=== PATIENT | male | born 1945 | race Caucasian/White ===

== ENCOUNTER 2019-06-17 15:27 | Outpatient (CLI) | payer OTHER, SELFPAY ==
--- NOTE | 2019-06-17 15:34 | CT_ITS ---
WS: [id number] CT LUMBAR SPINE TECHNIQUE: Noncontrast CT of the lumbar spine with coronal and sagittal reformatted images. CLINICAL INFORMATION: LOW BACK PAIN COMPARISON: None. DLP: [address] scans at [facility] use at least one of these dose optimization techniques: automat ed exposure control; mA and/or kV adjustment per patient size (includes targeted exams where dose is matched to clinical indication); or iterative reconstruction. FINDINGS: Mild spondylitic changes. Hypertrophic changes thoracic spine. Mild lumbar curve. No acute compressio n. L1-L2: Normal. L2-L3: Mild annular bulging. Mild facet arthropathy with ligamentum flavum hypertrophy. Mild central canal stenosis. Foramen are patent. L3-L4: Mild annular bulging with slight effacement of ventral thecal sac. Mild central canal stenosis . Mild left foraminal narrowing. Narrowing of the left subarticular recess. Slight impingement fidelia sing left L4 nerve root. Mild facet arthropathy. L4-L5: Mild disc bulging with a central disc protrusion. This results in moderate to severe central c anal stenosis with impingement subarticular recess bilaterally. Moderate right and mild left foramina l narrowing. Moderate facet arthropathy. L5-S1: Mild annular bulging. Moderate facet arthropathy with ligament flavum hypertrophy. Mild left a nd no significant right foraminal narrowing. Left renal cyst measuring 4.7cm. Numerous partially visualized markedly enlarged periaortic and retr operitoneal lymph nodes with conglomerate masslike lymphadenopathy measuring up to 5 cm suspicious fo r active recurrent lymphoma. Recommend oncology evaluation and further evaluation with chest abdomen pelvis CT. Adenopathy appears progressed since 2007 CT/CT lumbar spine wo con* [id number] IMPRESSION: 1. Markedly enlarged partially visualized masslike periaortic and retroperiton eal lymphadenopathy suspicious for active recurrent lymphoma. Masslike lymphade nopathy measures up to 5 cm and appears progressed since 2007. Recommend oncolo gy evaluation and further evaluation with CT chest abdomen and pelvis. This is only partially visualized. 2. Central disc protrusion with moderate to severe central canal stenosis L4-5 . Impingement subarticular recess bilaterally. 3. Mild central canal stenosis L2-3 and L3-4 with impingement on the left L3-4 subarticular recess. 4. Mild to moderate bony foraminal narrowing more prominent at left L3-4, and right L4-5. 5. Moderate facet arthropathy L3-L5.
== END 2019-06-17 15:28 | disposition home or self-care (01) ==
LOC: RADWPI 15:30
PROVIDERS: Family Provider Family Medicine; PCP Family Medicine; Visit Provider Nurse Practitioner
DX: M51.26 Other intervertebral disc displacement, lumbar region (principal); M48.061 Spinal stenosis, lumbar region without neurogenic claudication; M54.5 Low back pain; R59.0 Localized enlarged lymph nodes
CPT/HCPCS: 72131

== ENCOUNTER 2019-09-14 13:40 | Outpatient (CLI) | payer OTHER, SELFPAY ==
--- NOTE | 2019-09-17 13:11 | ONC CON_ITS ---
Dr. Leonardo New Patient Note Patient: Johnathan Montes De Oca Unit #: [id number]: 1945 Dicatated By: Emily Leonardo M.D.Date of Visit: Sep 14, 2019 Onc MED New Patient/Consult Referring Physician: Mayra Garcia A.P.N. History of Present Illness: Mr. 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 At that lymphocytosis reached about 20,000 but subsequently decreased spontaneously. And CT scan of chest abdomen pelvis done at that time shows mild lymph nodes above and below diaphragm but they were too small to biopsy. As per patient he was followed by his PMD and oncologist and [facility], and on 11/07/2015 he underwent bone marrow biopsy which was nondiagnostic for B-cell lymphoma, flow cytometry done on 11/07/2015 showed no clonal process. And also diagnosed with hepatic cirrhosis and splenomegaly Patient said he didn't have any specific issues until recently started having back pain for which he was referred to Dr. Leyva, and pain clinic who ordered CT scan of chest abdomen pelvis on 08/09/2019 which was compared with CT scan from 11/06/2016, October 2015 and April 2015. And it showed stable appearance of mediastinal and hilar and axillary lymph nodes Mild emphysema. Interval development of bulky retroperitoneal and mesenteric lymphadenopathy, measuring about 4.3 cm, suspicious for primary cindy malignancy versus metastatic disease versus reactive. Extensive diverticulosis of descending and sigmoid colon. Cirrhosis, ascites, splenomegaly. Degenerative changes of spine, no fracture On 08/10/2019, Patient went to see [place] medical oncologist Dr. Chato Beasley in [place] and as per his recommendations, patient has history of low-grade lymphoma and it was not clear whether symptoms are attributed to adenopathy/low-grade lymphoma or other process, cirrhosis. He recommended CT PET scan and biopsy lymph node and also would consider bone marrow biopsy. As far as mild neutropenia was concerned it was probably due to cirrhosis/portal hypertension and recommended to continue with it communications specialist. Patient denies any night sweats, denies any fever or weight loss. Denies any lower extremity numbness or weakness denies any urine or stool incontinence.No melena hematochezia, no nosebleed, no jaundice. But abdominal fullness due to ascites Past Medical History: Mr. Carrillos medical history consists of bipolar disorder, bph, chronic obstructive pulmonary disease, depression, generalized anxiety disorder, gout, hyperlipidemia, hypertension, ptsd, and sleep apnea. Past Surgical History: Mr. Mak surgical/procedural history consists of cataract excision. Medications: Ativan 1 Tablet (of 2 mg) Oral b.i.d., Cetirizine HCl 1 Tablet (of 10 mg) Oral daily, Flonase 1 (50 mcg/act) Suspension Nasal PRN, Gabapentin 1 Capsule (of 100 mg) Oral t.i.d., hydroCHLOROthiazide 1 Tablet (of 25 mg) Oral daily, Ibuprofen 1 Tablet (of 800 mg) Oral t.i.d., Omeprazole 1 Capsule (of 20 mg) Capsule Delayed Release Oral daily, ProAir HFA 1 Inhalation (of 108 (90 base) mcg/act) Aerosol, solution Inhalation PRN, Tamsulosin HCl 1 Capsule (of 0.4 mg) Oral daily, Vitamin D3 1 Capsule (of 5000 Units) Oral daily PRN Allergies: Cortisone Acetate, darvon, and quiNINE Sulfate. Social History: Mr. Montes De Oca is and he is retired. Mr. Montes De Oca quit smoking 17 years ago but had smoked for 44 years. He drinks occasionally. Mr. Montes De Oca reports the following support systems: lives with spouse, significant other, family, or friends, supportive family/friends willing to assist with needs, and adequate transportation available for expected visits. His diet consists of regular meals. He indicates his activity level as: regular exercise. Family History: Mr. Montes De Oca's mother at age 78: type II diabetes. Mr. Montes De Oca's father at age 84: lung cancer. Mr. Montes De Oca has 1 sister who is : cancer of unknown primary. Review Of Symptoms: Constitutional - Appetite is poor and weight is stable. No fever, chills, hot flashes, or night sweats. Energy level is poor, ENMT - Positive for sinus congestion/drainage. No mouth sores. No sore throat or difficulty swallowing, Hematologic/Lymphatic - Positive for easy bruising or bleeding, Respiratory - Positive for shortness of breath and cough, Cardiovascular - No angina pain. No palpitations, Gastrointestinal - No nausea or vomiting. No heartburn or acid reflux. Flucuates between diarrhea and constipation. No blood in the stool or black stools, Genitourinary (M) - No dysuria or hematuria. Positive for urinary frequency. No urgency or incontinence, Musculoskeletal - Positive for joint pain, Neurologic - No headache or dizziness. No numbness/paresthesias or other focal neurologic symptoms, Psychiatric - Positive for anxiety. Vital Signs: Performed on Sep 14, 2019 13:47: 6, 32.09 (HIGH), 2.29 sq.m, 72.00 in, 98 %, 80 /min, 18 /min, 136/70 mm(hg), 99.1 F (HIGH), and 236.6 lbs (HIGH). Performance Status: 0 - Fully active, able to carry on all predisease activities without restrictions. (ECOG) Physical Examination: ENMT - . No oral exudates, ulcers, masses, thrush or mucositis. Oropharynx clear. Tongue normal, Respiratory - Lungs are clear to auscultation, Cardiovascular - Regular rate and rhythm of heart, Abdomen - Good bowel sounds. No guarding or rebound tenderness. distended with [id number] ascites, Extremities - 2+ edema bilaterally.no peripheral lymphadenopathy observed Lab/Imaging: Most recent lab results are not available for this patient. Impression: History of low-grade, follicular lymphoma, CD 10 and CD19 positive diagnosed in 2004, recently done CT scan of chest abdomen pelvis, when compared with CT scan from October 2016 showed stable, small mediastinal lymphadenopathy, hilar and axillary lymphadenopathy. But progressive/bulky retroperitoneal and mesenteric lymphadenopathy increased from 2017, one of the largest measuring 4.3 cm chain. Degenerative changes of spine no fracture seen. Hepatic cirrhosis/splenomegaly/ascites Mild thrombocytopenia CBC done on 08/09/2002 shows white blood count 6.1 hemoglobin 14.9 crit 44.3 platelets 90,000 lymphocytes 47.9% neutrophil 38.2%. Chronic back pain, etiology unclear degenerative joint disease versus pressure due to retroperitoneal lymphadenopathy. Plan: Discussed with patient regarding his disease status and question concern. Patient said due to inconvenience he decided to transfer his care to [place] and wants further workup to be done here. Patient has no B symptoms. Mild peripheral lymphadenopathy and CT scan of chest abdomen pelvis done in July 2019 showed mild mediastinal lymphadenopathy but progressive retroperitoneal lymphadenopathy and he has seen medical oncologist Dr. Chato Beasley in [place] who recommended CT PET scan and lymph node biopsy as well as bone marrow evaluation. Patient is reluctant as far as bone marrow biopsy is concern because of his past experience. But agreed for CT PET scan and if needed lymph node biopsy. As for his back pain is concern, patient said is a chronic problem and not bothering much at this moment, In that case we will consider CT PET scan before his return to clinic in 2 months with CBC CMP and LDH unless patient has progressive back pain in that case we might people CT PET scan to assess retroperitoneal lymph node status. He will return to clinic in 2 months with CBC CMP LDH and CT PET scan and for further discussion. Patient was advised in case he has new B symptoms or any weight loss or progressive back pain then he need to call us early otherwise return to clinic as scheduled. Signed By: Emily Leonardo M.D. <<Signature on File>>
== END 2019-09-14 13:41 | disposition home or self-care (01) ==
LOC: ONCMED 13:45
PROVIDERS: Family Provider Family Medicine; PCP Nurse Practitioner; Referring Provider Nurse Practitioner; Visit Provider Internal Medicine Hematology & Oncology
DX: Z85.72 Personal history of non-Hodgkin lymphomas (principal); M54.9 Dorsalgia, unspecified; R59.0 Localized enlarged lymph nodes; Z87.891 Personal history of nicotine dependence
CPT/HCPCS: 99203

== ENCOUNTER 2019-09-20 10:01 | Outpatient (CLI) | payer OTHER, SELFPAY ==
--- NOTE | 2019-09-20 10:11 | US_ITS ---
WS: [id number] ULTRASOUND ABDOMEN LIMITED CLINICAL INFORMATION: LYMPHOMA COMPARISON: None. FINDINGS: Ultrasound done for paracentesis planning. Only a small amount of fluid visualized in the 4 abdominal quadrants. Inadequate fluid for paracentesis at this time. US/US abdomen limited [id number] IMPRESSION: Small amount of ascites visualized in the 4 abdominal quadrants.
[2019-09-20 10:35] VITALS: BMI 33.3
[2019-09-20 10:36] VITALS: BP 136/73; PULSE 74; RESP 18; TEMP 37.7; O2SAT 97
[2019-09-20 10:42] LABS: INR 1.16 (0.8-1.2)
--- NOTE | 2019-09-20 11:34 | PC.NURSE ---
PARACENTESIS NOT DONE. NOT ENOUGH FLUID IN ABD. MIGNON, US TALKED TO DR TYLER AND SAID PT DID NOT NEED PARACENTESIS. I CALLED DR TSANG OFFICE AND SPOKE WITH BRIDGETTE. I TOLD HER ABOUT HIS COUGH THAT HE SAID WAS ALLERGIES, AND PT HAS A SLIGHT TEMP. THEY ADVISED HIM TO GET CHECKED IN ER, BUT PT SAID HE DIDN'T THINK THAT WAS NEEDED.
== END 2019-09-20 10:02 | disposition home or self-care (01) ==
PROVIDERS: Internal Medicine Hematology & Oncology; Family Provider Family Medicine; PCP Nurse Practitioner; Visit Provider Internal Medicine Medical Oncology
DX: C85.90 Non-Hodgkin lymphoma, unspecified, unspecified site (principal); R18.8 Other ascites
CPT/HCPCS: 36415; 49083; 76705; 85610

== ENCOUNTER 2019-11-12 07:15 | Outpatient (CLI) | payer OTHER, SELFPAY ==
[2019-11-12 12:27] LABS: Basophils # 0.1 10^3/uL (0.0-0.1); Basophils % 1.4 %; Eosinophils # 0.3 10^3/uL (0.0-0.8); Eosinophils % 5.8 %; Hemoglobin 15.3 g/dL (11.7-16.6); Lymphocytes % 57.4 %; Mean Corpuscular HGB Conc 33.3 g/dL (30.0-36.0); Mean Corpuscular Hemoglobin 31.2 pg (28.0-34.0); Mean Corpuscular Volume 93.7 fL (80-94); Mean Platelet Volume 12.7 fL (7.4-10.4); Monocytes # 0.4 10^3/uL (0.2-0.9); Monocytes % 7.2 %; Neutrophils # 1.5 10^3/uL (1.8-7.7); Nucleated Red Blood Cells % 0 %; Platelet Count 72 10^3/cmm (130-400); Red Blood Count 4.91 10^6/uL (4.1-5.3); Red Cell Distribution Width 15.1 % (12.1-15.1); White Blood Count 5.2 10^3/uL (4.0-10.0)
[2019-11-12 12:47] LABS: Alanine Aminotransferase 32 U/L (0-41); Albumin Level 4.1 g/dL (3.5-5.2); Alkaline Phosphatase 85 IU/L (40-130); Anion Gap 17.6 (5-19); Aspartate Amino Transferase 51 U/L (0-40); Blood Urea Nitrogen 19 mg/dL (8-23); Calcium 10.2 mg/dL (8.5-10.5); Carbon Dioxide 26 mmol/L (22-29); Chloride 104 mmol/L (98-107); Globulin 3.1 g/dL (1.3-4.6); Glucose 76 mg/dL (65-115); Osmolality Calculated 293 mOsm/kg (285-295); Potassium 3.6 mmol/L (3.5-5.1); Sodium 144 mmol/L (136-145); Total Bilirubin 1.2 mg/dL (0.15-1.2); Total Protein 7.2 g/dL (6.6-8.7)
[2019-11-12 13:13] LABS: Lactate Dehydrogenase 307 U/L (135-225)
== END 2019-11-12 07:16 | disposition home or self-care (01) ==
PROVIDERS: PCP Nurse Practitioner; Visit Provider Internal Medicine Hematology & Oncology
DX: Z85.72 Personal history of non-Hodgkin lymphomas (principal)
CPT/HCPCS: 80053; 83615; 85025

== ENCOUNTER 2019-11-16 14:24 | Outpatient (CLI) | payer OTHER, SELFPAY ==
--- NOTE | 2019-11-16 15:50 | ONC FU_ITS ---
Dr. Leonardo follow up note Patient: Johnathan Montes De Oca Unit #: [id number]: 1945 Dicatated By: Emily Leonardo M.D.Date of Visit:Nov 16, 2019 Onc Med Follow-up/Prog Note History of Present Illness: Mr. 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 At that lymphocytosis reached about 20,000 but subsequently decreased spontaneously. And CT scan of chest abdomen pelvis done at that time shows mild lymph nodes above and below diaphragm but they were too small to biopsy. As per patient he was followed by his PMD and oncologist and [facility], and on 11/07/2015 he underwent bone marrow biopsy which was nondiagnostic for B-cell lymphoma, flow cytometry done on 11/07/2015 showed no clonal process. And also diagnosed with hepatic cirrhosis and splenomegaly Patient said he didn't have any specific issues until recently started having back pain for which he was referred to Dr. Leyva, and pain clinic who ordered CT scan of chest abdomen pelvis on 08/09/2019 which was compared with CT scan from 11/06/2016, October 2015 and April 2015. And it showed stable appearance of mediastinal and hilar and axillary lymph nodes Mild emphysema. Interval development of bulky retroperitoneal and mesenteric lymphadenopathy, measuring about 4.3 cm, suspicious for primary cindy malignancy versus metastatic disease versus reactive. Extensive diverticulosis of descending and sigmoid colon. Cirrhosis, ascites, splenomegaly. Degenerative changes of spine, no fracture On 08/10/2019, Patient went to see [place] medical oncologist Dr. Chato Beasley in [place] and as per his recommendations, patient has history of low-grade lymphoma and it was not clear whether symptoms are attributed to adenopathy/low-grade lymphoma or other process, cirrhosis. He recommended CT PET scan and biopsy lymph node and also would consider bone marrow biopsy. 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 Patient denies any night sweats, denies any fever or weight loss. Denies any lower extremity numbness or weakness denies any urine or stool incontinence.No melena hematochezia, no nosebleed, no jaundice. But abdominal fullness due to ascites Patient was referred to interventional radiology for ultrasound-guided paracentesis patient underwent sonogram on 09/20/2019 which showed some mild amount of ascites visualized in 4 abdominal quadrant, inadequate fluid for paracentesis at that time Patient underwent follow-up CT PET scan on 11/06/2019 which showed FDG positive lymphadenopathy from the level of head and neck to the level of pelvis. No evidence of splenic or marrow or extranodal involvement Came for follow-up, denies any specific complaints, back pain is resolved. Patient said he went to see Dr. Leyva, and pain clinic and he was given injection to his back since then no more back pain. And patient denies any abdominal fullness denies any night sweats denies any recurrent fever denies any weight loss, in fact, now has gained weight. Medications: Ativan 1 Tablet (of 2 mg) Oral b.i.d., Cetirizine HCl 1 Tablet (of 10 mg) Oral daily, Flonase 1 (50 mcg/act) Suspension Nasal PRN, Gabapentin 1 Capsule (of 100 mg) Oral t.i.d., hydroCHLOROthiazide 1 Tablet (of 25 mg) Oral daily, Ibuprofen 1 Tablet (of 800 mg) Oral t.i.d., Omeprazole 1 Capsule (of 20 mg) Capsule Delayed Release Oral daily, ProAir HFA 1 Inhalation (of 108 (90 base) mcg/act) Aerosol, solution Inhalation PRN, Tamsulosin HCl 1 Capsule (of 0.4 mg) Oral daily, Vitamin D3 1 Capsule (of 5000 Units) Oral daily PRN Allergies: Cortisone Acetate, darvon, and quiNINE Sulfate. Review of Systems: Constitutional - Appetite is poor and weight is stable. No fever, chills, hot flashes, or night sweats. Energy level is poor, ENMT - Positive for sinus congestion/drainage. No mouth sores. No sore throat or difficulty swallowing, Hematologic/Lymphatic - Positive for easy bruising or bleeding, Respiratory - Positive for shortness of breath and cough, Cardiovascular - No angina pain. No palpitations, Gastrointestinal - No nausea or vomiting. No heartburn or acid reflux. Flucuates between diarrhea and constipation. No blood in the stool or black stools, Genitourinary (M) - No dysuria or hematuria. Positive for urinary frequency. No urgency or incontinence, Musculoskeletal - Positive for joint pain, Neurologic - No headache or dizziness. No numbness/paresthesias or other focal neurologic symptoms, Psychiatric - Positive for anxiety. Vital Signs: Performed on Nov 16, 2019 14:39 Height - 72.00 in Weight - 225.6 lbs (LOW) BSA - 2.24 sq.m BMI - 30.60 (HIGH) Temperature - 99.3 F (HIGH) Pulse - 82 /min Respiration - 26 /min BP - 130/65 mm(hg) O2 Sat - 96 % Pain - 0 Performance Status: 0 - Fully active, able to carry on all predisease activities without restrictions. (ECOG) Physical Examination: ENMT - no mouth sores, no thrush, no jaundice,no peripheral lymphadenopathy, Respiratory - Lungs are clear, Cardiovascular - Regular rate and rhythm of heart, Abdomen - soft, bowel sounds present,nontender, Extremities - trace edema bilaterally Lab/Imaging: Test performed on November 12, 2019 07:15 LDH (Total) 307 U/L Sodium 144 mmol/L Potassium 3.6 mmol/L Chloride 104 mmol/L CO2 26 mmol/L Anion Gap 17.6 BUN 19 mg/dL Creatinine 1.0 mg/dL Cr Clearance (Est) 98.3800 mL/min Glucose 76 mg/dL Calcium 10.2 mg/dL Protein, Total 7.2 g/dL Albumin 4.1 g/dL Globulin 3.1 g/dL Bilirubin, Total 1.2 mg/dL ALT (SGPT) 32 U/L AST (SGOT) 51 U/L Alkaline Phosphatase 85 IU/L WBC 5.2 10 3/uL RBC 4.91 10 6/uL HGB 15.3 g/dL HCT 46.0 % MCV 93.7 fL MCH 31.2 pg MCHC 33.3 g/dL RDW 15.1 % Platelet Count 72 10 3/cmm MPV 12.7 fL Neutrophils 1.5 10 3/uL Lymphocytes 3.0 10 3/uL Monocytes 0.4 10 3/uL Eosinophils 0.3 10 3/uL Basophils 0.1 10 3/uL Neutrophil % 28.0 % Lymphocyte % 57.4 % Monocyte % 7.2 % Eosinophil % 5.8 % Basophils % 1.4 % Test performed on Sep 20, 2019 10:25 PT 15.20 SECONDS INR 1.16 Impression: History of low-grade, follicular lymphoma, CD 10 and CD19 positive diagnosed in 2004, recently done CT scan of chest abdomen pelvis, when compared with CT scan from October 2016 showed stable, small mediastinal lymphadenopathy, hilar and axillary lymphadenopathy. But progressive/bulky retroperitoneal and mesenteric lymphadenopathy increased from 2017, one of the largest measuring 4.3 cm chain. Degenerative changes of spine no fracture seen. Hepatic cirrhosis/splenomegaly/ascites Mild thrombocytopenia CBC done on 08/09/2002 shows white blood count 6.1 hemoglobin 14.9 crit 44.3 platelets 90,000 lymphocytes 47.9% neutrophil 38.2%. Chronic back pain, etiology unclear degenerative joint disease versus pressure due to retroperitoneal lymphadenopathy. Plan: Discussed with patient regarding his labs white blood count 5.2 hemoglobin 15.3 crit 46 platelets 7 2000 CMP within normal limits except AST [address] PET scan shows central lymphadenopathy but no organomegaly or bone marrow involvement Clinically, patient is doing well, now back pain has resolved, being followed in pain clinic. No B symptoms. His follow-up CT PET scan shows persistent mild to moderate central lymphadenopathy with no organomegaly or bone marrow involvement. Plus lab shows normal CBC except thrombocytopenia and LDH is elevated, discussed with patient regarding bone marrow evaluation, patient declined at this point rather prefer observation, patient said, he was diagnosed with this condition 2004 since then he has been doing well, so per for observation at this point. He will return to clinic in 3 months with CBC CMP and LDH, if there is progressive thrombocytopenia or LDH continued to go up or stay up, will discuss about bone marrow evaluation again and on return to clinic we will schedule him for CT scan of chest abdomen pelvis for follow-up. Signed By: Emily Leonardo M.D. <<Signature on File>>
== END 2019-11-16 14:25 | disposition home or self-care (01) ==
LOC: ONCMED 14:27
PROVIDERS: PCP Nurse Practitioner; Visit Provider Internal Medicine Hematology & Oncology
DX: Z08 Encounter for follow-up examination after completed treatment for malignant neoplasm (principal); Z85.72 Personal history of non-Hodgkin lymphomas; N40.0 Benign prostatic hyperplasia without lower urinary tract symptoms; J44.9 Chronic obstructive pulmonary disease, unspecified; F32.9 Major depressive disorder, single episode, unspecified; F41.9 Anxiety disorder, unspecified; E78.5 Hyperlipidemia, unspecified; I10 Essential (primary) hypertension; G47.33 Obstructive sleep apnea (adult) (pediatric); F43.10 Post-traumatic stress disorder, unspecified; M10.9 Gout, unspecified; F31.9 Bipolar disorder, unspecified; Z79.899 Other long term (current) drug therapy
CPT/HCPCS: G0463

== ENCOUNTER → 2020-01-13 14:31 | Outpatient (BNVA) | payer OTHER, SELFPAY | PROVIDERS: PCP Nurse Practitioner; Referring Provider Nurse Practitioner; Visit Provider Dermatology | DX: D48.9 Neoplasm of uncertain behavior, unspecified (principal); L57.0 Actinic keratosis | CPT/HCPCS: 11102; 17004; 88304; 88305; 99203; 99204 ==

== ENCOUNTER 2020-02-05 18:30 | Emergency (ER) | payer OTHER, MEDICARE, SELFPAY ==
[2020-02-05 18:45] VITALS: BP 157/76; PULSE 89; RESP 22; TEMP 38; O2SAT 95; BMI 37.7
--- NOTE | 2020-02-05 18:50 | CTR_ITS ---
PROCEDURE INFORMATION: Exam: CT Neck With Contrast Exam date and time: 02/05/2020 8:34 PM Age: 74 years old Clinical indication: Dysphagia / difficulty swallowing; Patient HX: C/O sore throat and difficulty swallowing x 4 days; Additional info: Throat pain TECHNIQUE: Imaging protocol: Computed tomography images of the neck with intravenous contrast. Radiation optimization: All CT scans at this facility use at least one of these dose optimization techniques: automated exposure control; mA and/or kV adjustment per patient size (includes targeted exams where dose is matched to clinical indication); or iterative reconstruction. Contrast material: OMNI 300; Contrast volume: 95 ml; Contrast route: INTRAVENOUS (IV); COMPARISON: No relevant prior studies available. RADIATION DOSE METRICS: Total DLP (mGy-cm): 828.56 FINDINGS: Nasopharynx: Unremarkable. Oropharynx: There is a heterogeneous, heterogeneously enhancing mass lesion extending from the posterior left aspect of the tongue base to the adjacent oropharyngeal mucosa measuring 3.1 x 2.6 cm in AP/transverse dimensions. This mass effaces the oropharynx and obscures the left lingual tonsils. Hypopharynx: Unremarkable. Larynx: Unremarkable. Normal epiglottis. Retropharyngeal space: Unremarkable. Submandibular/Parotid glands: Normal. Glands are normal in size. Thyroid: Left thyroid lobe is partially obscured by artifact however is heterogeneous. Lymph nodes: There are enlarged and or rounded level 3 through level 7 lymph nodes on the left. There is a 3.3 x 2.0 cm in large lymph node lateral to the left thyroid lobe. Trachea: Visualized trachea is unremarkable. Lungs: There are centrilobular emphysematous changes in the bilateral lungs. Bones/joints: There degenerative changes in the visualized spine. Soft tissues: Unremarkable. No significant soft tissue swelling. CT/CT neck w con* [id number] IMPRESSION: There is a heterogeneous mass lesion along the left tongue base. This lesion is amenable to direct inspection. Radiation Dose CTDIVOL = (mGy): DLP = 828.56 (mGy-cm)
--- NOTE | 2020-02-05 18:56 | ED_ITS ---
HPI - General Adult General: Chief complaint: Upper Respiratory Infection Stated complaint: sore throat Time Seen by Provider: 02/05/20 18:46 Source: patient Mode of arrival: ambulatory Limitations: no limitations History of Present Illness: HPI narrative: Mr. Montes De Oca is a nice 74-year-old male comes in complaining of a sore throat. He states the symptoms been present for at least 4 days. He denies any fevers or chills. He states this started off as a sinus infection that moved down and postnasal drip and is now in the back of his throat. He says he can swallow but it hurts to do so. He has a feel as though he is had a difficult time talking. He can no longer keep his upper dentures and though secondary to the pain. He otherwise denies any complaints. Associated symptoms: Deny chest pain, dyspnea, headache(s), nausea, rash, palpitations, syncope or vomiting Review of Systems Const: Denies: fever(s) Eyes: Denies: change in vision or blurry vision ENMT: Reports: throat pain Card: Denies: chest pain, palpitations, syncope, pre-syncope or dyspnea on exertion Resp: Denies: dyspnea, productive cough or non-productive cough GI: Denies: abdominal pain, nausea, vomiting or diarrhea : Denies: flank pain, dysuria, urinary frequency or urinary urgency Musc: Denies: neck pain, back pain or extremity pain Skin/Breast: Denies: rash or pruritus Neuro: Denies: headache(s), numbness in extremities, weakness in extremities or dizziness [facility] ED PFSH: Medical History (Updated 02/05/20 @ 23:09 by Lubna Manning) Hypertension Lymphoma PTSD (post-traumatic stress disorder) Surgical History (Updated 02/05/20 @ 19:28 by Lubna Manning) History of vasectomy Family History Sister Diabetes Sister Diabetes Mother Diabetes Social History Smoking and tobacco status: never smoked Alcohol intake: never Physical Exam Const: COMMON NORMALS: no acute distress, patient oriented x3, no limitations, healthy appearing and well nourished GENERAL APPEARANCE: cooperative, well kempt and well developed HENMT: COMMON NORMALS: normocephalic, atraumatic, external ears normal, EAC's normal and Normal external nose present HEAD & SCALP: normal to inspection, normocephalic and atraumatic FACE & SINUS: normal facial exam and face symmetric NOSE: Normal external nose present and Normal nares present EXTERNAL EAR: Yes external ears normal EXTERNAL AUDITORY CANAL: EAC's normal MOUTH: lip normal and tongue normal Eye: COMMON NORMALS: Equal, round and reactive pupils present and conjunctivae normal GENERAL EYE: appearance normal, both eyes and all related structures ALIGNMENT: Yes alignment normal PERIORBITAL: periorbital findings normal EYELID: eyelids normal CONJUNCTIVA: Yes conjunctivae normal SCLERA: sclerae normal PUPIL: Yes Equal, round and reactive pupils present Neck/C-Spine: COMMON NORMALS: full ROM, no lymphadenopathy, supple, no meningeal signs and no JVD GENERAL: Yes normal visual inspection and Yes trachea midline Chest: COMMONS NORMALS: normal inspection of the chest and normal palpation of entire chest wall Resp: COMMON NORMALS: normal respiratory effort, No retractions, No use of accessory muscles and clear to auscultation bilaterally EFFORT & INSPECTION: Yes able to speak in complete sentences and Yes symmetric chest movement AUSCULTATION: clear to auscultation bilaterally, no crackles, no rales, no rhonchi and no wheezes Cardio: COMMON NORMALS: no JVD, regular rate, regular rhythm, S1 normal heart sound present and S2 normal heart sound present RATE: regular rate RHYTHM: regular rhythm HEART SOUNDS: S1 normal heart sound present, S2 normal heart sound present, no click, no gallops, no murmurs, no rubs and abnormal split S2 GI: COMMON NORMALS: Soft to palpation and No hepatosplenomegaly present PALPATION: Yes Soft to palpation, No Tenderness to palpation present (GI), No Guarding due to palpation present (GI), No Rigid due to palpation, Yes No hepatosplenomegaly present, No Hernia present, No Palpable mass present and No Pulsatile mass present : COMMON NORMALS: Yes no CVA tenderness BLADDER/KIDNEY EXAM: Yes no CVA tenderness Back/Pelvis: COMMON NORMALS: no CVA tenderness, thoracic and lumbar spine normal to inspection, no thoracic nor lumbar tenderness and thoraco-lumbar ROM normal Extremity: COMMON NORMALS: normal to inspection, full ROM, capillary refill normal, no joint enlargement, no clubbing, cyanosis or edema and no calf tende rness Neuro: COMMON NORMALS: patient oriented x3, CN's II-XII intact bilaterally, moves all extremities, no focal motor deficits and no sensory deficits noted MENINGEAL SIGNS: Yes no meningeal signs SPEECH: speech normal Psych: COMMON NORMALS: mental status grossly normal, Normal thought process present, cooperative, normal affect, speech normal and activity/motor behavior normal APPEARANCE: Yes well kempt SPEECH: Yes normal speech THOUGHT PROCESS: Normal thought process present Skin: COMMON NORMALS: no rashes or lesions noted, turgor normal, no jaundice, no petechiae and no mottling GENERAL SKIN EXAM: no rashes or lesions noted and turgor normal Course Vital Signs: Vital signs: Vital Signs Temperature 100.4 F H 02/05/20 18:45 Pulse Rate 66 02/05/20 22:23 Respiratory Rate 18 02/05/20 22:23 Blood Pressure 142/75 02/05/20 22:23 Pulse Oximetry 93 02/05/20 22:23 MDM - General Adult MDM Narrative: Medical decision making narrative: Johnathan is a nice 74-year-old male comes in with 4-day history of progressive throat pain. CT appears to show a mass. It does not look classically like a rim-enhancing lesion such as an abscess. The concerning thing is the rapid onset of this coming up in just 4 days. I reviewed the case with Dr. Sanchez at [facility] and he agrees this patient is going to need a CAR[employer] CUTTER HELPER drained or the lesion biopsied. He agrees to consult and the patient is accepted to [facility] by Dr. Lee. At this time the patient is clinically stable, he is protecting his airway and handling all his own secretions. Lab Data: Attestation: I reviewed the patient's lab results. Labs: Lab Results 02/05/20 02/05/20 02/05/20 Range/Units 19:40 19:40 19:46 WBC 7.2 (4.0-10.0) 10^3/ uL RBC 4.79 (4.1-5.3) 10^6/u L Hgb 14.7 (11.7-16.6) g/dL Hct 44.0 (42.0-52.0) % MCV 91.9 (80-94) fL MCH 30.7 (28.0-34.0) pg MCHC 33.4 (30.0-36.0) g/dL RDW 14.5 (12.1-15.1) % Plt Count 81 L (130-400) 10^3/c mm MPV 12.0 H (7.4-10.4) fL Neut % (Auto) 50.3 % Lymph % (Auto) 35.4 % [place] % (Auto) 9.2 % Eos % (Auto) 3.6 % Baso % (Auto) 1.4 % Neut # (Auto) 3.60 (1.8-7.7) 10^3/u L Lymph # (Auto) 2.5 (0.8-4.8) 10^3/u L [place] # (Auto) 0.7 (0.2-0.9) 10^3/u L Eos # (Auto) 0.3 (0.0-0.8) 10^3/u L Baso # (Auto) 0.1 (0.0-0.1) 10^3/u L Nucleated RBC % (a uto) 0 % Nucleated RBCs # 0.0 /100WBC Sodium (136-145) mmol/L Potassium (3.5-5.1) mmol/L Chloride (98-107) mmol/L Carbon Dioxide (22-29) mmol/L Anion Gap (5-19) BUN (8-23) mg/dL Creatinine (0.7-1.2) mg/dL GFR Calculation Glucose (65-115) mg/dL Calculated Osmolal ity (285-295) mOsm/k g Calcium (8.5-10.5) mg/dL Total Bilirubin (0.15-1.2) mg/dL AST (0-40) U/L ALT (0-41) U/L Alkaline Phosphata se (40-130) IU/L Total Protein (6.6-8.7) g/dL Albumin (3.5-5.2) g/dL Globulin (1.3-4.6) g/dL SARS-CoV-2 Ag (Rap id) Negative (Negative) Group A Strep Rapi d Negative (Negative) 02/05/20 Range/Units 19:46 WBC (4.0-10.0) 10^3/ uL RBC (4.1-5.3) 10^6/u L Hgb (11.7-16.6) g/dL Hct (42.0-52.0) % MCV (80-94) fL MCH (28.0-34.0) pg MCHC (30.0-36.0) g/dL RDW (12.1-15.1) % Plt Count (130-400) 10^3/c mm MPV (7.4-10.4) fL Neut % (Auto) % Lymph % (Auto) % [place] % (Auto) % Eos % (Auto) % Baso % (Auto) % Neut # (Auto) (1.8-7.7) 10^3/u L Lymph # (Auto) (0.8-4.8) 10^3/u L [place] # (Auto) (0.2-0.9) 10^3/u L Eos # (Auto) (0.0-0.8) 10^3/u L Baso # (Auto) (0.0-0.1) 10^3/u L Nucleated RBC % (a uto) % Nucleated RBCs # /100WBC Sodium 140 (136-145) mmol/L Potassium 4.0 (3.5-5.1) mmol/L Chloride 107 (98-107) mmol/L Carbon Dioxide 22 (22-29) mmol/L Anion Gap 15.0 (5-19) BUN 19 (8-23) mg/dL Creatinine 0.9 (0.7-1.2) mg/dL GFR Calculation Not Reportable Glucose 99 (65-115) mg/dL Calculated Osmolal ity 287 (285-295) mOsm/k g Calcium 9.0 (8.5-10.5) mg/dL Total Bilirubin 1.8 H (0.15-1.2) mg/dL AST 39 (0-40) U/L ALT 25 (0-41) U/L Alkaline Phosphata se 89 (40-130) IU/L Total Protein 7.1 (6.6-8.7) g/dL Albumin 4.1 (3.5-5.2) g/dL Globulin 3.0 (1.3-4.6) g/dL SARS-CoV-2 Ag (Rap id) (Negative) Group A Strep Rapi d (Negative) Imaging Data^: CTA Neck: Radiologist's impression: [facility] [address] [place] [address] CT Scan Report Signed Patient: Johnathan Montes De Oca Unit #: [id number] : 1945 Age/Sex: 74 / M ADM Date: 02/05/20 Loc: ER Room/Bed: Attending Dr: Ordering Provider/Ordering MD: Lubna Manning DO Date of Service: 02/05/20 Procedure(s): CT neck w con* [id number] Accession Number(s): [id number] Report Number: [id number] PROCEDURE INFORMATION: Exam: CT Neck With Contrast Exam date and time: 02/05/2020 8:34 PM Age: 74 years old Clinical indication: Dysphagia / difficulty swallowing; Patient HX: C/O sore throat and difficulty swallowing x 4 days; Additional info: Throat pain TECHNIQUE: Imaging protocol: Computed tomography images of the neck with intravenous contrast. Radiation optimization: All CT scans at this facility use at least one of these dose optimization techniques: automated exposure control; mA and/or kV adjustment per patient size (includes targeted exams where dose is matched to clinical indication); or iterative reconstruction. Contrast material: OMNI 300; Contrast volume: 95 ml; Contrast route: INTRAVENOUS (IV); COMPARISON: No relevant prior studies available. RADIATION DOSE METRICS: Total DLP (mGy-cm): 828.56 FINDINGS: Nasopharynx: Unremarkable. Oropharynx: There is a heterogeneous, heterogeneously enhancing mass lesion extending from the posterior left aspect of the tongue base to the adjacent oropharyngeal mucosa measuring 3.1 x 2.6 cm in AP/transverse dimensions. This mass effaces the oropharynx and obscures the left lingual tonsils. Hypopharynx: Unremarkable. Larynx: Unremarkable. Normal epiglottis. Retropharyngeal space: Unremarkable. Submandibular/Parotid glands: Normal. Glands are normal in size. Thyroid: Left thyroid lobe is partially obscured by artifact however is heterogeneous. Lymph nodes: There are enlarged and or rounded level 3 through level 7 lymph nodes on the left. There is a 3.3 x 2.0 cm in large lymph node lateral to the left thyroid lobe. Trachea: Visualized trachea is unremarkable. Lungs: There are centrilobular emphysematous changes in the bilateral lungs. Bones/joints: There degenerative changes in the visualized spine. Soft tissues: Unremarkable. No significant soft tissue swelling. CT/CT neck w con* [id number] IMPRESSION: There is a heterogeneous mass lesion along the left tongue base. This lesion is amenable to direct inspection. Radiation Dose CTDIVOL = (mGy): DLP = 828.56 (mGy-cm) Dictated By: Bia Sam MD Signed By: Bia Sam MD Signed Date/Time: 02/05/202101 DD/ 00 Discharge Plan Discharge Patient Disposition: Xfer Short-Term Hosp Clinical Impression: Mass of oropharynx Pharyngitis Qualifiers: Pharyngitis/tonsillitis etiology: other specified organisms Qualified Code(s): J02.8 - Acute pharyngitis due to other specified organisms Condition: Stable Referrals: Mayra Garcia FNP [Primary Care Provider] - Coding Level of Care Code ED Manager Chemical for Chg Fwd Exam Comprehensive
[2020-02-05] MEDS: piperacillin-tazobactam 3.375 GM in sodium chloride 0.9% (plus) 50 ML IV (19:56)
[2020-02-05] MEDS: sodium chloride 0.9% 1,000 ML 100 ML IV (19:56)
[2020-02-05] MEDS: sodium chloride 0.9% 1,000 ML 999 ML IV (19:56)
[2020-02-05 19:57] LABS: Basophils # 0.1 10^3/uL (0.0-0.1); Basophils % 1.4 %; Eosinophils # 0.3 10^3/uL (0.0-0.8); Eosinophils % 3.6 %; Hemoglobin 14.7 g/dL (11.7-16.6); Lymphocytes # 2.5 10^3/uL (0.8-4.8); Lymphocytes % 35.4 %; Mean Corpuscular HGB Conc 33.4 g/dL (30.0-36.0); Mean Corpuscular Hemoglobin 30.7 pg (28.0-34.0); Mean Corpuscular Volume 91.9 fL (80-94); Monocytes # 0.7 10^3/uL (0.2-0.9); Monocytes % 9.2 %; Neutrophils % 50.3 %; Nucleated Red Blood Cells % 0 %; Platelet Count 81 10^3/cmm (130-400); Red Blood Count 4.79 10^6/uL (4.1-5.3); Red Cell Distribution Width 14.5 % (12.1-15.1); White Blood Count 7.2 10^3/uL (4.0-10.0)
[2020-02-05 20:13] LABS: Rapid Strep A Test Negative (Negative)
[2020-02-05 20:18] LABS: SARS Covid-2 Antigen Negative (Negative)
[2020-02-05 20:21] LABS: Alanine Aminotransferase 25 U/L (0-41); Albumin Level 4.1 g/dL (3.5-5.2); Alkaline Phosphatase 89 IU/L (40-130); Aspartate Amino Transferase 39 U/L (0-40); Blood Urea Nitrogen 19 mg/dL (8-23); Carbon Dioxide 22 mmol/L (22-29); Chloride 107 mmol/L (98-107); Glucose 99 mg/dL (65-115); Osmolality Calculated 287 mOsm/kg (285-295); Sodium 140 mmol/L (136-145); Total Bilirubin 1.8 mg/dL (0.15-1.2); Total Protein 7.1 g/dL (6.6-8.7)
[2020-02-05] MEDS: iohexol 300 mg/mL 100 mL Btl IV (20:42)
[2020-02-05] MEDS: clindamycin 900 MG/50 ML PREMIX 100 MG IV (22:19)
[2020-02-05 22:23] VITALS: BP 142/75; PULSE 66; RESP 18; O2SAT 93
[2020-02-06 02:39] VITALS: BP 137/80; PULSE 87; RESP 16; O2SAT 98
== END 2020-02-06 02:35 | disposition short-term general hospital (02) ==
PROVIDERS: Emergency Provider Emergency Medicine; PCP Nurse Practitioner
DX: J02.8 Acute pharyngitis due to other specified organisms (principal); J39.2 Other diseases of pharynx; I10 Essential (primary) hypertension; Z85.72 Personal history of non-Hodgkin lymphomas
CPT/HCPCS: 12345; 70491; 80053; 85025; 87081; 87426; 87880; 96360; 96361; 96365; 96367; 96375; 99283; 99285; J0131; J2543; J3490; J7030; Q9967

== ENCOUNTER → 2020-02-09 08:19 | Outpatient (BNVA) | payer OTHER, SELFPAY | PROVIDERS: PCP Nurse Practitioner; Visit Provider Dermatology | DX: L57.0 Actinic keratosis (principal); C44.629 Squamous cell carcinoma of skin of left upper limb, including shoulder; D48.9 Neoplasm of uncertain behavior, unspecified | CPT/HCPCS: 11622; 12042; 17000; 17003; 88304; 88305; 99213 ==

== ENCOUNTER 2020-02-15 09:48 | Outpatient (CLI) | payer OTHER, SELFPAY ==
[2020-02-15 10:40] LABS: Basophils # 0.1 10^3/uL (0.0-0.1); Basophils % 1.3 %; Eosinophils # 0.2 10^3/uL (0.0-0.8); Eosinophils % 5.8 %; Hematocrit 43.6 % (42.0-52.0); Hemoglobin 14.3 g/dL (11.7-16.6); Lymphocytes # 1.8 10^3/uL (0.8-4.8); Lymphocytes % 46.6 %; Mean Corpuscular HGB Conc 32.8 g/dL (30.0-36.0); Mean Corpuscular Hemoglobin 30.7 pg (28.0-34.0); Mean Corpuscular Volume 93.6 fL (80-94); Mean Platelet Volume 11.8 fL (7.4-10.4); Monocytes # 0.3 10^3/uL (0.2-0.9); Monocytes % 8.4 %; Neutrophils # 1.43 10^3/uL (1.8-7.7); Neutrophils % 37.6 %; Nucleated Red Blood Cells % 0 %; Platelet Count 89 10^3/cmm (130-400); Red Blood Count 4.66 10^6/uL (4.1-5.3); Red Cell Distribution Width 14.7 % (12.1-15.1); White Blood Count 3.8 10^3/uL (4.0-10.0)
[2020-02-15 10:52] LABS: Alanine Aminotransferase 46 U/L (0-41); Albumin Level 3.9 g/dL (3.5-5.2); Alkaline Phosphatase 85 IU/L (40-130); Aspartate Amino Transferase 66 U/L (0-40); Blood Urea Nitrogen 17 mg/dL (8-23); Calcium 8.9 mg/dL (8.5-10.5); Carbon Dioxide 24 mmol/L (22-29); Chloride 105 mmol/L (98-107); Globulin 2.7 g/dL (1.3-4.6); Glucose 100 mg/dL (65-115); Lactate Dehydrogenase 250 U/L (135-225); Osmolality Calculated 290 mOsm/kg (285-295); Sodium 142 mmol/L (136-145); Total Bilirubin 0.8 mg/dL (0.15-1.2); Total Protein 6.6 g/dL (6.6-8.7)
== END 2020-02-15 09:49 | disposition home or self-care (01) ==
LOC: ONCMED 09:49
PROVIDERS: PCP Nurse Practitioner; Visit Provider Internal Medicine Hematology & Oncology
DX: Z85.72 Personal history of non-Hodgkin lymphomas (principal)
CPT/HCPCS: 80053; 83615; 85025

== ENCOUNTER 2020-02-18 06:14 | Outpatient (CLI) | payer OTHER, SELFPAY ==
--- NOTE | 2020-02-18 10:52 | ONC FU_ITS ---
Dr. Leonardo follow up note Patient: Johnathan Montes De Oca Unit #: [id number]: 1945 Dicatated By: Emily Leonardo M.D.Date of Visit:Feb 18, 2020 Onc Med Follow-up/Prog Note History of Present Illness: Mr. 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 At that lymphocytosis reached about 20,000 but subsequently decreased spontaneously. And CT scan of chest abdomen pelvis done at that time shows mild lymph nodes above and below diaphragm but they were too small to biopsy. As per patient he was followed by his PMD and oncologist and , and on 11/07/2015 he underwent bone marrow biopsy which was nondiagnostic for B-cell lymphoma, flow cytometry done on 11/07/2015 showed no clonal process. And also diagnosed with hepatic cirrhosis and splenomegaly Patient said he didn't have any specific issues until recently started having back pain for which he was referred to Dr. Leyva, and pain clinic who ordered CT scan of chest abdomen pelvis on 08/09/2019 which was compared with CT scan from 11/06/2016, October 2015 and April 2015. And it showed stable appearance of mediastinal and hilar and axillary lymph nodes Mild emphysema. Interval development of bulky retroperitoneal and mesenteric lymphadenopathy, measuring about 4.3 cm, suspicious for primary cindy malignancy versus metastatic disease versus reactive. Extensive diverticulosis of descending and sigmoid colon. Cirrhosis, ascites, splenomegaly. Degenerative changes of spine, no fracture On 08/10/2019, Patient went to see [place] medical oncologist Dr. Chato Beasley in [place] and as per his recommendations, patient has history of low-grade lymphoma and it was not clear whether symptoms are attributed to adenopathy/low-grade lymphoma or other process, cirrhosis. He recommended CT PET scan and biopsy lymph node and also would consider bone marrow biopsy. As far as mild neutropenia was concerned it was probably due to cirrhosis/portal hypertension and recommended to continue with senior corporate accountant. Patient denies any night sweats, denies any fever or weight loss. Denies any lower extremity numbness or weakness denies any urine or stool incontinence.No melena hematochezia, no nosebleed, no jaundice. But abdominal fullness due to ascites Patient was referred to interventional radiology for ultrasound-guided paracentesis patient underwent sonogram on 09/20/2019 which showed some mild amount of ascites visualized in 4 abdominal quadrant, inadequate fluid for paracentesis at that time Patient underwent follow-up CT PET scan on 11/06/2019 which showed FDG positive lymphadenopathy from the level of head and neck to the level of pelvis. No evidence of splenic or marrow or extranodal involvement Came for follow-up, denies any specific complaint except on February 05, 2020 patient developed difficulty in swallowing and dysphagia and went to emergency room where he underwent CT scan of the neck which showed heterogeneous enhancing mass extending from posterior left aspect of tongue base to the adjacent oropharyngeal mucosa measuring 3.1 x 2.6 cm and also there was a enlarged level 3 and level 7 lymph nodes on the left, 3.3 x 2.0 cm size., Patient was transferred to [place] where he was diagnosed with oropharyngeal abscess he was drained and treated with IV antibiotic subsequently discharged home on oral antibiotic which he is about to finish. No more dysphagia no more pain, no night sweats, no recurrent fever, with some weight reduction due to dysphagia due to oropharyngeal abscess. No melena or hematochezia, no hemoptysis or hematemesis no hematuria or petechia or ecchymosis Medications: Amoxicillin Capsule Oral, Ativan 1 Tablet (of 2 mg) Oral b.i.d., Cetirizine HCl 1 Tablet (of 10 mg) Oral daily, Flonase 1 (50 mcg/act) Suspension Nasal PRN, hydroCHLOROthiazide 1 Tablet (of 25 mg) Oral daily, Ibuprofen 1 Tablet (of 800 mg) Oral t.i.d., Omeprazole 1 Capsule (of 20 mg) Capsule Delayed Release Oral daily, ProAir HFA 1 Inhalation (of 108 (90 base) mcg/act) Aerosol, solution Inhalation PRN, Tamsulosin HCl 1 Capsule (of 0.4 mg) Oral daily Allergies: Cortisone Acetate, darvon, and quiNINE Sulfate. Review of Systems: Constitutional - Appetite is slightly improved and weight is stable. No fever, chills, hot flashes, or night sweats. Energy level is fair today, ENMT - Positive for sinus congestion/drainage. No mouth sores. No sore throat or difficulty swallowing, Hematologic/Lymphatic - Positive for easy bruising or bleeding, Respiratory - Negative for shortness of breath and cough, Cardiovascular - No angina pain. No palpitations, Gastrointestinal - No nausea or vomiting. No heartburn or acid reflux. Flucuates between diarrhea and constipation. No blood in the stool or black stools, Genitourinary (M) - No dysuria or hematuria. Positive for urinary frequency. No urgency or incontinence, Musculoskeletal - Positive for joint pain, Neurologic - No headache or dizziness. No numbness/paresthesias or other focal neurologic symptoms, Psychiatric - Positive for anxiety. Vital Signs: Performed on Feb 18, 2020 10:10 Height - 72.00 in Weight - 229.6 lbs (HIGH) BSA - 2.26 sq.m BMI - 31.14 (HIGH) Temperature - 98.6 F Pulse - 67 /min Respiration - 16 /min BP - 143/74 mm(hg) (HIGH) O2 Sat - 98 % Pain - 0 Performance Status: 0 - Fully active, able to carry on all predisease activities without restrictions. (ECOG) Physical Examination: ENMT - No mouth sores, no thrush, oropharyngeal clear, left neck lymphadenopathy nontender, Respiratory - Lungs are clear, Cardiovascular - Regular rate and rhythm of heart, Abdomen - Soft, bowel sounds present, No organomegaly, Extremities - No visible edema. Lab/Imaging: Test performed on November 12, 2019 07:15 LDH (Total) 307 U/L Sodium 144 mmol/L Potassium 3.6 mmol/L Chloride 104 mmol/L CO2 26 mmol/L Anion Gap 17.6 BUN 19 mg/dL Creatinine 1.0 mg/dL Cr Clearance (Est) 98.3800 mL/min Glucose 76 mg/dL Calcium 10.2 mg/dL Protein, Total 7.2 g/dL Albumin 4.1 g/dL Globulin 3.1 g/dL Bilirubin, Total 1.2 mg/dL ALT (SGPT) 32 U/L AST (SGOT) 51 U/L Alkaline Phosphatase 85 IU/L WBC 5.2 10 3/uL RBC 4.91 10 6/uL HGB 15.3 g/dL HCT 46.0 % MCV 93.7 fL MCH 31.2 pg MCHC 33.3 g/dL RDW 15.1 % Platelet Count 72 10 3/cmm MPV 12.7 fL Neutrophils 1.5 10 3/uL Lymphocytes 3.0 10 3/uL Monocytes 0.4 10 3/uL Eosinophils 0.3 10 3/uL Basophils 0.1 10 3/uL Neutrophil % 28.0 % Lymphocyte % 57.4 % Monocyte % 7.2 % Eosinophil % 5.8 % Basophils % 1.4 % Test performed on Sep 20, 2019 10:25 PT 15.20 SECONDS INR 1.16 Impression: History of low-grade, follicular lymphoma, CD 10 and CD19 positive diagnosed in 2004, recently done CT scan of chest abdomen pelvis, when compared with CT scan from October 2016 showed stable, small mediastinal lymphadenopathy, hilar and axillary lymphadenopathy. But progressive/bulky retroperitoneal and mesenteric lymphadenopathy increased from 2017, one of the largest measuring 4.3 cm chain. Degenerative changes of spine no fracture seen. Hepatic cirrhosis/splenomegaly/ascites Mild thrombocytopenia CBC done on 08/09/2002 shows white blood count 6.1 hemoglobin 14.9 crit 44.3 platelets 90,000 lymphocytes 47.9% neutrophil 38.2%. Chronic back pain, etiology unclear degenerative joint disease versus pressure due to retroperitoneal lymphadenopathy. Plan: Discussed with patient regarding his labs white blood count 3.8 hemoglobin 14.3 hematocrit 43.6 platelets 89,000 CMP within normal limits, LDH 250 compared to 307 Clinically, patient is doing well with no B signs symptom suggestive of disease progression but he has persistent left neck lymph node seen on recently done CT scan of neck for oropharyngeal abscess which was treated successfully with IV antibiotic followed by oral antibiotics. But concern is is progressive leukopenia and stable moderate thrombocytopenia,Which could be due to recent severe infection requiring inpatient care or sign of disease progression, we will repeat his CBC and if it shows further drop in blood counts then will repeat CT scan of chest abdomen pelvis if that shows evidence of disease progression, will consider bone marrow evaluation to confirm it and also may consider biopsy of more prominent lymph node to rule out transformation into aggressive disease. Return to clinic in 1 month with CBC and LDH Signed By: Emily Leonardo M.D. <<Signature on File>>
== END 2020-02-18 06:15 | disposition home or self-care (01) ==
LOC: ONCMED 06:15
PROVIDERS: PCP Nurse Practitioner; Visit Provider Internal Medicine Hematology & Oncology
DX: Z85.72 Personal history of non-Hodgkin lymphomas (principal); D72.819 Decreased white blood cell count, unspecified; D69.6 Thrombocytopenia, unspecified; M54.9 Dorsalgia, unspecified; G89.29 Other chronic pain; K74.60 Unspecified cirrhosis of liver; R16.1 Splenomegaly, not elsewhere classified; R18.8 Other ascites
CPT/HCPCS: 99214

== ENCOUNTER → 2020-02-23 08:13 | Outpatient (BNVA) | payer OTHER, SELFPAY | PROVIDERS: PCP Nurse Practitioner; Visit Provider Dermatology | DX: Z48.02 Encounter for removal of sutures (principal) | CPT/HCPCS: 99024 ==

== ENCOUNTER 2020-03-20 08:19 | Outpatient (CLI) | payer OTHER, SELFPAY ==
[2020-03-20 09:11] LABS: Basophils # 0.1 10^3/uL (0.0-0.1); Basophils % 1.6 %; Eosinophils # 0.3 10^3/uL (0.0-0.8); Hematocrit 46.5 % (42.0-52.0); Hemoglobin 15.8 g/dL (11.7-16.6); Lymphocytes # 1.7 10^3/uL (0.8-4.8); Lymphocytes % 43.9 %; Mean Corpuscular Volume 91.4 fL (80-94); Mean Platelet Volume 12.8 fL (7.4-10.4); Monocytes # 0.3 10^3/uL (0.2-0.9); Monocytes % 8.5 %; Neutrophils % 38.7 %; Nucleated Red Blood Cells % 0 %; Platelet Count 71 10^3/cmm (130-400); Red Blood Count 5.09 10^6/uL (4.1-5.3); Red Cell Distribution Width 14.4 % (12.1-15.1); White Blood Count 3.9 10^3/uL (4.0-10.0)
[2020-03-20 09:30] LABS: Lactate Dehydrogenase 259 U/L (135-225)
== END 2020-03-20 08:20 | disposition home or self-care (01) ==
LOC: ONCMED 08:21
PROVIDERS: PCP Nurse Practitioner; Visit Provider Internal Medicine Hematology & Oncology
DX: Z85.72 Personal history of non-Hodgkin lymphomas (principal)
CPT/HCPCS: 36415; 83615; 85025

== ENCOUNTER 2020-03-21 05:51 | Outpatient (CLI) | payer OTHER, SELFPAY ==
--- NOTE | 2020-03-21 14:05 | ONC FU_ITS ---
Dr. Leonardo follow up note Patient: Johnathan Montes De Oca Unit #: [id number]: 1945 Dicatated By: Emily Leonardo M.D.Date of Visit:Mar 21, 2020 Onc Med Follow-up/Prog Note History of Present Illness: Mr. 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 At that lymphocytosis reached about 20,000 but subsequently decreased spontaneously. And CT scan of chest abdomen pelvis done at that time shows mild lymph nodes above and below diaphragm but they were too small to biopsy. As per patient he was followed by his PMD and oncologist and [facility], and on 11/07/2015 he underwent bone marrow biopsy which was nondiagnostic for B-cell lymphoma, flow cytometry done on 11/07/2015 showed no clonal process. And also diagnosed with hepatic cirrhosis and splenomegaly Patient said he didn't have any specific issues until recently started having back pain for which he was referred to Dr. Leyva, and pain clinic who ordered CT scan of chest abdomen pelvis on 08/09/2019 which was compared with CT scan from 11/06/2016, October 2015 and April 2015. And it showed stable appearance of mediastinal and hilar and axillary lymph nodes Mild emphysema. Interval development of bulky retroperitoneal and mesenteric lymphadenopathy, measuring about 4.3 cm, suspicious for primary cindy malignancy versus metastatic disease versus reactive. Extensive diverticulosis of descending and sigmoid colon. Cirrhosis, ascites, splenomegaly. Degenerative changes of spine, no fracture On 08/10/2019, Patient went to see [place] medical oncologist Dr. Chato Beasley in [place] and as per his recommendations, patient has history of low-grade lymphoma and it was not clear whether symptoms are attributed to adenopathy/low-grade lymphoma or other process, cirrhosis. He recommended CT PET scan and biopsy lymph node and also would consider bone marrow biopsy. 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 Patient denies any night sweats, denies any fever or weight loss. Denies any lower extremity numbness or weakness denies any urine or stool incontinence.No melena hematochezia, no nosebleed, no jaundice. But abdominal fullness due to ascites Patient was referred to interventional radiology for ultrasound-guided paracentesis patient underwent sonogram on 09/20/2019 which showed some mild amount of ascites visualized in 4 abdominal quadrant, inadequate fluid for paracentesis at that time Patient underwent follow-up CT PET scan on 11/06/2019 which showed FDG positive lymphadenopathy from the level of head and neck to the level of pelvis. No evidence of splenic or marrow or extranodal involvement on February 05, 2020 patient developed difficulty in swallowing and dysphagia and went to emergency room where he underwent CT scan of the neck which showed heterogeneous enhancing mass extending from posterior left aspect of tongue base to the adjacent oropharyngeal mucosa measuring 3.1 x 2.6 cm and also there was a enlarged level 3 and level 7 lymph nodes on the left, 3.3 x 2.0 cm size., Patient was transferred to [place] where he was diagnosed with oropharyngeal abscess he was drained and treated with IV antibiotic subsequently discharged home on oral antibiotic Came for follow-up, denies any specific complaints, no fever chills, no diarrhea constipation, no night sweats, no peripheral lymphadenopathy, no melena hematochezia no hematuria no hemoptysis hematemesis no nosebleed. No jaundice. No dysphagia. Medications: Ativan 1 Tablet (of 2 mg) Oral b.i.d., Cetirizine HCl 1 Tablet (of 10 mg) Oral daily, Flonase 1 (50 mcg/act) Suspension Nasal PRN, hydroCHLOROthiazide 1 Tablet (of 25 mg) Oral daily, Ibuprofen 1 Tablet (of 800 mg) Oral t.i.d., Omeprazole 1 Capsule (of 20 mg) Capsule Delayed Release Oral daily, ProAir HFA 1 Inhalation (of 108 (90 base) mcg/act) Aerosol, solution Inhalation PRN, Tamsulosin HCl 1 Capsule (of 0.4 mg) Oral daily Allergies: Cortisone Acetate, darvon, and quiNINE Sulfate. Review of Systems: Review of Systems is not available for this patient. Vital Signs: Performed on Mar 21, 2020 13:37 Height - 72.00 in Weight - 219.2 lbs (LOW) BSA - 2.22 sq.m BMI - 29.73 Temperature - 99.0 F (HIGH) Pulse - 65 /min Respiration - 26 /min BP - 139/66 mm(hg) O2 Sat - 97 % Pain - 0 Performance Status: 0 - Fully active, able to carry on all predisease activities without restrictions. (ECOG) Physical Examination: ENMT - No mouth sores, no thrush, noJaundice, Respiratory - Lungs are clear to auscultation, Cardiovascular - Regular rate and rhythm of heart, Abdomen - Soft, bowel sounds present, Extremities - No visible edema. Lab/Imaging: Test performed on November 12, 2019 07:15 LDH (Total) 307 U/L Sodium 144 mmol/L Potassium 3.6 mmol/L Chloride 104 mmol/L CO2 26 mmol/L Anion Gap 17.6 BUN 19 mg/dL Creatinine 1.0 mg/dL Cr Clearance (Est) 98.3800 mL/min Glucose 76 mg/dL Calcium 10.2 mg/dL Protein, Total 7.2 g/dL Albumin 4.1 g/dL Globulin 3.1 g/dL Bilirubin, Total 1.2 mg/dL ALT (SGPT) 32 U/L AST (SGOT) 51 U/L Alkaline Phosphatase 85 IU/L WBC 5.2 10 3/uL RBC 4.91 10 6/uL HGB 15.3 g/dL HCT 46.0 % MCV 93.7 fL MCH 31.2 pg MCHC 33.3 g/dL RDW 15.1 % Platelet Count 72 10 3/cmm MPV 12.7 fL Neutrophils 1.5 10 3/uL Lymphocytes 3.0 10 3/uL Monocytes 0.4 10 3/uL Eosinophils 0.3 10 3/uL Basophils 0.1 10 3/uL Neutrophil % 28.0 % Lymphocyte % 57.4 % Monocyte % 7.2 % Eosinophil % 5.8 % Basophils % 1.4 % Impression: History of low-grade, follicular lymphoma, CD 10 and CD19 positive diagnosed in 2004, recently done CT scan of chest abdomen pelvis, when compared with CT scan from October 2016 showed stable, small mediastinal lymphadenopathy, hilar and axillary lymphadenopathy. But progressive/bulky retroperitoneal and mesenteric lymphadenopathy increased from 2017, one of the largest measuring 4.3 cm chain. Degenerative changes of spine no fracture seen. Hepatic cirrhosis/splenomegaly/ascites Mild thrombocytopenia CBC done on 08/09/2002 shows white blood count 6.1 hemoglobin 14.9 crit 44.3 platelets 90,000 lymphocytes 47.9% neutrophil 38.2%. Chronic back pain, etiology unclear degenerative joint disease versus pressure due to retroperitoneal lymphadenopathy. Plan: Discussed with patient regarding his labs white blood count 3.9 hemoglobin 15.8 hematocrit 46.5 platelets 71,000 ANC 1500 LDH 259 Clinically, patient doing well with no new signs symptom suggestive of disease progression, no B symptoms. His follow-up CBC shows persistent but stable bicytopenia with a normal hemoglobin. 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 We will continue to monitor if there is a progression in his cytopenias then will consider bone marrow evaluation or if patient develops any B symptoms will consider CT scan of chest abdomen pelvis. Return to clinic in 2 months with CBC CMP. Signed By: Emily Leonardo M.D. <<Signature on File>>
== END 2020-03-21 05:52 | disposition home or self-care (01) ==
LOC: ONCMED 05:51
PROVIDERS: PCP Nurse Practitioner; Visit Provider Internal Medicine Hematology & Oncology
DX: Z85.72 Personal history of non-Hodgkin lymphomas (principal); D75.9 Disease of blood and blood-forming organs, unspecified; G89.29 Other chronic pain; M54.9 Dorsalgia, unspecified; K74.60 Unspecified cirrhosis of liver; R16.1 Splenomegaly, not elsewhere classified; R18.8 Other ascites
CPT/HCPCS: G0463

== ENCOUNTER 2020-05-23 08:58 | Outpatient (CLI) | payer OTHER, SELFPAY ==
[2020-05-23 09:54] LABS: Alanine Aminotransferase 33 U/L (0-41); Albumin Level 3.6 g/dL (3.5-5.2); Alkaline Phosphatase 88 IU/L (40-130); Anion Gap 13.7 (5-19); Aspartate Amino Transferase 55 U/L (0-40); Blood Urea Nitrogen 18 mg/dL (8-23); Calcium 9.2 mg/dL (8.5-10.5); Carbon Dioxide 25 mmol/L (22-29); Chloride 106 mmol/L (98-107); Globulin 2.5 g/dL (1.3-4.6); Glucose 107 mg/dL (65-115); Lactate Dehydrogenase 282 U/L (135-225); Osmolality Calculated 294 mOsm/kg (285-295); Potassium 3.7 mmol/L (3.5-5.1); Sodium 141 mmol/L (136-145); Total Protein 6.1 g/dL (6.6-8.7)
[2020-05-23 10:41] LABS: Basophils # 0.1 10^3/uL (0.0-0.1); Basophils % 1.5 %; Eosinophils # 0.2 10^3/uL (0.0-0.8); Eosinophils % 6.4 %; Hematocrit 40.5 % (42.0-52.0); Hemoglobin 13.6 g/dL (11.7-16.6); Lymphocytes # 1.5 10^3/uL (0.8-4.8); Lymphocytes % 44.5 %; Mean Corpuscular HGB Conc 33.6 g/dL (30.0-36.0); Mean Corpuscular Hemoglobin 30.1 pg (28.0-34.0); Mean Corpuscular Volume 89.6 fL (80-94); Mean Platelet Volume 11.6 fL (7.4-10.4); Monocytes # 0.3 10^3/uL (0.2-0.9); Monocytes % 10.1 %; Neutrophils # 1.22 10^3/uL (1.8-7.7); Neutrophils % 37.2 %; Nucleated Red Blood Cells % 0 %; Platelet Count 68 10^3/cmm (130-400); Red Blood Count 4.52 10^6/uL (4.1-5.3); Red Cell Distribution Width 14.3 % (12.1-15.1); White Blood Count 3.3 10^3/uL (4.0-10.0)
== END 2020-05-23 08:59 | disposition home or self-care (01) ==
LOC: ONCMED 09:08
PROVIDERS: PCP Nurse Practitioner; Visit Provider Internal Medicine Hematology & Oncology
DX: Z85.72 Personal history of non-Hodgkin lymphomas (principal)
CPT/HCPCS: 36415; 80053; 83615; 85025

== ENCOUNTER 2020-05-24 05:37 | Outpatient (CLI) | payer OTHER, SELFPAY ==
--- NOTE | 2020-05-24 14:05 | ONC FU_ITS ---
Dr. Leonardo follow up note Patient: Johnathan Montes De Oca Unit #: [id number]: 1945 Dicatated By: Emily Leonardo M.D.Date of Visit:May 24, 2020 Onc Med Follow-up/Prog Note History of Present Illness: Mr. 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 At that lymphocytosis reached about 20,000 but subsequently decreased spontaneously. And CT scan of chest abdomen pelvis done at that time shows mild lymph nodes above and below diaphragm but they were too small to biopsy. As per patient he was followed by his PMD and oncologist and [facility], and on 11/07/2015 he underwent bone marrow biopsy which was nondiagnostic for B-cell lymphoma, flow cytometry done on 11/07/2015 showed no clonal process. And also diagnosed with hepatic cirrhosis and splenomegaly Patient said he didn't have any specific issues until recently started having back pain for which he was referred to Dr. Leyva, and pain clinic who ordered CT scan of chest abdomen pelvis on 08/09/2019 which was compared with CT scan from 11/06/2016, October 2015 and April 2015. And it showed stable appearance of mediastinal and hilar and axillary lymph nodes Mild emphysema. Interval development of bulky retroperitoneal and mesenteric lymphadenopathy, measuring about 4.3 cm, suspicious for primary cindy malignancy versus metastatic disease versus reactive. Extensive diverticulosis of descending and sigmoid colon. Cirrhosis, ascites, splenomegaly. Degenerative changes of spine, no fracture On 08/10/2019, Patient went to see [place] medical oncologist Dr. Chato Beasley in [place] and as per his recommendations, patient has history of low-grade lymphoma and it was not clear whether symptoms are attributed to adenopathy/low-grade lymphoma or other process, cirrhosis. He recommended CT PET scan and biopsy lymph node and also would consider bone marrow biopsy. 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 Patient denies any night sweats, denies any fever or weight loss. Denies any lower extremity numbness or weakness denies any urine or stool incontinence.No melena hematochezia, no nosebleed, no jaundice. But abdominal fullness due to ascites Patient was referred to interventional radiology for ultrasound-guided paracentesis patient underwent sonogram on 09/20/2019 which showed some mild amount of ascites visualized in 4 abdominal quadrant, inadequate fluid for paracentesis at that time Patient underwent follow-up CT PET scan on 11/06/2019 which showed FDG positive lymphadenopathy from the level of head and neck to the level of pelvis. No evidence of splenic or marrow or extranodal involvement on February 05, 2020 patient developed difficulty in swallowing and dysphagia and went to emergency room where he underwent CT scan of the neck which showed heterogeneous enhancing mass extending from posterior left aspect of tongue base to the adjacent oropharyngeal mucosa measuring 3.1 x 2.6 cm and also there was a enlarged level 3 and level 7 lymph nodes on the left, 3.3 x 2.0 cm size., Patient was transferred to [place] where he was diagnosed with oropharyngeal abscess he was drained and treated with IV antibiotic subsequently discharged home on oral antibiotic Came for follow-up, denies any specific complaint except chronic lower back pain for which he has been to pain clinic where as per patient, he was given 'injection' about 4 months ago with some help but still having mid to lower back pain and sometimes problem and walking but focal weakness, no urine or stool incontinence, no lower extremity numbness. Denies any trauma to his back. No night sweats, no recurrent fever but intentional weight loss. No peripheral lymphadenopathy. Mild abdominal fullness. Medications: Ativan 1 Tablet (of 2 mg) Oral b.i.d., Cetirizine HCl 1 Tablet (of 10 mg) Oral daily, Flonase 1 (50 mcg/act) Suspension Nasal PRN, hydroCHLOROthiazide 1 Tablet (of 25 mg) Oral daily, Ibuprofen 1 Tablet (of 800 mg) Oral t.i.d., Omeprazole 1 Capsule (of 20 mg) Capsule Delayed Release Oral daily, ProAir HFA 1 Inhalation (of 108 (90 base) mcg/act) Aerosol, solution Inhalation PRN, Tamsulosin HCl 1 Capsule (of 0.4 mg) Oral daily Allergies: Cortisone Acetate, darvon, and quiNINE Sulfate. Review of Systems: Constitutional - Appetite is slightly improved and weight is stable. No fever, chills, hot flashes, or night sweats. Energy level is fair today, ENMT - Positive for sinus congestion/drainage. No mouth sores. No sore throat or difficulty swallowing, Hematologic/Lymphatic - Positive for easy bruising or bleeding, Respiratory - Positive for for shortness of breath and cough, Cardiovascular - No angina pain. No palpitations, Gastrointestinal - No nausea or vomiting. No heartburn or acid reflux. Flucuates between diarrhea and constipation. No blood in the stool or black stools, Genitourinary (M) - No dysuria or hematuria. Positive for urinary frequency. Positive for urgency or incontinence, Musculoskeletal - Positive for joint pain, Neurologic - No headache or dizziness. Positive for numbness/paresthesias or other focal neurologic symptoms, Psychiatric - Positive for anxiety. Vital Signs: Performed on May 24, 2020 13:17 Height - 72.00 in Weight - 224.6 lbs (HIGH) BSA - 2.24 sq.m BMI - 30.46 (HIGH) Temperature - 98.6 F Pulse - 76 /min Respiration - 24 /min BP - 141/66 mm(hg) (HIGH) O2 Sat - 96 % Pain - 0 Performance Status: 1 - No physically strenuous activity, but ambulatory and able to carry out light or sedentary work (e.g. office work, light house work). (ECOG) Physical Examination: ENMT - No mouth sores, no thrush, no jaundice, Respiratory - Poor air entry otherwise clear, Cardiovascular - Regular rate and rhythm of heart, Abdomen - Soft, bowel sounds present, no focal pain, Extremities - Trace edema bilaterally. Lab/Imaging: Test performed on Mar 20, 2020 08:35 LDH (Total) 259 U/L WBC 3.9 10 3/uL RBC 5.09 10 6/uL HGB 15.8 g/dL HCT 46.5 % MCV 91.4 fL MCH 31.0 pg MCHC 34.0 g/dL RDW 14.4 % Platelet Count 71 10 3/cmm MPV 12.8 fL Neutrophils 1.50 10 3/uL Lymphocytes 1.7 10 3/uL Monocytes 0.3 10 3/uL Eosinophils 0.3 10 3/uL Basophils 0.1 10 3/uL Neutrophil % 38.7 % Lymphocyte % 43.9 % Monocyte % 8.5 % Eosinophil % 7.0 % Basophils % 1.6 % NRBC % 0 % Test performed on Feb 15, 2020 09:56 Sodium 142 mmol/L Potassium 4.0 mmol/L Chloride 105 mmol/L CO2 24 mmol/L Anion Gap 17.0 BUN 17 mg/dL Creatinine 0.9 mg/dL Cr Clearance (Est) 101.27 mL/min Glucose 100 mg/dL Calcium 8.9 mg/dL Osmolality - Calculated 290 mOsm/kg Protein, Total 6.6 g/dL Albumin 3.9 g/dL Globulin 2.7 g/dL Bilirubin, Total 0.8 mg/dL ALT (SGPT) 46 U/L AST (SGOT) 66 U/L Alkaline Phosphatase 85 IU/L Impression: History of low-grade, follicular lymphoma, CD 10 and CD19 positive diagnosed in 2004, recently done CT scan of chest abdomen pelvis, when compared with CT scan from October 2016 showed stable, small mediastinal lymphadenopathy, hilar and axillary lymphadenopathy. But progressive/bulky retroperitoneal and mesenteric lymphadenopathy increased from 2017, one of the largest measuring 4.3 cm chain. Degenerative changes of spine no fracture seen. Hepatic cirrhosis/splenomegaly/ascites Mild thrombocytopenia CBC done on 08/09/2002 shows white blood count 6.1 hemoglobin 14.9 crit 44.3 platelets 90,000 lymphocytes 47.9% neutrophil 38.2%. Chronic back pain, etiology unclear degenerative joint disease versus pressure due to retroperitoneal lymphadenopathy. Plan: Discussed with patient regarding his labs white blood count 3.3 hemoglobin 13.6 hematocrit 40.5 MCV 89.6 platelets 68,000 ANC 1220 compared to 1500 on March 20, 2020 and white blood count was 3.9 previously, platelet count was 71,000 earlier Clinically, patient is doing reasonably well with no new signs symptom except back pain for which he is being followed in pain clinic but concern was difficulty in walking but no lower extremity numbness or persistent back pain so we will consider MRI scan of thoracic lumbar sacral spine to rule out spinal cord compression oR nerve impingement. And as far as mild abdominal fullness is concerned, also get abdominal sonogram to assess ascites and spleen size CBC shows persistent bicytopenia now with worsening of leukopenia but stable moderate thrombocytopenia, which is most likely due to splenic sequestration but concurrent underlying MDS or lymphoma infiltration cannot be ruled out, he will return to clinic in 2 weeks with CBC and differential white blood count continue to go down, will consider bone marrow evaluation Return to clinic in 2 weeks with CBC, MRI scan of thoracic lumbosacral spine and abdominal sonogram. Patient was advised in case there is a worsening of back pain or urine or stool incontinence or lower extremity weakness he need to go to hospital immediately. Signed By: Emily Leonardo M.D. <<Signature on File>>
== END 2020-05-24 05:38 | disposition home or self-care (01) ==
LOC: ONCMED 05:38
PROVIDERS: PCP Nurse Practitioner; Visit Provider Internal Medicine Hematology & Oncology
DX: Z85.72 Personal history of non-Hodgkin lymphomas (principal); R20.0 Anesthesia of skin; R26.2 Difficulty in walking, not elsewhere classified; M54.5 Low back pain; D72.819 Decreased white blood cell count, unspecified; D69.6 Thrombocytopenia, unspecified; D75.9 Disease of blood and blood-forming organs, unspecified
CPT/HCPCS: 99214

== ENCOUNTER 2020-05-30 08:54 | Outpatient (CLI) | payer OTHER, SELFPAY ==
--- NOTE | 2020-05-30 09:24 | MR_ITS ---
WS: [id number] MRI LUMBAR SPINE NONCONTRAST TECHNIQUE: Sagittal T1, T2 and STIR imaging. Axial T1 and T2 imaging. CLINICAL INFORMATION: BACK PAIN, HISTORY OF CANCER, TINGLING NUMBNESS FINDINGS: Mild lumbar curve. Mild disc bulging L4-L5 and L5-S1. No evidence of bony metastatic disease. No high -grade central canal stenosis. L1-L2: Normal. L2-L3: Mild annular bulging. Mild facet arthropathy. Mild right foraminal narrowing. Spinal canal is patent. L3-L4: Mild annular bulging. Slight narrowing of the left subarticular recess. Mild left foraminal na rrowing. Moderate facet arthropathy. L4-L5: Shallow central disc protrusion with impingement subarticular recess bilaterally and traversin g L5 nerve roots. Moderate central canal stenosis. Moderate right and mild left foraminal narrowing. Moderate facet arthropathy. L5-S1: Shallow central disc protrusion with slight effacement of the ventral thecal sac. Slight conta ct of the traversing S1 nerve roots. Mild right greater than left foraminal narrowing. Moderate facet arthropathy. Partially visualized left renal cysts the largest measuring 4.5 cm. Bulky periaortic, retroperitoneal, and iliac chain lymphadenopathy consistent with history of lymphom a. MR/MR lumbar spine wo con* [id number] IMPRESSION: 1. No evidence of bony metastatic disease. 2. Bulky lymphadenopathy consistent with history of lymphoma. This can be furt her evaluated with CT chest abdomen and pelvis. 3. Moderate central canal stenosis L4-5 with a shallow central disc protrusion and impingement traversing L5 nerve roots bilaterally. 4. Moderate right L4-5 foraminal narrowing.
--- NOTE | 2020-05-30 09:24 | MR_ITS ---
WS: [id number] MRI THORACIC SPINE WITHOUT CONTRAST TECHNIQUE: Sagittal T1, T2 and STIR imaging. Axial T2 imaging. Noncontrast imaging obtained. CLINICAL INFORMATION: BACK PAIN, HISTORY OF CANCER, TINGLING NUMBNESS COMPARISON: None. FINDINGS: Mild thoracic kyphosis. No acute appearing compression fractures. No evidence of bony metastatic dise ase. Hypertrophic changes thoracic spine. Cord signal is normal. No high-grade central canal stenosis . Disc space heights and vertebral body heights well-preserved. Small central disc protrusion at T7-T 8 with slight effacement of ventral thecal sac. No significant central canal stenosis. Moderate facet arthropathy in the lower thoracic spine. Mild bony foraminal narrowing right T9-T10, left T10-T11, a nd right T12-L1. Normal caliber thoracic aorta. Partially visualized left renal cyst measuring 3.7 CM. MR/MR thoracic spin wo con* [id number] IMPRESSION: 1. Mild thoracic curve. Mild thoracic kyphosis. No acute appearing compression fractures. 2. No evidence of bony metastatic disease. 3. Shallow central protrusion T7-T8 with slight effacement of the ventral thec al sac and slight contact of the thoracic cord. No significant central canal st enosis. 4. Moderate facet arthropathy in the lower thoracic spine with mild bony albin inal narrowing described above. 5. Anterior hypertrophic changes mid thoracic spine.
== END 2020-05-30 08:55 | disposition home or self-care (01) ==
LOC: RADWPI 08:57
PROVIDERS: PCP Nurse Practitioner; Visit Provider Internal Medicine Hematology & Oncology
DX: Z85.72 Personal history of non-Hodgkin lymphomas (principal); R20.2 Paresthesia of skin; R20.0 Anesthesia of skin; M47.814 Spondylosis without myelopathy or radiculopathy, thoracic region; M51.24 Other intervertebral disc displacement, thoracic region
CPT/HCPCS: 72146; 72148

== ENCOUNTER 2020-06-02 07:10 | Outpatient (CLI) | payer OTHER, SELFPAY ==
--- NOTE | 2020-06-02 07:12 | US_ITS ---
WS: [id number] Complete ABDOMINAL ULTRASOUND HISTORY: LYMPHOMA SPECIAL ATTENTION TO SPLEEN COMPARISON: None available. Liver: 16.5 cm in length. Mildly enlarged liver. Mild coarsened echotexture throughout the liver with no mass. Gallbladder: Normally distended with no gallstones, wall thickening or pericholecystic fluid. Gallbladder wall thickness: 0.3 cm. Pancreas: Normal size pancreas. Abundant adjacent mesenteric fat. CBD: 0.4 cm. Right kidney: 10.9 cm x 5.2 cm x 5.8 cm. No mass, cortical thickening or hydronephrosis. Left kidney: 14.1 cm x 4.7 cm x 5.4 cm. Normal size kidney. There is a cyst from the upper pole annamarie uring 5.1 x 5.3 x 4.7 cm. There is several additional smaller cysts. No solid mass. Spleen: Spleen is moderately enlarged measuring 17 cm in length by 8 cm anterior posterior. No lesion s within the spleen. Abdominal aorta and IVC are within normal limits. There are hypoechoic mass is identified in the retroperitoneum consistent with enlarged lymph nodes. The most obvious lymph node measures 6 x 3 x 4 cm inferior medial to the RIGHT kidney. US/US abdomen complete* [id number] IMPRESSION: 1. Moderately enlarged spleen with a maximum length of 17 cm. 2. Retroperitoneal lymphadenopathy. 3. LEFT renal cysts.
== END 2020-06-02 07:11 | disposition home or self-care (01) ==
LOC: US 07:11
PROVIDERS: PCP Nurse Practitioner; Visit Provider Internal Medicine Hematology & Oncology
DX: C85.90 Non-Hodgkin lymphoma, unspecified, unspecified site (principal); R16.1 Splenomegaly, not elsewhere classified; R59.0 Localized enlarged lymph nodes; N28.1 Cyst of kidney, acquired
CPT/HCPCS: 76700

== ENCOUNTER 2020-06-05 05:48 | Outpatient (CLI) | payer OTHER, SELFPAY ==
[2020-06-05 10:20] LABS: Basophils # 0.1 10^3/uL (0.0-0.1); Basophils % 1.6 %; Eosinophils # 0.2 10^3/uL (0.0-0.8); Eosinophils % 6.6 %; Hematocrit 42.3 % (42.0-52.0); Hemoglobin 14.1 g/dL (11.7-16.6); Lymphocytes # 1.3 10^3/uL (0.8-4.8); Lymphocytes % 43.9 %; Mean Corpuscular HGB Conc 33.3 g/dL (30.0-36.0); Mean Corpuscular Hemoglobin 30.7 pg (28.0-34.0); Mean Platelet Volume 12.9 fL (7.4-10.4); Monocytes # 0.3 10^3/uL (0.2-0.9); Monocytes % 10.8 %; Neutrophils # 1.12 10^3/uL (1.8-7.7); Neutrophils % 36.8 %; Nucleated Red Blood Cells % 0 %; Platelet Count 58 10^3/cmm (130-400); Red Cell Distribution Width 14.6 % (12.1-15.1); White Blood Count 3.1 10^3/uL (4.0-10.0)
[2020-06-05 11:21] LABS: Slide Review Slide Review Perform
--- NOTE | 2020-06-05 14:47 | ONC FU_ITS ---
Dr. Leonardo follow up note Patient: Johnathan Montes De Oca Unit #: [id number]: 1945 Dicatated By: Emily Leonardo M.D.Date of Visit:Jun 05, 2020 Onc Med Follow-up/Prog Note History of Present Illness: Mr. 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 At that lymphocytosis reached about 20,000 but subsequently decreased spontaneously. And CT scan of chest abdomen pelvis done at that time shows mild lymph nodes above and below diaphragm but they were too small to biopsy. As per patient he was followed by his PMD and oncologist and [facility], and on 11/07/2015 he underwent bone marrow biopsy which was nondiagnostic for B-cell lymphoma, flow cytometry done on 11/07/2015 showed no clonal process. And also diagnosed with hepatic cirrhosis and splenomegaly Patient said he didn't have any specific issues until recently started having back pain for which he was referred to Dr. Leyva, and pain clinic who ordered CT scan of chest abdomen pelvis on 08/09/2019 which was compared with CT scan from 11/06/2016, October 2015 and April 2015. And it showed stable appearance of mediastinal and hilar and axillary lymph nodes Mild emphysema. Interval development of bulky retroperitoneal and mesenteric lymphadenopathy, measuring about 4.3 cm, suspicious for primary cindy malignancy versus metastatic disease versus reactive. Extensive diverticulosis of descending and sigmoid colon. Cirrhosis, ascites, splenomegaly. Degenerative changes of spine, no fracture On 08/10/2019, Patient went to see [place] medical oncologist Dr. Chato Beasley in [place] and as per his recommendations, patient has history of low-grade lymphoma and it was not clear whether symptoms are attributed to adenopathy/low-grade lymphoma or other process, cirrhosis. He recommended CT PET scan and biopsy lymph node and also would consider bone marrow biopsy. As far as mild neutropenia was concerned it was probably due to cirrhosis/portal hypertension and recommended to continue with enterostomal therapy nurse. Patient denies any night sweats, denies any fever or weight loss. Denies any lower extremity numbness or weakness denies any urine or stool incontinence.No melena hematochezia, no nosebleed, no jaundice. But abdominal fullness due to ascites Patient was referred to interventional radiology for ultrasound-guided paracentesis patient underwent sonogram on 09/20/2019 which showed some mild amount of ascites visualized in 4 abdominal quadrant, inadequate fluid for paracentesis at that time Patient underwent follow-up CT PET scan on 11/06/2019 which showed FDG positive lymphadenopathy from the level of head and neck to the level of pelvis. No evidence of splenic or marrow or extranodal involvement on February 05, 2020 patient developed difficulty in swallowing and dysphagia and went to emergency room where he underwent CT scan of the neck which showed heterogeneous enhancing mass extending from posterior left aspect of tongue base to the adjacent oropharyngeal mucosa measuring 3.1 x 2.6 cm and also there was a enlarged level 3 and level 7 lymph nodes on the left, 3.3 x 2.0 cm size., Patient was transferred to [place] where he was diagnosed with oropharyngeal abscess he was drained and treated with IV antibiotic subsequently discharged home on oral antibiotic h/o chronic lower back pain for which he has been to pain clinic where as per patient, he was given 'injection' about 4 months ago with some help but still having mid to lower back pain and sometimes problem and walking Came for follow-up, complaining of persistent chronic back pain but somewhat better, patient said last injection to his back was given in January 2020. Denies any night sweats, denies any recurrent fever denies any weight loss, denies any abdominal fullness, denies any peripheral lymphadenopathy. Recently underwent MRI scan of the spine, and is here to discuss results Medications: Ativan 1 Tablet (of 2 mg) Oral b.i.d., Cetirizine HCl 1 Tablet (of 10 mg) Oral daily, Flonase 1 (50 mcg/act) Suspension Nasal PRN, hydroCHLOROthiazide 1 Tablet (of 25 mg) Oral daily, Ibuprofen 1 Tablet (of 800 mg) Oral t.i.d., Omeprazole 1 Capsule (of 20 mg) Capsule Delayed Release Oral daily, ProAir HFA 1 Inhalation (of 108 (90 base) mcg/act) Aerosol, solution Inhalation PRN, Tamsulosin HCl 1 Capsule (of 0.4 mg) Oral daily Allergies: Cortisone Acetate, darvon, and quiNINE Sulfate. Review of Systems: Constitutional - Appetite is slightly improved and weight is stable. No fever, chills, hot flashes, or night sweats. Energy level is fair today, ENMT - Positive for sinus congestion/drainage. No mouth sores. No sore throat or difficulty swallowing, Hematologic/Lymphatic - Positive for easy bruising or bleeding, Respiratory - Positive for for shortness of breath and cough, Cardiovascular - No angina pain. No palpitations, Gastrointestinal - No nausea or vomiting. No heartburn or acid reflux. Flucuates between diarrhea and constipation. No blood in the stool or black stools, Genitourinary (M) - No dysuria or hematuria. Positive for urinary frequency. Positive for urgency or incontinence, Musculoskeletal - Positive for joint pain, Neurologic - No headache or dizziness. Positive for numbness/paresthesias or other focal neurologic symptoms, Psychiatric - Positive for anxiety. Vital Signs: Performed on Jun 05, 2020 09:29 Height - 72.00 in Weight - 229.8 lbs (HIGH) BSA - 2.26 sq.m BMI - 31.17 (HIGH) Temperature - 98.6 F Pulse - 74 /min Respiration - 16 /min BP - 143/69 mm(hg) (HIGH) O2 Sat - 97 % Pain - 4 Performance Status: 1 - No physically strenuous activity, but ambulatory and able to carry out light or sedentary work (e.g. office work, light house work). (ECOG) Physical Examination: ENMT - No mouth sores no thrush, no jaundice, Respiratory - Lungs are clear to auscultation, Cardiovascular - Regular rate and rhythm of heart, Abdomen - Soft, bowel sounds present, extremity no edema or rash. Lab/Imaging: Test performed on May 23, 2020 09:17 LDH (Total) 282 U/L Sodium 141 mmol/L Potassium 3.7 mmol/L Chloride 106 mmol/L CO2 25 mmol/L Anion Gap 13.7 BUN 18 mg/dL Creatinine 1.2 mg/dL Cr Clearance (Est) 77.82 mL/min Glucose 107 mg/dL Osmolality - Calculated 294 mOsm/kg Calcium 9.2 mg/dL Protein, Total 6.1 g/dL Albumin 3.6 g/dL Globulin 2.5 g/dL Bilirubin, Total 1.0 mg/dL ALT (SGPT) 33 U/L AST (SGOT) 55 U/L Alkaline Phosphatase 88 IU/L WBC 3.3 10 3/uL RBC 4.52 10 6/uL HGB 13.6 g/dL HCT 40.5 % MCV 89.6 fL MCH 30.1 pg MCHC 33.6 g/dL RDW 14.3 % Platelet Count 68 10 3/cmm MPV 11.6 fL Neutrophils 1.22 10 3/uL Lymphocytes 1.5 10 3/uL Monocytes 0.3 10 3/uL Eosinophils 0.2 10 3/uL Basophils 0.1 10 3/uL Neutrophil % 37.2 % Lymphocyte % 44.5 % Monocyte % 10.1 % Eosinophil % 6.4 % Basophils % 1.5 % NRBC % 0 % Impression: History of low-grade, follicular lymphoma, CD 10 and CD19 positive diagnosed in 2004, recently done CT scan of chest abdomen pelvis, when compared with CT scan from October 2016 showed stable, small mediastinal lymphadenopathy, hilar and axillary lymphadenopathy. But progressive/bulky retroperitoneal and mesenteric lymphadenopathy increased from 2017, one of the largest measuring 4.3 cm chain. Degenerative changes of spine no fracture seen. Hepatic cirrhosis/splenomegaly/ascites Mild thrombocytopenia CBC done on 08/09/2002 shows white blood count 6.1 hemoglobin 14.9 crit 44.3 platelets 90,000 lymphocytes 47.9% neutrophil 38.2%. Chronic back pain, etiology unclear degenerative joint disease versus pressure due to retroperitoneal lymphadenopathy. MRI scan spine findings which was done on May 30, 2020 and showed moderately enlarged spleen with a maximum length 17 cm, retroperitoneal lymphadenopathy index lymph node is 6 x 3 x 4 cm inferior medial to the right kidney bulky partially visualized left thoracic and left lymph nodes measuring 2.9 cm, no evidence of bone mets, moderate central canal stenosis L4-5 with shallow central disc protrusion and impingement traversing L5 nerve roots immediately. Moderate right L4-5 foraminal narrowing. Shallow central protrusion T7-8 with slight effacement of ventral thecal sac and slight contacting of the thoracic cord. No significant central canal stenosis. Plan: Discussed with patient regarding his MRI scan spine findings which was done on May 30, 2020 and showed moderately enlarged spleen with a maximum length 17 cm, retroperitoneal lymphadenopathy index lymph node is 6 x 3 x 4 cm inferior medial to the right kidney bulky partially visualized left thoracic and left lymph nodes measuring 2.9 cm, no evidence of bone mets, moderate central canal stenosis L4-5 with shallow central disc protrusion and impingement traversing L5 nerve roots immediately. Moderate right L4-5 foraminal narrowing. Shallow central protrusion T7-8 with slight effacement of ventral thecal sac and slight contacting of the thoracic cord. No significant central canal stenosis. His CBC is pending, discussed with patient regarding further treatment options at this point because of progressive back pain which could be due to bulky retroperitoneal lymphadenopathy and his splenomegaly could be due to portal hypertension due to cirrhosis of the liver or lymphomatous infiltration with low-grade lymphoma and now causing persistent progressive bicytopenia. At this point, will consider trial of Rituxan 375 mg/m??? weekly x4-6 and then monitor his blood counts as well as central lymphadenopathy, there is a possibility with improvement in central lymphadenopathy his back pain may improve if not then will consult orthopedic for spine evaluation and if bicytopenia persist then it could be due to splenic sequestration or considering his age underlying myelodysplasia, will consider bone marrow evaluation. All the side effects possible benefits associated with Rituxan including but not limited to allergic reaction, lymphopenia/immunosuppression, nausea, were mentioned further teaching will be done by chemotherapy nurse and will also consider hepatitis profile prior to the treatment. Patient to return to clinic 1 week after treatment with Rituxan is initiated Signed By: Emily Leonardo M.D. <<Signature on File>>
== END 2020-06-05 05:49 | disposition home or self-care (01) ==
LOC: ONCMED 05:48
PROVIDERS: PCP Nurse Practitioner; Visit Provider Internal Medicine Hematology & Oncology
DX: Z85.72 Personal history of non-Hodgkin lymphomas (principal); M47.9 Spondylosis, unspecified; K74.60 Unspecified cirrhosis of liver; R16.1 Splenomegaly, not elsewhere classified; R18.8 Other ascites; D69.6 Thrombocytopenia, unspecified; G89.29 Other chronic pain; M54.5 Low back pain; R59.0 Localized enlarged lymph nodes; Z79.899 Other long term (current) drug therapy
CPT/HCPCS: 36415; 85025; 99214

== ENCOUNTER 2020-06-19 09:48 | Outpatient (CLI) | payer OTHER, SELFPAY ==
[2020-06-19 10:56] LABS: Basophils % 1.2 %; Eosinophils # 0.3 10^3/uL (0.0-0.8); Eosinophils % 8.3 %; Hematocrit 43.3 % (42.0-52.0); Hemoglobin 14.7 g/dL (11.7-16.6); Lymphocytes # 1.3 10^3/uL (0.8-4.8); Lymphocytes % 37.5 %; Mean Corpuscular HGB Conc 33.9 g/dL (30.0-36.0); Mean Corpuscular Hemoglobin 30.8 pg (28.0-34.0); Mean Corpuscular Volume 90.6 fL (80-94); Mean Platelet Volume 11.5 fL (7.4-10.4); Monocytes # 0.4 10^3/uL (0.2-0.9); Monocytes % 10.4 %; Neutrophils # 1.42 10^3/uL (1.8-7.7); Neutrophils % 42.3 %; Nucleated Red Blood Cells % 0 %; Platelet Count 72 10^3/cmm (130-400); Red Blood Count 4.78 10^6/uL (4.1-5.3); Red Cell Distribution Width 14.5 % (12.1-15.1); White Blood Count 3.4 10^3/uL (4.0-10.0)
[2020-06-19 12:09] LABS: Alanine Aminotransferase 36 U/L (0-41); Albumin Level 3.9 g/dL (3.5-5.2); Alkaline Phosphatase 108 IU/L (40-130); Anion Gap 17.7 (5-19); Aspartate Amino Transferase 65 U/L (0-40); Blood Urea Nitrogen 14 mg/dL (8-23); Calcium 9.5 mg/dL (8.5-10.5); Carbon Dioxide 24 mmol/L (22-29); Chloride 106 mmol/L (98-107); Globulin 2.7 g/dL (1.3-4.6); Glucose 105 mg/dL (65-115); Osmolality Calculated 299 mOsm/kg (285-295); Potassium 3.7 mmol/L (3.5-5.1); Sodium 144 mmol/L (136-145); Total Bilirubin 1.5 mg/dL (0.15-1.2); Total Protein 6.6 g/dL (6.6-8.7)
[2020-06-19 14:05] LABS: Hepatitis A Antibody IgM Non-Reactive (Nonreactive); Hepatitis B Core AB, Total Non-Reactive (Nonreactive); Hepatitis B Surface AB 3.5 (0-8.5); Hepatitis B Surface Antigen Non-Reactive (Nonreactive); Hepatitis C Virus Antibody Non-Reactive (Nonreactive)
== END 2020-06-19 09:49 | disposition home or self-care (01) ==
LOC: ONCMED 09:50
PROVIDERS: PCP Nurse Practitioner; Visit Provider Internal Medicine Hematology & Oncology
DX: C82.90 Follicular lymphoma, unspecified, unspecified site (principal); Z11.59 Encounter for screening for other viral diseases
CPT/HCPCS: 36415; 80053; 85025; 86705; 86706; 86709; 86803; 87340

== ENCOUNTER 2020-06-21 08:29 | Outpatient (CLI) | payer OTHER, SELFPAY ==
[2020-06-21] MEDS: acetaminophen 325 mg Tablet 650 MG PO (10:29)
[2020-06-21] MEDS: sodium chloride 0.9% (100 ml) 100 ML 500 ML (11:05)
[2020-06-21] MEDS: diphenhydrAMINE 50 mg/mL SDV 1mL 25 MG IVP (11:05)
[2020-06-21] MEDS: sodium chloride 0.9% 500 ML 75 ML IV (11:05)
[2020-06-21 13:24] VITALS: RESP 16
[2020-06-21] MEDS: meperidine 50 mg/mL INJ 25 MG IV (13:24)
--- NOTE | 2020-06-25 22:17 | ONC FU_ITS ---
[facility] Patient Note Patient: Johnathan Montes De Oca Unit #: [id number]: 1945 Dictated By: Ryland BrownDate of Visit: Jun 21, 2020 Onc MED Follow-Up/Prog Note Chief Complaint: lymphoproliferative disorder History of Present Illness: Mr. Montes De Oca is a 74-year-old gentleman with history of lymphocytosis. 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 At that time the lymphocytosis reached about 20,000 but subsequently decreased spontaneously. CT scan of chest/abdomen/pelvis done at that time shows mild lymph nodes above and below diaphragm but they were too small to biopsy. As per patient he was followed by his PMD and oncologist at the [facility] and on 11/07/2015 he underwent bone marrow biopsy which was nondiagnostic for B-cell lymphoma, flow cytometry done on 11/07/2015 showed no clonal process. He was also diagnosed with hepatic cirrhosis and splenomegaly. Mr Montes De Oca said he didn't have any specific issues until recently. He started having back pain for which he was referred to Dr. Leyva at a local pain clinic. A CT scan of chest abdomen pelvis was obtained on 08/09/2019 which was compared with CT scan from 11/06/2016, October 2015 and April 2015. And it showed stable appearance of mediastinal and hilar and axillary lymph nodes; Mild emphysema. The was interval development of bulky retroperitoneal and mesenteric lymphadenopathy, measuring about 4.3 cm, suspicious for primary cindy malignancy versus metastatic disease versus reactive; Extensive diverticulosis of descending and sigmoid colon; Cirrhosis, ascites, splenomegaly. Degenerative changes of spine, no fractures were reported. On 08/10/2019, Mr Montes De Oca went to see a [place] medical oncologist, Dr. Chato Beasley in [place] and as per his recommendations- due to thepatient's history of low-grade lymphoma and (it was not clear whether symptoms are attributed to adenopathy/low-grade lymphoma or other process, cirrhosis) a PET/CT scan and lymph node biopsy and consider bone marrow biopsy. As far as mild neutropenia was concerned it was probably due to cirrhosis/portal hypertension and recommended to continue with service center appraiser. Mr Montes De Oca denied any night sweats, denies any fever or weight loss. Denies any lower extremity numbness or weakness denies any urine or stool incontinence.No melena hematochezia, no nosebleed, no jaundice. But abdominal fullness due to ascites. He was referred to interventional radiology for ultrasound-guided paracentesis patient underwent sonogram on 09/20/2019 which showed some mild amount of ascites visualized in 4 abdominal quadrant, inadequate fluid for paracentesis at that time. He underwent follow-up CT PET scan on 11/06/2019 which showed FDG positive lymphadenopathy from the level of head and neck to the level of pelvis. No evidence of splenic or marrow or extranodal involvement on February 05, 2020 patient developed difficulty in swallowing and dysphagia and went to emergency room where he underwent CT scan of the neck which showed heterogeneous enhancing mass extending from posterior left aspect of tongue base to the adjacent oropharyngeal mucosa measuring 3.1 x 2.6 cm and also there was a enlarged level 3 and level 7 lymph nodes on the left, 3.3 x 2.0 cm size., Patient was transferred to [place] where he was diagnosed with oropharyngeal abscess he was drained and treated with IV antibiotic subsequently discharged home on oral antibiotic h/o chronic lower back pain for which he has been to pain clinic where as per patient, he was given 'injection' about 4 months ago with some help but still having mid to lower back pain and sometimes problem and walking Mr Montes De Oca has been following locally with Dr Leonardo and was last seen by him on 06/05/2020. Mr Montes De Oca underwent MRI of the spine on 05/30/[address] Leonardo discussed the findings which showed moderately enlarged spleen with a maximum length 17 cm, retroperitoneal lymphadenopathy index lymph node is 6 x 3 x 4 cm inferior medial to the right kidney bulky partially visualized left thoracic and left lymph nodes measuring 2.9 cm, no evidence of bone mets, moderate central canal stenosis L4-5 with shallow central disc protrusion and impingement traversing L5 nerve roots immediately. Moderate right L4-5 foraminal narrowing. Shallow central protrusion T7-8 with slight effacement of ventral thecal sac and slight contacting of the thoracic cord. No significant central canal stenosis. Dr Leonardo's notes report that he also discussed with Mr Montes De Oca further treatment options. Because of progressive back pain which could be due to bulky retroperitoneal lymphadenopathy and his splenomegaly could be due to portal hypertension due to cirrhosis of the liver or lymphomatous infiltration with low-grade lymphoma and now causing persistent progressive bicytopenia. Dr Leonardo recommended that Mr Montes De Oca consider trial of Rituxan 375 mg/m??? weekly x4-6 and then monitor his blood counts as well as central lymphadenopathy, there is a possibility with improvement in central lymphadenopathy his back pain may improve if not then will consult orthopedic for spine evaluation and if bicytopenia persist then it could be due to splenic sequestration or considering his age underlying myelodysplasia, will consider bone marrow evaluation. Mr Montes De Oca has elected to try the Ritxuan and is here today for his first week treatment. He has no new concerns. He states his COPD is stable. 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 He denies any fever or chills at this time. He states he has not had any nausea or vomiting. He denies any current night sweats. He denies diarrhea or constipation. His ECOG is currently at 0. He does tire easily but when his back pain is controlled he states he feels pretty good overall . Past Medical History: Bipolar disorder Bph Chronic obstructive pulmonary disease Depression Generalized anxiety disorder Gout Hyperlipidemia Hypertension Ptsd Sleep apnea Past Surgical History: Cataract excision Allergies: Cortisone Acetate, darvon, and quiNINE Sulfate. Medications: Ativan 1 Tablet (of 2 mg) Oral b.i.d. Cetirizine HCl 1 Tablet (of 10 mg) Oral daily Flonase 1 (50 mcg/act) Suspension Nasal PRN hydroCHLOROthiazide 1 Tablet (of 25 mg) Oral daily Ibuprofen 1 Tablet (of 800 mg) Oral t.i.d. Omeprazole 1 Capsule (of 20 mg) Capsule Delayed Release Oral daily ProAir HFA 1 Inhalation (of 108 (90 base) mcg/act) Aerosol, solution Inhalation PRN Tamsulosin HCl 1 Capsule (of 0.4 mg) Oral daily Family History: Mr. Montes De Oca's mother at age 78: type II diabetes. Mr. Montes De Oca's father at age 84: lung cancer. Mr. Montes De Oca has 1 sister who is : cancer of unknown primary. Social History: Mr. Montes De Oca is and he is retired. Mr. Montes De Oca quit smoking 18 years ago but had smoked for 44 years. He has no history of drinking. Mr. Montes De Oca reports the following support systems: lives with spouse, significant other, family, or friends, supportive family/friends willing to assist with needs, and adequate transportation available for expected visits. His diet consists of regular meals. He indicates his activity level as: regular exercise. Pt chews tobacco. Review Of Symptoms: Constitutional Denies fevers, chills, night sweats, excessive fatigue or weight loss. Eyes Denies significant visual changes. No diplopia. No amaurosis. ENMT Denies changes in hearing, sore throat, mouth sores, difficulty or changes in swallowing ability, and/or sinus drainage. Hematologic/Lymphatic Denies easy bruising or bleeding. The patient denies any tender or palpable lymph nodes. Respiratory Denies dyspnea on exertion, chest pain, cough or hemoptysis. Denies orthopnea. Cardiovascular Denies anginal chest pain, palpitations or orthopnea. Gastrointestinal Denies nausea, vomiting, diarrhea, GI bleeding, or constipation. Denies change in bowel habits and/or stool color, no heartburn or early satiety. Genitourinary (M) Denies hematuria, dysuria, increased frequency, urgency, hesitancy or incontinence. Musculoskeletal Denies joint pain, swelling or redness. No decreased range of motion. Integumentary Denies chronic rashes, inflammation, ulcerations or skin changes. Neurologic Denies headache, blurred vision, and no areas of focal weakness or numbness. Normal gait. No sensory problems. Psychiatric Denies insomnia, depression, simeon or mood swings. Vital Signs: Performed on Jun 21, 2020 09:15 Height - 72.00 in Weight - 228 lbs (LOW) BSA - 2.25 sq.m BMI - 30.92 (HIGH) Temperature - 99.1 F (HIGH) Pulse - 77 /min Respiration - 18 /min BP - 140/67 mm(hg) O2 Sat - 96 % Pain - 2,1 - No physically strenuous activity, but ambulatory and able to carry out light or sedentary work (e.g. office work, light house work). (ECOG) Physical Examination: Constitutional Alert, oriented, no acute distress. Skin pink, warm and dry. Head Normocephalic; atraumatic. Eyes Conjunctivae and sclerae are clear and without icterus. Pupils are reactive and equal. ENMT No oral exudates, ulcers, masses, thrush or mucositis. Oropharynx clear. Tongue normal. Neck Supple without masses or thyromegaly. No jugular venous distension. Hematologic/Lymphatic No petechiae or purpura. No tender or palpable lymph nodes in the cervical or supraclavicular areas. Respiratory Lungs are clear to auscultation without rhonchi or wheezing. Cardiovascular Regular rate and rhythm of heart without murmurs,clicks, gallops or rubs. Abdomen Non-tender, non-distended, no masses or ascites. Good bowel sounds noted in all quads. No guarding or rebound tenderness. No pulsatile masses. Back/Spine Non-tender to palpation. Extremities No visible deformities, no cyanosis, clubbing or edema. Musculoskeletal No tenderness or swelling, normal range of motion without obvious weakness. Integumentary No rashes or lesions. Neurologic No sensory or motor deficits, normal cerebellar function, normal gait. Psychiatric Alert and oriented times three. Coherent speech. Verbalizes understanding of our discussions today. Laboratory:Test performed on Jun 05, 2020 09:45 WBC 3.1 10 3/uL RBC 4.60 10 6/uL HGB 14.1 g/dL HCT 42.3 % MCV 92.0 fL MCH 30.7 pg MCHC 33.3 g/dL RDW 14.6 % Platelet Count 58 10 3/cmm MPV 12.9 fL Neutrophils 1.12 10 3/uL Lymphocytes 1.3 10 3/uL Monocytes 0.3 10 3/uL Eosinophils 0.2 10 3/uL Basophils 0.1 10 3/uL Neutrophil % 36.8 % Lymphocyte % 43.9 % Monocyte % 10.8 % Eosinophil % 6.6 % Basophils % 1.6 % NRBC % 0 % CBC Slide Review Slide Review Perform SLIDE REVIEW AGREES WITH AUTOMATED RESULTS Test performed on May 23, 2020 09:17 LDH (Total) 282 U/L Sodium 141 mmol/L Potassium 3.7 mmol/L Chloride 106 mmol/L CO2 25 mmol/L Anion Gap 13.7 BUN 18 mg/dL Creatinine 1.2 mg/dL Cr Clearance (Est) 77.82 mL/min Glucose 107 mg/dL Osmolality - Calculated 294 mOsm/kg Calcium 9.2 mg/dL Protein, Total 6.1 g/dL Albumin 3.6 g/dL Globulin 2.5 g/dL Bilirubin, Total 1.0 mg/dL ALT (SGPT) 33 U/L AST (SGOT) 55 U/L Alkaline Phosphatase 88 IU/L Impression: History of low-grade, follicular lymphoma, CD 10 and CD19 positive diagnosed in 2004, recently done CT scan of chest abdomen pelvis, when compared with CT scan from October 2016 showed stable, small mediastinal lymphadenopathy, hilar and axillary lymphadenopathy. But progressive/bulky retroperitoneal and mesenteric lymphadenopathy increased from 2017, one of the largest measuring 4.3 cm chain. Degenerative changes of spine no fracture seen. Hepatic cirrhosis/splenomegaly/ascites Mild thrombocytopenia CBC done on 08/09/2002 shows white blood count 6.1 hemoglobin 14.9 crit 44.3 platelets 90,000 lymphocytes 47.9% neutrophil 38.2%. Chronic back pain, etiology unclear degenerative joint disease versus pressure due to retroperitoneal lymphadenopathy. MRI scan spine findings which was done on May 30, 2020 and showed moderately enlarged spleen with a maximum length 17 cm, retroperitoneal lymphadenopathy index lymph node is 6 x 3 x 4 cm inferior medial to the right kidney bulky partially visualized left thoracic and left lymph nodes measuring 2.9 cm, no evidence of bone mets, moderate central canal stenosis L4-5 with shallow central disc protrusion and impingement traversing L5 nerve roots immediately. Moderate right L4-5 foraminal narrowing. Shallow central protrusion T7-8 with slight effacement of ventral thecal sac and slight contacting of the thoracic cord. No significant central canal stenosis. Dr Leonardo's 06/05/2020 notes report that he also discussed with Mr Montes De Oca further treatment options. Because of progressive back pain which could be due to bulky retroperitoneal lymphadenopathy and his splenomegaly could be due to portal hypertension due to cirrhosis of the liver or lymphomatous infiltration with low-grade lymphoma and now causing persistent progressive bicytopenia. Dr Leonardo recommended that Mr Montes De Oca consider trial of Rituxan 375 mg/m??? weekly x4-6 and then monitor his blood counts as well as central lymphadenopathy, there is a possibility with improvement in central lymphadenopathy his back pain may improve if not then will consult orthopedic for spine evaluation and if bicytopenia persist then it could be due to splenic sequestration or considering his age underlying myelodysplasia, will consider bone marrow evaluation. Mr Montes De Oca is here today to start his first of four weeks of Rituxan. Plan: Follicular lymphoma; 1. Proceed with Rituxan 375 mg/m??? weekly x 4-6 weeks. 2. Standard premeds. 3. Labs from June 19, 2020 were reviewed in detail discussed with Mr. Montes De Oca and a copy was given to him. WBC 3.4, hemoglobin 14.7, platelets 72,000 ANC is 1420. Potassium 3.7 random glucose 105 creatinine 1.1 today bilirubin 1.5 ALT is 36 AST is 65 alk phos is 108 LDH was pending. Hepatitis profile was nonreactive. He states he has had hepatitis B immunizations in the past. He reports no known hepatitis infections. 4. We will plan to see him back weekly with CBC CMP for weekly Rituxan. 5. Mr. Montes De Oca has been started to contact us in interim should questions or problems arise. 6. The patient was informed of treatment plan and specific drugs were discussed. We also discussed how Rituxan works and identified common side effects including infusion reactions (reported in 32-77% of first administration doses) such as drug hypersensitivity/allergic reactions or anaphylaxis, chills/rigors, bronchospasms, hives/rash, fever, hypo/hypertension, palpitations, tachycardia, nausea, anxiety. Diarrhea, abdominal pain, rash, itching, fatigue, elevated LFT's, night sweats, lymphocytopenia, cough, anemia, bone pain, angioedema amongst others have been reported post administration. The risk of infusion reaction with the first dose has been reported from 32-77% of patients. has occured within 24 hours of adminstration. They have also been informed how to contact the clinic with side effects or symptoms, including but not limited to shortness of breath, fever greater than 100.4???, chills, sore throat, bleeding or bruising that is not explained or mouth sores, cough, nasal discharge, diarrhea, constipation, nausea and/or vomiting not relieved with medications on hand at home, as well as any other concern or question they may have. Our hours are 8:00 a.m. to 4:30 p.m. on Friday through and 8-12:00 on Friday. However, someone is front office director 24 hours per day and they have been advised to contact the [facility] if it is after hours. We have also discussed potential long-term side effects of chemotherapy including secondary cancers, infertility, pulmonary complications, cardiac complications, and again peripheral neuropathy. We have discussed that they certainly need to let us know before taking any antioxidants or herbal or further dietary supplements, as we are unsure of how these agents react with chemotherapy and we request that they avoid these products for now. They were informed that it is okay to take multivitamins at normal doses. They verbally state that they understand to take all medications as directed by their healthcare provider unless otherwise indicated. They also verbalized understanding to leave the pressure dressing on the intravenous administration site for at least two hours after treatment. Instructions for oral care with baking soda and salt water rinses as well as a guide for use of [id number] medication were provided with the treatment plan. They have been given a written patient treatment plan, of which a copy is in the chart, as well as specific drug information. They have no questions and verbalized understanding and are willing to proceed with chemotherapy at this time. Greater than 60 minutes was spent in face to face communication with this patient in regards to plan of care, side effect identification and management as well as reviewing the patient's records, preparing teaching material and documentation regarding this visit. Signed By: Ryland Brown-, AOCNP Emily Leonardo MD <<Signature on File>>
== END 2020-06-21 08:30 | disposition home or self-care (01) ==
PROVIDERS: PCP Nurse Practitioner; Visit Provider Internal Medicine Hematology & Oncology
DX: Z51.12 Encounter for antineoplastic immunotherapy (principal); C82.90 Follicular lymphoma, unspecified, unspecified site; D75.9 Disease of blood and blood-forming organs, unspecified; Z87.891 Personal history of nicotine dependence; Z79.899 Other long term (current) drug therapy
CPT/HCPCS: 96367; 96375; 96413; 96415; 99215; J1200; J2175; J7040; J9312

== ENCOUNTER 2020-06-28 05:41 | Outpatient (CLI) | payer OTHER, SELFPAY ==
[2020-06-28 10:11] LABS: Basophils % 1.4 %; Eosinophils # 0.1 10^3/uL (0.0-0.8); Eosinophils % 5.3 %; Hematocrit 44.4 % (42.0-52.0); Hemoglobin 14.2 g/dL (11.7-16.6); Lymphocytes # 0.6 10^3/uL (0.8-4.8); Lymphocytes % 29.5 %; Mean Corpuscular Hemoglobin 30.7 pg (28.0-34.0); Mean Corpuscular Volume 96.1 fL (80-94); Mean Platelet Volume 11.8 fL (7.4-10.4); Monocytes # 0.2 10^3/uL (0.2-0.9); Monocytes % 11.6 %; Neutrophils # 1.08 10^3/uL (1.8-7.7); Neutrophils % 52.2 %; Nucleated Red Blood Cells % 0 %; Platelet Count 52 10^3/cmm (130-400); Red Blood Count 4.62 10^6/uL (4.1-5.3); Red Cell Distribution Width 14.6 % (12.1-15.1); White Blood Count 2.1 10^3/uL (4.0-10.0)
[2020-06-28 10:29] LABS: Alanine Aminotransferase 41 U/L (0-41); Albumin Level 3.6 g/dL (3.5-5.2); Alkaline Phosphatase 111 IU/L (40-130); Aspartate Amino Transferase 70 U/L (0-40); Blood Urea Nitrogen 20 mg/dL (8-23); Calcium 9.4 mg/dL (8.5-10.5); Carbon Dioxide 18 mmol/L (22-29); Chloride 107 mmol/L (98-107); Globulin 2.9 g/dL (1.3-4.6); Glucose 114 mg/dL (65-115); Osmolality Calculated 289 mOsm/kg (285-295); Sodium 138 mmol/L (136-145); Total Protein 6.5 g/dL (6.6-8.7)
[2020-06-28 10:42] LABS: Anion Gap 17.7 (5-19); Potassium 4.7 mmol/L (3.5-5.1)
[2020-06-28] MEDS: acetaminophen 325 mg Tablet 650 MG PO (11:50)
[2020-06-28] MEDS: diphenhydrAMINE 50 mg/mL SDV 1mL 25 MG IVP (11:52)
[2020-06-28] MEDS: sodium chloride 0.9% 500 ML 90 ML IV (12:10)
--- NOTE | 2020-06-30 16:44 | ONC FU_ITS ---
[facility] Patient Note Patient: Johnathan Montes De Oca Unit #: [id number]: 1945 Dictated By: Ryland BrownDate of Visit: Jun 28, 2020 Onc MED Follow-Up/Prog Note Chief Complaint: lymphoproliferative disorder History of Present Illness: Mr. Montes De Oca is a 74-year-old gentleman with history of lymphocytosis. 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 At that time the lymphocytosis reached about 20,000 but subsequently decreased spontaneously. CT scan of chest/abdomen/pelvis done at that time shows mild lymph nodes above and below diaphragm but they were too small to biopsy. As per patient he was followed by his PMD and oncologist at the [facility] and on 11/07/2015 he underwent bone marrow biopsy which was nondiagnostic for B-cell lymphoma, flow cytometry done on 11/07/2015 showed no clonal process. He was also diagnosed with hepatic cirrhosis and splenomegaly. Mr Montes De Oca said he didn't have any specific issues until recently. He started having back pain for which he was referred to Dr. Leyva at a local pain clinic. A CT scan of chest abdomen pelvis was obtained on 08/09/2019 which was compared with CT scan from 11/06/2016, October 2015 and April 2015. And it showed stable appearance of mediastinal and hilar and axillary lymph nodes; Mild emphysema. The was interval development of bulky retroperitoneal and mesenteric lymphadenopathy, measuring about 4.3 cm, suspicious for primary cindy malignancy versus metastatic disease versus reactive; Extensive diverticulosis of descending and sigmoid colon; Cirrhosis, ascites, splenomegaly. Degenerative changes of spine, no fractures were reported. On 08/10/2019, Mr Montes De Oca went to see a [place] medical oncologist, Dr. Chato Beasley in [place] and as per his recommendations- due to thepatient's history of low-grade lymphoma and (it was not clear whether symptoms are attributed to adenopathy/low-grade lymphoma or other process, cirrhosis) a PET/CT scan and lymph node biopsy and consider bone marrow biopsy. 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 Mr Montes De Oca denied any night sweats, denies any fever or weight loss. Denies any lower extremity numbness or weakness denies any urine or stool incontinence.No melena hematochezia, no nosebleed, no jaundice. But abdominal fullness due to ascites. He was referred to interventional radiology for ultrasound-guided paracentesis patient underwent sonogram on 09/20/2019 which showed some mild amount of ascites visualized in 4 abdominal quadrant, inadequate fluid for paracentesis at that time. He underwent follow-up CT PET scan on 11/06/2019 which showed FDG positive lymphadenopathy from the level of head and neck to the level of pelvis. No evidence of splenic or marrow or extranodal involvement on February 05, 2020 patient developed difficulty in swallowing and dysphagia and went to emergency room where he underwent CT scan of the neck which showed heterogeneous enhancing mass extending from posterior left aspect of tongue base to the adjacent oropharyngeal mucosa measuring 3.1 x 2.6 cm and also there was a enlarged level 3 and level 7 lymph nodes on the left, 3.3 x 2.0 cm size., Patient was transferred to [facility] where he was diagnosed with oropharyngeal abscess he was drained and treated with IV antibiotic subsequently discharged home on oral antibiotic h/o chronic lower back pain for which he has been to pain clinic where as per patient, he was given 'injection' about 4 months ago with some help but still having mid to lower back pain and sometimes problem and walking Mr Montes De Oca has been following locally with Dr Leonardo and was last seen by him on 06/05/2020. Mr Montes De Oca underwent MRI of the spine on 05/30/[address] Leonardo discussed the findings which showed moderately enlarged spleen with a maximum length 17 cm, retroperitoneal lymphadenopathy index lymph node is 6 x 3 x 4 cm inferior medial to the right kidney bulky partially visualized left thoracic and left lymph nodes measuring 2.9 cm, no evidence of bone mets, moderate central canal stenosis L4-5 with shallow central disc protrusion and impingement traversing L5 nerve roots immediately. Moderate right L4-5 foraminal narrowing. Shallow central protrusion T7-8 with slight effacement of ventral thecal sac and slight contacting of the thoracic cord. No significant central canal stenosis. Dr Leonardo's notes report that he also discussed with Mr Montes De Oca further treatment options. Because of progressive back pain which could be due to bulky retroperitoneal lymphadenopathy and his splenomegaly could be due to portal hypertension due to cirrhosis of the liver or lymphomatous infiltration with low-grade lymphoma and now causing persistent progressive bicytopenia. Dr Leonardo recommended that Mr Montes De Oca consider trial of Rituxan 375 mg/m??? weekly x4-6 and then monitor his blood counts as well as central lymphadenopathy, there is a possibility with improvement in central lymphadenopathy his back pain may improve if not then will consult orthopedic for spine evaluation and if bicytopenia persist then it could be due to splenic sequestration or considering his age underlying myelodysplasia, will consider bone marrow evaluation. Mr Montes De Oca has elected to try the Ritxuan and began his first week treatment on 06/21/2020. He is here today for followup and week 2 treatment. He has no new concerns. He states he had one episode of nausea right after treatment but resolved with only 1 nausea pill. He reports he did have the chills/shakes when he was ggetting his infusion. He states the nurse gave him a shot and it stopped (Demerol). He denies any diarrhea or urinary concerns. He has chronic bruising but states it is no worse than his normal. He denies any fever or chills. His appetite is good and after day 2 after treatment he was back to his normal activities. He does tire easily but when his back pain is controlled he states he feels pretty good overall . Past Medical History: Bipolar disorder Bph Chronic obstructive pulmonary disease Depression Generalized anxiety disorder Gout Hyperlipidemia Hypertension Ptsd Sleep apnea Past Surgical History: Cataract excision Allergies: Cortisone Acetate, darvon, and quiNINE Sulfate. Medications: Ativan 1 Tablet (of 2 mg) Oral b.i.d. Cetirizine HCl 1 Tablet (of 10 mg) Oral daily Flonase 1 (50 mcg/act) Suspension Nasal PRN hydroCHLOROthiazide 1 Tablet (of 25 mg) Oral daily Ibuprofen 1 Tablet (of 800 mg) Oral t.i.d. Omeprazole 1 Capsule (of 20 mg) Capsule Delayed Release Oral daily ProAir HFA 1 Inhalation (of 108 (90 base) mcg/act) Aerosol, solution Inhalation PRN Tamsulosin HCl 1 Capsule (of 0.4 mg) Oral daily Family History: Mr. Montes De Oca's mother at age 78: type II diabetes. Mr. Montes De Oca's father at age 84: lung cancer. Mr. Montes De Oca has 1 sister who is : cancer of unknown primary. Social History: Mr. Montes De Oca is and he is retired. Mr. Montes De Oca quit smoking 18 years ago but had smoked for 44 years. He has no history of drinking. Mr. Montes De Oca reports the following support systems: lives with spouse, significant other, family, or friends, supportive family/friends willing to assist with needs, and adequate transportation available for expected visits. His diet consists of regular meals. He indicates his activity level as: regular exercise. Pt chews tobacco. Review Of Symptoms: Constitutional Denies fevers, chills, night sweats, excessive fatigue or weight loss. Eyes Denies significant visual changes. No diplopia. No amaurosis. ENMT Denies changes in hearing, sore throat, mouth sores, difficulty or changes in swallowing ability, and/or sinus drainage. Hematologic/Lymphatic Denies easy bruising or bleeding. The patient denies any tender or palpable lymph nodes. Respiratory Denies dyspnea on exertion, chest pain, cough or hemoptysis. Denies orthopnea. Cardiovascular Denies anginal chest pain, palpitations or orthopnea. Gastrointestinal Denies persistent nausea, vomiting, diarrhea, GI bleeding, or constipation. Denies change in bowel habits and/or stool color, no heartburn or early satiety. Genitourinary (M) Denies hematuria, dysuria, increased frequency, urgency, hesitancy or incontinence. Musculoskeletal Denies joint pain, swelling or redness. No decreased range of motion. Integumentary Denies chronic rashes, inflammation, ulcerations or skin changes. Neurologic Denies headache, blurred vision, and no areas of focal weakness or numbness. Normal gait. No sensory problems. Psychiatric Denies insomnia, depression, simeon or mood swings. Vital Signs: Performed on Jun 28, 2020 11:08 Height - 72.00 in Weight - 225.4 lbs (LOW) BSA - 2.24 sq.m BMI - 30.57 (HIGH) Temperature - 98.0 F (LOW) Pulse - 75 /min Respiration - 18 /min BP - 147/71 mm(hg) (HIGH) O2 Sat - 97 % Pain - 0,1 - No physically strenuous activity, but ambulatory and able to carry out light or sedentary work (e.g. office work, light house work). (ECOG) Physical Examination: Constitutional Alert, oriented, no acute distress. Skin pink, warm and dry. Head Normocephalic; atraumatic. Eyes Conjunctivae and sclerae are clear and without icterus. Pupils are reactive and equal. Neck Supple without masses or thyromegaly. No jugular venous distension. Hematologic/Lymphatic No petechiae or purpura. No tender or palpable lymph nodes in the cervical or supraclavicular areas. Respiratory Lungs are clear to auscultation without rhonchi or wheezing. Cardiovascular Regular rate and rhythm of heart without murmurs,clicks, gallops or rubs. Abdomen Non-tender, non-distended, no masses or ascites. Good bowel sounds noted in all quads. No guarding or rebound tenderness. No pulsatile masses. Back/Spine Non-tender to palpation. Extremities No visible deformities, no cyanosis, clubbing or edema. Musculoskeletal No tenderness or swelling, normal range of motion without obvious weakness. Integumentary No rashes or lesions. Neurologic No sensory or motor deficits, normal cerebellar function, normal gait. Psychiatric Alert and oriented times three. Coherent speech. Verbalizes understanding of our discussions today. Laboratory:Test performed on Jun 28, 2020 09:45 Sodium 138 mmol/L Potassium 4.7 mmol/L Chloride 107 mmol/L CO2 18 mmol/L Anion Gap 17.7 BUN 20 mg/dL Creatinine 0.8 mg/dL Cr Clearance (Est) 119.4400 mL/min Glucose 114 mg/dL Osmolality - Calculated 289 mOsm/kg Calcium 9.4 mg/dL Protein, Total 6.5 g/dL Albumin 3.6 g/dL Globulin 2.9 g/dL Bilirubin, Total 1.0 mg/dL ALT (SGPT) 41 U/L AST (SGOT) 70 U/L Alkaline Phosphatase 111 IU/L WBC 2.1 10 3/uL RBC 4.62 10 6/uL HGB 14.2 g/dL HCT 44.4 % MCV 96.1 fL MCH 30.7 pg MCHC 32.0 g/dL RDW 14.6 % Platelet Count 52 10 3/cmm MPV 11.8 fL Neutrophils 1.08 10 3/uL Lymphocytes 0.6 10 3/uL Monocytes 0.2 10 3/uL Eosinophils 0.1 10 3/uL Basophils 0.0 10 3/uL Neutrophil % 52.2 % Lymphocyte % 29.5 % Monocyte % 11.6 % Eosinophil % 5.3 % Basophils % 1.4 % NRBC % 0 % Test performed on Jun 19, 2020 10:16 Hepatitis A Ab, IgM Non-Reactive Hepatitis B Core Ab, Total Non-Reactive Hepatitis B Surf Antigen Non-Reactive Hepatitis B Surface Ab 3.5 STATUS of IMMUINITY Inconsistent with Immunity 0.0 - 8.5 mIU/mL Consistent with Immunity >8.5 mIU/mL Hepatitis C Ab Non-Reactive Test performed on Jun 05, 2020 09:45 CBC Slide Review Slide Review Perform SLIDE REVIEW AGREES WITH AUTOMATED RESULTS Test performed on May 23, 2020 09:17 LDH (Total) 282 U/L Impression: History of low-grade, follicular lymphoma, CD 10 and CD19 positive diagnosed in 2004, recently done CT scan of chest abdomen pelvis, when compared with CT scan from October 2016 showed stable, small mediastinal lymphadenopathy, hilar and axillary lymphadenopathy. But progressive/bulky retroperitoneal and mesenteric lymphadenopathy increased from 2017, one of the largest measuring 4.3 cm chain. Degenerative changes of spine no fracture seen. Hepatic cirrhosis/splenomegaly/ascites Mild thrombocytopenia CBC done on 08/09/2002 shows white blood count 6.1 hemoglobin 14.9 crit 44.3 platelets 90,000 lymphocytes 47.9% neutrophil 38.2%. Chronic back pain, etiology unclear degenerative joint disease versus pressure due to retroperitoneal lymphadenopathy. MRI scan spine findings which was done on May 30, 2020 and showed moderately enlarged spleen with a maximum length 17 cm, retroperitoneal lymphadenopathy index lymph node is 6 x 3 x 4 cm inferior medial to the right kidney bulky partially visualized left thoracic and left lymph nodes measuring 2.9 cm, no evidence of bone mets, moderate central canal stenosis L4-5 with shallow central disc protrusion and impingement traversing L5 nerve roots immediately. Moderate right L4-5 foraminal narrowing. Shallow central protrusion T7-8 with slight effacement of ventral thecal sac and slight contacting of the thoracic cord. No significant central canal stenosis. Dr Leonardo's 06/05/2020 notes report that he also discussed with Mr Montes De Oca further treatment options. Because of progressive back pain which could be due to bulky retroperitoneal lymphadenopathy and his splenomegaly could be due to portal hypertension due to cirrhosis of the liver or lymphomatous infiltration with low-grade lymphoma and now causing persistent progressive bicytopenia. Dr Leonardo recommended that Mr Montes De Oca consider trial of Rituxan 375 mg/m??? weekly x4-6 and then monitor his blood counts as well as central lymphadenopathy, there is a possibility with improvement in central lymphadenopathy his back pain may improve if not then will consult orthopedic for spine evaluation and if bicytopenia persist then it could be due to splenic sequestration or considering his age underlying myelodysplasia, will consider bone marrow evaluation. Mr Montes De Oca started his first of four weeks of Rituxan on . Plan: Follicular lymphoma; thrombocytopenia, neutropenia 1. Proceed with week [address] Leonardo's instructions.. He has received 1 weekly dose on 06/21/2020. 2. Neutropenic precautions discussed as were thrombocytopenic precautions. 3. Labs from June 28 2020 were reviewed in detail discussed with Mr. Montes De Oca and a copy was given to him. WBC 2.1, hemoglobin 14.2, platelets 52,000, ANC is 1080 potassium 4.7 creatinine 0.8 random glucose 114 his a AST is slightly elevated at 70 it was 65 last week. His ALT is normal and his alk phos is normal. 4. We will plan to see him back next week as scheduled for his follow-up. He may or may not get treated at that time. 5. Mr. Montes De Oca has been instructed to contact us in interim should questions or problems arise. Signed By: Ryland Brown-BELLA, AOELVA Leonardo MD <<Signature on File>>
== END 2020-06-28 05:42 | disposition home or self-care (01) ==
LOC: ONCMED 05:43
PROVIDERS: PCP Nurse Practitioner; Visit Provider Nurse Practitioner
DX: Z51.12 Encounter for antineoplastic immunotherapy (principal); C82.90 Follicular lymphoma, unspecified, unspecified site; M47.9 Spondylosis, unspecified; K74.60 Unspecified cirrhosis of liver; R16.1 Splenomegaly, not elsewhere classified; R18.8 Other ascites; D69.6 Thrombocytopenia, unspecified; G89.29 Other chronic pain; M54.5 Low back pain
CPT/HCPCS: 80053; 85025; 96375; 96413; 96415; 99215; J1200; J7040; J9312

== ENCOUNTER 2020-07-05 05:58 | Outpatient (CLI) | payer OTHER, SELFPAY ==
[2020-07-05 08:52] LABS: Basophils % 1.9 %; Eosinophils # 0.2 10^3/uL (0.0-0.8); Eosinophils % 6.9 %; Hematocrit 41.5 % (42.0-52.0); Hemoglobin 14.1 g/dL (11.7-16.6); Lymphocytes # 0.6 10^3/uL (0.8-4.8); Lymphocytes % 25.9 %; Mean Corpuscular Hemoglobin 30.8 pg (28.0-34.0); Mean Corpuscular Volume 90.6 fL (80-94); Monocytes # 0.2 10^3/uL (0.2-0.9); Monocytes % 9.3 %; Neutrophils # 1.21 10^3/uL (1.8-7.7); Nucleated Red Blood Cells % 0 %; Platelet Count 76 10^3/cmm (130-400); Red Blood Count 4.58 10^6/uL (4.1-5.3); Red Cell Distribution Width 14.5 % (12.1-15.1); White Blood Count 2.2 10^3/uL (4.0-10.0)
[2020-07-05 09:41] LABS: Alanine Aminotransferase 38 U/L (0-41); Albumin Level 3.7 g/dL (3.5-5.2); Alkaline Phosphatase 105 IU/L (40-130); Anion Gap 12.8 (5-19); Aspartate Amino Transferase 67 U/L (0-40); Blood Urea Nitrogen 19 mg/dL (8-23); Calcium 9.3 mg/dL (8.5-10.5); Carbon Dioxide 26 mmol/L (22-29); Chloride 105 mmol/L (98-107); Globulin 2.7 g/dL (1.3-4.6); Glucose 110 mg/dL (65-115); Osmolality Calculated 293 mOsm/kg (285-295); Potassium 3.8 mmol/L (3.5-5.1); Sodium 140 mmol/L (136-145); Total Bilirubin 1.1 mg/dL (0.15-1.2); Total Protein 6.4 g/dL (6.6-8.7)
[2020-07-05] MEDS: diphenhydrAMINE 50 mg/mL SDV 1mL 25 MG IVP (11:00)
[2020-07-05] MEDS: sodium chloride 0.9% 500 ML 75 ML IV (11:00)
[2020-07-05] MEDS: acetaminophen 325 mg Tablet 650 MG PO (11:00)
--- NOTE | 2020-07-05 13:22 | ONC FU_ITS ---
[facility] Patient Note Patient: Johnathan Montes De Oca Unit #: [id number]: 1945 Dictated By: Ryland BrownDate of Visit: Jul 05, 2020 Onc MED Follow-Up/Prog Note Chief Complaint: lymphoproliferative disorder History of Present Illness: Mr. Montes De Oca is a 74-year-old gentleman with history of lymphocytosis. 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 At that time the lymphocytosis reached about 20,000 but subsequently decreased spontaneously. CT scan of chest/abdomen/pelvis done at that time shows mild lymph nodes above and below diaphragm but they were too small to biopsy. As per patient he was followed by his PMD and oncologist at the [facility] and on 11/07/2015 he underwent bone marrow biopsy which was nondiagnostic for B-cell lymphoma, flow cytometry done on 11/07/2015 showed no clonal process. He was also diagnosed with hepatic cirrhosis and splenomegaly. Mr Montes De Oca said he didn't have any specific issues until recently. He started having back pain for which he was referred to Dr. Leyva at a local pain clinic. A CT scan of chest abdomen pelvis was obtained on 08/09/2019 which was compared with CT scan from 11/06/2016, October 2015 and April 2015. And it showed stable appearance of mediastinal and hilar and axillary lymph nodes; Mild emphysema. The was interval development of bulky retroperitoneal and mesenteric lymphadenopathy, measuring about 4.3 cm, suspicious for primary cindy malignancy versus metastatic disease versus reactive; Extensive diverticulosis of descending and sigmoid colon; Cirrhosis, ascites, splenomegaly. Degenerative changes of spine, no fractures were reported. On 08/10/2019, Mr Montes De Oca went to see a [place] medical oncologist, Dr. Chato Beasley in [place] and as per his recommendations- due to thepatient's history of low-grade lymphoma and (it was not clear whether symptoms are attributed to adenopathy/low-grade lymphoma or other process, cirrhosis) a PET/CT scan and lymph node biopsy and consider bone marrow biopsy. As far as mild neutropenia was concerned it was probably due to cirrhosis/portal hypertension and recommended to continue with transit operator. Mr Montes De Oca denied any night sweats, denies any fever or weight loss. Denies any lower extremity numbness or weakness denies any urine or stool incontinence.No melena hematochezia, no nosebleed, no jaundice. But abdominal fullness due to ascites. He was referred to interventional radiology for ultrasound-guided paracentesis patient underwent sonogram on 09/20/2019 which showed some mild amount of ascites visualized in 4 abdominal quadrant, inadequate fluid for paracentesis at that time. He underwent follow-up CT PET scan on 11/06/2019 which showed FDG positive lymphadenopathy from the level of head and neck to the level of pelvis. No evidence of splenic or marrow or extranodal involvement on February 05, 2020 patient developed difficulty in swallowing and dysphagia and went to emergency room where he underwent CT scan of the neck which showed heterogeneous enhancing mass extending from posterior left aspect of tongue base to the adjacent oropharyngeal mucosa measuring 3.1 x 2.6 cm and also there was a enlarged level 3 and level 7 lymph nodes on the left, 3.3 x 2.0 cm size., Patient was transferred to [place] where he was diagnosed with oropharyngeal abscess he was drained and treated with IV antibiotic subsequently discharged home on oral antibiotic h/o chronic lower back pain for which he has been to pain clinic where as per patient, he was given 'injection' about 4 months ago with some help but still having mid to lower back pain and sometimes problem and walking Mr Montes De Oca has been following locally with Dr Leonardo and was last seen by him on 06/05/2020. Mr Montes De Oca underwent MRI of the spine on 05/30/[address] Leonardo discussed the findings which showed moderately enlarged spleen with a maximum length 17 cm, retroperitoneal lymphadenopathy index lymph node is 6 x 3 x 4 cm inferior medial to the right kidney bulky partially visualized left thoracic and left lymph nodes measuring 2.9 cm, no evidence of bone mets, moderate central canal stenosis L4-5 with shallow central disc protrusion and impingement traversing L5 nerve roots immediately. Moderate right L4-5 foraminal narrowing. Shallow central protrusion T7-8 with slight effacement of ventral thecal sac and slight contacting of the thoracic cord. No significant central canal stenosis. Dr Leonardo's notes report that he also discussed with Mr Montes De Oca further treatment options. Because of progressive back pain which could be due to bulky retroperitoneal lymphadenopathy and his splenomegaly could be due to portal hypertension due to cirrhosis of the liver or lymphomatous infiltration with low-grade lymphoma and now causing persistent progressive bicytopenia. Dr Leonardo recommended that Mr Montes De Oca consider trial of Rituxan 375 mg/m??? weekly x4-6 and then monitor his blood counts as well as central lymphadenopathy, there is a possibility with improvement in central lymphadenopathy his back pain may improve if not then will consult orthopedic for spine evaluation and if bicytopenia persist then it could be due to splenic sequestration or considering his age underlying myelodysplasia, will consider bone marrow evaluation. Mr Montes De Oca has elected to try the Ritxuan and began his first week treatment on 06/21/2020. He is here today for followup and week 3 treatment. He states he feels good overall. He has no new concerns today. He states he woke up with a clear/slightly blood tinged nasal drainage, but he used his spray and it has resolved completely. He denies any fever or chills or other signs of infection. He denies any chills or rigors with his Rituxan infusion last week. His appetite is good and his energy is normal for him. He denies any diarrhea or constipation. He denies any urinary symptoms. He denies any lower extremity edema. His breathing is normal and he denies orthopnea. He denies any chest pain or palpitations. His ECOG is 1. Past Medical History: Bipolar disorder Bph Chronic obstructive pulmonary disease Depression Generalized anxiety disorder Gout Hyperlipidemia Hypertension Ptsd Sleep apnea Past Surgical History: Cataract excision Allergies: Cortisone Acetate, darvon, and quiNINE Sulfate. Medications: Ativan 1 Tablet (of 2 mg) Oral b.i.d. Cetirizine HCl 1 Tablet (of 10 mg) Oral daily Flonase 1 (50 mcg/act) Suspension Nasal PRN hydroCHLOROthiazide 1 Tablet (of 25 mg) Oral daily Ibuprofen 1 Tablet (of 800 mg) Oral t.i.d. Omeprazole 1 Capsule (of 20 mg) Capsule Delayed Release Oral daily ProAir HFA 1 Inhalation (of 108 (90 base) mcg/act) Aerosol, solution Inhalation PRN Tamsulosin HCl 1 Capsule (of 0.4 mg) Oral daily Family History: Mr. Montes De Oca's mother at age 78: type II diabetes. Mr. Montes De Oca's father at age 84: lung cancer. Mr. Montes De Oca has 1 sister who is : cancer of unknown primary. Social History: Mr. Montes De Oca is and he is retired. Mr. Montes De Oca quit smoking 18 years ago but had smoked for 44 years. He has no history of drinking. Mr. Montes De Oca reports the following support systems: lives with spouse, significant other, family, or friends, supportive family/friends willing to assist with needs, and adequate transportation available for expected visits. His diet consists of regular meals. He indicates his activity level as: regular exercise. Pt chews tobacco. Review Of Symptoms: Constitutional Denies fevers, chills, night sweats, excessive fatigue or weight loss. Eyes Denies significant visual changes. No diplopia. No amaurosis. ENMT Denies changes in hearing, sore throat, mouth sores, difficulty or changes in swallowing ability, and/or sinus drainage. Slight runny nose this am when he got up but ok now. Hematologic/Lymphatic Denies easy bruising or bleeding. The patient denies any tender or palpable lymph nodes. Respiratory Denies dyspnea on exertion, chest pain, cough or hemoptysis. Denies orthopnea. Cardiovascular Denies anginal chest pain, palpitations or orthopnea. Gastrointestinal Denies persistent nausea, vomiting, diarrhea, GI bleeding, or constipation. Denies change in bowel habits and/or stool color, no heartburn or early satiety. Genitourinary (M) Denies hematuria, dysuria, increased frequency, urgency, hesitancy or incontinence. Musculoskeletal Denies joint pain, swelling or redness. No decreased range of motion. Integumentary Denies chronic rashes, inflammation, ulcerations or skin changes. Neurologic Denies headache, blurred vision, and no areas of focal weakness or numbness. Normal gait. No sensory problems. Psychiatric Denies insomnia, depression, simeon or mood swings. Vital Signs: Performed on Jul 05, 2020 10:15 Height - 72.00 in Weight - 223.4 lbs (LOW) BSA - 2.23 sq.m BMI - 30.30 (HIGH) Temperature - 99.4 F (HIGH) Pulse - 80 /min Respiration - 21 /min BP - 150/61 mm(hg) (HIGH) O2 Sat - 95 % (LOW) Pain - 0,1 - No physically strenuous activity, but ambulatory and able to carry out light or sedentary work (e.g. office work, light house work). (ECOG) Physical Examination: Constitutional Alert, oriented, no acute distress. Skin pink, warm and dry. Head Normocephalic; atraumatic. Eyes Conjunctivae and sclerae are clear and without icterus. Pupils are reactive and equal. Neck Supple without masses or thyromegaly. No jugular venous distension. Hematologic/Lymphatic No petechiae or purpura. No tender or palpable lymph nodes in the cervical or supraclavicular areas. Respiratory Lungs are clear to auscultation without rhonchi or wheezing. Cardiovascular Regular rate and rhythm of heart without murmurs,clicks, gallops or rubs. Abdomen Non-tender, non-distended, no masses or ascites. Good bowel sounds noted in all quads. No guarding or rebound tenderness. No pulsatile masses. Back/Spine Non-tender to palpation. Extremities No visible deformities, no cyanosis, clubbing or edema. Musculoskeletal No tenderness or swelling, normal range of motion without obvious weakness. Integumentary Treated skin on right cheek-pink and healthy in appearance. Using a cream the stock checkerer gave me for 1 more week then I stop it . Neurologic No sensory or motor deficits, normal cerebellar function, normal gait. Psychiatric Alert and oriented times three. Coherent speech. Verbalizes understanding of our discussions today. Laboratory:Test performed on Jul 05, 2020 08:35 Sodium 140 mmol/L Potassium 3.8 mmol/L Chloride 105 mmol/L CO2 26 mmol/L Anion Gap 12.8 BUN 19 mg/dL Creatinine 1.0 mg/dL Cr Clearance (Est) 95.5500 mL/min Glucose 110 mg/dL Osmolality - Calculated 293 mOsm/kg Calcium 9.3 mg/dL Protein, Total 6.4 g/dL Albumin 3.7 g/dL Globulin 2.7 g/dL Bilirubin, Total 1.1 mg/dL ALT (SGPT) 38 U/L AST (SGOT) 67 U/L Alkaline Phosphatase 105 IU/L WBC 2.2 10 3/uL RBC 4.58 10 6/uL HGB 14.1 g/dL HCT 41.5 % MCV 90.6 fL MCH 30.8 pg MCHC 34.0 g/dL RDW 14.5 % Platelet Count 76 10 3/cmm MPV 12.0 fL Neutrophils 1.21 10 3/uL Lymphocytes 0.6 10 3/uL Monocytes 0.2 10 3/uL Eosinophils 0.2 10 3/uL Basophils 0.0 10 3/uL Neutrophil % 56.0 % Lymphocyte % 25.9 % Monocyte % 9.3 % Eosinophil % 6.9 % Basophils % 1.9 % NRBC % 0 % Test performed on Jun 19, 2020 10:16 Hepatitis A Ab, IgM Non-Reactive Hepatitis B Core Ab, Total Non-Reactive Hepatitis B Surf Antigen Non-Reactive Hepatitis B Surface Ab 3.5 STATUS of IMMUINITY Inconsistent with Immunity 0.0 - 8.5 mIU/mL Consistent with Immunity >8.5 mIU/mL Hepatitis C Ab Non-Reactive Test performed on Jun 05, 2020 09:45 CBC Slide Review Slide Review Perform SLIDE REVIEW AGREES WITH AUTOMATED RESULTS Test performed on May 23, 2020 09:17 LDH (Total) 282 U/L Impression: History of low-grade, follicular lymphoma, CD 10 and CD19 positive diagnosed in 2004, recently done CT scan of chest abdomen pelvis, when compared with CT scan from October 2016 showed stable, small mediastinal lymphadenopathy, hilar and axillary lymphadenopathy. But progressive/bulky retroperitoneal and mesenteric lymphadenopathy increased from 2017, one of the largest measuring 4.3 cm chain. Degenerative changes of spine no fracture seen. Hepatic cirrhosis/splenomegaly/ascites Mild thrombocytopenia CBC done on 08/09/2002 shows white blood count 6.1 hemoglobin 14.9 crit 44.3 platelets 90,000 lymphocytes 47.9% neutrophil 38.2%. Chronic back pain, etiology unclear degenerative joint disease versus pressure due to retroperitoneal lymphadenopathy. MRI scan spine findings which was done on May 30, 2020 and showed moderately enlarged spleen with a maximum length 17 cm, retroperitoneal lymphadenopathy index lymph node is 6 x 3 x 4 cm inferior medial to the right kidney bulky partially visualized left thoracic and left lymph nodes measuring 2.9 cm, no evidence of bone mets, moderate central canal stenosis L4-5 with shallow central disc protrusion and impingement traversing L5 nerve roots immediately. Moderate right L4-5 foraminal narrowing. Shallow central protrusion T7-8 with slight effacement of ventral thecal sac and slight contacting of the thoracic cord. No significant central canal stenosis. Dr Leonardo's 06/05/2020 notes report that he also discussed with Mr Montes De Oca further treatment options. Because of progressive back pain which could be due to bulky retroperitoneal lymphadenopathy and his splenomegaly could be due to portal hypertension due to cirrhosis of the liver or lymphomatous infiltration with low-grade lymphoma and now causing persistent progressive bicytopenia. Dr Leonardo recommended that Mr Montes De Oca consider trial of Rituxan 375 mg/m??? weekly x4-6 and then monitor his blood counts as well as central lymphadenopathy, there is a possibility with improvement in central lymphadenopathy his back pain may improve if not then will consult orthopedic for spine evaluation and if bicytopenia persist then it could be due to splenic sequestration or considering his age underlying myelodysplasia, will consider bone marrow evaluation. Mr Montes De Oca started his first of four weeks of Rituxan on . He is tolerating it well thus far. Plan: PROBLEMS ADDRESSED TODAY A. Follicular lymphoma; thrombocytopenia, neutropenia 1. Proceed with week 3/4 Rituxan. 2. Neutropenic precautions discussed as were thrombocytopenic precautions. His neutrophils and platelets did improve this week. 3. Labs from July 05, 2020 were reviewed in detail discussed with Mr. Montes De Oca and a copy was given to him. WBC 2.2, HGB 14.1, platelets 76,000, ANC 1210. Creatinine 1.0, LFTs stable. 4. We will plan to see him back next week as scheduled for his follow-up, labs and week 4 Rituxan. 5. Mr. Montes De Oca has been instructed to contact us in interim should questions or problems arise. Signed By: Sharon Brown.P.-, AOCNP Emily Leonardo MD <<Signature on File>>
== END 2020-07-05 05:59 | disposition home or self-care (01) ==
LOC: ONCMED 05:59
PROVIDERS: PCP Nurse Practitioner; Visit Provider Nurse Practitioner
DX: Z51.12 Encounter for antineoplastic immunotherapy (principal); C82.90 Follicular lymphoma, unspecified, unspecified site; M54.9 Dorsalgia, unspecified; D75.9 Disease of blood and blood-forming organs, unspecified; R16.1 Splenomegaly, not elsewhere classified; Z79.899 Other long term (current) drug therapy
CPT/HCPCS: 36415; 80053; 85025; 96375; 96413; 96415; 99215; J1200; J7040; J9312

== ENCOUNTER 2020-07-12 05:54 | Outpatient (CLI) | payer OTHER, SELFPAY ==
[2020-07-12 09:30] LABS: Basophils % 1.4 %; Eosinophils # 0.1 10^3/uL (0.0-0.8); Eosinophils % 6.7 %; Hematocrit 44.9 % (42.0-52.0); Lymphocytes # 0.5 10^3/uL (0.8-4.8); Lymphocytes % 24.4 %; Mean Corpuscular HGB Conc 33.4 g/dL (30.0-36.0); Mean Corpuscular Hemoglobin 30.9 pg (28.0-34.0); Mean Corpuscular Volume 92.4 fL (80-94); Monocytes # 0.3 10^3/uL (0.2-0.9); Monocytes % 12.4 %; Neutrophils # 1.14 10^3/uL (1.8-7.7); Neutrophils % 54.6 %; Nucleated Red Blood Cells % 0 %; Platelet Count 66 10^3/cmm (130-400); Red Blood Count 4.86 10^6/uL (4.1-5.3); Red Cell Distribution Width 14.4 % (12.1-15.1); White Blood Count 2.1 10^3/uL (4.0-10.0)
[2020-07-12 09:57] LABS: Alanine Aminotransferase 41 U/L (0-41); Albumin Level 3.9 g/dL (3.5-5.2); Alkaline Phosphatase 109 IU/L (40-130); Anion Gap 12.8 (5-19); Aspartate Amino Transferase 69 U/L (0-40); Blood Urea Nitrogen 19 mg/dL (8-23); Calcium 9.6 mg/dL (8.5-10.5); Carbon Dioxide 25 mmol/L (22-29); Chloride 108 mmol/L (98-107); Globulin 2.9 g/dL (1.3-4.6); Glucose 112 mg/dL (65-115); Osmolality Calculated 297 mOsm/kg (285-295); Potassium 3.8 mmol/L (3.5-5.1); Sodium 142 mmol/L (136-145); Total Bilirubin 1.1 mg/dL (0.15-1.2); Total Protein 6.8 g/dL (6.6-8.7)
[2020-07-12] MEDS: acetaminophen 325 mg Tablet 650 MG PO (11:36)
[2020-07-12] MEDS: diphenhydrAMINE 50 mg/mL SDV 1mL 25 MG IVP (11:36)
[2020-07-12] MEDS: sodium chloride 0.9% 500 ML 75 ML IV (11:47)
--- NOTE | 2020-07-12 15:39 | ONC FU_ITS ---
Dr. Leonardo follow up note Patient: Johnathan Montes De Oca Unit #: [id number]: 1945 Dicatated By: Emily Leonardo M.D.Date of Visit:Jul 12, 2020 Onc Med Follow-up/Prog Note History of Present Illness: Mr. Montes De Oca is a 74-year-old gentleman with history of lymphocytosis. 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 At that time the lymphocytosis reached about 20,000 but subsequently decreased spontaneously. CT scan of chest/abdomen/pelvis done at that time shows mild lymph nodes above and below diaphragm but they were too small to biopsy. As per patient he was followed by his PMD and oncologist at the [facility] and on 11/07/2015 he underwent bone marrow biopsy which was nondiagnostic for B-cell lymphoma, flow cytometry done on 11/07/2015 showed no clonal process. He was also diagnosed with hepatic cirrhosis and splenomegaly. Mr Montes De Oca said he didn't have any specific issues until recently. He started having back pain for which he was referred to Dr. Leyva at a local pain clinic. A CT scan of chest abdomen pelvis was obtained on 08/09/2019 which was compared with CT scan from 11/06/2016, October 2015 and April 2015. And it showed stable appearance of mediastinal and hilar and axillary lymph nodes; Mild emphysema. The was interval development of bulky retroperitoneal and mesenteric lymphadenopathy, measuring about 4.3 cm, suspicious for primary cindy malignancy versus metastatic disease versus reactive; Extensive diverticulosis of descending and sigmoid colon; Cirrhosis, ascites, splenomegaly. Degenerative changes of spine, no fractures were reported. On 08/10/2019, Mr Montes De Oca went to see a [place] medical oncologist, Dr. Chato Beasley in [place] and as per his recommendations- due to thepatient's history of low-grade lymphoma and (it was not clear whether symptoms are attributed to adenopathy/low-grade lymphoma or other process, cirrhosis) a PET/CT scan and lymph node biopsy and consider bone marrow biopsy. As far as mild neutropenia was concerned it was probably due to cirrhosis/portal hypertension and recommended to continue with uat tester. Mr Montes De Oca denied any night sweats, denies any fever or weight loss. Denies any lower extremity numbness or weakness denies any urine or stool incontinence.No melena hematochezia, no nosebleed, no jaundice. But abdominal fullness due to ascites. He was referred to interventional radiology for ultrasound-guided paracentesis patient underwent sonogram on 09/20/2019 which showed some mild amount of ascites visualized in 4 abdominal quadrant, inadequate fluid for paracentesis at that time. He underwent follow-up CT PET scan on 11/06/2019 which showed FDG positive lymphadenopathy from the level of head and neck to the level of pelvis. No evidence of splenic or marrow or extranodal involvement on February 05, 2020 patient developed difficulty in swallowing and dysphagia and went to emergency room where he underwent CT scan of the neck which showed heterogeneous enhancing mass extending from posterior left aspect of tongue base to the adjacent oropharyngeal mucosa measuring 3.1 x 2.6 cm and also there was a enlarged level 3 and level 7 lymph nodes on the left, 3.3 x 2.0 cm size., Patient was transferred to [facility] where he was diagnosed with oropharyngeal abscess he was drained and treated with IV antibiotic subsequently discharged home on oral antibiotic h/o chronic lower back pain for which he has been to pain clinic where as per patient, he was given 'injection' about 4 months ago with some help but still having mid to lower back pain and sometimes problem and walking Mr Montes De Oca underwent MRI of the spine on 05/30/2020 and discussed the findings which showed moderately enlarged spleen with a maximum length 17 cm, retroperitoneal lymphadenopathy index lymph node is 6 x 3 x 4 cm inferior medial to the right kidney bulky partially visualized left thoracic and left lymph nodes measuring 2.9 cm, no evidence of bone mets, moderate central canal stenosis L4-5 with shallow central disc protrusion and impingement traversing L5 nerve roots immediately. Moderate right L4-5 foraminal narrowing. Shallow central protrusion T7-8 with slight effacement of ventral thecal sac and slight contacting of the thoracic cord. No significant central canal stenosis. discussed with Mr Montes De Oca further treatment options. Because of progressive back pain which could be due to bulky retroperitoneal lymphadenopathy and his splenomegaly could be due to portal hypertension due to cirrhosis of the liver or lymphomatous infiltration with low-grade lymphoma and now causing persistent progressive bicytopenia. was recommended that Mr Montes De Oca consider trial of Rituxan 375 mg/m??? weekly x4-6 and then monitor his blood counts as well as central lymphadenopathy, there is a possibility with improvement in central lymphadenopathy his back pain may improve if not then will consult orthopedic for spine evaluation and if bicytopenia persist then it could be due to splenic sequestration or considering his age underlying myelodysplasia, will consider bone marrow evaluation. Mr Montes De Oca has elected to try the Ritxuan and began his first week treatment on 06/21/2020. Came for follow-up, denies any specific complaint, back pain is better and improving otherwise no night sweats, no recurrent fever, no weight loss rather gain. No peripheral lymphadenopathy, no fever chills, no nausea or vomiting, no diarrhea constipation, no melena or hematochezia, no nosebleed or gum bleed, no petechia or ecchymosis.Tolerating Rituxan well Medications: Ativan 1 Tablet (of 2 mg) Oral b.i.d., Cetirizine HCl 1 Tablet (of 10 mg) Oral daily, Flonase 1 (50 mcg/act) Suspension Nasal PRN, hydroCHLOROthiazide 1 Tablet (of 25 mg) Oral daily, Ibuprofen 1 Tablet (of 800 mg) Oral t.i.d., Omeprazole 1 Capsule (of 20 mg) Capsule Delayed Release Oral daily, ProAir HFA 1 Inhalation (of 108 (90 base) mcg/act) Aerosol, solution Inhalation PRN, Tamsulosin HCl 1 Capsule (of 0.4 mg) Oral daily Allergies: Cortisone Acetate, darvon, and quiNINE Sulfate. Review of Systems: Review of Systems is not available for this patient. Vital Signs: Performed on Jul 12, 2020 10:55 Height - 72.00 in Weight - 221.4 lbs (LOW) BSA - 2.22 sq.m BMI - 30.03 (HIGH) Temperature - 99.0 F (HIGH) Pulse - 83 /min Respiration - 22 /min BP - 161/69 mm(hg) (HIGH) O2 Sat - 96 % Pain - 0 Performance Status: 0 - Fully active, able to carry on all predisease activities without restrictions. (ECOG) Physical Examination: ENMT - No mouth sores, no thrush, no jaundice, No cervical or axillary lymphadenopathy, Respiratory - Lungs are clear to auscultation, Cardiovascular - Regular rate and rhythm of heart, Abdomen - Soft, bowel sounds present, Extremities - No visible edema. Lab/Imaging: Test performed on Jul 05, 2020 08:35 Sodium 140 mmol/L Potassium 3.8 mmol/L Chloride 105 mmol/L CO2 26 mmol/L Anion Gap 12.8 BUN 19 mg/dL Creatinine 1.0 mg/dL Cr Clearance (Est) 95.5500 mL/min Glucose 110 mg/dL Osmolality - Calculated 293 mOsm/kg Calcium 9.3 mg/dL Protein, Total 6.4 g/dL Albumin 3.7 g/dL Globulin 2.7 g/dL Bilirubin, Total 1.1 mg/dL ALT (SGPT) 38 U/L AST (SGOT) 67 U/L Alkaline Phosphatase 105 IU/L WBC 2.2 10 3/uL RBC 4.58 10 6/uL HGB 14.1 g/dL HCT 41.5 % MCV 90.6 fL MCH 30.8 pg MCHC 34.0 g/dL RDW 14.5 % Platelet Count 76 10 3/cmm MPV 12.0 fL Neutrophils 1.21 10 3/uL Lymphocytes 0.6 10 3/uL Monocytes 0.2 10 3/uL Eosinophils 0.2 10 3/uL Basophils 0.0 10 3/uL Neutrophil % 56.0 % Lymphocyte % 25.9 % Monocyte % 9.3 % Eosinophil % 6.9 % Basophils % 1.9 % NRBC % 0 % Test performed on Jun 19, 2020 10:16 Hepatitis A Ab, IgM Non-Reactive Hepatitis B Core Ab, Total Non-Reactive Hepatitis B Surf Antigen Non-Reactive Hepatitis B Surface Ab 3.5 STATUS of IMMUINITY Inconsistent with Immunity 0.0 - 8.5 mIU/mL Consistent with Immunity >8.5 mIU/mL Hepatitis C Ab Non-Reactive Test performed on Jun 05, 2020 09:45 CBC Slide Review Slide Review Perform SLIDE REVIEW AGREES WITH AUTOMATED RESULTS Test performed on May 23, 2020 09:17 LDH (Total) 282 U/L Impression: History of low-grade, follicular lymphoma, CD 10 and CD19 positive diagnosed in 2004, recently done CT scan of chest abdomen pelvis, when compared with CT scan from October 2016 showed stable, small mediastinal lymphadenopathy, hilar and axillary lymphadenopathy. But progressive/bulky retroperitoneal and mesenteric lymphadenopathy increased from 2017, one of the largest measuring 4.3 cm chain. Degenerative changes of spine no fracture seen. Hepatic cirrhosis/splenomegaly/ascites Mild thrombocytopenia CBC done on 08/09/2002 shows white blood count 6.1 hemoglobin 14.9 crit 44.3 platelets 90,000 lymphocytes 47.9% neutrophil 38.2%. Chronic back pain, etiology unclear degenerative joint disease versus pressure due to retroperitoneal lymphadenopathy. MRI scan spine findings which was done on May 30, 2020 and showed moderately enlarged spleen with a maximum length 17 cm, retroperitoneal lymphadenopathy index lymph node is 6 x 3 x 4 cm inferior medial to the right kidney bulky partially visualized left thoracic and left lymph nodes measuring 2.9 cm, no evidence of bone mets, moderate central canal stenosis L4-5 with shallow central disc protrusion and impingement traversing L5 nerve roots immediately. Moderate right L4-5 foraminal narrowing. Shallow central protrusion T7-8 with slight effacement of ventral thecal sac and slight contacting of the thoracic cord. No significant central canal stenosis. discussed with Mr Montes De Oca further treatment options. Because of progressive back pain which could be due to bulky retroperitoneal lymphadenopathy and his splenomegaly could be due to portal hypertension due to cirrhosis of the liver or lymphomatous infiltration with low-grade lymphoma and now causing persistent progressive bicytopenia. recommended that Mr Montes De Oca consider trial of Rituxan 375 mg/m??? weekly x4-6 and then monitor his blood counts as well as central lymphadenopathy, there is a possibility with improvement in central lymphadenopathy his back pain may improve if not then will consult orthopedic for spine evaluation and if bicytopenia persist then it could be due to splenic sequestration or considering his age underlying myelodysplasia, will consider bone marrow evaluation. Mr Montes De Oca started his first of four weeks of Rituxan on . He is tolerating it well thus far. Plan: Discussed with patient regarding his labs white blood count 2.1 hemoglobin 15 hematocrit 44.9 platelets 66,000 ANC 1140 CMP within normal limits Clinically, patient is doing reasonably well, tolerating weekly Rituxan well but with expected side effects. We will proceed with #4 weekly dose of Rituxan today and then will consider CT scan of chest abdomen pelvis to assess the disease response and if there is improvement in central lymphadenopathy or splenomegaly, as patient still has persistent bicytopenia which could be due to splenic sequestration but considering his age underlying myelodysplasia cannot be ruled out, we will consider bone marrow evaluation. Patient will return to clinic in 1 week with CBC CMP and CT scan of chest abdomen pelvis to assess disease response to Rituxan. Signed By: Emily Leonardo M.D. <<Signature on File>>
== END 2020-07-12 05:55 | disposition home or self-care (01) ==
LOC: ONCMED 05:55
PROVIDERS: PCP Nurse Practitioner; Visit Provider Internal Medicine Hematology & Oncology
DX: Z51.12 Encounter for antineoplastic immunotherapy (principal); C82.90 Follicular lymphoma, unspecified, unspecified site; D75.9 Disease of blood and blood-forming organs, unspecified; Z79.899 Other long term (current) drug therapy
CPT/HCPCS: 80053; 85025; 96375; 96413; 96415; 99215; J1200; J7040; J9312

== ENCOUNTER 2020-07-19 06:08 | Outpatient (CLI) | payer OTHER, SELFPAY ==
[2020-07-19 08:41] LABS: Basophils % 1.3 %; Eosinophils # 0.2 10^3/uL (0.0-0.8); Eosinophils % 9.1 %; Hematocrit 44.2 % (42.0-52.0); Hemoglobin 14.7 g/dL (11.7-16.6); Lymphocytes # 0.5 10^3/uL (0.8-4.8); Lymphocytes % 22.1 %; Mean Corpuscular HGB Conc 33.3 g/dL (30.0-36.0); Mean Corpuscular Hemoglobin 30.1 pg (28.0-34.0); Mean Corpuscular Volume 90.6 fL (80-94); Mean Platelet Volume 12.2 fL (7.4-10.4); Monocytes # 0.3 10^3/uL (0.2-0.9); Monocytes % 11.3 %; Neutrophils % 56.2 %; Nucleated Red Blood Cells % 0 %; Platelet Count 72 10^3/cmm (130-400); Red Blood Count 4.88 10^6/uL (4.1-5.3); Red Cell Distribution Width 13.9 % (12.1-15.1); White Blood Count 2.3 10^3/uL (4.0-10.0)
--- NOTE | 2020-07-19 08:44 | CT_ITS ---
WS: [id number] CT CHEST, ABDOMEN AND PELVIS WITH CONTRAST. HISTORY: LYMPHOPROLIFERATIVE DISORDER TECHNIQUE: Contiguous 5 mm axial imaging performed through the chest, abdomen and pelvis with IV cont rast, oral contrast has been provided. Coronal and sagittal reformats chest. Coronal and sagittal ref ormats through the abdomen and pelvis. All CT scans at [facility] use at least one of the se dose optimization techniques: automated exposure control; mA and/or kV adjustment per patient size (includes targeted exams where dose is matched to clinical indication); or iterative reconstruction. CONTRAST: Omnipaque 300; 95 mL IV. DLP: 2170.31 mGy.cm COMPARISON: 07/17/2017, 09/09/[address] 11/06/2019. Chest CT: Moderate chronic emphysema. Stable ovoid 5 mm nodule in the RIGHT middle lobe. Linear atele ctasis at the lung bases. No pulmonary mass or nodule. There are a few scattered granulomata. LEFT cunningham praclavicular lymph nodes maximum diameter of 1.9 cm decreased in size since 11/06/2019. Small but num erous axillary lymph nodes are reidentified. Patient has numerous mediastinal and hilar lymph nodes. Largest lymph node along the aorta measures 11 mm in short axis diameter. Subcentimeter lymph nodes i n the hilar regions. Subcentimeter bilateral paratracheal lymph nodes. Very minimal decrease in size and number. Small persistent lymph nodes anterior to the RIGHT heart anterior to the liver. No increa se in size. Mild atherosclerosis aorta normal size heart. Small hiatal hernia. Abdomen CT: Surface of the liver is lobulated from cirrhosis. No masses within the liver. Negative ga llbladder. Spleen is enlarged measuring 17.0 cm in length which is not changed. No change in appearan ce of the pancreas or gallbladder. Normal enhancement of the kidneys. Lobulated cyst in the LEFT kidn ey is stable. No solid mass. No adrenal masses are identified. Mild atherosclerosis aorta. No ascites . There is extensive mesenteric and retroperitoneal lymphadenopathy. There is extensive adenopathy surr ounding the celiac axis, SMA and renal arteries. Large confluent groups of lymph nodes. The largest l ymph nodes with a maximum diameter 4.3 cm. There are additional scattered smaller mesenteric lymph no obed. As compared to the prior PET/CT of 11/06/2019 the lymph nodes have decreased slightly in size. La rgest lymph nodes have decreased by approximately 5 mm in short axis diameter. Lymph nodes continue a long the iliac chains. External iliac artery lymph nodes measure up to 1.9 cm in diameter. There is i nfiltration of soft tissue along the perirenal fascia greatest on the RIGHT extending into the pelvis . Pelvic CT: Extensive diverticular disease in the distal colon. No free fluid. Urinary bladder is well distended. Osteopenia. Mild anterior wedging of L5. Bones are osteopenic. There are scattered more lucent areas cannot confirm these are changes of neoplastic involvement. More likely aging and osteopenia. CT/CT chest abd pel w con* IMPRESSION: 1. Persistent significant adenopathy throughout the chest, abdomen and pelvis. As compared to the prior PET/CT of 11/06/2019 lymph nodes have minimally change d. In the retroperitoneum the lymph nodes have decreased by 5 mm in short axis diameter. Also slight improvement in the LEFT supraclavicular and cervical patience n lymph nodes. Lymph nodes in the mediastinum and hilum are stable. 2. Continued stable splenomegaly of 17 cm in length. 3. Cirrhotic liver.
[2020-07-19 09:00] LABS: Alanine Aminotransferase 38 U/L (0-41); Albumin Level 3.9 g/dL (3.5-5.2); Alkaline Phosphatase 105 IU/L (40-130); Anion Gap 12.9 (5-19); Aspartate Amino Transferase 59 U/L (0-40); Blood Urea Nitrogen 19 mg/dL (8-23); Calcium 9.6 mg/dL (8.5-10.5); Carbon Dioxide 27 mmol/L (22-29); Chloride 104 mmol/L (98-107); Globulin 2.7 g/dL (1.3-4.6); Glucose 99 mg/dL (65-115); Osmolality Calculated 292 mOsm/kg (285-295); Potassium 3.9 mmol/L (3.5-5.1); Sodium 140 mmol/L (136-145); Total Protein 6.6 g/dL (6.6-8.7)
[2020-07-19] MEDS: iohexol 300 mg/mL 100 mL Btl IV (10:35)
[2020-07-19] MEDS: iohexol 300 mg/mL 50 mL Btl PO (10:38)
== END 2020-07-19 06:09 | disposition home or self-care (01) ==
PROVIDERS: PCP Nurse Practitioner; Visit Provider Internal Medicine Hematology & Oncology
DX: D47.9 Neoplasm of uncertain behavior of lymphoid, hematopoietic and related tissue, unspecified (principal); R59.0 Localized enlarged lymph nodes; R16.1 Splenomegaly, not elsewhere classified; K74.60 Unspecified cirrhosis of liver
CPT/HCPCS: 36415; 71260; 74177; 80053; 85025; Q9967

== ENCOUNTER 2020-07-21 05:36 | Outpatient (CLI) | payer OTHER, SELFPAY ==
--- NOTE | 2020-07-21 09:07 | ONC FU_ITS ---
Dr. Leonardo follow up note Patient: Johnathan Montes De Oca Unit #: [id number]: 1945 Dicatated By: Emily Leonardo M.D.Date of Visit:Jul 21, 2020 Onc Med Follow-up/Prog Note History of Present Illness: Mr. Montes De Oca is a 75-year-old gentleman with history of lymphocytosis. 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 At that time the lymphocytosis reached about 20,000 but subsequently decreased spontaneously. CT scan of chest/abdomen/pelvis done at that time shows mild lymph nodes above and below diaphragm but they were too small to biopsy. As per patient he was followed by his PMD and oncologist at the [facility] and on 11/07/2015 he underwent bone marrow biopsy which was nondiagnostic for B-cell lymphoma, flow cytometry done on 11/07/2015 showed no clonal process. He was also diagnosed with hepatic cirrhosis and splenomegaly. Mr Montes De Oca said he didn't have any specific issues until recently. He started having back pain for which he was referred to Dr. Leyva at a local pain clinic. A CT scan of chest abdomen pelvis was obtained on 08/09/2019 which was compared with CT scan from 11/06/2016, October 2015 and April 2015. And it showed stable appearance of mediastinal and hilar and axillary lymph nodes; Mild emphysema. The was interval development of bulky retroperitoneal and mesenteric lymphadenopathy, measuring about 4.3 cm, suspicious for primary cindy malignancy versus metastatic disease versus reactive; Extensive diverticulosis of descending and sigmoid colon; Cirrhosis, ascites, splenomegaly. Degenerative changes of spine, no fractures were reported. On 08/10/2019, Mr Montes De Oca went to see a [place] medical oncologist, Dr. Chato Beasley in [place] and as per his recommendations- due to thepatient's history of low-grade lymphoma and (it was not clear whether symptoms are attributed to adenopathy/low-grade lymphoma or other process, cirrhosis) a PET/CT scan and lymph node biopsy and consider bone marrow biopsy. 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 Mr Montes De Oca denied any night sweats, denies any fever or weight loss. Denies any lower extremity numbness or weakness denies any urine or stool incontinence.No melena hematochezia, no nosebleed, no jaundice. But abdominal fullness due to ascites. He was referred to interventional radiology for ultrasound-guided paracentesis patient underwent sonogram on 09/20/2019 which showed some mild amount of ascites visualized in 4 abdominal quadrant, inadequate fluid for paracentesis at that time. He underwent follow-up CT PET scan on 11/06/2019 which showed FDG positive lymphadenopathy from the level of head and neck to the level of pelvis. No evidence of splenic or marrow or extranodal involvement on February 05, 2020 patient developed difficulty in swallowing and dysphagia and went to emergency room where he underwent CT scan of the neck which showed heterogeneous enhancing mass extending from posterior left aspect of tongue base to the adjacent oropharyngeal mucosa measuring 3.1 x 2.6 cm and also there was a enlarged level 3 and level 7 lymph nodes on the left, 3.3 x 2.0 cm size., Patient was transferred to [place] where he was diagnosed with oropharyngeal abscess he was drained and treated with IV antibiotic subsequently discharged home on oral antibiotic h/o chronic lower back pain for which he has been to pain clinic where as per patient, he was given 'injection' about 4 months ago with some help but still having mid to lower back pain and sometimes problem and walking Mr Montes De Oca underwent MRI of the spine on 05/30/2020 and discussed the findings which showed moderately enlarged spleen with a maximum length 17 cm, retroperitoneal lymphadenopathy index lymph node is 6 x 3 x 4 cm inferior medial to the right kidney bulky partially visualized left thoracic and left lymph nodes measuring 2.9 cm, no evidence of bone mets, moderate central canal stenosis L4-5 with shallow central disc protrusion and impingement traversing L5 nerve roots immediately. Moderate right L4-5 foraminal narrowing. Shallow central protrusion T7-8 with slight effacement of ventral thecal sac and slight contacting of the thoracic cord. No significant central canal stenosis. discussed with Mr Montes De Oca further treatment options. Because of progressive back pain which could be due to bulky retroperitoneal lymphadenopathy and his splenomegaly could be due to portal hypertension due to cirrhosis of the liver or lymphomatous infiltration with low-grade lymphoma and now causing persistent progressive bicytopenia. was recommended that Mr Montes De Oca consider trial of Rituxan 375 mg/m??? weekly x4-6 and then monitor his blood counts as well as central lymphadenopathy, there is a possibility with improvement in central lymphadenopathy his back pain may improve if not then will consult orthopedic for spine evaluation and if bicytopenia persist then it could be due to splenic sequestration or considering his age underlying myelodysplasia, will consider bone marrow evaluation. Mr Montes De Oca has elected to try the Ritxuan and began his first week treatment on 06/21/2020. Follow-up CT scan of chest abdomen pelvis after 4 doses of weekly Rituxan done on July 19, 2020 showed persistent significant adenopathy throughout the chest abdomen pelvis as compared to CT PET scan done on November 06, 2019 in the retroperitoneum the lymph node have decreased by 5 mm in short axis. Also slight improvement in the left supraclavicular and cervical chain lymph nodes lymph nodes in the mediastinum and hilum are stable. Continued stable splenomegaly of 17 cm and cirrhotic liver Came for follow-up, denies any specific complaints except generalized weakness and fatigue occasionally chills and intolerance to cold but no night sweats, no recurrent fever no weight loss. No jaundice, no abdominal pain, no dysphagia. Tolerating weekly Rituxan well Medications: Ativan 1 Tablet (of 2 mg) Oral b.i.d., Cetirizine HCl 1 Tablet (of 10 mg) Oral daily, Flonase 1 (50 mcg/act) Suspension Nasal PRN, hydroCHLOROthiazide 1 Tablet (of 25 mg) Oral daily, Ibuprofen 1 Tablet (of 800 mg) Oral t.i.d., Omeprazole 1 Capsule (of 20 mg) Capsule Delayed Release Oral daily, ProAir HFA 1 Inhalation (of 108 (90 base) mcg/act) Aerosol, solution Inhalation PRN, Tamsulosin HCl 1 Capsule (of 0.4 mg) Oral daily Allergies: Cortisone Acetate, darvon, and quiNINE Sulfate. Review of Systems: Constitutional - Appetite is slightly improved and weight is stable. No fever, chills, hot flashes, or night sweats. Energy level is fair today, ENMT - Positive for sinus congestion/drainage. No mouth sores. No sore throat or difficulty swallowing, Hematologic/Lymphatic - Positive for easy bruising or bleeding, Respiratory - Positive for for shortness of breath and cough, Cardiovascular - No angina pain. No palpitations, Gastrointestinal - No nausea or vomiting. No heartburn or acid reflux. Flucuates between diarrhea and constipation. No blood in the stool or black stools, Genitourinary (M) - No dysuria or hematuria. Positive for urinary frequency. Positive for urgency or incontinence, Musculoskeletal - Positive for joint pain, Neurologic - No headache or dizziness. Positive for numbness/paresthesias or other focal neurologic symptoms, Psychiatric - Positive for anxiety. Vital Signs: Performed on Jul 21, 2020 08:06 Height - 72.00 in Weight - 244.4 lbs (HIGH) BSA - 2.32 sq.m BMI - 33.15 (HIGH) Temperature - 99.7 F (HIGH) Pulse - 104 /min (HIGH) Respiration - 20 /min BP - 148/61 mm(hg) (HIGH) O2 Sat - 95 % (LOW) Pain - 0 Performance Status: 2 - Ambulatory/capable of all self-care, unable to perform any work activities. Up and about more than 50% of waking hours. (ECOG) Physical Examination: ENMT - No mouth sores, no thrush, no jaundice, Shotty cervical/supraclavicular lymphadenopathy/, Respiratory - Lungs are clear to auscultation, Cardiovascular - Regular rate and rhythm of heart, Abdomen - Soft, bowel sounds present, Extremities - No visible edema. Lab/Imaging: Test performed on Jul 05, 2020 08:35 Sodium 140 mmol/L Potassium 3.8 mmol/L Chloride 105 mmol/L CO2 26 mmol/L Anion Gap 12.8 BUN 19 mg/dL Creatinine 1.0 mg/dL Cr Clearance (Est) 95.5500 mL/min Glucose 110 mg/dL Osmolality - Calculated 293 mOsm/kg Calcium 9.3 mg/dL Protein, Total 6.4 g/dL Albumin 3.7 g/dL Globulin 2.7 g/dL Bilirubin, Total 1.1 mg/dL ALT (SGPT) 38 U/L AST (SGOT) 67 U/L Alkaline Phosphatase 105 IU/L WBC 2.2 10 3/uL RBC 4.58 10 6/uL HGB 14.1 g/dL HCT 41.5 % MCV 90.6 fL MCH 30.8 pg MCHC 34.0 g/dL RDW 14.5 % Platelet Count 76 10 3/cmm MPV 12.0 fL Neutrophils 1.21 10 3/uL Lymphocytes 0.6 10 3/uL Monocytes 0.2 10 3/uL Eosinophils 0.2 10 3/uL Basophils 0.0 10 3/uL Neutrophil % 56.0 % Lymphocyte % 25.9 % Monocyte % 9.3 % Eosinophil % 6.9 % Basophils % 1.9 % NRBC % 0 % Test performed on Jun 19, 2020 10:16 Hepatitis A Ab, IgM Non-Reactive Hepatitis B Core Ab, Total Non-Reactive Hepatitis B Surf Antigen Non-Reactive Hepatitis B Surface Ab 3.5 STATUS of IMMUINITY Inconsistent with Immunity 0.0 - 8.5 mIU/mL Consistent with Immunity >8.5 mIU/mL Hepatitis C Ab Non-Reactive Test performed on Jun 05, 2020 09:45 CBC Slide Review Slide Review Perform SLIDE REVIEW AGREES WITH AUTOMATED RESULTS Test performed on May 23, 2020 09:17 LDH (Total) 282 U/L Impression: History of low-grade, follicular lymphoma, CD 10 and CD19 positive diagnosed in 2004, recently done CT scan of chest abdomen pelvis, when compared with CT scan from October 2016 showed stable, small mediastinal lymphadenopathy, hilar and axillary lymphadenopathy. But progressive/bulky retroperitoneal and mesenteric lymphadenopathy increased from 2017, one of the largest measuring 4.3 cm chain. Degenerative changes of spine no fracture seen. Hepatic cirrhosis/splenomegaly/ascites Mild thrombocytopenia CBC done on 08/09/2002 shows white blood count 6.1 hemoglobin 14.9 crit 44.3 platelets 90,000 lymphocytes 47.9% neutrophil 38.2%. Chronic back pain, etiology unclear degenerative joint disease versus pressure due to retroperitoneal lymphadenopathy. MRI scan spine findings which was done on May 30, 2020 and showed moderately enlarged spleen with a maximum length 17 cm, retroperitoneal lymphadenopathy index lymph node is 6 x 3 x 4 cm inferior medial to the right kidney bulky partially visualized left thoracic and left lymph nodes measuring 2.9 cm, no evidence of bone mets, moderate central canal stenosis L4-5 with shallow central disc protrusion and impingement traversing L5 nerve roots immediately. Moderate right L4-5 foraminal narrowing. Shallow central protrusion T7-8 with slight effacement of ventral thecal sac and slight contacting of the thoracic cord. No significant central canal stenosis. discussed with Mr Montes De Oca further treatment options. Because of progressive back pain which could be due to bulky retroperitoneal lymphadenopathy and his splenomegaly could be due to portal hypertension due to cirrhosis of the liver or lymphomatous infiltration with low-grade lymphoma and now causing persistent progressive bicytopenia. recommended that Mr Montes De Oca consider trial of Rituxan 375 mg/m??? weekly x4-6 and then monitor his blood counts as well as central lymphadenopathy, there is a possibility with improvement in central lymphadenopathy his back pain may improve if not then will consult orthopedic for spine evaluation and if bicytopenia persist then it could be due to splenic sequestration or considering his age underlying myelodysplasia, will consider bone marrow evaluation. Mr Montes De Oca started his first of four weeks of Rituxan on . Follow-up CT scan of chest abdomen pelvis done after 4 doses of weekly Rituxan on July 19, 2020 showed persistent significant adenopathy throughout the chest abdomen pelvis compared to CT PET scan done on November 06, 2019 there is a minimal change. And retroperitoneal lymph node have decreased by 5 mm now measuring 4.3 cm also slight improvement in left supraclavicular and cervical chain lymph nodes and stable mediastinal and hilar lymph nodes. Continued stable splenomegaly of 17 cm length. Cirrhotic liver MRI scan of spine done on May 30, 2020 showed retroperitoneal lymph node was 6 x 3.4 cm and as mentioned above the largest lymph node is 4.3 cm which means there is a significant response ?As there was no improvement in bicytopenia, Rituxan was discontinued after 4 weekly doses, Last dose was given on July 12, 2020 Plan: Discussed with patient regarding his labs white blood count 2.3 hemoglobin 14.7 hematocrit 44.2 platelets 72,000 CMP within normal limits and CT scan of chest abdomen pelvis which shows persistent central lymphadenopathy and splenomegaly with hepatic cirrhosis Clinically, patient doing well with no new signs symptoms, tolerating weekly Rituxan well and follow-up CT scan of chest abdomen pelvis shows stable disease when compared CT PET scan done in October 2019 but when compared with MRI scan of spine done on May 30, 2020 there is improvement in retroperitoneal index lymph node which was measured 6 x 3 x 4 cm and now it is 4.3 cm but stable enlarged spleen which could be due to portal hypertension due to hepatic cirrhosis Discussed with patient and his , as patient follow-up CBC shows no improvement in his bicytopenia, etiology could be due to splenic sequestration or bone marrow involvement with lymphoma or considering his age underlying myelodysplasia cannot be ruled out. Patient has no B symptoms and no disease progression on follow-up CT scan of chest abdomen pelvis, so we will discontinue his Rituxan and repeat his CBC in 1 month and if there is no improvement in his blood counts, will consider bone marrow evaluation to rule out lymphomatous infiltration or underlying myelodysplasia causing bicytopenia if normal then it could be due to splenic sequestration due to splenomegaly As for generalized weakness and fatigue is concerned, could be multifactorial but will consider TSH to rule out underlying hypothyroidism Signed By: Emily Leonardo M.D. <<Signature on File>>
[2020-07-21 09:39] LABS: Thyroid Stimulating Hormone 2.01 uIU/mL (0.27-4.20)
== END 2020-07-21 05:37 | disposition home or self-care (01) ==
LOC: ONCMED 05:37
PROVIDERS: PCP Nurse Practitioner; Visit Provider Internal Medicine Hematology & Oncology
DX: C82.90 Follicular lymphoma, unspecified, unspecified site (principal); D69.6 Thrombocytopenia, unspecified; D75.89 Other specified diseases of blood and blood-forming organs; R53.1 Weakness; R53.83 Other fatigue; M48.9 Spondylopathy, unspecified; K74.60 Unspecified cirrhosis of liver; R16.1 Splenomegaly, not elsewhere classified; R18.8 Other ascites; Z79.899 Other long term (current) drug therapy
CPT/HCPCS: 84443; 99214

== ENCOUNTER 2020-08-21 11:39 | Outpatient (CLI) | payer OTHER, SELFPAY ==
[2020-08-21 12:32] LABS: Basophils # 0.1 10^3/uL (0.0-0.1); Basophils % 1.8 %; Eosinophils # 0.3 10^3/uL (0.0-0.8); Eosinophils % 7.4 %; Hematocrit 43.2 % (42.0-52.0); Hemoglobin 14.5 g/dL (11.7-16.6); Lymphocytes # 0.7 10^3/uL (0.8-4.8); Lymphocytes % 20.6 %; Mean Corpuscular HGB Conc 33.6 g/dL (30.0-36.0); Mean Corpuscular Volume 92.5 fL (80-94); Mean Platelet Volume 11.4 fL (7.4-10.4); Monocytes # 0.4 10^3/uL (0.2-0.9); Monocytes % 11.8 %; Neutrophils # 1.97 10^3/uL (1.8-7.7); Neutrophils % 58.1 %; Nucleated Red Blood Cells % 0 %; Platelet Count 83 10^3/cmm (130-400); Red Blood Count 4.67 10^6/uL (4.1-5.3); Red Cell Distribution Width 14.3 % (12.1-15.1); White Blood Count 3.4 10^3/uL (4.0-10.0)
--- NOTE | 2020-08-21 16:33 | ONC FU_ITS ---
Dr. Leonardo follow up note Patient: Johnathan Montes De Oca Unit #: [id number]: 1945 Dicatated By: Emily Leonardo M.D.Date of Visit:Aug 21, 2020 Onc Med Follow-up/Prog Note History of Present Illness: Mr. Montes De Oca is a 75-year-old gentleman with history of lymphocytosis. 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 At that time the lymphocytosis reached about 20,000 but subsequently decreased spontaneously. CT scan of chest/abdomen/pelvis done at that time shows mild lymph nodes above and below diaphragm but they were too small to biopsy. As per patient he was followed by his PMD and oncologist at the [facility] and on 11/07/2015 he underwent bone marrow biopsy which was nondiagnostic for B-cell lymphoma, flow cytometry done on 11/07/2015 showed no clonal process. He was also diagnosed with hepatic cirrhosis and splenomegaly. Mr Montes De Oca said he didn't have any specific issues until recently. He started having back pain for which he was referred to Dr. Leyva at a local pain clinic. A CT scan of chest abdomen pelvis was obtained on 08/09/2019 which was compared with CT scan from 11/06/2016, October 2015 and April 2015. And it showed stable appearance of mediastinal and hilar and axillary lymph nodes; Mild emphysema. The was interval development of bulky retroperitoneal and mesenteric lymphadenopathy, measuring about 4.3 cm, suspicious for primary cindy malignancy versus metastatic disease versus reactive; Extensive diverticulosis of descending and sigmoid colon; Cirrhosis, ascites, splenomegaly. Degenerative changes of spine, no fractures were reported. On 08/10/2019, Mr Montes De Oca went to see a [place] medical oncologist, Dr. Chato Beasley in [place] and as per his recommendations- due to thepatient's history of low-grade lymphoma and (it was not clear whether symptoms are attributed to adenopathy/low-grade lymphoma or other process, cirrhosis) a PET/CT scan and lymph node biopsy and consider bone marrow biopsy. As far as mild neutropenia was concerned it was probably due to cirrhosis/portal hypertension and recommended to continue with human resources coordinator. Mr Montes De Oca denied any night sweats, denies any fever or weight loss. Denies any lower extremity numbness or weakness denies any urine or stool incontinence.No melena hematochezia, no nosebleed, no jaundice. But abdominal fullness due to ascites. He was referred to interventional radiology for ultrasound-guided paracentesis patient underwent sonogram on 09/20/2019 which showed some mild amount of ascites visualized in 4 abdominal quadrant, inadequate fluid for paracentesis at that time. He underwent follow-up CT PET scan on 11/06/2019 which showed FDG positive lymphadenopathy from the level of head and neck to the level of pelvis. No evidence of splenic or marrow or extranodal involvement on February 05, 2020 patient developed difficulty in swallowing and dysphagia and went to emergency room where he underwent CT scan of the neck which showed heterogeneous enhancing mass extending from posterior left aspect of tongue base to the adjacent oropharyngeal mucosa measuring 3.1 x 2.6 cm and also there was a enlarged level 3 and level 7 lymph nodes on the left, 3.3 x 2.0 cm size., Patient was transferred to [place] where he was diagnosed with oropharyngeal abscess he was drained and treated with IV antibiotic subsequently discharged home on oral antibiotic h/o chronic lower back pain for which he has been to pain clinic where as per patient, he was given 'injection' about 4 months ago with some help but still having mid to lower back pain and sometimes problem and walking Mr Montes De Oca underwent MRI of the spine on 05/30/2020 and discussed the findings which showed moderately enlarged spleen with a maximum length 17 cm, retroperitoneal lymphadenopathy index lymph node is 6 x 3 x 4 cm inferior medial to the right kidney bulky partially visualized left thoracic and left lymph nodes measuring 2.9 cm, no evidence of bone mets, moderate central canal stenosis L4-5 with shallow central disc protrusion and impingement traversing L5 nerve roots immediately. Moderate right L4-5 foraminal narrowing. Shallow central protrusion T7-8 with slight effacement of ventral thecal sac and slight contacting of the thoracic cord. No significant central canal stenosis. discussed with Mr Montes De Oca further treatment options. Because of progressive back pain which could be due to bulky retroperitoneal lymphadenopathy and his splenomegaly could be due to portal hypertension due to cirrhosis of the liver or lymphomatous infiltration with low-grade lymphoma and now causing persistent progressive bicytopenia. was recommended that Mr Montes De Oca consider trial of Rituxan 375 mg/m??? weekly x4-6 and then monitor his blood counts as well as central lymphadenopathy, there is a possibility with improvement in central lymphadenopathy his back pain may improve if not then will consult orthopedic for spine evaluation and if bicytopenia persist then it could be due to splenic sequestration or considering his age underlying myelodysplasia, will consider bone marrow evaluation. Mr Montes De Oca has elected to try the Ritxuan and began his first week treatment on 06/21/2020, Till July 12, 2020. Follow-up CT scan of chest abdomen pelvis after 4 doses of weekly Rituxan done on July 19, 2020 showed persistent significant adenopathy throughout the chest abdomen pelvis as compared to CT PET scan done on November 06, 2019 in the retroperitoneum the lymph node have decreased by 5 mm in short axis. Also slight improvement in the left supraclavicular and cervical chain lymph nodes lymph nodes in the mediastinum and hilum are stable. Continued stable splenomegaly of 17 cm and cirrhotic liver Came for follow-up, denies any specific complaints, no fever chills, no nausea or vomiting no diarrhea or constipation, no nosebleed or gum bleed, no hematuria no melena or hematochezia, no petechia or ecchymosis, no night sweats, no weight loss, no recurrent fever, no peripheral lymphadenopathy, no abdominal fullness. Medications: Ativan 1 Tablet (of 2 mg) Oral b.i.d., Cetirizine HCl 1 Tablet (of 10 mg) Oral daily, Flonase 1 (50 mcg/act) Suspension Nasal PRN, hydroCHLOROthiazide 1 Tablet (of 25 mg) Oral daily, Ibuprofen 1 Tablet (of 800 mg) Oral t.i.d., Omeprazole 1 Capsule (of 20 mg) Capsule Delayed Release Oral daily, ProAir HFA 1 Inhalation (of 108 (90 base) mcg/act) Aerosol, solution Inhalation PRN, Tamsulosin HCl 1 Capsule (of 0.4 mg) Oral daily Allergies: Cortisone Acetate, darvon, and quiNINE Sulfate. Review of Systems: Review of Systems is not available for this patient. Vital Signs: Performed on Aug 21, 2020 13:36 Height - 72.00 in Weight - 222 lbs (LOW) BSA - 2.23 sq.m BMI - 30.11 (HIGH) Temperature - 99.2 F (HIGH) Pulse - 78 /min Respiration - 24 /min BP - 136/72 mm(hg) O2 Sat - 97 % Pain - 3 Fatigue - 6 Performance Status: 0 - Fully active, able to carry on all predisease activities without restrictions. (ECOG) Physical Examination: ENMT - No mouth sores, no thrush, no jaundice, Respiratory - Lungs are clear to auscultation, Cardiovascular - Regular rate and rhythm of heart, Abdomen - Soft, bowel sounds present, Extremities - No visible edema. Lab/Imaging: Test performed on Jul 19, 2020 08:20 Sodium 140 mmol/L TSH 2.01 uIU/mL Potassium 3.9 mmol/L Chloride 104 mmol/L CO2 27 mmol/L Anion Gap 12.9 BUN 19 mg/dL Creatinine 1.0 mg/dL Cr Clearance (Est) 94.1000 mL/min Glucose 99 mg/dL Osmolality - Calculated 292 mOsm/kg Calcium 9.6 mg/dL Protein, Total 6.6 g/dL Albumin 3.9 g/dL Globulin 2.7 g/dL Bilirubin, Total 1.0 mg/dL ALT (SGPT) 38 U/L AST (SGOT) 59 U/L Alkaline Phosphatase 105 IU/L WBC 2.3 10 3/uL RBC 4.88 10 6/uL HGB 14.7 g/dL HCT 44.2 % MCV 90.6 fL MCH 30.1 pg MCHC 33.3 g/dL RDW 13.9 % Platelet Count 72 10 3/cmm MPV 12.2 fL Neutrophils 1.30 10 3/uL Lymphocytes 0.5 10 3/uL Monocytes 0.3 10 3/uL Eosinophils 0.2 10 3/uL Basophils 0.0 10 3/uL Neutrophil % 56.2 % Lymphocyte % 22.1 % Monocyte % 11.3 % Eosinophil % 9.1 % Basophils % 1.3 % NRBC % 0 % Test performed on Jun 19, 2020 10:16 Hepatitis A Ab, IgM Non-Reactive Hepatitis B Core Ab, Total Non-Reactive Hepatitis B Surf Antigen Non-Reactive Hepatitis B Surface Ab 3.5 STATUS of IMMUINITY Inconsistent with Immunity 0.0 - 8.5 mIU/mL Consistent with Immunity >8.5 mIU/mL Hepatitis C Ab Non-Reactive Test performed on Jun 05, 2020 09:45 CBC Slide Review Slide Review Perform SLIDE REVIEW AGREES WITH AUTOMATED RESULTS Test performed on May 23, 2020 09:17 LDH (Total) 282 U/L Impression: History of low-grade, follicular lymphoma, CD 10 and CD19 positive diagnosed in 2004, recently done CT scan of chest abdomen pelvis, when compared with CT scan from October 2016 showed stable, small mediastinal lymphadenopathy, hilar and axillary lymphadenopathy. But progressive/bulky retroperitoneal and mesenteric lymphadenopathy increased from 2017, one of the largest measuring 4.3 cm chain. Degenerative changes of spine no fracture seen. Hepatic cirrhosis/splenomegaly/ascites Mild thrombocytopenia CBC done on 08/09/2002 shows white blood count 6.1 hemoglobin 14.9 crit 44.3 platelets 90,000 lymphocytes 47.9% neutrophil 38.2%. Chronic back pain, etiology unclear degenerative joint disease versus pressure due to retroperitoneal lymphadenopathy. MRI scan spine findings which was done on May 30, 2020 and showed moderately enlarged spleen with a maximum length 17 cm, retroperitoneal lymphadenopathy index lymph node is 6 x 3 x 4 cm inferior medial to the right kidney bulky partially visualized left thoracic and left lymph nodes measuring 2.9 cm, no evidence of bone mets, moderate central canal stenosis L4-5 with shallow central disc protrusion and impingement traversing L5 nerve roots immediately. Moderate right L4-5 foraminal narrowing. Shallow central protrusion T7-8 with slight effacement of ventral thecal sac and slight contacting of the thoracic cord. No significant central canal stenosis. discussed with Mr Montes De Oca further treatment options. Because of progressive back pain which could be due to bulky retroperitoneal lymphadenopathy and his splenomegaly could be due to portal hypertension due to cirrhosis of the liver or lymphomatous infiltration with low-grade lymphoma and now causing persistent progressive bicytopenia. recommended that Mr Montes De Oca consider trial of Rituxan 375 mg/m??? weekly x4-6 and then monitor his blood counts as well as central lymphadenopathy, there is a possibility with improvement in central lymphadenopathy his back pain may improve if not then will consult orthopedic for spine evaluation and if bicytopenia persist then it could be due to splenic sequestration or considering his age underlying myelodysplasia, will consider bone marrow evaluation. Mr Montes De Oca started his first of four weeks of Rituxan on . Follow-up CT scan of chest abdomen pelvis done after 4 doses of weekly Rituxan on July 19, 2020 showed persistent significant adenopathy throughout the chest abdomen pelvis compared to CT PET scan done on November 06, 2019 there is a minimal change. And retroperitoneal lymph node have decreased by 5 mm now measuring 4.3 cm also slight improvement in left supraclavicular and cervical chain lymph nodes and stable mediastinal and hilar lymph nodes. Continued stable splenomegaly of 17 cm length. Cirrhotic liver MRI scan of spine done on May 30, 2020 showed retroperitoneal lymph node was 6 x 3.4 cm and as mentioned above the largest lymph node is 4.3 cm which means there is a significant response ? Plan: Discussed with patient regarding his labs white blood count 3.4 compared to 2.3 on July 19, 2020, hemoglobin 14.5 hematocrit 43.2 platelets 33,000 compared to 72,000 on July 19, [address] scan of chest abdomen pelvis done on July 19, 2020 showed persistent significant adenopathy throughout the chest abdomen pelvis compared to prior CT PET scan of August 08, 2019 lymph nodes have minimally improved retroperitoneal lymph nodes have decreased by 5 mm and also slight improvement in the left supraclavicular and cervical chain lymph nodes. Continued stable splenomegaly at 17 cm and cirrhotic liver Clinically, patient doing well with no new signs symptom, his follow-up CBC shows improvement in his bicytopenia with normal hemoglobin, , Follow-up CT scan of chest abdomen pelvis shows persistent central lymphadenopathy stable or slight improvement when compared with CTs PET scan done October 2019 will continue to monitor as long as bicytopenia is improving he will return to clinic in 1 month with CBC and LDH Signed By: Emily Leonardo M.D. <<Signature on File>>
== END 2020-08-21 11:40 | disposition home or self-care (01) ==
LOC: ONCMED 11:41
PROVIDERS: PCP Nurse Practitioner; Visit Provider Internal Medicine Hematology & Oncology
DX: C82.98 Follicular lymphoma, unspecified, lymph nodes of multiple sites (principal); D75.89 Other specified diseases of blood and blood-forming organs; K74.60 Unspecified cirrhosis of liver; R16.1 Splenomegaly, not elsewhere classified; D69.6 Thrombocytopenia, unspecified; M48.9 Spondylopathy, unspecified; Z92.21 Personal history of antineoplastic chemotherapy
CPT/HCPCS: 36415; 85025; 99214

== ENCOUNTER 2020-09-18 07:20 | Outpatient (CLI) | payer OTHER, SELFPAY ==
[2020-09-18 07:59] LABS: Basophils % 0.7 %; Eosinophils # 0.2 10^3/uL (0.0-0.8); Eosinophils % 8.8 %; Hematocrit 42.2 % (42.0-52.0); Hemoglobin 14.4 g/dL (11.7-16.6); Lymphocytes # 0.7 10^3/uL (0.8-4.8); Lymphocytes % 25.9 %; Mean Corpuscular HGB Conc 34.1 g/dL (30.0-36.0); Mean Corpuscular Hemoglobin 30.9 pg (28.0-34.0); Mean Corpuscular Volume 90.6 fL (80-94); Mean Platelet Volume 12.2 fL (7.4-10.4); Monocytes # 0.3 10^3/uL (0.2-0.9); Monocytes % 11.7 %; Neutrophils # 1.44 10^3/uL (1.8-7.7); Neutrophils % 52.5 %; Nucleated Red Blood Cells % 0 %; Platelet Count 72 10^3/cmm (130-400); Red Blood Count 4.66 10^6/uL (4.1-5.3); Red Cell Distribution Width 14.5 % (12.1-15.1); White Blood Count 2.7 10^3/uL (4.0-10.0)
[2020-09-18 08:31] LABS: Lactate Dehydrogenase 192 U/L (135-225)
--- NOTE | 2020-09-18 15:56 | ONC FU_ITS ---
Dr. Leonardo follow up note Patient: Johnathan Montes De Oca Unit #: [id number]: 1945 Dicatated By: Emily Leonardo M.D.Date of Visit:Sep 18, 2020 Onc Med Follow-up/Prog Note History of Present Illness: Mr. Montes De Oca is a 75-year-old gentleman with history of lymphocytosis. 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 At that time the lymphocytosis reached about 20,000 but subsequently decreased spontaneously. CT scan of chest/abdomen/pelvis done at that time shows mild lymph nodes above and below diaphragm but they were too small to biopsy. As per patient he was followed by his PMD and oncologist at the [facility] and on 11/07/2015 he underwent bone marrow biopsy which was nondiagnostic for B-cell lymphoma, flow cytometry done on 11/07/2015 showed no clonal process. He was also diagnosed with hepatic cirrhosis and splenomegaly. Mr Montes De Oca said he didn't have any specific issues until recently. He started having back pain for which he was referred to Dr. Leyva at a local pain clinic. A CT scan of chest abdomen pelvis was obtained on 08/09/2019 which was compared with CT scan from 11/06/2016, October 2015 and April 2015. And it showed stable appearance of mediastinal and hilar and axillary lymph nodes; Mild emphysema. The was interval development of bulky retroperitoneal and mesenteric lymphadenopathy, measuring about 4.3 cm, suspicious for primary cindy malignancy versus metastatic disease versus reactive; Extensive diverticulosis of descending and sigmoid colon; Cirrhosis, ascites, splenomegaly. Degenerative changes of spine, no fractures were reported. On 08/10/2019, Mr Montes De Oca went to see a [place] medical oncologist, Dr. Chato Beasley in [place] and as per his recommendations- due to thepatient's history of low-grade lymphoma and (it was not clear whether symptoms are attributed to adenopathy/low-grade lymphoma or other process, cirrhosis) a PET/CT scan and lymph node biopsy and consider bone marrow biopsy. 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 Mr Montes De Oca denied any night sweats, denies any fever or weight loss. Denies any lower extremity numbness or weakness denies any urine or stool incontinence.No melena hematochezia, no nosebleed, no jaundice. But abdominal fullness due to ascites. He was referred to interventional radiology for ultrasound-guided paracentesis patient underwent sonogram on 09/20/2019 which showed some mild amount of ascites visualized in 4 abdominal quadrant, inadequate fluid for paracentesis at that time. He underwent follow-up CT PET scan on 11/06/2019 which showed FDG positive lymphadenopathy from the level of head and neck to the level of pelvis. No evidence of splenic or marrow or extranodal involvement on February 05, 2020 patient developed difficulty in swallowing and dysphagia and went to emergency room where he underwent CT scan of the neck which showed heterogeneous enhancing mass extending from posterior left aspect of tongue base to the adjacent oropharyngeal mucosa measuring 3.1 x 2.6 cm and also there was a enlarged level 3 and level 7 lymph nodes on the left, 3.3 x 2.0 cm size., Patient was transferred to [place] where he was diagnosed with oropharyngeal abscess he was drained and treated with IV antibiotic subsequently discharged home on oral antibiotic h/o chronic lower back pain for which he has been to pain clinic where as per patient, he was given 'injection' about 4 months ago with some help but still having mid to lower back pain and sometimes problem and walking Mr Montes De Oca underwent MRI of the spine on 05/30/2020 and discussed the findings which showed moderately enlarged spleen with a maximum length 17 cm, retroperitoneal lymphadenopathy index lymph node is 6 x 3 x 4 cm inferior medial to the right kidney bulky partially visualized left thoracic and left lymph nodes measuring 2.9 cm, no evidence of bone mets, moderate central canal stenosis L4-5 with shallow central disc protrusion and impingement traversing L5 nerve roots immediately. Moderate right L4-5 foraminal narrowing. Shallow central protrusion T7-8 with slight effacement of ventral thecal sac and slight contacting of the thoracic cord. No significant central canal stenosis. discussed with Mr Montes De Oca further treatment options. Because of progressive back pain which could be due to bulky retroperitoneal lymphadenopathy and his splenomegaly could be due to portal hypertension due to cirrhosis of the liver or lymphomatous infiltration with low-grade lymphoma and now causing persistent progressive bicytopenia. was recommended that Mr Montes De Oca consider trial of Rituxan 375 mg/m??? weekly x4-6 and then monitor his blood counts as well as central lymphadenopathy, there is a possibility with improvement in central lymphadenopathy his back pain may improve if not then will consult orthopedic for spine evaluation and if bicytopenia persist then it could be due to splenic sequestration or considering his age underlying myelodysplasia, will consider bone marrow evaluation. Mr Montes De Oca has elected to try the Ritxuan and began his first week treatment on 06/21/2020, Till July 12, 2020. Follow-up CT scan of chest abdomen pelvis after 4 doses of weekly Rituxan done on July 19, 2020 showed persistent significant adenopathy throughout the chest abdomen pelvis as compared to CT PET scan done on November 06, 2019 in the retroperitoneum the lymph node have decreased by 5 mm in short axis. Also slight improvement in the left supraclavicular and cervical chain lymph nodes lymph nodes in the mediastinum and hilum are stable. Continued stable splenomegaly of 17 cm and cirrhotic liver Came for follow-up, denies any specific complaints, no fever chills, no nausea or vomiting, no diarrhea or constipation, no fever or chills, no melena or hematochezia, no hemoptysis hematemesis, no jaundice, No nosebleed or gum bleed, no hematuria, no petechiae but old healing ecchymosis involving upper extremities no peripheral lymphadenopathy or abdominal fullness Medications: Ativan 1 Tablet (of 2 mg) Oral b.i.d., Cetirizine HCl 1 Tablet (of 10 mg) Oral daily, Flonase 1 (50 mcg/act) Suspension Nasal PRN, hydroCHLOROthiazide 1 Tablet (of 25 mg) Oral daily, Ibuprofen 1 Tablet (of 800 mg) Oral t.i.d., Omeprazole 1 Capsule (of 20 mg) Capsule Delayed Release Oral daily, ProAir HFA 1 Inhalation (of 108 (90 base) mcg/act) Aerosol, solution Inhalation PRN, Tamsulosin HCl 1 Capsule (of 0.4 mg) Oral daily Allergies: Cortisone Acetate, darvon, and quiNINE Sulfate. Review of Systems: Review of Systems is not available for this patient. Vital Signs: Performed on Sep 18, 2020 15:04 Height - 72.00 in Weight - 221.8 lbs (LOW) BSA - 2.23 sq.m BMI - 30.08 (HIGH) Temperature - 99 F (HIGH) Pulse - 74 /min Respiration - 18 /min BP - 149/66 mm(hg) (HIGH) O2 Sat - 97 % Pain - 0 Fatigue - 0 Performance Status: 1 - No physically strenuous activity, but ambulatory and able to carry out light or sedentary work (e.g. office work, light house work). (ECOG) Physical Examination: ENMT - No mouth sores, no thrush, no jaundice no cervical lymphadenopathy, Respiratory - Lungs are clear to auscultation, Cardiovascular - Regular rate and rhythm of heart, Abdomen - Soft, bowel sounds present, no ascites, Extremities - No visible edema. Lab/Imaging: Test performed on Jul 19, 2020 08:20 Sodium 140 mmol/L TSH 2.01 uIU/mL Potassium 3.9 mmol/L Chloride 104 mmol/L CO2 27 mmol/L Anion Gap 12.9 BUN 19 mg/dL Creatinine 1.0 mg/dL Cr Clearance (Est) 94.1000 mL/min Glucose 99 mg/dL Osmolality - Calculated 292 mOsm/kg Calcium 9.6 mg/dL Protein, Total 6.6 g/dL Albumin 3.9 g/dL Globulin 2.7 g/dL Bilirubin, Total 1.0 mg/dL ALT (SGPT) 38 U/L AST (SGOT) 59 U/L Alkaline Phosphatase 105 IU/L WBC 2.3 10 3/uL RBC 4.88 10 6/uL HGB 14.7 g/dL HCT 44.2 % MCV 90.6 fL MCH 30.1 pg MCHC 33.3 g/dL RDW 13.9 % Platelet Count 72 10 3/cmm MPV 12.2 fL Neutrophils 1.30 10 3/uL Lymphocytes 0.5 10 3/uL Monocytes 0.3 10 3/uL Eosinophils 0.2 10 3/uL Basophils 0.0 10 3/uL Neutrophil % 56.2 % Lymphocyte % 22.1 % Monocyte % 11.3 % Eosinophil % 9.1 % Basophils % 1.3 % NRBC % 0 % Test performed on Jun 19, 2020 10:16 Hepatitis A Ab, IgM Non-Reactive Hepatitis B Core Ab, Total Non-Reactive Hepatitis B Surf Antigen Non-Reactive Hepatitis B Surface Ab 3.5 STATUS of IMMUINITY Inconsistent with Immunity 0.0 - 8.5 mIU/mL Consistent with Immunity >8.5 mIU/mL Hepatitis C Ab Non-Reactive Test performed on Jun 05, 2020 09:45 CBC Slide Review Slide Review Perform SLIDE REVIEW AGREES WITH AUTOMATED RESULTS Test performed on May 23, 2020 09:17 LDH (Total) 282 U/L Impression: History of low-grade, follicular lymphoma, CD 10 and CD19 positive diagnosed in 2004, recently done CT scan of chest abdomen pelvis, when compared with CT scan from October 2016 showed stable, small mediastinal lymphadenopathy, hilar and axillary lymphadenopathy. But progressive/bulky retroperitoneal and mesenteric lymphadenopathy increased from 2017, one of the largest measuring 4.3 cm chain. Degenerative changes of spine no fracture seen. Hepatic cirrhosis/splenomegaly/ascites Mild thrombocytopenia CBC done on 08/09/2002 shows white blood count 6.1 hemoglobin 14.9 crit 44.3 platelets 90,000 lymphocytes 47.9% neutrophil 38.2%. Chronic back pain, etiology unclear degenerative joint disease versus pressure due to retroperitoneal lymphadenopathy. MRI scan spine findings which was done on May 30, 2020 and showed moderately enlarged spleen with a maximum length 17 cm, retroperitoneal lymphadenopathy index lymph node is 6 x 3 x 4 cm inferior medial to the right kidney bulky partially visualized left thoracic and left lymph nodes measuring 2.9 cm, no evidence of bone mets, moderate central canal stenosis L4-5 with shallow central disc protrusion and impingement traversing L5 nerve roots immediately. Moderate right L4-5 foraminal narrowing. Shallow central protrusion T7-8 with slight effacement of ventral thecal sac and slight contacting of the thoracic cord. No significant central canal stenosis. discussed with Mr Montes De Oca further treatment options. Because of progressive back pain which could be due to bulky retroperitoneal lymphadenopathy and his splenomegaly could be due to portal hypertension due to cirrhosis of the liver or lymphomatous infiltration with low-grade lymphoma and now causing persistent progressive bicytopenia. recommended that Mr Montes De Oca consider trial of Rituxan 375 mg/m??? weekly x4-6 and then monitor his blood counts as well as central lymphadenopathy, there is a possibility with improvement in central lymphadenopathy his back pain may improve if not then will consult orthopedic for spine evaluation and if bicytopenia persist then it could be due to splenic sequestration or considering his age underlying myelodysplasia, will consider bone marrow evaluation. Mr Montes De Oca started his first of four weeks of Rituxan on . Follow-up CT scan of chest abdomen pelvis done after 4 doses of weekly Rituxan on July 19, 2020 showed persistent significant adenopathy throughout the chest abdomen pelvis compared to CT PET scan done on November 06, 2019 there is a minimal change. And retroperitoneal lymph node have decreased by 5 mm now measuring 4.3 cm also slight improvement in left supraclavicular and cervical chain lymph nodes and stable mediastinal and hilar lymph nodes. Continued stable splenomegaly of 17 cm length. Cirrhotic liver MRI scan of spine done on May 30, 2020 showed retroperitoneal lymph node was 6 x 3.4 cm and as mentioned above the largest lymph node is 4.3 cm which means there is a significant response ? Plan: Discussed with patient regarding his labs white blood count 2.7 compared to 3.4 earlier hemoglobin 14.4 hematocrit 42.2 platelets 72,000 compared to 83,000 earlier neutrophil of 1.44, LDH 192 Clinically, patient doing reasonably well with no new signs symptoms, no B symptoms but his follow-up labs shows persistent bicytopenia now progressive, could be due to splenic sequestration but concern is whether it is due to lymphoma infiltration of the bone marrow,, or low-grade ITP, will consider bone marrow evaluation if it shows adequate megakaryocytes response, may consider trial of steroids, earlier patient was given Rituxan without much success on the other hand if it shows extensive lymphomatous involvement, may consider treating his lymphoma and with that his bicytopenia may improve We will schedule him for bone marrow evaluation in the return to clinic 1 week after bone marrow procedure done with CBC Signed By: Emily Leonardo M.D. <<Signature on File>>
== END 2020-09-18 07:21 | disposition home or self-care (01) ==
LOC: ONCMED 07:23
PROVIDERS: PCP Nurse Practitioner; Visit Provider Internal Medicine Hematology & Oncology
DX: C82.90 Follicular lymphoma, unspecified, unspecified site (principal); D75.9 Disease of blood and blood-forming organs, unspecified
CPT/HCPCS: 83615; 85025; 99214

== ENCOUNTER → 2020-10-16 08:14 | Outpatient (BNVA) | payer OTHER, SELFPAY | PROVIDERS: PCP Nurse Practitioner; Visit Provider Internal Medicine Hematology & Oncology | DX: Z01.812 Encounter for preprocedural laboratory examination (principal); Z20.822 Contact with and (suspected) exposure to COVID-19 | CPT/HCPCS: 87635 ==

== ENCOUNTER 2020-10-19 09:10 | Day surgery (SDC) | payer OTHER, SELFPAY ==
[2020-10-17 11:05] VITALS: BMI 30.9
--- NOTE | 2020-10-19 09:31 | ANES.PREANE2 ---
Pre-Anesthetic Assessment Pre-Anesthetic Assessment: Height/Weight: Height 1.83 m Weight 103.419 kg Proposed Procedure: Operation Date: 10/19/20 11:00 Proposed Procedures p Bone Marrow Biospy With Aspiration(Not Applicable) - Emily Leonardo MD Was Beta John taken within 24 hours: N/A Was Clonidine taken within 24 hours: N/A Social: Social History: No alcohol and No tobacco Exam: Pre-Anes Outpt Exam: alert, oriented x 3, clear to auscultation bilaterally and regular rate & rhythm Airway: Submandibular: WNL Cervical ROM: WNL MP: 2 Pulmonary: Pulmonary: Asthma CV/HEM: CV/HEM: HTN GI: GI: GERD Neuropsych: Neuropsych: Anxiety Anesthetic Plan: ASA status: 3 Anesthesia: MAC Risk of > 500 ml blood loss (7ml/kg in children): No PFSH Anesthesia PFSH: Medical History History of nonmelanoma skin cancer Hypertension Lymphoma PTSD (post-traumatic stress disorder) Surgical History History of vasectomy Family History Sister Diabetes Sister Diabetes Mother Diabetes Social History Smoking and tobacco status: never smoked Alcohol intake: never Data Anesthesia Cardiac Studies: No Data to Display
[2020-10-19 10:05] VITALS: BP 145/79; PULSE 63; RESP 18; TEMP 36.8; O2SAT 100
[2020-10-19] MEDS: sodium chloride 0.9% 1,000 ML 30 ML IV (10:19)
[2020-10-19 10:43] LABS: Eosinophils # 0.2 10^3/uL (0.0-0.8); Eosinophils % 8.5 %; Hematocrit 39.8 % (42.0-52.0); Hemoglobin 13.6 g/dL (11.7-16.6); Lymphocytes # 0.6 10^3/uL (0.8-4.8); Lymphocytes % 27.6 %; Mean Corpuscular HGB Conc 34.2 g/dL (30.0-36.0); Mean Corpuscular Volume 90.7 fL (80-94); Mean Platelet Volume 11.8 fL (7.4-10.4); Monocytes # 0.3 10^3/uL (0.2-0.9); Monocytes % 17.1 %; Neutrophils % 45.3 %; Nucleated Red Blood Cells % 0 %; Platelet Count 61 10^3/cmm (130-400); Red Blood Count 4.39 10^6/uL (4.1-5.3); Red Cell Distribution Width 14.3 % (12.1-15.1)
[2020-10-19 11:30] VITALS: BP 126/67; PULSE 82; RESP 20; TEMP 36.1; O2SAT 99
--- NOTE | 2020-10-19 11:37 | P.PCN_ITS ---
Bone Marrow Biopsy Bone Marrow Biopsy: I was consulted by [] office regarding bone marrow biopsy on Johnathan Montes De Oca []. Briefly, the patient is a [75] year old [male] with [bicytopenia/lymphoproliferative disorder]. In the Outpatient Services Department, with nursing staff and laboratory technologists in attendance, the procedure was discussed with the patient. Appropriate consent form had been signed. Appropriate alternatives, benefits and risks of procedure were discussed with the patient and he was pre-ope ratively assessed with a history and physical by myself and cleared for the biopsy procedure. The patient did request IV sedation and that was provided by the Anesthesia Department. Right posterior iliac area was cleaned and prepped, local anesthesia was given, about 15 cc of bone marrow aspirate and core biopsy was obtained, patient tolerated procedure well, specimen was sent for routine histo path, flow cytometry/cytogenetics, MDS panel and lymphoma/leukemia panel postprocedure nursing instructions were given. Thank you for allowing me to participate in this patient's care and diagnosis. Coding Level of Care Code Acute Ticket Dispenser Changer for Murphy Taylor
--- NOTE | 2020-10-19 11:40 | PM.HP ---
Providers/Chief Complaint Primary Care Provider: RENE Rojas Chief Complaint: Bicytopenia History of Present Illness Johnathan Montes De Oca is a 75 year old male with a history of lymphocytosis, in 2004 he was diagnosed with a leukemic phase of follicular lymphoma, at that time his white blood count was 20,000 but subsequently decreased spontaneously. CT scan of chest abdomen pelvis done at that time showed mild central lymphadenopathy, patient was followed by his PMD and oncologist at the [facility] in [place] and on November 07, 2015 he underwent bone marrow evaluation which was nondiagnostic for B-cell lymphoma, flow cytometry done on November 07, 2015 showed no clonal process. Patient has history of hepatic cirrhosis and splenomegaly and persistent bicytopenia Medications/Allergies Home Medications Medication Instructions Recorded Confirmed Last Taken Type cetirizine 10 mg capsule 10 mg PO DAILY 08/05/19 10/17/20 10/18/20 History hydrochlorothiazide 25 mg tablet 25 mg PO DAILY 08/05/19 10/19/20 10/19/20 History lorazepam 2 mg tablet 2 mg PO DAILY 08/05/19 10/17/20 10/18/20 History omeprazole 20 mg capsule,delayed 20 mg PO DAILY 08/05/19 10/17/20 10/18/20 History release tamsulosin 0.4 mg capsule 0.4 mg PO DAILY 08/05/19 10/17/20 10/18/20 History albuterol sulfate 2 inh INHALATION QID PRN 09/20/19 10/17/20 10/18/20 History fluticasone propionate [Flonase 2 spray INTRANASAL DAILY PRN 09/20/19 10/17/20 10/18/20 History Allergy Relief] ibuprofen 800 mg tablet 800 mg PO DAILY tab 01/13/20 10/17/20 10/18/20 History imiquimod 5 % topical cream packet 1 applic TOPICAL .M-F #24 each 04/13/20 10/17/20 10/18/20 Rx fluorouracil 5 % topical cream 1 applic TOPICAL BID 21 Days #40 g 06/19/20 10/17/20 10/18/20 Rx ketoconazole 2 % topical cream 1 applic TOPICAL BID #60 g 06/19/20 10/17/20 10/18/20 Rx Allergies Allergy/AdvReac Type Severity Reaction Status Date / Time cortisone Allergy ALGY-Rash Verified 09/12/20 13:10 PFSH Acute PFSH: Medical History History of nonmelanoma skin cancer Hypertension Lymphoma PTSD (post-traumatic stress disorder) Surgical History History of vasectomy Family History Sister Diabetes Sister Diabetes Mother Diabetes Social History Smoking and tobacco status: never smoked Alcohol intake: never Vitals/I&O/Wt Last Vital Signs Temp 97 F L 10/19/20 11:30 Pulse 82 10/19/20 11:30 Resp 20 H 10/19/20 11:30 BP 126/67 10/19/20 11:30 Pulse Ox 99 10/19/20 11:30 Physical Exam Resp: COMMON NORMALS: normal respiratory effort and clear to auscultation bilaterally Cardio: HEART SOUNDS: S1 normal heart sound present and S2 normal heart sound present Data : 10/19/20 10:29 A&P Additional A&P Information Bicytopenia, multifactorial including splenomegaly, or due to progressive lymphoproliferative disorder, or underlying myelodysplasia, will proceed with bone marrow evaluation Attestations Medical Necessity Statement*: Persistent/progressive bicytopenia, generalized weakness and fatigue Coding Level of Care Code Acute Knife Sharpener for [place] Fwd Exam Expanded Problem Focused
[2020-10-19 11:45] VITALS: BP 130/70; PULSE 89; RESP 18; O2SAT 95
--- NOTE | 2020-10-19 12:31 | ANE.PACU2 ---
Inpatient post-anesthesia follow up: Airway intact: Yes Vital signs: Temperature 97 F Pulse Rate 89 Respiratory Rate 18 Blood Pressure 130/70 Pulse Oximetry 95 Oxygen Delivery Me thod Room Air Oxygen Flow Rate 6 Fraction of Inspir ed Oxygen Hydration adequate: Yes Nausea and vomiting: No Pain level: 1 Mental status: Baseline
[2020-10-23 05:50] LABS: Miscellaneous Test See Scanned Lab Rpt
[2020-11-08 09:24] LABS: Miscellaneous Test See Scanned Lab Rpt
== END 2020-10-19 12:00 | disposition home or self-care (01) ==
PROVIDERS: PCP Nurse Practitioner; Visit Provider Internal Medicine Hematology & Oncology
PROC: 07DT3ZX Extraction of Bone Marrow, Percutaneous Approach, Diagnostic (ICD-10-PCS; CPT 38222; principal; 2020-10-19 11:00)
DX: D61.818 Other pancytopenia (principal); I10 Essential (primary) hypertension; Z83.3 Family history of diabetes mellitus; J45.909 Unspecified asthma, uncomplicated; K21.9 Gastro-esophageal reflux disease without esophagitis; F41.9 Anxiety disorder, unspecified
CPT/HCPCS: 36415; 38222; 85025; 88237; 88264; 88305; 88367; 88374; 96360; 96361; J2704; J7030

== ENCOUNTER 2020-10-30 08:21 | Outpatient (CLI) | payer OTHER, SELFPAY ==
[2020-10-30 09:24] LABS: Basophils % 1.5 %; Eosinophils # 0.2 10^3/uL (0.0-0.8); Eosinophils % 6.4 %; Hematocrit 42.7 % (42.0-52.0); Hemoglobin 14.6 g/dL (11.7-16.6); Lymphocytes # 0.7 10^3/uL (0.8-4.8); Lymphocytes % 24.8 %; Mean Corpuscular HGB Conc 34.2 g/dL (30.0-36.0); Mean Corpuscular Hemoglobin 31.3 pg (28.0-34.0); Mean Corpuscular Volume 91.6 fL (80-94); Mean Platelet Volume 11.7 fL (7.4-10.4); Monocytes # 0.4 10^3/uL (0.2-0.9); Monocytes % 14.3 %; Neutrophils % 52.6 %; Nucleated Red Blood Cells % 0 %; Platelet Count 73 10^3/cmm (130-400); Red Blood Count 4.66 10^6/uL (4.1-5.3); Red Cell Distribution Width 14.2 % (12.1-15.1); White Blood Count 2.7 10^3/uL (4.0-10.0)
--- NOTE | 2020-10-30 11:37 | ONC FU_ITS ---
Dr. Leonardo follow up note Patient: Johnathan Montes De Oca Unit #: [id number]: 1945 Dicatated By: Emily Leonardo M.D.Date of Visit:October 30, 2020 Onc Med Follow-up/Prog Note History of Present Illness: Mr. Montes De Oca is a 75-year-old gentleman with history of lymphocytosis. 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 At that time the lymphocytosis reached about 20,000 but subsequently decreased spontaneously. CT scan of chest/abdomen/pelvis done at that time shows mild lymph nodes above and below diaphragm but they were too small to biopsy. As per patient he was followed by his PMD and oncologist at the [facility] and on 11/07/2015 he underwent bone marrow biopsy which was nondiagnostic for B-cell lymphoma, flow cytometry done on 11/07/2015 showed no clonal process. He was also diagnosed with hepatic cirrhosis and splenomegaly. Mr Montes De Oca said he didn't have any specific issues until recently. He started having back pain for which he was referred to Dr. Leyva at a local pain clinic. A CT scan of chest abdomen pelvis was obtained on 08/09/2019 which was compared with CT scan from 11/06/2016, October 2015 and April 2015. And it showed stable appearance of mediastinal and hilar and axillary lymph nodes; Mild emphysema. The was interval development of bulky retroperitoneal and mesenteric lymphadenopathy, measuring about 4.3 cm, suspicious for primary cindy malignancy versus metastatic disease versus reactive; Extensive diverticulosis of descending and sigmoid colon; Cirrhosis, ascites, splenomegaly. Degenerative changes of spine, no fractures were reported. On 08/10/2019, Mr Montes De Oca went to see a [facility] medical oncologist, Dr. Chato Beasley in [place] and as per his recommendations- due to thepatient's history of low-grade lymphoma and (it was not clear whether symptoms are attributed to adenopathy/low-grade lymphoma or other process, cirrhosis) a PET/CT scan and lymph node biopsy and consider bone marrow biopsy. As far as mild neutropenia was concerned it was probably due to cirrhosis/portal hypertension and recommended to continue with cut off saw tender metal. Mr Montes De Oca denied any night sweats, denies any fever or weight loss. Denies any lower extremity numbness or weakness denies any urine or stool incontinence.No melena hematochezia, no nosebleed, no jaundice. But abdominal fullness due to ascites. He was referred to interventional radiology for ultrasound-guided paracentesis patient underwent sonogram on 09/20/2019 which showed some mild amount of ascites visualized in 4 abdominal quadrant, inadequate fluid for paracentesis at that time. He underwent follow-up CT PET scan on 11/06/2019 which showed FDG positive lymphadenopathy from the level of head and neck to the level of pelvis. No evidence of splenic or marrow or extranodal involvement on February 05, 2020 patient developed difficulty in swallowing and dysphagia and went to emergency room where he underwent CT scan of the neck which showed heterogeneous enhancing mass extending from posterior left aspect of tongue base to the adjacent oropharyngeal mucosa measuring 3.1 x 2.6 cm and also there was a enlarged level 3 and level 7 lymph nodes on the left, 3.3 x 2.0 cm size., Patient was transferred to [facility] where he was diagnosed with oropharyngeal abscess he was drained and treated with IV antibiotic subsequently discharged home on oral antibiotic h/o chronic lower back pain for which he has been to pain clinic where as per patient, he was given 'injection' about 4 months ago with some help but still having mid to lower back pain and sometimes problem and walking Mr Montes De Oca underwent MRI of the spine on 05/30/2020 and discussed the findings which showed moderately enlarged spleen with a maximum length 17 cm, retroperitoneal lymphadenopathy index lymph node is 6 x 3 x 4 cm inferior medial to the right kidney bulky partially visualized left thoracic and left lymph nodes measuring 2.9 cm, no evidence of bone mets, moderate central canal stenosis L4-5 with shallow central disc protrusion and impingement traversing L5 nerve roots immediately. Moderate right L4-5 foraminal narrowing. Shallow central protrusion T7-8 with slight effacement of ventral thecal sac and slight contacting of the thoracic cord. No significant central canal stenosis. discussed with Mr Montes De Oca further treatment options. Because of progressive back pain which could be due to bulky retroperitoneal lymphadenopathy and his splenomegaly could be due to portal hypertension due to cirrhosis of the liver or lymphomatous infiltration with low-grade lymphoma and now causing persistent progressive bicytopenia. was recommended that Mr Montes De Oca consider trial of Rituxan 375 mg/m??? weekly x4-6 and then monitor his blood counts as well as central lymphadenopathy, there is a possibility with improvement in central lymphadenopathy his back pain may improve if not then will consult orthopedic for spine evaluation and if bicytopenia persist then it could be due to splenic sequestration or considering his age underlying myelodysplasia, will consider bone marrow evaluation. Mr Montes De Oca has elected to try the Ritxuan and began his first week treatment on 06/21/2020, Till July 12, 2020. Follow-up CT scan of chest abdomen pelvis after 4 doses of weekly Rituxan done on July 19, 2020 showed persistent significant adenopathy throughout the chest abdomen pelvis as compared to CT PET scan done on November 06, 2019 in the retroperitoneum the lymph node have decreased by 5 mm in short axis. Also slight improvement in the left supraclavicular and cervical chain lymph nodes lymph nodes in the mediastinum and hilum are stable. Continued stable splenomegaly of 17 cm and cirrhotic liver Bone marrow evaluation done on October 19, 2020 showed mildly abnormal features including hypercellularity, erythroid predominance/hyperplasia, subtle dyspoietic features in the erythroid and megakaryocyte lineage, as well as increased storage iron, not entirely diagnostic, do raise the possibility of early/evolving MDS. FISH for MDS showed no abnormality, flow cytometry showed no overtly aberrant myeloid or lymphoid population. Came for follow-up, complaining of generalized weakness and fatigue, but no fever chills, no nausea or vomiting, no diarrhea constipation, no night sweats, no weight loss, no peripheral lymphadenopathy, no abdominal fullness, no nosebleed or gum bleed, no petechia or ecchymosis, no melena or hematochezia. No jaundice Medications: Ativan 1 Tablet (of 2 mg) Oral b.i.d., Cetirizine HCl 1 Tablet (of 10 mg) Oral daily, Flonase 1 (50 mcg/act) Suspension Nasal PRN, hydroCHLOROthiazide 1 Tablet (of 25 mg) Oral daily, Ibuprofen 1 Tablet (of 800 mg) Oral t.i.d., Omeprazole 1 Capsule (of 20 mg) Capsule Delayed Release Oral daily, ProAir HFA 1 Inhalation (of 108 (90 base) mcg/act) Aerosol, solution Inhalation PRN, Tamsulosin HCl 1 Capsule (of 0.4 mg) Oral daily Allergies: Cortisone Acetate, darvon, and quiNINE Sulfate. Review of Systems: Review of Systems is not available for this patient. Vital Signs: Performed on October 30, 2020 09:02 Height - 72.00 in Weight - 226.2 lbs (HIGH) BSA - 2.24 sq.m BMI - 30.68 (HIGH) Temperature - 98.1 F (LOW) Pulse - 72 /min Respiration - 18 /min BP - 157/73 mm(hg) (HIGH) O2 Sat - 98 % Pain - 0 Performance Status: 1 - No physically strenuous activity, but ambulatory and able to carry out light or sedentary work (e.g. office work, light house work). (ECOG) Physical Examination: ENMT - No mouth sores, no thrush, no jaundice no cervical lymphadenopathy, Respiratory - Lungs are clear to auscultation, Cardiovascular - Regular rate and rhythm of heart, Abdomen - Soft, bowel sounds present, Extremities - No visible edema. Lab/Imaging: Test performed on Jul 19, 2020 08:20 Sodium 140 mmol/L TSH 2.01 uIU/mL Potassium 3.9 mmol/L Chloride 104 mmol/L CO2 27 mmol/L Anion Gap 12.9 BUN 19 mg/dL Creatinine 1.0 mg/dL Cr Clearance (Est) 94.1000 mL/min Glucose 99 mg/dL Osmolality - Calculated 292 mOsm/kg Calcium 9.6 mg/dL Protein, Total 6.6 g/dL Albumin 3.9 g/dL Globulin 2.7 g/dL Bilirubin, Total 1.0 mg/dL ALT (SGPT) 38 U/L AST (SGOT) 59 U/L Alkaline Phosphatase 105 IU/L WBC 2.3 10 3/uL RBC 4.88 10 6/uL HGB 14.7 g/dL HCT 44.2 % MCV 90.6 fL MCH 30.1 pg MCHC 33.3 g/dL RDW 13.9 % Platelet Count 72 10 3/cmm MPV 12.2 fL Neutrophils 1.30 10 3/uL Lymphocytes 0.5 10 3/uL Monocytes 0.3 10 3/uL Eosinophils 0.2 10 3/uL Basophils 0.0 10 3/uL Neutrophil % 56.2 % Lymphocyte % 22.1 % Monocyte % 11.3 % Eosinophil % 9.1 % Basophils % 1.3 % NRBC % 0 % Test performed on Jun 19, 2020 10:16 Hepatitis A Ab, IgM Non-Reactive Hepatitis B Core Ab, Total Non-Reactive Hepatitis B Surf Antigen Non-Reactive Hepatitis B Surface Ab 3.5 STATUS of IMMUINITY Inconsistent with Immunity 0.0 - 8.5 mIU/mL Consistent with Immunity >8.5 mIU/mL Hepatitis C Ab Non-Reactive Test performed on Jun 05, 2020 09:45 CBC Slide Review Slide Review Perform SLIDE REVIEW AGREES WITH AUTOMATED RESULTS Test performed on May 23, 2020 09:17 LDH (Total) 282 U/L Impression: History of low-grade, follicular lymphoma, CD 10 and CD19 positive diagnosed in 2004, recently done CT scan of chest abdomen pelvis, when compared with CT scan from October 2016 showed stable, small mediastinal lymphadenopathy, hilar and axillary lymphadenopathy. But progressive/bulky retroperitoneal and mesenteric lymphadenopathy increased from 2017, one of the largest measuring 4.3 cm chain. Degenerative changes of spine no fracture seen. Hepatic cirrhosis/splenomegaly/ascites Mild thrombocytopenia CBC done on 08/09/2002 shows white blood count 6.1 hemoglobin 14.9 crit 44.3 platelets 90,000 lymphocytes 47.9% neutrophil 38.2%. Chronic back pain, etiology unclear degenerative joint disease versus pressure due to retroperitoneal lymphadenopathy. MRI scan spine findings which was done on May 30, 2020 and showed moderately enlarged spleen with a maximum length 17 cm, retroperitoneal lymphadenopathy index lymph node is 6 x 3 x 4 cm inferior medial to the right kidney bulky partially visualized left thoracic and left lymph nodes measuring 2.9 cm, no evidence of bone mets, moderate central canal stenosis L4-5 with shallow central disc protrusion and impingement traversing L5 nerve roots immediately. Moderate right L4-5 foraminal narrowing. Shallow central protrusion T7-8 with slight effacement of ventral thecal sac and slight contacting of the thoracic cord. No significant central canal stenosis. discussed with Mr Montes De Oca further treatment options. Because of progressive back pain which could be due to bulky retroperitoneal lymphadenopathy and his splenomegaly could be due to portal hypertension due to cirrhosis of the liver or lymphomatous infiltration with low-grade lymphoma and now causing persistent progressive bicytopenia. recommended that Mr Montes De Oca consider trial of Rituxan 375 mg/m??? weekly x4-6 and then monitor his blood counts as well as central lymphadenopathy, there is a possibility with improvement in central lymphadenopathy his back pain may improve if not then will consult orthopedic for spine evaluation and if bicytopenia persist then it could be due to splenic sequestration or considering his age underlying myelodysplasia, will consider bone marrow evaluation. Mr Montes De Oca started his first of four weeks of Rituxan on . Follow-up CT scan of chest abdomen pelvis done after 4 doses of weekly Rituxan on July 19, 2020 showed persistent significant adenopathy throughout the chest abdomen pelvis compared to CT PET scan done on November 06, 2019 there is a minimal change. And retroperitoneal lymph node have decreased by 5 mm now measuring 4.3 cm also slight improvement in left supraclavicular and cervical chain lymph nodes and stable mediastinal and hilar lymph nodes. Continued stable splenomegaly of 17 cm length. Cirrhotic liver MRI scan of spine done on May 30, 2020 showed retroperitoneal lymph node was 6 x 3.4 cm and as mentioned above the largest lymph node is 4.3 cm which means there is a significant response ? Bone marrow evaluation done on October 19, 2020 showed mildly abnormal features including hypercellularity, erythroid predominance/hyperplasia, subtle dyspoietic features in the erythroid and megakaryocyte lineage as well as increased storage iron, future not entirely diagnostic but do raise possibility of early/evolving MDS, FISH for MDS panel was unremarkable, flow cytometry showed no aberrant myeloid or lymphoid population. 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 Patient was advised in case, he experienced night sweats, weight loss or recurrent fever or abnormal bleeding, he need to call us otherwise return to clinic in 3 months. Signed By: Emily Leonardo M.D. <<Signature on File>>
== END 2020-10-30 08:22 | disposition home or self-care (01) ==
PROVIDERS: PCP Nurse Practitioner; Visit Provider Internal Medicine Hematology & Oncology
DX: Z08 Encounter for follow-up examination after completed treatment for malignant neoplasm (principal); Z85.72 Personal history of non-Hodgkin lymphomas; K76.0 Fatty (change of) liver, not elsewhere classified; R16.1 Splenomegaly, not elsewhere classified; R18.8 Other ascites; D69.6 Thrombocytopenia, unspecified; M51.36 Other intervertebral disc degeneration, lumbar region; M48.061 Spinal stenosis, lumbar region without neurogenic claudication; Z79.899 Other long term (current) drug therapy; Z92.21 Personal history of antineoplastic chemotherapy
CPT/HCPCS: 36415; 85025; 99214

== ENCOUNTER 2021-02-07 08:40 | Outpatient (CLI) | payer OTHER, SELFPAY ==
--- NOTE | 2021-02-07 09:18 | CTR_ITS ---
PROCEDURE INFORMATION: Exam: CT Chest Without and With Contrast; Diagnostic Exam date and time: 02/07/2021 9:18 AM Age: 75 years old Clinical indication: Condition or disease; Cancer; Other: Non hodgkin lymphomas; Follow-up oncological assessment TECHNIQUE: Imaging protocol: Diagnostic computed tomography of the chest without and with contrast. Radiation optimization: All CT scans at this facility use at least one of these dose optimization techniques: automated exposure control; mA and/or kV adjustment per patient size (includes targeted exams where dose is matched to clinical indication); or iterative reconstruction. Contrast material: OMNI 300; Contrast volume: 95 ml; Contrast route: INTRAVENOUS (IV); Other contrast: Oral, omni 300, 20; COMPARISON: CT chest abd pel w con* 07/19/2020 10:22 AM RADIATION DOSE METRICS: Total DLP (mGy-cm): 2884.04 FINDINGS: Thyroid: Heterogeneity of the left thyroid lobe is stable from comparison. Normal right thyroid lobe. Lungs: Mild interstitial fibrotic lung changes are present primarily in the right upper lobe. [id number] emphysema changes. No focal airspace consolidation. No suspicious pulmonary nodule. Negative for endobronchial lesion. Ovoid right middle lobe pulmonary nodule is stable in size measuring 5 mm length. Pleural spaces: Unremarkable. No pneumothorax. No pleural effusion. Heart: Unremarkable. No cardiomegaly. No pericardial effusion. Aorta: Unremarkable. No aortic aneurysm. Lymph nodes: Negative for supraclavicular lymphadenopathy. Lymph node of interest in the left supraclavicular area measures 1.6 cm x 1.0 cm; prior 2.2 cm x 2.2 cm. Negative for axillary lymphadenopathy. Negative for mediastinal lymphadenopathy. There is further regression of mediastinal lymph nodes compared with prior imaging. There is resolution of the mildly enlarged left supraclavicular lymph node. Bones/joints: Unremarkable. No acute fracture. Soft tissues: Unremarkable. IMPRESSION: 1. No acute pulmonary disease. 2. Further regression in size of the thoracic lymph nodes discussed previously. PROCEDURE INFORMATION: Exam: CT Abdomen And Pelvis Without And With Contrast Exam date and time: 02/07/2021 9:18 AM Age: 75 years old Clinical indication: Condition or disease; Cancer; Other: Non hodgkin lymphomas; Follow-up oncological assessment TECHNIQUE: Imaging protocol: Computed tomography of the abdomen and pelvis without and with contrast. Radiation optimization: All CT scans at this facility use at least one of these dose optimization techniques: automated exposure control; mA and/or kV adjustment per patient size (includes targeted exams where dose is matched to clinical indication); or iterative reconstruction. Contrast material: OMNI 300; Contrast volume: 95 ml; Contrast route: INTRAVENOUS (IV); Other contrast: Oral, omni 300, 20; COMPARISON: CT chest abd pel w con* 07/19/2020 10:22 AM RADIATION DOSE METRICS: Total DLP (mGy-cm): 2880.04 FINDINGS: Liver: Capsular surface of the liver is mildly nodular. No focal liver mass. Gallbladder and bile ducts: Normal. No calcified stones. No ductal dilation. Pancreas: Normal. No ductal dilation. Spleen: Moderate splenomegaly stable from prior. No focal splenic mass. Adrenal glands: Normal. No mass. Kidneys and ureters: Simple left renal upper pole cortical cyst stable from prior. No hydronephrosis. No renal stones. Stomach and bowel: Rather diffuse diverticulosis coli. Negative for bowel obstruction. Negative for bowel perforation. No focal bowel wall mass. Appendix: No evidence of appendicitis. Intraperitoneal space: Hazy fat stranding changes in the right lower quadrant the abdomen are stable from prior. No free air. No intraperitoneal fluid collection. Vasculature: Scattered atherosclerosis. No vascular occlusion. Lymph nodes: Retroperitoneal lymphadenopathy is present, although significantly decreased from comparison. For example, left para-aortic lymph node measures 2.9 cm x 2.1 cm on axial series 4, image 35; previously 4.5 cm x 4.1 cm. Urinary bladder: Unremarkable as visualized. Reproductive: Unremarkable as visualized. Bones/joints: Unremarkable. No acute fracture. Soft tissues: Unremarkable. CT/CT chest abd pel wo/w con IMPRESSION: Decreased volume of the diffuse retroperitoneal lymphadenopathy compared with prior imaging. Radiation Dose CTDIVOL = (mGy): DLP = 2884.04~2880.04 (mGy-cm)
[2021-02-07 09:42] LABS: Basophils % 1.3 %; Eosinophils # 0.2 10^3/uL (0.0-0.8); Eosinophils % 7.1 %; Hematocrit 42.8 % (42.0-52.0); Hemoglobin 14.7 g/dL (11.7-16.6); Lymphocytes # 0.6 10^3/uL (0.8-4.8); Lymphocytes % 20.3 %; Mean Corpuscular HGB Conc 34.3 g/dL (30.0-36.0); Mean Corpuscular Hemoglobin 32.1 pg (28.0-34.0); Mean Corpuscular Volume 93.4 fl (80-94); Monocytes # 0.3 10^3/uL (0.2-0.9); Monocytes % 10.3 %; Neutrophils # 1.88 10^3/uL (1.8-7.7); Neutrophils % 60.7 %; Nucleated Red Blood Cells % 0 %; Platelet Count 72 10^3/cmm (130-400); Red Blood Count 4.58 10^6/uL (4.1-5.3); Red Cell Distribution Width 14.7 % (12.1-15.1); White Blood Count 3.1 10^3/uL (4.0-10.0)
[2021-02-07] MEDS: iohexol 300 mg/mL 50 mL Btl PO (09:46)
[2021-02-07 09:59] LABS: Alanine Aminotransferase 26 U/L (0-41); Albumin Level 3.7 g/dL (3.5-5.2); Alkaline Phosphatase 85 IU/L (40-130); Anion Gap 13.7 (5-19); Aspartate Amino Transferase 37 U/L (0-40); Blood Urea Nitrogen 20 mg/dL (8-23); Calcium 9.3 mg/dL (8.5-10.5); Carbon Dioxide 25 mmol/L (22-29); Chloride 104 mmol/L (98-107); Globulin 3.1 g/dL (1.3-4.6); Glucose 102 mg/dL (65-115); Osmolality Calculated 291 mOsm/kg (285-295); Potassium 3.7 mmol/L (3.5-5.1); Sodium 139 mmol/L (136-145); Total Bilirubin 1.2 mg/dL (0.15-1.2); Total Protein 6.8 g/dL (6.6-8.7)
[2021-02-07] MEDS: iohexol 300 mg/mL 100 mL Btl IV (10:59)
== END 2021-02-07 08:41 | disposition home or self-care (01) ==
PROVIDERS: PCP Nurse Practitioner; Visit Provider Internal Medicine Hematology & Oncology
DX: C82.90 Follicular lymphoma, unspecified, unspecified site (principal)
CPT/HCPCS: 36415; 71260; 74178; 80053; 85025; Q9967

== ENCOUNTER 2021-02-12 15:53 | Outpatient (CLI) | payer OTHER, SELFPAY ==
--- NOTE | 2021-02-12 16:58 | ONC FU_ITS ---
Dr. Leonardo follow up note Patient: Johnathan Montes De Oca Unit #: [id number]: 1945 Dicatated By: Emily Leonardo M.D.Date of Visit:Feb 12, 2021 Onc Med Follow-up/Prog Note History of Present Illness: Mr. Montes De Oca is a 75-year-old gentleman with history of lymphocytosis. 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 At that time the lymphocytosis reached about 20,000 but subsequently decreased spontaneously. CT scan of chest/abdomen/pelvis done at that time shows mild lymph nodes above and below diaphragm but they were too small to biopsy. As per patient he was followed by his PMD and oncologist at the [facility] and on 11/07/2015 he underwent bone marrow biopsy which was nondiagnostic for B-cell lymphoma, flow cytometry done on 11/07/2015 showed no clonal process. He was also diagnosed with hepatic cirrhosis and splenomegaly. Mr Montes De Oca said he didn't have any specific issues until recently. He started having back pain for which he was referred to Dr. Leyva at a local pain clinic. A CT scan of chest abdomen pelvis was obtained on 08/09/2019 which was compared with CT scan from 11/06/2016, October 2015 and April 2015. And it showed stable appearance of mediastinal and hilar and axillary lymph nodes; Mild emphysema. The was interval development of bulky retroperitoneal and mesenteric lymphadenopathy, measuring about 4.3 cm, suspicious for primary cindy malignancy versus metastatic disease versus reactive; Extensive diverticulosis of descending and sigmoid colon; Cirrhosis, ascites, splenomegaly. Degenerative changes of spine, no fractures were reported. On 08/10/2019, Mr Montes De Oca went to see a [place] medical oncologist, Dr. Chato Beasley in [place] and as per his recommendations- due to thepatient's history of low-grade lymphoma and (it was not clear whether symptoms are attributed to adenopathy/low-grade lymphoma or other process, cirrhosis) a PET/CT scan and lymph node biopsy and consider bone marrow biopsy. 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 Mr Montes De Oca denied any night sweats, denies any fever or weight loss. Denies any lower extremity numbness or weakness denies any urine or stool incontinence.No melena hematochezia, no nosebleed, no jaundice. But abdominal fullness due to ascites. He was referred to interventional radiology for ultrasound-guided paracentesis patient underwent sonogram on 09/20/2019 which showed some mild amount of ascites visualized in 4 abdominal quadrant, inadequate fluid for paracentesis at that time. He underwent follow-up CT PET scan on 11/06/2019 which showed FDG positive lymphadenopathy from the level of head and neck to the level of pelvis. No evidence of splenic or marrow or extranodal involvement on February 05, 2020 patient developed difficulty in swallowing and dysphagia and went to emergency room where he underwent CT scan of the neck which showed heterogeneous enhancing mass extending from posterior left aspect of tongue base to the adjacent oropharyngeal mucosa measuring 3.1 x 2.6 cm and also there was a enlarged level 3 and level 7 lymph nodes on the left, 3.3 x 2.0 cm size., Patient was transferred to [place] where he was diagnosed with oropharyngeal abscess he was drained and treated with IV antibiotic subsequently discharged home on oral antibiotic h/o chronic lower back pain for which he has been to pain clinic where as per patient, he was given 'injection' about 4 months ago with some help but still having mid to lower back pain and sometimes problem and walking Mr Montes De Oca underwent MRI of the spine on 05/30/2020 and discussed the findings which showed moderately enlarged spleen with a maximum length 17 cm, retroperitoneal lymphadenopathy index lymph node is 6 x 3 x 4 cm inferior medial to the right kidney bulky partially visualized left thoracic and left lymph nodes measuring 2.9 cm, no evidence of bone mets, moderate central canal stenosis L4-5 with shallow central disc protrusion and impingement traversing L5 nerve roots immediately. Moderate right L4-5 foraminal narrowing. Shallow central protrusion T7-8 with slight effacement of ventral thecal sac and slight contacting of the thoracic cord. No significant central canal stenosis. discussed with Mr Montes De Oca further treatment options. Because of progressive back pain which could be due to bulky retroperitoneal lymphadenopathy and his splenomegaly could be due to portal hypertension due to cirrhosis of the liver or lymphomatous infiltration with low-grade lymphoma and now causing persistent progressive bicytopenia. was recommended that Mr Montes De Oca consider trial of Rituxan 375 mg/m??? weekly x4-6 and then monitor his blood counts as well as central lymphadenopathy, there is a possibility with improvement in central lymphadenopathy his back pain may improve if not then will consult orthopedic for spine evaluation and if bicytopenia persist then it could be due to splenic sequestration or considering his age underlying myelodysplasia, will consider bone marrow evaluation. Mr Montes De Oca has elected to try the Ritxuan and began his first week treatment on 06/21/2020, Till July 12, 2020. Follow-up CT scan of chest abdomen pelvis after 4 doses of weekly Rituxan done on July 19, 2020 showed persistent significant adenopathy throughout the chest abdomen pelvis as compared to CT PET scan done on November 06, 2019 in the retroperitoneum the lymph node have decreased by 5 mm in short axis. Also slight improvement in the left supraclavicular and cervical chain lymph nodes lymph nodes in the mediastinum and hilum are stable. Continued stable splenomegaly of 17 cm and cirrhotic liver Bone marrow evaluation done on October 19, 2020 showed mildly abnormal features including hypercellularity, erythroid predominance/hyperplasia, subtle dyspoietic features in the erythroid and megakaryocyte lineage, as well as increased storage iron, not entirely diagnostic, do raise the possibility of early/evolving MDS. FISH for MDS showed no abnormality, flow cytometry showed no overtly aberrant myeloid or lymphoid population. Follow-up CT scan of the chest abdomen pelvis done on February 07, 2021, showed no acute pulmonary disease, further regression in the size of thoracic lymph nodes, the left supraclavicular area lymph node measured 1.6 x 1 cm compared to 2.2 x 2.2 previously negative for axillary lymphadenopathy negative for mediastinal lymphadenopathy and there is a further regression of mediastinal lymph nodes compared to prior imaging, retroperitoneal lymphadenopathy is present although significantly decreased from seen on CT scan done in July 2020, normal to 2.9 x 2.1 compared to 4.5 x 4.1 cm previously. liver shows capsular surface of liver is mildly nodular and patient has moderate splenomegaly but stable no focal splenic mass seen Came for follow-up, denies any specific complaints, no fever chills, no nausea or vomiting, no diarrhea constipation, no night sweats, no recurrent fever, no weight loss, no peripheral lymphadenopathy, no abdominal fullness Medications: Ativan 1 Tablet (of 2 mg) Oral b.i.d., Cetirizine HCl 1 Tablet (of 10 mg) Oral daily, Flonase 1 (50 mcg/act) Suspension Nasal PRN, hydroCHLOROthiazide 1 Tablet (of 25 mg) Oral daily, Ibuprofen 1 Tablet (of 800 mg) Oral t.i.d., Omeprazole 1 Capsule (of 20 mg) Capsule Delayed Release Oral daily, ProAir HFA 1 Inhalation (of 108 (90 base) mcg/act) Aerosol, solution Inhalation PRN, Tamsulosin HCl 1 Capsule (of 0.4 mg) Oral daily Allergies: Cortisone Acetate, darvon, and quiNINE Sulfate. Review of Systems: Review of Systems is not available for this patient. Vital Signs: Performed on Feb 12, 2021 16:10 Height - 72.00 in Weight - 220.8 lbs (LOW) BSA - 2.22 sq.m BMI - 29.95 Temperature - 98.7 F Pulse - 81 /min Respiration - 18 /min BP - 153/70 mm(hg) (HIGH) O2 Sat - 97 % Pain - 0 Performance Status: 0 - Fully active, able to carry on all predisease activities without restrictions. (ECOG) Physical Examination: ENMT - No mouth sores, no thrush, no jaundice no cervical lymphadenopathy, Respiratory - Lungs are clear to auscultation, Cardiovascular - Regular rate and rhythm of heart, Abdomen - Soft, bowel sounds present, Extremities - No visible edema. Lab/Imaging: Most recent lab results are not available for this patient. Impression: History of low-grade, follicular lymphoma, CD 10 and CD19 positive diagnosed in 2004, recently done CT scan of chest abdomen pelvis, when compared with CT scan from October 2016 showed stable, small mediastinal lymphadenopathy, hilar and axillary lymphadenopathy. But progressive/bulky retroperitoneal and mesenteric lymphadenopathy increased from 2017, one of the largest measuring 4.3 cm chain. Degenerative changes of spine no fracture seen. Hepatic cirrhosis/splenomegaly/ascites Mild thrombocytopenia CBC done on 08/09/2002 shows white blood count 6.1 hemoglobin 14.9 crit 44.3 platelets 90,000 lymphocytes 47.9% neutrophil 38.2%. Chronic back pain, etiology unclear degenerative joint disease versus pressure due to retroperitoneal lymphadenopathy. MRI scan spine findings which was done on May 30, 2020 and showed moderately enlarged spleen with a maximum length 17 cm, retroperitoneal lymphadenopathy index lymph node is 6 x 3 x 4 cm inferior medial to the right kidney bulky partially visualized left thoracic and left lymph nodes measuring 2.9 cm, no evidence of bone mets, moderate central canal stenosis L4-5 with shallow central disc protrusion and impingement traversing L5 nerve roots immediately. Moderate right L4-5 foraminal narrowing. Shallow central protrusion T7-8 with slight effacement of ventral thecal sac and slight contacting of the thoracic cord. No significant central canal stenosis. discussed with Mr Montes De Oca further treatment options. Because of progressive back pain which could be due to bulky retroperitoneal lymphadenopathy and his splenomegaly could be due to portal hypertension due to cirrhosis of the liver or lymphomatous infiltration with low-grade lymphoma and now causing persistent progressive bicytopenia. recommended that Mr Montes De Oca consider trial of Rituxan 375 mg/m??? weekly x4-6 and then monitor his blood counts as well as central lymphadenopathy, there is a possibility with improvement in central lymphadenopathy his back pain may improve if not then will consult orthopedic for spine evaluation and if bicytopenia persist then it could be due to splenic sequestration or considering his age underlying myelodysplasia, will consider bone marrow evaluation. Mr Montes De Oca started his first of four weeks of Rituxan on . Follow-up CT scan of chest abdomen pelvis done after 4 doses of weekly Rituxan on July 19, 2020 showed persistent significant adenopathy throughout the chest abdomen pelvis compared to CT PET scan done on November 06, 2019 there is a minimal change. And retroperitoneal lymph node have decreased by 5 mm now measuring 4.3 cm also slight improvement in left supraclavicular and cervical chain lymph nodes and stable mediastinal and hilar lymph nodes. Continued stable splenomegaly of 17 cm length. Cirrhotic liver MRI scan of spine done on May 30, 2020 showed retroperitoneal lymph node was 6 x 3.4 cm and as mentioned above the largest lymph node is 4.3 cm which means there is a significant response ? Bone marrow evaluation done on October 19, 2020 showed mildly abnormal features including hypercellularity, erythroid predominance/hyperplasia, subtle dyspoietic features in the erythroid and megakaryocyte lineage as well as increased storage iron, future not entirely diagnostic but do raise possibility of early/evolving MDS, FISH for MDS panel was unremarkable, flow cytometry showed no aberrant myeloid or lymphoid population. Follow-up CT scan of the chest abdomen pelvis done on February 07, 2021, showed no acute pulmonary disease, further regression in the size of thoracic lymph nodes, the left supraclavicular area lymph node measured 1.6 x 1 cm compared to 2.2 x 2.2 previously negative for axillary lymphadenopathy negative for mediastinal lymphadenopathy and there is a further regression of mediastinal lymph nodes compared to prior imaging, retroperitoneal lymphadenopathy is present although significantly decreased from seen on CT scan done in July 2020, normal to 2.9 x 2.1 compared to 4.5 x 4.1 cm previously. liver shows capsular surface of liver is mildly nodular and patient has moderate splenomegaly but stable no focal splenic mass seen Plan: Discussed with patient regarding his labs white blood count 3.1 compared to 2.7 previously hemoglobin 14.7 hematocrit 42.8 platelets 72,000 ANC 1880 CMP within normal limits and follow-up CT scan of chest abdomen pelvis shows further progression of mediastinal/left supraclavicular/retroperitoneal lymphadenopathy and stable moderate splenomegaly and cirrhotic liver. No new lymphadenopathy Clinically, patient doing well with no new signs symptoms history of disease progression, no B symptoms, his follow-ups CT scan of chest abdomen pelvis shows further regression of central lymphadenopathy, moderately enlarged spleen but stable and no splenic lesion so splenomegaly could be due to portal hypertension due to hepatic cirrhosis rather due to lymphoproliferative disorder.. His follow-up CBC shows persistent bicytopenia but stable rather some improvement in his mild leukocytopenia. We will continue to monitor patient return to clinic in 6 months with CBC CMP and follow-up CT scan of chest abdomen pelvis. Signed By: Emily Leonardo M.D. <<Signature on File>>
== END 2021-02-12 15:54 | disposition home or self-care (01) ==
PROVIDERS: PCP Nurse Practitioner; Visit Provider Internal Medicine Hematology & Oncology
DX: C82.98 Follicular lymphoma, unspecified, lymph nodes of multiple sites (principal); Z79.899 Other long term (current) drug therapy
CPT/HCPCS: 99214

== ENCOUNTER → 2021-05-17 14:08 | Outpatient (BNVA) | payer OTHER, SELFPAY | PROVIDERS: PCP Nurse Practitioner; Referring Provider Nurse Practitioner; Visit Provider Nurse Practitioner Family | DX: N40.1 Benign prostatic hyperplasia with lower urinary tract symptoms (principal); R32 Unspecified urinary incontinence | CPT/HCPCS: 81003 ==

== ENCOUNTER 2021-06-14 09:22 | Outpatient (CLI) | payer OTHER, SELFPAY ==
--- NOTE | 2021-06-14 09:29 | CT_ITS ---
WS: [id number] CT HEAD NONCONTRAST AND CONTRAST TECHNIQUE: Noncontrast and contrast-enhanced CT of the head. CLINICAL INFORMATION: CONFUSION COMPARISON: None. DLP: 1846.[address] scans at [facility] use at least one of these dose optimization techniques: automated e xposure control; mA and/or kV adjustment per patient size (includes targeted exams where dose is matc hed to clinical indication); or iterative reconstruction. FINDINGS: No evidence of intracranial hemorrhage or mass effect. Ventricular system and basal cisterns are vaughan nt. Mild small vessel changes. Moderate parenchymal volume loss. Intracranial vascular calcification. Paranasal sinuses and mastoid air cells well aerated. Calcified osteoma left frontal sinus. Chronic l acunar infarct right caudate. No abnormal intracranial enhancement. CT/CT head w con [id number] IMPRESSION: 1. No evidence of intracranial hemorrhage or mass effect. 2. Mild small vessel changes with moderate parenchymal volume loss. 3. Chronic lacunar infarct right basal ganglia. 4. No abnormal intracranial enhancement. 5. No other significant findings.
[2021-06-14 10:20] LABS: Blood Urea Nitrogen 19 mg/dL (8-23)
[2021-06-14] MEDS: iohexol 300 mg/mL 100 mL Btl IV (10:39)
== END 2021-06-14 09:23 | disposition home or self-care (01) ==
LOC: RAD 09:24
PROVIDERS: PCP Nurse Practitioner; Visit Provider Nurse Practitioner
DX: R41.0 Disorientation, unspecified (principal); I63.81 Other cerebral infarction due to occlusion or stenosis of small artery
CPT/HCPCS: 36415; 70460; 82565; 84520

== ENCOUNTER → 2021-07-03 13:49 | Outpatient (BNVA) | payer OTHER, SELFPAY | PROVIDERS: PCP Nurse Practitioner; Visit Provider Urology | DX: Z12.5 Encounter for screening for malignant neoplasm of prostate (principal); R31.29 Other microscopic hematuria | CPT/HCPCS: 81003; G0103 ==

== ENCOUNTER 2021-08-06 09:24 | Emergency (ER) | payer OTHER, MEDICARE, SELFPAY ==
[2021-08-06 09:37] VITALS: BP 135/63; PULSE 88; RESP 18; TEMP 37; O2SAT 95; BMI 31.1
--- NOTE | 2021-08-06 09:44 | ED_ITS ---
HPI - Abdominal Pain General: Chief Complaint: Abdominal Pain Stated Complaint: back pain,abdomen distention Time Seen by Provider: 08/06/21 09:32 Source: patient Mode of arrival: ambulatory History of Present Illness: 76-year-old male with a history of lymphoma. He also has some cirrhosis and splenomegaly presents today complaining of abdominal fullness and bloating some building last couple of weeks. Denies any chest pain he has a lot of abdominal generalized discomfort and bloating but no sharp pain. Denies dysuria urgency or frequency he is due in the next 2 weeks to see his oncologist for follow-up. Denies any fever sweats chills dysuria urgency or frequency. MD elicited complaint: abdominal pain Pertinent past history: none Onset (ago): week(s) Pain Consistency: intermittent Location: Diffuse Severity: mild Quality: aching Radiation: none Migration to: no migration Exacerbating factors: nothing Relieving factors: nothing Associated Symptoms: Reports bloating, GI cramping, nausea and poor appetite; Denies anorexia, belching, change in bowel habits, change in stool character, chills, coffee ground emesis, constipation, diarrhea, dyspepsia, dysuria, excessive flatus, fever(s), heartburn, hematochezia, hematuria, hematemesis, fecal incontinence, loose stools, melena, syncope and vomiting Review of Systems Const: Denies: fever(s) or chills ENMT: Denies: throat pain, ear or mastoid pain, nasal discharge or nasal congestion Card: Denies: syncope Resp: Denies: dyspnea, productive cough or non-productive cough GI: Reports: nausea, bloating and GI cramping; Denies: vomiting, hematemesis, coffee ground emesis, heartburn, diarrhea, constipation, belching, excessive flatus, fecal incontinence, change in bowel habits, change in stool character, hematochezia or melena : Denies: dysuria or hematuria Skin/Breast: Denies: rash or pruritus PFSH ED PFSH: Medical History BPH loc w urin obs/LUTS History of melanoma History of nonmelanoma skin cancer Hypertension Lymphoma Microscopic hematuria PTSD (post-traumatic stress disorder) Surgical History History of vasectomy Family History Sister Diabetes Sister Diabetes Mother , IN HER 80'S Diabetes Natural Father , AT 86 Cancer Social History Alcohol intake: never Marital status: Current occupational status: employed, retired and disabled 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 History of recent travel: No Physical Exam Const: COMMON NORMALS: no acute distress GENERAL APPEARANCE: cooperative and comfortable ORIENTATION/CONSCIOUSNESS: Yes awake, Yes oriented to person, Yes oriented to place and Yes oriented to time HENMT: COMMON NORMALS: normocephalic, atraumatic and hearing grossly normal bilaterally HEAD & SCALP: normocephalic and atraumatic Neck/C-Spine: COMMON NORMALS: no JVD Resp: COMMON NORMALS: normal respiratory effort, No retractions, No use of accessory muscles and clear to auscultation bilaterally AUSCULTATION: clear to auscultation bilaterally Cardio: COMMON NORMALS: no JVD, regular rate, regular rhythm and No murmurs present (Cardio) RATE: regular rate RHYTHM: regular rhythm GI: COMMON NORMALS: Soft to palpation INSPECTION: Yes abdominal distension and Yes Fluid wave present AUSCULTATION: Yes normoactive bowel sounds PALPATION: Yes Soft to palpation, No Tenderness to palpation present (GI), No Guarding due to palpation present (GI) and Yes Hepatomegaly present PERCUSSION: dullness to percussion and Fluid wave present Extremity: COMMON NORMALS: normal to inspection, capillary refill normal, no clubbing, cyanosis or edema, no calf tenderness and no pedal edema Neuro: SENSORIUM/ORIENTATION: Yes oriented to person, Yes oriented to place and Yes oriented to time Skin: COMMON NORMALS: no rashes or lesions noted GENERAL SKIN EXAM: no rashes or lesions noted Course Vital Signs: Vital signs: Vital Signs Temperature 98.6 F 08/06/21 09:37 Pulse Rate 80 08/06/21 13:04 Respiratory Rate 14 08/06/21 13:04 Blood Pressure 135/63 08/06/21 13:04 Pulse Oximetry 96 08/06/21 13:04 MDM - Abdominal Pain Medical Decision Making Ammonia level and T bili are slightly elevated. Patient is not encephalopathic at this time. We will start lactulose have him follow-up with his primary care doctor needs reevaluation of his lymphoma and his cirrhosis. At this point there is not enough ascites to consider paracentesis. He is otherwise not ill. Think the symptoms he does have at this point are largely due to advancing his cirrhosis and may have worsening of his lymphoma. Follow-up with PCP and with oncology. Medical Records I reviewed the patient's medical records. Lab Data I reviewed the patient's lab results. : 08/06/21 09:55 08/06/21 09:55 Labs/Radiology: Radiology Impressions Abdomen Ultrasound 08/06/21 10:00 IMPRESSION: 1. Splenomegaly, spleen measures 19.2 cm in length. Similar to prior examination from 06/02/2020. 2. Small amount of ascites. 3. Cirrhotic appearance of the liver. 4. Mild diffuse gallbladder wall thickening is probably on the basis of hepat ocellular disease and/or ascites. No cholelithiasis. 5. LEFT renal cysts. Laboratory Results WBC 5.6 10^3/uL (4.0-10.0) 08/06/21 09:55 RBC 3.26 10^6/uL (4.1-5.3) L 08/06/21 09:55 Hgb 10.6 g/dL (11.7-16.6) L 08/06/21 09:55 Hct 31.0 % (42.0-52.0) L 08/06/21 09:55 MCV 95.1 fl (80-94) H 08/06/21 09:55 MCH 32.5 pg (28.0-34.0) 08/06/21 09:55 MCHC 34.2 g/dL (30.0-36.0) 08/06/21 09:55 RDW 18.8 % (12.1-15.1) H 08/06/21 09:55 Plt Count 65 10^3/cmm (130-400) L 08/06/21 09:55 MPV 12.1 fL (7.4-10.4) H 08/06/21 09:55 Neut % (Auto) 59.9 % 08/06/21 09:55 Lymph % (Auto) 21.1 % 08/06/21 09:55 Mason % (Auto) 15.3 % 08/06/21 09:55 Eos % (Auto) 2.5 % 08/06/21 09:55 Baso % (Auto) 0.7 % 08/06/21 09:55 Neut # (Auto) 3.32 10^3/uL (1.8-7.7) 08/06/21 09:55 Lymph # (Auto) 1.2 10^3/uL (0.8-4.8) 08/06/21 09:55 Mason # (Auto) 0.9 10^3/uL (0.2-0.9) 08/06/21 09:55 Eos # (Auto) 0.1 10^3/uL (0.0-0.8) 08/06/21 09:55 Baso # (Auto) 0.0 10^3/uL (0.0-0.1) 08/06/21 09:55 Nucleated RBC % (auto) 0 % 08/06/21 09:55 Nucleated RBCs # 0.0 /100WBC 08/06/21 09:55 PT 15.50 SECONDS (12.1-14.9) H 08/06/21 09:55 INR 1.19 (0.8-1.2) 08/06/21 09:55 APTT 22.9 SECONDS (23.9-36.7) L 08/06/21 09:55 Sodium 138 mmol/L (136-145) 08/06/21 09:55 Potassium 3.4 mmol/L (3.5-5.1) L 08/06/21 09:55 Chloride 103 mmol/L (98-107) 08/06/21 09:55 Carbon Dioxide 23 mmol/L (22-29) 08/06/21 09:55 Anion Gap 15.4 (5-19) 08/06/21 09:55 BUN 18 mg/dL (8-23) 08/06/21 09:55 Creatinine 0.8 mg/dL (0.7-1.2) 08/06/21 09:55 GFR Calculation Not Reportable 08/06/21 09:55 Glucose 110 mg/dL (65-115) 08/06/21 09:55 Calculated Osmolality 289 mOsm/kg (285-295) 08/06/21 09:55 Calcium 9.3 mg/dL (8.5-10.5) 08/06/21 09:55 Total Bilirubin 2.9 mg/dL (0.15-1.2) H 08/06/21 09:55 AST 51 U/L (0-40) H 08/06/21 09:55 ALT 25 U/L (0-41) 08/06/21 09:55 Alkaline Phosphatase 136 IU/L (40-130) H 08/06/21 09:55 Ammonia 74 umol/L (16-60) H 08/06/21 09:55 Total Protein 6.0 g/dL (6.6-8.7) L 08/06/21 09:55 Albumin 3.4 g/dL (3.5-5.2) L 08/06/21 09:55 Globulin 2.6 g/dL (1.3-4.6) 08/06/21 09:55 Lipase 27 U/L (13-60) 08/06/21 09:55 Urine Color Person (Yellow) 08/06/21 10:23 Urine Appearance Clear (CLEAR) 08/06/21 10:23 Urine pH 5 (5-7) 08/06/21 10:23 Ur Specific [place] 1.020 (1.005-1.030) 08/06/21 10:23 Urine Protein Neg (Negative) 08/06/21 10:23 Urine Glucose (UA) Norm (Normal) 08/06/21 10:23 Urine Ketones Negative (Negative) 08/06/21 10:23 Urine Blood Neg (Negative) 08/06/21 10:23 Urine Nitrate Negative (Negative) 08/06/21 10:23 Urine Bilirubin 1+ (Negative) H 08/06/21 10:23 Urine Urobilinogen 4 mg/dL (Negative) H 08/06/21 10:23 Ur Leukocyte Esterase Negative (Negative) 08/06/21 10:23 Discharge Plan Discharge Patient Disposition: Home Clinical Impression: Lymphoma, Cirrhosis Condition: Stable Prescriptions: New lactulose 10 gram/15 mL (15 mL) solution 10 g PO BID Qty: 750 0RF No Action tamsulosin 0.4 mg capsule 0.4 mg PO BID Qty: 270 3RF lorazepam 2 mg tablet 2 mg PO BEDTIME 0RF cetirizine 10 mg capsule 10 mg PO DAILY 0RF hydrochlorothiazide 25 mg tablet 25 mg PO DAILY 0RF omeprazole 20 mg capsule,delayed release(DR/EC) 20 mg PO DAILY 0RF ibuprofen 800 mg tablet 800 mg PO PRN PRN (Reason: Pain) 0RF ketoconazole 2 % cream 1 applic topical BID Qty: 60 2RF Rx Instructions: Apply twice daily to area in groin x 4 weeks then as needed for flares fluorouracil [Efudex] 5 % cream 1 applic topical BID 21 Days Qty: 40 1RF Rx Instructions: Apply to nose BID x 3 weeks then move to dorsal hands then right arm then left arm albuterol sulfate 90 mcg/actuation Hfa Aerosol Inhaler 2 inh INHALATION QID PRN (Reason: Shortness Of Breath Or Wheezing) 0RF fluticasone propionate [Flonase Allergy Relief] 50 mcg/actuation [place],Suspension 2 spray INTRANASAL DAILY PRN (Reason: Allergy Symptoms) 0RF Vit B Comp W/C Capsule 1 cap PO DAILY 0RF 28 mg iron- 800 mcg Tablet 1 tab PO DAILY 0RF iodine 150 mcg Tablet 150 mcg PO DAILY 0RF Discharge Orders: Discharge ED (Routine); Ordered 08/06/21 Ordered By: Rob Camara Referrals: Mayra Garcia FNP [Primary Care Provider] - Discharge Diet: Usual diet Discharge Activity: Increase activity as tolerated Patient Instructions: Opioid Safety Activity Restrictions/Additional Instructions: Follow-up with Dr. Leonardo within the next week. Coding Level of Care Code ED [employer] Supervisor for Murphy Taylor
[2021-08-06 09:52] VITALS: BP 135/63; PULSE 81; RESP 16; O2SAT 94
--- NOTE | 2021-08-06 10:00 | US_ITS ---
WS: [id number] Complete ABDOMINAL ULTRASOUND HISTORY: Abdominal pain. History of lymphoma. COMPARISON: 06/02/2020 Liver: 16.3 cm in length. Liver is normal size. Surface of the liver is irregular. Coarse echotexture throughout the liver. No mass or bile duct dilatation. Portal Vein: Normal hepatopetal flow with monophasic waveform. Gallbladder: Normally distended with diffuse wall thickening which is probably related to hepatocellu lar disease in the ascites. Gallbladder wall measures up to 4 mm. Gallbladder wall thickness: 0.4 cm. Pancreas: Not well visualized. CBD: 0.5 cm. Right kidney: 11.1 cm x 3.9 cm x 4.9 cm. No mass, cortical thickening or hydronephrosis. Left kidney: 14.1 cm x 5.7 cm x 5.3 cm. Normal size kidney. Small cortical cysts. Largest cyst from the upper pole measures 4.0 x 4.8 x 5.1 cm. Spleen: Spleen is enlarged extending over length of 19.2 cm x 7.9 cm transversely. No mass within the spleen. Aorta and IVC are not visualized well. There is a small amount of ascites throughout the abdomen. US/US abdomen complete* [id number] IMPRESSION: 1. Splenomegaly, spleen measures 19.2 cm in length. Similar to prior examinati on from 06/02/2020. 2. Small amount of ascites. 3. Cirrhotic appearance of the liver. 4. Mild diffuse gallbladder wall thickening is probably on the basis of hepato cellular disease and/or ascites. No cholelithiasis. 5. LEFT renal cysts.
[2021-08-06 10:08] LABS: Basophils % 0.7 %; Eosinophils # 0.1 10^3/uL (0.0-0.8); Eosinophils % 2.5 %; Hemoglobin 10.6 g/dL (11.7-16.6); Lymphocytes # 1.2 10^3/uL (0.8-4.8); Lymphocytes % 21.1 %; Mean Corpuscular HGB Conc 34.2 g/dL (30.0-36.0); Mean Corpuscular Hemoglobin 32.5 pg (28.0-34.0); Mean Corpuscular Volume 95.1 fl (80-94); Mean Platelet Volume 12.1 fL (7.4-10.4); Monocytes # 0.9 10^3/uL (0.2-0.9); Monocytes % 15.3 %; Neutrophils # 3.32 10^3/uL (1.8-7.7); Neutrophils % 59.9 %; Nucleated Red Blood Cells % 0 %; Red Blood Count 3.26 10^6/uL (4.1-5.3); Red Cell Distribution Width 18.8 % (12.1-15.1); White Blood Count 5.6 10^3/uL (4.0-10.0)
[2021-08-06 10:23] LABS: INR 1.19 (0.8-1.2)
[2021-08-06 10:24] LABS: Partial Thromboplastin Time 22.9 SECONDS (23.9-36.7)
[2021-08-06 10:27] LABS: Alanine Aminotransferase 25 U/L (0-41); Albumin Level 3.4 g/dL (3.5-5.2); Alkaline Phosphatase 136 IU/L (40-130); Anion Gap 15.4 (5-19); Aspartate Amino Transferase 51 U/L (0-40); Blood Urea Nitrogen 18 mg/dL (8-23); Calcium 9.3 mg/dL (8.5-10.5); Carbon Dioxide 23 mmol/L (22-29); Chloride 103 mmol/L (98-107); Creatinine Clr Calc Pharmacy 98.1004; Globulin 2.6 g/dL (1.3-4.6); Glucose 110 mg/dL (65-115); Lipase 27 U/L (13-60); Osmolality Calculated 289 mOsm/kg (285-295); Potassium 3.4 mmol/L (3.5-5.1); Sodium 138 mmol/L (136-145); Total Bilirubin 2.9 mg/dL (0.15-1.2)
[2021-08-06 10:30] LABS: Add Urine Microscopic? NO; Charge for UA Resulting for Rev
[2021-08-06 10:31] LABS: Ammonia 74 umol/L (16-60)
[2021-08-06 10:45] LABS: Platelet Count 65 10^3/cmm (130-400); Slide Review Slide Review Perform
[2021-08-06 10:49] LABS: Bilirubin Urine 1+ (Negative); Blood Urine Neg (Negative); Glucose Urine UA Norm (Normal); Ketones Urine Negative (Negative); Leukocyte Esterase Urine Negative (Negative); Nitrate Urine Negative (Negative); Protein Urine Neg (Negative); Urine Appearance Clear (CLEAR); Urine Color Orange (Yellow); Urobilinogen Urine 4 mg/dL (Negative); pH Urine 5 (5-7)
[2021-08-06 11:05] VITALS: BP 135/63; PULSE 76; RESP 16; O2SAT 98
--- NOTE | 2021-08-06 12:16 | PC.PHAR ---
FAXED [facility] UNABLE TO OBTAIN MEDICATION LIST. SCRIPTS VERIFIED USING PATIENTS BOTTLES AND IN ROOM.
[2021-08-06 13:04] VITALS: BP 135/63; PULSE 80; RESP 14; O2SAT 96
== END 2021-08-06 13:08 | disposition home or self-care (01) ==
PROVIDERS: Emergency Provider Family Medicine; PCP Nurse Practitioner
DX: K74.60 Unspecified cirrhosis of liver (principal); C85.90 Non-Hodgkin lymphoma, unspecified, unspecified site; I10 Essential (primary) hypertension
CPT/HCPCS: 76700; 80053; 81003; 82140; 83690; 85025; 85610; 85730; 99283

== ENCOUNTER 2021-08-14 08:47 | Outpatient (CLI) | payer OTHER, SELFPAY ==
--- NOTE | 2021-08-14 10:18 | CT_ITS ---
WS: [id number] CT CHEST, ABDOMEN AND PELVIS WITH CONTRAST. HISTORY: LYMPHOMA TECHNIQUE: Contiguous 5 mm axial imaging performed through the chest, abdomen and pelvis with IV cont rast, oral contrast has been provided. Coronal and sagittal reformats chest. Coronal and sagittal ref ormats through the abdomen and pelvis. All CT scans at [facility] use at least one of these d ose optimization techniques: automated exposure control; mA and/or kV adjustment per patient size (in cludes targeted exams where dose is matched to clinical indication); or iterative reconstruction. CONTRAST: Omnipaque 300; 95 mL IV. DLP: 1865.12 mGy.cm COMPARISON: 02/07/2021, 07/19/[address]: Overall improved aeration throughout both lungs as compared to the most recent examination. Again noted is the 5 mm perifissural nodule social with the minor fissure. Ovoid 4 mm nodule in the RIGHT middle lobe is stable. Mild atelectasis at the lung bases. Very small layering bilateral pleura l effusions, RIGHT greater than LEFT. The effusions are new since the prior study. Numerous mediastin al and hilar lymph nodes. Although the lymph nodes are not significantly enlarged. There is been an i ncrease overall in the size of the lymph nodes. Lymph nodes have mildly increased in size throughout the anterior mediastinum,. Para-aortic, paratracheal and carinal. The largest lymph node at the RIGHT hilum now measures 10 mm as compared to 5 mm. The number of lymph nodes in the axillary regions are also more prominent and there is interstitial stranding in the fat. Mildly enlarged nodularity in the LEFT thyroid is unchanged. Atherosclerosis aorta. Normal size pulmonary artery. Small amount of pericardial thickening. Abdomen CT: Moderate amount of ascites throughout the abdomen and pelvis. Cirrhotic appearance of the liver. Port al vein is widely patent. Spleen is enlarged measuring 19.3 cm in length which has increased in lengt h by several centimeters. Gallbladder is surrounded by ascites. Mild atrophy of the pancreas. Mild at herosclerotic changes within the aorta. No aneurysm. No renal obstruction. LEFT renal cyst are stable . Stomach is nondistended. No small bowel obstruction. No colon obstruction. There has been a significant increase in size of the retroperitoneal adenopathy. There are numerous p didier-aortic, precaval and preaortic lymph nodes which have all increased in size. The largest cluster of lymph nodes just to the RIGHT of the distal aorta measures 6.2 x 3.7 cm. Additional enlarging lymp h nodes along the proximal iliac arteries. There are a few scattered small celiac axis lymph nodes. Pelvic CT: Ascites continues into the pelvis. Urinary bladder is well distended. No enlarged inguinal lymph nodes. No obturator lymph nodes. There is mild diffuse soft tissue anasarca. No osteoblastic or osteolytic bone disease. Partial fusion of the SI joints. CT/CT chest abd pel w con* IMPRESSION: 1. Interval significant progression of the retroperitoneal lymphadenopathy sin ce 02/07/2021. The largest cluster of lymph nodes in the RIGHT distal periaortic location measures 6.2 x 3.7 has significantly increased in size since the prio r study. There are numerous retroperitoneal lymph nodes which have increased in size. 2. Lymph nodes within the chest including the axilla, mediastinum and leticia hav e also increased in size although the largest at the RIGHT hilum still only 10 mm. 3. Moderate diffuse ascites is new. 4. New small bilateral pleural effusions. 5. Cirrhosis. 6. Mild progressive enlargement of the spleen.
[2021-08-14 10:35] LABS: Basophils % 0.9 %; Eosinophils # 0.1 10^3/uL (0.0-0.8); Eosinophils % 2.5 %; Hematocrit 31.7 % (42.0-52.0); Hemoglobin 10.9 g/dL (11.7-16.6); Lymphocytes # 0.8 10^3/uL (0.8-4.8); Lymphocytes % 17.8 %; Mean Corpuscular HGB Conc 34.4 g/dL (30.0-36.0); Mean Corpuscular Hemoglobin 32.8 pg (28.0-34.0); Mean Corpuscular Volume 95.5 fl (80-94); Mean Platelet Volume 11.9 fL (7.4-10.4); Monocytes # 0.8 10^3/uL (0.2-0.9); Monocytes % 18.5 %; Neutrophils # 2.64 10^3/uL (1.8-7.7); Neutrophils % 60.1 %; Nucleated Red Blood Cells % 0 %; Platelet Count 88 10^3/cmm (130-400); Red Blood Count 3.32 10^6/uL (4.1-5.3); Red Cell Distribution Width 19.9 % (12.1-15.1); White Blood Count 4.4 10^3/uL (4.0-10.0)
[2021-08-14 10:46] LABS: Alanine Aminotransferase 25 U/L (0-41); Albumin Level 3.4 g/dL (3.5-5.2); Alkaline Phosphatase 138 IU/L (40-130); Anion Gap 15.2 (5-19); Aspartate Amino Transferase 55 U/L (0-40); Blood Urea Nitrogen 16 mg/dL (8-23); Carbon Dioxide 24 mmol/L (22-29); Chloride 102 mmol/L (98-107); Globulin 2.8 g/dL (1.3-4.6); Glucose 101 mg/dL (65-115); Lactate Dehydrogenase 918 U/L (135-225); Osmolality Calculated 287 mOsm/kg (285-295); Potassium 3.2 mmol/L (3.5-5.1); Sodium 138 mmol/L (136-145); Total Protein 6.2 g/dL (6.6-8.7)
[2021-08-14] MEDS: iohexol 300 mg/mL 50 mL Btl PO (10:51)
[2021-08-14] MEDS: iohexol 300 mg/mL 100 mL Btl IV (11:21)
== END 2021-08-14 08:48 | disposition home or self-care (01) ==
PROVIDERS: PCP Nurse Practitioner; Visit Provider Internal Medicine Hematology & Oncology
DX: C82.90 Follicular lymphoma, unspecified, unspecified site (principal); R18.8 Other ascites; J90 Pleural effusion, not elsewhere classified; K74.60 Unspecified cirrhosis of liver; R16.1 Splenomegaly, not elsewhere classified; Z85.72 Personal history of non-Hodgkin lymphomas
CPT/HCPCS: 36415; 71260; 74177; 80053; 83615; 85025; Q9967

== ENCOUNTER 2021-08-16 12:10 | Outpatient (CLI) | payer OTHER, SELFPAY ==
--- NOTE | 2021-08-17 10:10 | ONC FU_ITS ---
Dr. Leonardo follow up note Patient: Johnathan Montes De Oca Unit #: [id number]: 1945 Dicatated By: Emily Leonardo M.D.Date of Visit:Aug 16, 2021 Onc Med Follow-up/Prog Note History of Present Illness: Mr. Montes De Oca is a 76-year-old gentleman with history of lymphocytosis. 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 At that time the lymphocytosis reached about 20,000 but subsequently decreased spontaneously. CT scan of chest/abdomen/pelvis done at that time shows mild lymph nodes above and below diaphragm but they were too small to biopsy. As per patient he was followed by his PMD and oncologist at the [facility] and on 11/07/2015 he underwent bone marrow biopsy which was nondiagnostic for B-cell lymphoma, flow cytometry done on 11/07/2015 showed no clonal process. He was also diagnosed with hepatic cirrhosis and splenomegaly. Mr Montes De Oca said he didn't have any specific issues until recently. He started having back pain for which he was referred to Dr. Leyva at a local pain clinic. A CT scan of chest abdomen pelvis was obtained on 08/09/2019 which was compared with CT scan from 11/06/2016, October 2015 and April 2015. And it showed stable appearance of mediastinal and hilar and axillary lymph nodes; Mild emphysema. The was interval development of bulky retroperitoneal and mesenteric lymphadenopathy, measuring about 4.3 cm, suspicious for primary cindy malignancy versus metastatic disease versus reactive; Extensive diverticulosis of descending and sigmoid colon; Cirrhosis, ascites, splenomegaly. Degenerative changes of spine, no fractures were reported. On 08/10/2019, Mr Montes De Oca went to see a [place] medical oncologist, Dr. Chato Beasley in [place] and as per his recommendations- due to thepatient's history of low-grade lymphoma and (it was not clear whether symptoms are attributed to adenopathy/low-grade lymphoma or other process, cirrhosis) a PET/CT scan and lymph node biopsy and consider bone marrow biopsy. As far as mild neutropenia was concerned it was probably due to cirrhosis/portal hypertension and recommended to continue with organic extractions technician. Mr Montes De Oca denied any night sweats, denies any fever or weight loss. Denies any lower extremity numbness or weakness denies any urine or stool incontinence.No melena hematochezia, no nosebleed, no jaundice. But abdominal fullness due to ascites. He was referred to interventional radiology for ultrasound-guided paracentesis patient underwent sonogram on 09/20/2019 which showed some mild amount of ascites visualized in 4 abdominal quadrant, inadequate fluid for paracentesis at that time. He underwent follow-up CT PET scan on 11/06/2019 which showed FDG positive lymphadenopathy from the level of head and neck to the level of pelvis. No evidence of splenic or marrow or extranodal involvement on February 05, 2020 patient developed difficulty in swallowing and dysphagia and went to emergency room where he underwent CT scan of the neck which showed heterogeneous enhancing mass extending from posterior left aspect of tongue base to the adjacent oropharyngeal mucosa measuring 3.1 x 2.6 cm and also there was a enlarged level 3 and level 7 lymph nodes on the left, 3.3 x 2.0 cm size., Patient was transferred to [facility] where he was diagnosed with oropharyngeal abscess he was drained and treated with IV antibiotic subsequently discharged home on oral antibiotic h/o chronic lower back pain for which he has been to pain clinic where as per patient, he was given 'injection' about 4 months ago with some help but still having mid to lower back pain and sometimes problem and walking Mr Montes De Oca underwent MRI of the spine on 05/30/2020 and discussed the findings which showed moderately enlarged spleen with a maximum length 17 cm, retroperitoneal lymphadenopathy index lymph node is 6 x 3 x 4 cm inferior medial to the right kidney bulky partially visualized left thoracic and left lymph nodes measuring 2.9 cm, no evidence of bone mets, moderate central canal stenosis L4-5 with shallow central disc protrusion and impingement traversing L5 nerve roots immediately. Moderate right L4-5 foraminal narrowing. Shallow central protrusion T7-8 with slight effacement of ventral thecal sac and slight contacting of the thoracic cord. No significant central canal stenosis. discussed with Mr Montes De Oca further treatment options. Because of progressive back pain which could be due to bulky retroperitoneal lymphadenopathy and his splenomegaly could be due to portal hypertension due to cirrhosis of the liver or lymphomatous infiltration with low-grade lymphoma and now causing persistent progressive bicytopenia. was recommended that Mr Montes De Oca consider trial of Rituxan 375 mg/m??? weekly x4-6 and then monitor his blood counts as well as central lymphadenopathy, there is a possibility with improvement in central lymphadenopathy his back pain may improve if not then will consult orthopedic for spine evaluation and if bicytopenia persist then it could be due to splenic sequestration or considering his age underlying myelodysplasia, will consider bone marrow evaluation. Mr Montes De Oca has elected to try the Ritxuan and began his first week treatment on 06/21/2020, Till July 12, 2020. Follow-up CT scan of chest abdomen pelvis after 4 doses of weekly Rituxan done on July 19, 2020 showed persistent significant adenopathy throughout the chest abdomen pelvis as compared to CT PET scan done on November 06, 2019 in the retroperitoneum the lymph node have decreased by 5 mm in short axis. Also slight improvement in the left supraclavicular and cervical chain lymph nodes lymph nodes in the mediastinum and hilum are stable. Continued stable splenomegaly of 17 cm and cirrhotic liver Bone marrow evaluation done on October 19, 2020 showed mildly abnormal features including hypercellularity, erythroid predominance/hyperplasia, subtle dyspoietic features in the erythroid and megakaryocyte lineage, as well as increased storage iron, not entirely diagnostic, do raise the possibility of early/evolving MDS. FISH for MDS showed no abnormality, flow cytometry showed no overtly aberrant myeloid or lymphoid population. Follow-up CT scan of the chest abdomen pelvis done on February 07, 2021, showed no acute pulmonary disease, further regression in the size of thoracic lymph nodes, the left supraclavicular area lymph node measured 1.6 x 1 cm compared to 2.2 x 2.2 previously negative for axillary lymphadenopathy negative for mediastinal lymphadenopathy and there is a further regression of mediastinal lymph nodes compared to prior imaging, retroperitoneal lymphadenopathy is present although significantly decreased from seen on CT scan done in July 2020, normal to 2.9 x 2.1 compared to 4.5 x 4.1 cm previously. liver shows capsular surface of liver is mildly nodular and patient has moderate splenomegaly but stable no focal splenic mass seen Follow-up CT scan of chest abdomen pelvis done on August 14, 2021 showed interval significant progression of retroperitoneal lymphadenopathy since February 07, 2021, the largest cluster of lymph nodes in the right distal para-aortic location measuring 6.2 x 3.7 cm has significantly increased in size since prior study and there are numerous retroperitoneal lymph nodes which have increased in size. Lymph nodes within the chest including axilla mediastinum and hilum also increase in size of the largest at the right hilum still only 10 mm. Moderate diffuse ascites is new. New small bilateral pleural effusion. Cirrhosis. Mild progressive enlargement of spleen. Came for follow-up, complaining of generalized weakness and fatigue, progressive lower back pain/abdominal pain, also complaining of progressive lower extremity edema for the last to 3 weeks, denies any trauma to lower extremities. Denies any night sweats, denies any recurrent fever, denies any weight loss. Denies any fever or chills, complaining of mild yellowness in the eyes and urine color changes. Denies any chest pain or palpitation but dyspnea on exertion. Medications: Ativan 1 Tablet (of 2 mg) Oral b.i.d., Cetirizine HCl 1 Tablet (of 10 mg) Oral daily, Flonase 1 (50 mcg/act) Suspension Nasal PRN, hydroCHLOROthiazide 1 Tablet (of 25 mg) Oral daily, Ibuprofen 1 Tablet (of 800 mg) Oral t.i.d., Omeprazole 1 Capsule (of 20 mg) Capsule Delayed Release Oral daily, ProAir HFA 1 Inhalation (of 108 (90 base) mcg/act) Aerosol, solution Inhalation PRN, Tamsulosin HCl 1 Capsule (of 0.4 mg) Oral daily Allergies: Cortisone Acetate, darvon, and quiNINE Sulfate. Review of Systems: Review of Systems is not available for this patient. Vital Signs: Performed on Aug 16, 2021 16:19 Height - 72.00 in Weight - 243.6 lbs (HIGH) BSA - 2.32 sq.m BMI - 33.04 (HIGH) Temperature - 98.6 F Pulse - 83 /min Respiration - 20 /min BP - 126/54 mm(hg) O2 Sat - 97 % Pain - 7 Fatigue - 8 Performance Status: 2 - Ambulatory/capable of all self-care, unable to perform any work activities. Up and about more than 50% of waking hours. (ECOG) Physical Examination: ENMT - No mouth sores, no thrush, no cervical lymphadenopathy, jaundice present, Respiratory - Poor air entry, bibasilar rales, Cardiovascular - Regular rate and rhythm of heart, Abdomen - Soft, distended bowel sounds present, Extremities - 2+ edema bilaterally. Lab/Imaging: Most recent lab results are not available for this patient. Impression: History of low-grade, follicular lymphoma, CD 10 and CD19 positive diagnosed in 2004, recently done CT scan of chest abdomen pelvis, when compared with CT scan from October 2016 showed stable, small mediastinal lymphadenopathy, hilar and axillary lymphadenopathy. But progressive/bulky retroperitoneal and mesenteric lymphadenopathy increased from 2017, one of the largest measuring 4.3 cm chain. Degenerative changes of spine no fracture seen. Hepatic cirrhosis/splenomegaly/ascites Mild thrombocytopenia CBC done on 08/09/2002 shows white blood count 6.1 hemoglobin 14.9 crit 44.3 platelets 90,000 lymphocytes 47.9% neutrophil 38.2%. Chronic back pain, etiology unclear degenerative joint disease versus pressure due to retroperitoneal lymphadenopathy. MRI scan spine findings which was done on May 30, 2020 and showed moderately enlarged spleen with a maximum length 17 cm, retroperitoneal lymphadenopathy index lymph node is 6 x 3 x 4 cm inferior medial to the right kidney bulky partially visualized left thoracic and left lymph nodes measuring 2.9 cm, no evidence of bone mets, moderate central canal stenosis L4-5 with shallow central disc protrusion and impingement traversing L5 nerve roots immediately. Moderate right L4-5 foraminal narrowing. Shallow central protrusion T7-8 with slight effacement of ventral thecal sac and slight contacting of the thoracic cord. No significant central canal stenosis. discussed with Mr Montes De Oca further treatment options. Because of progressive back pain which could be due to bulky retroperitoneal lymphadenopathy and his splenomegaly could be due to portal hypertension due to cirrhosis of the liver or lymphomatous infiltration with low-grade lymphoma and now causing persistent progressive bicytopenia. recommended that Mr Montes De Oca consider trial of Rituxan 375 mg/m??? weekly x4-6 and then monitor his blood counts as well as central lymphadenopathy, there is a possibility with improvement in central lymphadenopathy his back pain may improve if not then will consult orthopedic for spine evaluation and if bicytopenia persist then it could be due to splenic sequestration or considering his age underlying myelodysplasia, will consider bone marrow evaluation. Mr Tavon started his first of four weeks of Rituxan on . Follow-up CT scan of chest abdomen pelvis done after 4 doses of weekly Rituxan on July 19, 2020 showed persistent significant adenopathy throughout the chest abdomen pelvis compared to CT PET scan done on November 06, 2019 there is a minimal change. And retroperitoneal lymph node have decreased by 5 mm now measuring 4.3 cm also slight improvement in left supraclavicular and cervical chain lymph nodes and stable mediastinal and hilar lymph nodes. Continued stable splenomegaly of 17 cm length. Cirrhotic liver MRI scan of spine done on May 30, 2020 showed retroperitoneal lymph node was 6 x 3.4 cm and as mentioned above the largest lymph node is 4.3 cm which means there is a significant response ? Bone marrow evaluation done on October 19, 2020 showed mildly abnormal features including hypercellularity, erythroid predominance/hyperplasia, subtle dyspoietic features in the erythroid and megakaryocyte lineage as well as increased storage iron, future not entirely diagnostic but do raise possibility of early/evolving MDS, FISH for MDS panel was unremarkable, flow cytometry showed no aberrant myeloid or lymphoid population. Plan: Discussed with patient regarding his labs white blood count 4.4 hemoglobin 10.9 g compared to 14.7 g previously hematocrit 31.7 platelets 88,000 compared to 72,000 previously ANC 2640 CMP within normal limits except potassium 3.2 and bilirubin 3, AST 55, alk phos 138 LDH 918 compared to 192 in September 2020 Clinically, patient is in mild to moderate distress due to progressive anemia, mild jaundice, abdominal distention, bilateral lower extremity edema, generalized weakness and fatigue, etiology most likely due to lymphoma progression as his LDH has gone up to 918 compared to 192 in September 2020 and follow-up CT scan of chest abdomen pelvis shows progressive intra-abdominal lymphadenopathy and mildly progressive splenomegaly. 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 elevated alk phos, bilirubin. At this point, we will start him on prednisone 1 mg/kg p.o. daily for 5 days as a part of treatment for lymphoma and autoimmune hemolytic anemia, also start him on allopurinol 100 mg p.o. twice a day to prevent tumor lysis, patient was advised to maintain hydration and will monitor his electrolytes. We will obtain approval from insurance regarding treatment for progressive low-grade, follicular lymphoma with R-CVP, as patient is already being started on high-dose prednisone, once we have approval we will give him first course of treatment with Rituxan/Cytoxan/vincristine. As far as ascites/lower extremity edema is concerned, could be due to heart failure, will check echocardiogram. And also consider bilateral venous Doppler study to rule out DVT due to decreasing venous return due to compression. All the side effect possible benefits associated with chemotherapy including but not limited to bone marrow suppression, allergic reaction specially with Rituxan, nausea vomiting, constipation especially with vincristine, peripheral neuropathy, were mentioned, further teaching will be done by chemotherapy nurse. We will also consider Port-A-Cath placement and also start him on Bactrim DS 2 tablets [place] Friday per week as a prophylactic and also consider acyclovir and check hepatitis profile. Prior to Rituxan therapy. Signed By: Emily Leonardo M.D. <<Signature on File>>
== END 2021-08-16 12:11 | disposition home or self-care (01) ==
PROVIDERS: PCP Nurse Practitioner; Visit Provider Internal Medicine Hematology & Oncology
DX: C82.90 Follicular lymphoma, unspecified, unspecified site (principal); R16.1 Splenomegaly, not elsewhere classified; K74.60 Unspecified cirrhosis of liver; D58.9 Hereditary hemolytic anemia, unspecified; I10 Essential (primary) hypertension; Z79.899 Other long term (current) drug therapy
CPT/HCPCS: 99214

== ENCOUNTER 2021-08-17 13:39 | Outpatient (CLI) | payer OTHER, SELFPAY ==
--- NOTE | 2021-08-17 13:48 | USCV_ITS ---
Johnathan Montes De Oca Age: 76 Gender: M : 1945 Exam Date: 08/17/2021 14:05 Ordering Phys: Emily Leonardo MD Technologist: Antonio Berg Exam Location: [facility] [place] Indication: BILAT EDEMA LYMPHOMA PROCEDURES: Venous duplex imaging was performed in bilateral lower extremities. The venous duplex Doppler examination of both lower extremities was performed in the standard fashion. The following venous structures were evaluated: common femoral vein, profunda vein, proximal portion of the greater saphenous vein, superficial femoral vein, and the popliteal vein. FINDINGS: Normal 2-D Doppler and augmentation and compressibility throughout the lower extremity venous structures. Additional imaging through the proximal calf veins also reveals no thrombus. Limited evaluation of the greater saphenous vein is patent with no thrombus.. CONCLUSIONS No evidence of right lower extremity DVT. No evidence of left lower extremity DVT. Terrell Valdovinos MD (Electronically Signed) Final Date: 17 August 2021 17:19 S
--- NOTE | 2021-08-17 13:48 | USCV_ITS ---
Johnathan Montes De Oca Age: 76 Gender: M : 1945 Exam Date: 08/17/2021 14:16 Ordering Phys: Emily Leonardo MD Technologist: Antonio Berg Exam Location: [facility] [place] Indication: HX OF LYMPHOMA BP: / HR: Rhythm: Sinus Technical Quality: Very technically difficult study MEASUREMENTS (Male / Female) Normal Values FINDINGS Left Ventricle Right Ventricle Right Atrium Left Atrium Mitral Valve Aortic Valve Tricuspid Valve Pulmonic Valve Pericardium Aorta CONCLUSIONS 1. There are no windows for assessment of cardiac structure and function. Leah Stack MD (Electronically Signed) Final Date: 17 August 2021 17:53 S
== END 2021-08-17 13:40 | disposition home or self-care (01) ==
LOC: RAD 13:41
PROVIDERS: PCP Nurse Practitioner; Visit Provider Internal Medicine Hematology & Oncology
DX: R60.0 Localized edema (principal); C82.98 Follicular lymphoma, unspecified, lymph nodes of multiple sites
CPT/HCPCS: 93306; 93970

== ENCOUNTER → 2021-08-22 11:23 | Outpatient (BNVA) | payer OTHER, SELFPAY | PROVIDERS: PCP Nurse Practitioner; Referring Provider Internal Medicine Hematology & Oncology; Visit Provider Surgery | DX: Z11.52 Encounter for screening for COVID-19 (principal); C80.1 Malignant (primary) neoplasm, unspecified | CPT/HCPCS: 87635 ==

== ENCOUNTER 2021-08-23 09:35 | Outpatient (CLI) | payer OTHER, SELFPAY ==
[2021-08-23 11:10] LABS: Basophils % 0.2 %; Eosinophils # 0.1 10^3/uL (0.0-0.8); Eosinophils % 1.7 %; Hematocrit 34.3 % (42.0-52.0); Hemoglobin 11.7 g/dL (11.7-16.6); Lymphocytes # 0.7 10^3/uL (0.8-4.8); Lymphocytes % 13.3 %; Mean Corpuscular HGB Conc 34.1 g/dL (30.0-36.0); Mean Corpuscular Volume 96.6 fl (80-94); Mean Platelet Volume 11.6 fL (7.4-10.4); Monocytes # 0.9 10^3/uL (0.2-0.9); Neutrophils # 3.51 10^3/uL (1.8-7.7); Neutrophils % 66.8 %; Nucleated Red Blood Cells % 0 %; Platelet Count 88 10^3/cmm (130-400); Red Blood Count 3.55 10^6/uL (4.1-5.3); Red Cell Distribution Width 19.9 % (12.1-15.1); White Blood Count 5.3 10^3/uL (4.0-10.0)
[2021-08-23 11:24] LABS: Alanine Aminotransferase 46 U/L (0-41); Albumin Level 3.4 g/dL (3.5-5.2); Alkaline Phosphatase 124 IU/L (40-130); Blood Urea Nitrogen 37 mg/dL (8-23); Calcium 9.3 mg/dL (8.5-10.5); Carbon Dioxide 24 mmol/L (22-29); Chloride 103 mmol/L (98-107); Globulin 2.2 g/dL (1.3-4.6); Glucose 89 mg/dL (65-115); Osmolality Calculated 296 mOsm/kg (285-295); Sodium 139 mmol/L (136-145); Total Bilirubin 1.7 mg/dL (0.15-1.2); Total Protein 5.6 g/dL (6.6-8.7)
[2021-08-23 11:26] LABS: Anion Gap 15.4 (5-19); Potassium 3.4 mmol/L (3.5-5.1)
[2021-08-23 11:27] LABS: Aspartate Amino Transferase 64 U/L (0-40)
--- NOTE | 2021-08-24 12:47 | ONC FU_ITS ---
Dr. Leonardo follow up note Patient: Johnathan Montes De Oca Unit #: [id number]: 1945 Dicatated By: Emily Leonardo M.D.Date of Visit:Aug 23, 2021 Onc Med Follow-up/Prog Note History of Present Illness: Mr. Montes De Oca is a 76-year-old gentleman with history of lymphocytosis. 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 At that time the lymphocytosis reached about 20,000 but subsequently decreased spontaneously. CT scan of chest/abdomen/pelvis done at that time shows mild lymph nodes above and below diaphragm but they were too small to biopsy. As per patient he was followed by his PMD and oncologist at the [facility] and on 11/07/2015 he underwent bone marrow biopsy which was nondiagnostic for B-cell lymphoma, flow cytometry done on 11/07/2015 showed no clonal process. He was also diagnosed with hepatic cirrhosis and splenomegaly. Mr Montes De Oca said he didn't have any specific issues until recently. He started having back pain for which he was referred to Dr. Leyva at a local pain clinic. A CT scan of chest abdomen pelvis was obtained on 08/09/2019 which was compared with CT scan from 11/06/2016, October 2015 and April 2015. And it showed stable appearance of mediastinal and hilar and axillary lymph nodes; Mild emphysema. The was interval development of bulky retroperitoneal and mesenteric lymphadenopathy, measuring about 4.3 cm, suspicious for primary cindy malignancy versus metastatic disease versus reactive; Extensive diverticulosis of descending and sigmoid colon; Cirrhosis, ascites, splenomegaly. Degenerative changes of spine, no fractures were reported. On 08/10/2019, Mr Montes De Oca went to see a [place] medical oncologist, Dr. Chato Beasley in [place] and as per his recommendations- due to thepatient's history of low-grade lymphoma and (it was not clear whether symptoms are attributed to adenopathy/low-grade lymphoma or other process, cirrhosis) a PET/CT scan and lymph node biopsy and consider bone marrow biopsy. 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 Mr Montes De Oca denied any night sweats, denies any fever or weight loss. Denies any lower extremity numbness or weakness denies any urine or stool incontinence.No melena hematochezia, no nosebleed, no jaundice. But abdominal fullness due to ascites. He was referred to interventional radiology for ultrasound-guided paracentesis patient underwent sonogram on 09/20/2019 which showed some mild amount of ascites visualized in 4 abdominal quadrant, inadequate fluid for paracentesis at that time. He underwent follow-up CT PET scan on 11/06/2019 which showed FDG positive lymphadenopathy from the level of head and neck to the level of pelvis. No evidence of splenic or marrow or extranodal involvement on February 05, 2020 patient developed difficulty in swallowing and dysphagia and went to emergency room where he underwent CT scan of the neck which showed heterogeneous enhancing mass extending from posterior left aspect of tongue base to the adjacent oropharyngeal mucosa measuring 3.1 x 2.6 cm and also there was a enlarged level 3 and level 7 lymph nodes on the left, 3.3 x 2.0 cm size., Patient was transferred to [place] where he was diagnosed with oropharyngeal abscess he was drained and treated with IV antibiotic subsequently discharged home on oral antibiotic h/o chronic lower back pain for which he has been to pain clinic where as per patient, he was given 'injection' about 4 months ago with some help but still having mid to lower back pain and sometimes problem and walking Mr Montes De Oca underwent MRI of the spine on 05/30/2020 and discussed the findings which showed moderately enlarged spleen with a maximum length 17 cm, retroperitoneal lymphadenopathy index lymph node is 6 x 3 x 4 cm inferior medial to the right kidney bulky partially visualized left thoracic and left lymph nodes measuring 2.9 cm, no evidence of bone mets, moderate central canal stenosis L4-5 with shallow central disc protrusion and impingement traversing L5 nerve roots immediately. Moderate right L4-5 foraminal narrowing. Shallow central protrusion T7-8 with slight effacement of ventral thecal sac and slight contacting of the thoracic cord. No significant central canal stenosis. discussed with Mr Montes De Oca further treatment options. Because of progressive back pain which could be due to bulky retroperitoneal lymphadenopathy and his splenomegaly could be due to portal hypertension due to cirrhosis of the liver or lymphomatous infiltration with low-grade lymphoma and now causing persistent progressive bicytopenia. was recommended that Mr Montes De Oca consider trial of Rituxan 375 mg/m??? weekly x4-6 and then monitor his blood counts as well as central lymphadenopathy, there is a possibility with improvement in central lymphadenopathy his back pain may improve if not then will consult orthopedic for spine evaluation and if bicytopenia persist then it could be due to splenic sequestration or considering his age underlying myelodysplasia, will consider bone marrow evaluation. Mr Montes De Oca has elected to try the Ritxuan and began his first week treatment on 06/21/2020, Till July 12, 2020. Follow-up CT scan of chest abdomen pelvis after 4 doses of weekly Rituxan done on July 19, 2020 showed persistent significant adenopathy throughout the chest abdomen pelvis as compared to CT PET scan done on November 06, 2019 in the retroperitoneum the lymph node have decreased by 5 mm in short axis. Also slight improvement in the left supraclavicular and cervical chain lymph nodes lymph nodes in the mediastinum and hilum are stable. Continued stable splenomegaly of 17 cm and cirrhotic liver Bone marrow evaluation done on October 19, 2020 showed mildly abnormal features including hypercellularity, erythroid predominance/hyperplasia, subtle dyspoietic features in the erythroid and megakaryocyte lineage, as well as increased storage iron, not entirely diagnostic, do raise the possibility of early/evolving MDS. FISH for MDS showed no abnormality, flow cytometry showed no overtly aberrant myeloid or lymphoid population. Follow-up CT scan of the chest abdomen pelvis done on February 07, 2021, showed no acute pulmonary disease, further regression in the size of thoracic lymph nodes, the left supraclavicular area lymph node measured 1.6 x 1 cm compared to 2.2 x 2.2 previously negative for axillary lymphadenopathy negative for mediastinal lymphadenopathy and there is a further regression of mediastinal lymph nodes compared to prior imaging, retroperitoneal lymphadenopathy is present although significantly decreased from seen on CT scan done in July 2020, normal to 2.9 x 2.1 compared to 4.5 x 4.1 cm previously. liver shows capsular surface of liver is mildly nodular and patient has moderate splenomegaly but stable no focal splenic mass seen Follow-up CT scan of chest abdomen pelvis done on August 14, 2021 showed interval significant progression of retroperitoneal lymphadenopathy since February 07, 2021, the largest cluster of lymph nodes in the right distal para-aortic location measuring 6.2 x 3.7 cm has significantly increased in size since prior study and there are numerous retroperitoneal lymph nodes which have increased in size. Lymph nodes within the chest including axilla mediastinum and hilum also increase in size of the largest at the right hilum still only 10 mm. Moderate diffuse ascites is new. New small bilateral pleural effusion. Cirrhosis. Mild progressive enlargement of spleen. 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, bilirubin gone up to 3 on August 14, 2021 and hemoglobin dropped to 10.9 g from 14.7 in January 2021, he was started on high-dose prednisone 1 mg/kg for 5 days, follow-up lab work-up showed bilirubin gone down to 1.7 and hemoglobin improved to 11.7 g on August 23, 2021. Echocardiogram was ordered to assess cardiac status as patient was having bilateral lower extremity edema and ascites there was a concern regarding congestive heart failure but it was a technically difficult study so it was not performed so MUGA scan was ordered. Venous Doppler study of lower extremities done on August 17, 2021 showed no evidence of DVT in the lower extremities. Came for follow-up, complaining of abdominal fullness and decreased appetite and lower extremity edema, no night sweats, no recurrent fever, felt better with steroids, yellowness in eyes resolved. Medications: Allopurinol 1 Tablet (of 100 mg) Oral b.i.d., Ativan 1 Tablet (of 2 mg) Oral b.i.d., Cetirizine HCl 1 Tablet (of 10 mg) Oral daily, Flonase 1 (50 mcg/act) Suspension Nasal PRN, hydroCHLOROthiazide 1 Tablet (of 25 mg) Oral daily, Ibuprofen 1 Tablet (of 800 mg) Oral t.i.d., Omeprazole 1 Capsule (of 20 mg) Capsule Delayed Release Oral daily, ProAir HFA 1 Inhalation (of 108 (90 base) mcg/act) Aerosol, solution Inhalation PRN, Tamsulosin HCl 1 Capsule (of 0.4 mg) Oral daily, Zofran (8 mg) Tablet Oral Take as Directed Allergies: Cortisone Acetate, darvon, and quiNINE Sulfate. Review of Systems: Review of Systems is not available for this patient. Vital Signs: Performed on Aug 23, 2021 11:52 Height - 72.00 in Weight - 249.6 lbs (HIGH) BSA - 2.34 sq.m BMI - 33.85 (HIGH) Temperature - 98.4 F Pulse - 80 /min Respiration - 20 /min BP - 164/74 mm(hg) (HIGH) O2 Sat - 97 % Pain - 7 Fatigue - 10 Performance Status: 2 - Ambulatory/capable of all self-care, unable to perform any work activities. Up and about more than 50% of waking hours. (ECOG) Physical Examination: ENMT - No mouth sores, no thrush, no jaundice, no cervical lymphadenopathy, Respiratory - Poor air entry, mild basilar rales bilaterally, Cardiovascular - Regular rate and rhythm of heart, Abdomen - Soft, bowel sounds present, distended with fluid shift, Extremities - 2+ edema bilaterally. Lab/Imaging: Most recent lab results are not available for this patient. Impression: History of low-grade, follicular lymphoma, CD 10 and CD19 positive diagnosed in 2004, recently done CT scan of chest abdomen pelvis, when compared with CT scan from October 2016 showed stable, small mediastinal lymphadenopathy, hilar and axillary lymphadenopathy. But progressive/bulky retroperitoneal and mesenteric lymphadenopathy increased from 2017, one of the largest measuring 4.3 cm chain. Degenerative changes of spine no fracture seen. Hepatic cirrhosis/splenomegaly/ascites Mild thrombocytopenia CBC done on 08/09/2002 shows white blood count 6.1 hemoglobin 14.9 crit 44.3 platelets 90,000 lymphocytes 47.9% neutrophil 38.2%. Chronic back pain, etiology unclear degenerative joint disease versus pressure due to retroperitoneal lymphadenopathy. MRI scan spine findings which was done on May 30, 2020 and showed moderately enlarged spleen with a maximum length 17 cm, retroperitoneal lymphadenopathy index lymph node is 6 x 3 x 4 cm inferior medial to the right kidney bulky partially visualized left thoracic and left lymph nodes measuring 2.9 cm, no evidence of bone mets, moderate central canal stenosis L4-5 with shallow central disc protrusion and impingement traversing L5 nerve roots immediately. Moderate right L4-5 foraminal narrowing. Shallow central protrusion T7-8 with slight effacement of ventral thecal sac and slight contacting of the thoracic cord. No significant central canal stenosis. discussed with Mr Montes De Oca further treatment options. Because of progressive back pain which could be due to bulky retroperitoneal lymphadenopathy and his splenomegaly could be due to portal hypertension due to cirrhosis of the liver or lymphomatous infiltration with low-grade lymphoma and now causing persistent progressive bicytopenia. recommended that Mr Montes De Oca consider trial of Rituxan 375 mg/m??? weekly x4-6 and then monitor his blood counts as well as central lymphadenopathy, there is a possibility with improvement in central lymphadenopathy his back pain may improve if not then will consult orthopedic for spine evaluation and if bicytopenia persist then it could be due to splenic sequestration or considering his age underlying myelodysplasia, will consider bone marrow evaluation. Mr Montes De Oca started his first of four weeks of Rituxan on . Follow-up CT scan of chest abdomen pelvis done after 4 doses of weekly Rituxan on July 19, 2020 showed persistent significant adenopathy throughout the chest abdomen pelvis compared to CT PET scan done on November 06, 2019 there is a minimal change. And retroperitoneal lymph node have decreased by 5 mm now measuring 4.3 cm also slight improvement in left supraclavicular and cervical chain lymph nodes and stable mediastinal and hilar lymph nodes. Continued stable splenomegaly of 17 cm length. Cirrhotic liver MRI scan of spine done on May 30, 2020 showed retroperitoneal lymph node was 6 x 3.4 cm and as mentioned above the largest lymph node is 4.3 cm which means there is a significant response ? Bone marrow evaluation done on October 19, 2020 showed mildly abnormal features including hypercellularity, erythroid predominance/hyperplasia, subtle dyspoietic features in the erythroid and megakaryocyte lineage as well as increased storage iron, future not entirely diagnostic but do raise possibility of early/evolving MDS, FISH for MDS panel was unremarkable, flow cytometry showed no aberrant myeloid or lymphoid population. Plan: Discussed with patient regarding his labs white blood count 5.3 hemoglobin 11.4 g compared to 10.9 g previously hematocrit 34.3 platelets 88,000 CMP within normal limits except creatinine 1.2 potassium 3.4, bilirubin 1.7 compared to 3 on August 14, 2021 ALT 46 AST 64 Venous Doppler study of lower extremities done on August 2021, showed no evidence of DVT Echocardiogram was ordered for progressive lower extremity edema and ascites but was not done because of technical difficult study, now awaiting MUGA scan Clinically, patient is doing reasonably well but in mild to moderate distress due to progressive ascites etiology could be congestive heart failure or due to progressive lymphoma, clinically, he had evidence of hemolytic anemia as he presented with progressive anemia and elevated bilirubin, was prescribed prednisone 1 mg/kg p.o. for 5 days and his follow-up labs done today showed improvement in his bilirubin level as well as in his hemoglobin, overall patient is feeling much better and now planning to start him on Rituxan/vincristine/prednisone, he was scheduled to start his treatment today but patient wants to address progressive ascites first, we will schedule him for therapy to paracentesis and is already scheduled for Port-A-Cath placement on coming Friday and we will also get MUGA scan to assess cardiac status and he will return to clinic after Port-A-Cath placement to receive his first dose of chemotherapy with Rituxan/Cytoxan/vincristine/prednisone. Signed By: Emily Leonardo M.D. <<Signature on File>>
== END 2021-08-23 09:36 | disposition home or self-care (01) ==
LOC: ONCMED 09:36
PROVIDERS: PCP Nurse Practitioner; Visit Provider Internal Medicine Hematology & Oncology
DX: C82.90 Follicular lymphoma, unspecified, unspecified site (principal); R16.1 Splenomegaly, not elsewhere classified; K74.60 Unspecified cirrhosis of liver; D58.9 Hereditary hemolytic anemia, unspecified; I10 Essential (primary) hypertension; Z79.899 Other long term (current) drug therapy
CPT/HCPCS: 80053; 85025; 99214

== ENCOUNTER 2021-08-24 08:09 | Outpatient (CLI) | payer OTHER, SELFPAY ==
--- NOTE | 2021-08-24 08:30 | NMCV_ITS ---
NM card bld pool r or s*[id number] Montes De Oca Johnathan Age: 76 Gender: M : 1945 Exam Date: 08/24/2021 08:30 Ordering Phys: Emily Leonardo MD Technologist: NEFTALI Miramontes Exam Location: [facility] Indications: FOLLICULAR LYMPHOMA Camera Used: [employer] Imaging Protocol: three view gated blood pool study Technical Image Quality: Good Dose: Admin Site: Administered By: [id number] Tagged RBCs: 24.2 IV - Left NEFTALI Keenan Antecubital PYP: EJECTION FRACTION: Automatic LV EF: 74 Rest RV EF: Manual LV EF: FINDINGS CONCLUSIONS LV systolic function is normal with EF of 74% No comparison studies are available Kenrick Wilson MD (Electronically Signed) Final Date: 26 August 2021 10:34 S
== END 2021-08-24 08:10 | disposition home or self-care (01) ==
PROVIDERS: PCP Nurse Practitioner; Visit Provider Internal Medicine Hematology & Oncology
DX: C82.90 Follicular lymphoma, unspecified, unspecified site (principal)
CPT/HCPCS: 36415; 78472; A9560

== ENCOUNTER 2021-08-24 09:41 | Day surgery (SDC) | payer OTHER, SELFPAY ==
[2021-08-23 13:51] VITALS: BMI 33.7
[2021-08-24 09:55] VITALS: BP 155/76; PULSE 95; RESP 22; TEMP 36.6; O2SAT 96
--- NOTE | 2021-08-24 09:58 | US_ITS ---
WS: [id number] ULTRASOUND-GUIDED PARACENTESIS CLINICAL INFORMATION: Follicular lymphoma, personal history non-Hodgikin lymphoma COMPARISON: None. Procedure Informed consent: The risks, benefits, and alternatives of the procedure were discussed with the brissa ent. Verbal and written consent was obtained. Timeout: A timeout was performed to confirm the correct patient, procedure, and site. Preparation: A suitable skin site was identified. The patient was prepped and draped in usual sterile fashion. Lidocaine 1% was used for local anesthesia. Catheter: 4 [place] One-step Yueh catheter. Side: LEFT Lower quadrant. Fluid Volume: 6000 ml Color: Clear yellow DISPOSITION: Discarded safely. Complications: None. Patient disposition: Discharged from the department in stable condition. US/US paracentesis abd w [id number] IMPRESSION: Uncomplicated ultrasound-guided paracentesis. Removal of 6000 cc
[2021-08-24 11:20] LABS: INR 1.24 (0.8-1.2)
== END 2021-08-24 12:15 | disposition home or self-care (01) ==
PROVIDERS: Radiology Neuroradiology; PCP Nurse Practitioner; Visit Provider Internal Medicine Hematology & Oncology
PROC: (CPT 49082; principal; 2021-08-24 12:00)
DX: C80.1 Malignant (primary) neoplasm, unspecified (principal)
CPT/HCPCS: 36415; 49083; 85610

== ENCOUNTER 2021-08-28 09:59 | Day surgery (SDC) | payer OTHER, SELFPAY ==
[2021-08-27 12:25] VITALS: BMI 29.8
[2021-08-28] VITALS (8 sets, daily range): BP systolic 135–164; BP diastolic 49–77; PULSE 84–97; RESP 16–20; TEMP 36.5–36.9; O2SAT 95–98
--- NOTE | 2021-08-28 | SCC_ITS ---
Procedure done: 1. Placement of right subclavian vein PowerPort 2. Fluoroscopic guidance and interpretation for placement of catheter 24.7 seconds of fluoroscopic guidance, for a cumulative dose of 1.40 mGy, was provided to Dr. Mehta by the radiology department. C-arm images of the chest were saved for the patient's permanent record. [facility]
--- NOTE | 2021-08-28 10:05 | SC_ITS ---
WS: [id number] C-arm fluoroscopy for right subclavian catheter placement, 08/28/2021 Clinical Data: Power port Placement Comparison: None. Findings: Dr. Mehta inserted a right subclavian catheter. SC/C-arm FL for CVA 14521 Impression: Insertion of right subclavian catheter.
[2021-08-28] MEDS: sodium chloride 0.9% 1,000 ML 30 ML IV (10:39)
--- NOTE | 2021-08-28 11:18 | ANES.PREANE2 ---
Pre-Anesthetic Assessment Height/Weight: Height 1.83 m Weight 99.79 kg Temp Pulse Resp BP Pulse Ox 98.4 F 84 16 164/77 97 08/28/21 10:18 08/28/21 10:18 08/28/21 10:18 08/28/21 10:18 08/28/21 10:18 Preop Diagnosis: Lymphoma Operation Date: 08/28/21 11:50 Proposed Procedures p Portacath Placement 18574/c80.1(Not Applicable) - Marlon Mehta MD Familial anesthetic complications: None Was Beta John taken within 24 hours: N/A Was Clonidine taken within 24 hours: N/A Last intake: Intake Last Liquid Date 08/27/21 Last Liquid Time 22:00 Last Solid Date 08/27/21 Last Solid Time 18:30 Social No alcohol and No tobacco Exam alert, oriented x 3, clear to auscultation bilaterally and regular rate & rhythm Airway Submandibular: within normal limits Cervical ROM: within normal limits Mallampati: Class I Dentition: partials Comments: Comments: False upper teeth Partial lower Pulmonary Chronic Obstructive Pulmonary Disease (Ephysema ) and Exertional Dyspnea CV/HEM Hypertension METS < 4 Denies CAD, [place], arrhythmia TTE recently report read as no windows for read. BPH Hepatic None reported GI Gastroesophageal Reflux Disease (Occassionally symptomatic on empty ) Metabolic None reported Musc/skel None reported Neuropsych None reported Anesthetic Plan ASA status: 3 (76 year old male with lymphoma, emphysema from smoking , BPH, HTN, and reduced functional capacity ) Anesthesia: Anesthesia Evaluation, General and MAC Other: I discussed with the patient risks, goals, and benefits of MAC and general anesthesia. We discussed spectrum of MAC anesthesia including conversion to general as well as possibility of recall of intraoperative stimuli including discomfort/pain. Patient agrees to proceed with MAC vs. general pending conversation with surgeon regarding his preference. Risk of > 500 ml blood loss (7ml/kg in children): No Medications/Allergies Home Medications Medication Instructions Recorded Confirmed Last Taken Type cetirizine 10 mg capsule 10 mg PO DAILY 08/05/19 08/28/21 08/27/21 History hydrochlorothiazide 25 mg tablet 25 mg PO DAILY 08/05/19 08/28/21 08/27/21 History lorazepam 2 mg tablet 2 mg PO BEDTIME 08/05/19 08/28/21 08/27/21 History omeprazole 20 mg capsule,delayed 20 mg PO DAILY 08/05/19 08/28/21 08/27/21 History release albuterol sulfate 90 mcg/actuation 2 inh INHALATION QID PRN 09/20/19 08/28/21 08/27/21 History aerosol inhaler fluticasone propionate 50 2 spray INTRANASAL DAILY PRN 09/20/19 08/28/21 08/27/21 History mcg/actuation nasal spray,suspension (Flonase Allergy Relief) ibuprofen 800 mg tablet 800 mg PO PRN PRN tab 01/13/20 08/28/21 08/27/21 History fluorouracil 5 % topical cream 1 applic TOPICAL BID 21 Days #40 g 06/19/20 08/28/21 08/27/21 Rx (Efudex) ketoconazole 2 % topical cream 1 applic TOPICAL BID #60 g 06/19/20 08/28/21 08/27/21 Rx tamsulosin 0.4 mg capsule 0.4 mg PO BID #270 cap 05/17/21 08/28/21 08/27/21 Rx B-complex with vitamin C 1 cap PO DAILY 08/06/21 08/28/21 08/27/21 History iodine 150 mcg tablet 150 mcg PO DAILY 08/06/21 08/28/21 08/27/21 History vit no.95-ferrous 1 tab PO DAILY 08/06/21 08/28/21 08/27/21 History fumarate 28 mg-folic acid 800 mcg tablet () allopurinol 100 mg tablet 100 mg PO BID 08/23/21 08/28/21 08/27/21 History Allergies Allergy/AdvReac Type Severity Reaction Status Date / Time cortisone Allergy ALGY-Rash Verified 08/28/21 10:15 Current Medications Generic Name Dose Route Start Last Admin Trade Name Freq PRN Reason Stop Dose Admin Sodium Chloride 1,000 mls @ 30 mls/hr 08/28/21 10:15 08/28/21 10:39 Sodium Chloride 0.9% IV 08/29/21 10:14 30 mls/hr .Q24H JAMES Administration PFSH Anesthesia Medical History BPH loc w urin obs/LUTS History of melanoma History of nonmelanoma skin cancer Hypertension Lymphoma Microscopic hematuria PTSD (post-traumatic stress disorder) Surgical History History of vasectomy Family History Sister Diabetes Sister Diabetes Mother , IN HER 80'S Diabetes Natural Father , AT 86 Cancer Social History (Updated 08/28/21 @ 11:29 by Mark Berman DO) Smoking and tobacco status: former smoker Alcohol intake: never Marital status: Current occupational status: employed, retired and disabled Current occupation: [employer] History of recent travel: No Data Anesthesia Cardiac Studies: Echocardiogram 08/17/21
--- NOTE | 2021-08-28 11:52 | W.PM.OPSUD ---
Surgery/Procedure H&P Update DATE OF PROCEDURE: August 28, 2021 DATE H&P PERFORMED: 08/22/21 PREOP DIAGNOSIS: Lymphoma PRIMARY INDICATION FOR PROCEDURE: The same PLANNED PROCEDURE: Operation Date: 08/28/21 11:50 Proposed Procedures p Portacath Placement 73255/c80.1(Not Applicable) - Marlon Mehta MD
[2021-08-28] MEDS: lidocaine 2% INJ 20 mL INJECTION (13:00)
[2021-08-28] MEDS: heparin, porcine 1,000 unit/mL INJ 10 mL 10000 UNIT IRRIGATION (13:00)
--- NOTE | 2021-08-28 13:25 | XR_ITS ---
WS: [id number] XR chest 1V portable 50110 REASON FOR EXAM: s/p right subclavian vein power port placement FINDINGS: Chemotherapy infusion port over the right anterolateral chest with transvenous right subclavian diana ter with the tip in the superior vena cava. No right pneumothorax. Coarse reticular interstitial lung opacity with multiple areas of lucency compatible with central lob ar emphysema. No acute pulmonary parenchymal or pleural abnormality. XR/XR chest 1V portable [id number] IMPRESSION: Chemotherapy port placement as above without complication.
--- NOTE | 2021-08-28 13:27 | P.OP_ITS ---
Operative Report Date of procedure: August 28, 2021 Pre-op diagnosis: Preop Diagnosis Lymphoma Procedure done: 1. Placement of right subclavian vein PowerPort 2. Fluoroscopic guidance and interpretation for placement of catheter Surgeon: Marlon Mehta MD Access Database Developer: Surgical miguel a Adam Circulating nurse Aftab Jane Anesthesia: MAC (property site manager George) Estimated blood loss (mL): 5 Procedure: Patient was identified in the holding area and taken to the operative room and placed in supine position IV propofol was given by the anesthesia provider ,both arms were tucked,Time-out was done verifying the patient's name/date of /planned procedure and destination after the procedure, all were in agreeme nt. SCDs confirmed to be functioning, preoperative antibiotics administered per protocol, and beta kamila protocol was confirmed, appropriate positioning of the patient was done by me. Medications were reviewed to assess for anticoagulant usage. Risks and benefits and prevention of central line associated blood stream infection (CLABSI) were discussed with the patient/CPOA, and a consent was obtained. Monitors were in place and monitored throughout the procedure. All necessary supplies were available prior to start. Hand hygiene was completed prior to starting. Maximum barrier technique was utilized including a sterile gown, sterile gloves with a hat and mask. Site was was prepped with [chlorhexidine] and a full body drape was placed. 5 mL of 2% lidocaine was injected into the skin with a 25 gauge needle. Prep& drape was done under the usual sterile technique, lidocaine 2% was injected at the site of the stick, started by right sub-clavian vein stick that retrieved venous blood was obtained from the first stick, a guide wire was then threaded and under the guidance of fluoroscopy position was confirmed to be in the IVC and my interpretation, there were no PVC changes, at that point the guide wire was secured to the drapes with a hemostat and the needle was taken out, attention was then deviated towards creation of a pocket for the port were lidocaine 2% was injected using an 15 blade knife skin incision was created dissection using the Bovie to create a pocket for the Power Port to be accommodated. Hemostasis was secured, after the port being appropriately flushed it was inserted into the pocket and a tunneler was used to accommodate the catheter of the port catheter to be delivered through the incision first created at the site of the stick, at that point under fluoroscopy an estimated length was measured for the catheter and was cut at the designed level, followed by that a dilator with the sheath introduced onto the guide wire the dilator and the wire were retrieved and the catheter of the port was introduced via the sheath where it was peeled off and the catheter maintained to be in the SVC that was confirmed with fluoroscopy, and the fluoroscopy interpretation was done by me throughout the entire procedure. The port was kept in its pocket,3-0 Vicryl deep subdermal interrupted sutures, skin was then closed by 4-0 Monocryl as subcuticular closure.The port was appropriately flushed with heparin and venous blood was withdrawn without difficulty.The stick site was closed by 4-0 Monocryl and Dermabond was used followed by dressing.Count was correct at the end of the procedure.Patient tolerated the procedure well was taken to the recovery area. I was present for the whole entire procedure. Position of the catheter was checked with a postoperative chest x-ray and it was in good position without evidence of pneumothorax.
--- NOTE | 2021-08-28 14:18 | PC.NURSE ---
Oncology notified of port placement. Needle sent through tube system.
[2021-08-28 14:40] LABS: Hematocrit 33.6 % (42.0-52.0); Hemoglobin 11.4 g/dL (11.7-16.6); Mean Corpuscular HGB Conc 33.9 g/dL (30.0-36.0); Mean Corpuscular Hemoglobin 32.8 pg (28.0-34.0); Mean Corpuscular Volume 96.6 fl (80-94); Mean Platelet Volume 12.3 fL (7.4-10.4); Platelet Count 62 10^3/cmm (130-400); Red Blood Count 3.48 10^6/uL (4.1-5.3); Red Cell Distribution Width 19.4 % (12.1-15.1); White Blood Count 6.9 10^3/uL (4.0-10.0)
--- NOTE | 2021-08-28 14:55 | PM.OP ---
Operative Report Date of procedure: August 28, 2021 Pre-op diagnosis: Preop Diagnosis Lymphoma Preop Diagnosis Lymphoma Post-op findings: Pilonidal cyst of the lower back with multiple sinuses yet no evidence of pus Procedure done: Lower back pilonidal cystectomy Semiopen technique Implants: Surgicel and Xeroform Specimens removed/disposition: Lower back pilonidal mass sutures marked superior Surgeon: Marlon Mehta MD [employer] Superintendent: microbiological lab technician Diana Circulating nurse Yennifer Jane Anesthesia: General (ANATOLIY FINLEY MD and Selena) Estimated blood loss (mL): 5 Procedure: After identifying the patient holding area,, patient was then taken to the operative suite, was placed in first in supine position, and the trach was placed by the anesthesia provider and,Time-out was done verifying the patient's name/date of /planned procedure and destination after the procedure, all were in agreement. SCDs confirmed to be functioning, preoperative antibiotics administered per protocol, and beta kamila protocol was confirmed, appropriate positioning of the patient was done by me. patient was then placed in left lateral position,ax Roll was placed, right arm was placed in 90? to his body, all pressure points were padded and patient was appropriately secured to the bed. prep and drape of the lower back region was done under the usual sterile technique. After introduction of a lacrimal probe ,elliptical skin incision was done including multiple pits of the anal cleft as well as the previous wound(to the left of the midline) of the previous incision and drainage site,incision was done all the way down to the subcutaneous tissues and periosteal covering the coccyx, dissection was then carried on , pilonidal mass all excised en toto , the mass was oriented by 3-0 nylon sutures in the form of short superior, then passed to the circulating nurse for permanent pathology. Sharp debridement of the wound cavity to remove any residual of unhealthy granulation tissues .Hemostasis was then achieved using Bovie cautery, followed by irrigation with normal saline, 2-0 Vicryl were used as an interrupted sutures, bites were taken from the subdermal level to the periosteum and tied down to make the wound gap more shallow to help healing postoperatively and make the packing easier on the patient, suturing was done in an interrupted circumferential fashion . wound was then packed by Surgicel/Xeroform and dry 4 x 4 followed by ABDs and tape/surgical pants. Count was completed at the end of the procedure Patient was taken to the recovery room in stable condition after extubation I was present for the whole entire procedur
[2021-08-28 15:05] LABS: Alanine Aminotransferase 31 U/L (0-41); Albumin Level 3.4 g/dL (3.5-5.2); Alkaline Phosphatase 141 IU/L (40-130); Anion Gap 13.8 (5-19); Aspartate Amino Transferase 44 U/L (0-40); Blood Urea Nitrogen 22 mg/dL (8-23); Calcium 7.5 mg/dL (8.5-10.5); Carbon Dioxide 26 mmol/L (22-29); Chloride 103 mmol/L (98-107); Globulin 2.2 g/dL (1.3-4.6); Glucose 107 mg/dL (65-115); Osmolality Calculated 292 mOsm/kg (285-295); Potassium 3.8 mmol/L (3.5-5.1); Sodium 139 mmol/L (136-145); Total Bilirubin 2.4 mg/dL (0.15-1.2); Total Protein 5.6 g/dL (6.6-8.7)
[2021-08-28 15:09] LABS: Absolute Eosinophils 0.3 10^3/cmm (0.0-0.7); Absolute Neutrophil 5.2 10^3/cmm (1.4-6.5); Absolute Segmented Neutrophil 5.2 10/cmm (1.6-7.1); Eosinophils 5 %; Lymphocytes 4 %; Lymphocytes Absolute 0.4 10^3/cmm (1.2-3.4); Monocytes Absolute 0.8 10^3/cmm (0.1-0.6); Platelet Estimate Normal (Normal); Segmented Neutrophils 76 %; Total Cells Counted 100 (0-100)
--- NOTE | 2021-08-28 16:00 | ANE.PACU2 ---
Inpatient post-anesthesia follow up: Airway intact: Yes Vital signs: Temperature 98.2 F Pulse Rate 88 Respiratory Rate 18 Blood Pressure 138/71 Pulse Oximetry 95 Oxygen Delivery Me thod Room Air Oxygen Flow Rate Fraction of Inspir ed Oxygen Hydration adequate: Yes Nausea and vomiting: No Pain level: 1 Mental status: Baseline
== END 2021-08-28 14:45 | disposition home or self-care (01) ==
PROVIDERS: Internal Medicine Hematology & Oncology; PCP Nurse Practitioner; Visit Provider Surgery
PROC: (CPT 36561; principal; 2021-08-28 11:50)
DX: C85.90 Non-Hodgkin lymphoma, unspecified, unspecified site (principal); J43.9 Emphysema, unspecified; K21.9 Gastro-esophageal reflux disease without esophagitis; I10 Essential (primary) hypertension; N40.1 Benign prostatic hyperplasia with lower urinary tract symptoms; N13.8 Other obstructive and reflux uropathy; Z87.891 Personal history of nicotine dependence
CPT/HCPCS: 36561; 71045; 76000; 77001; 80053; 85007; 85027; C1788; J1644; J2704; J3010; J7030

== ENCOUNTER 2021-08-29 07:49 | Outpatient (CLI) | payer OTHER, SELFPAY ==
[2021-08-29] MEDS: acetaminophen 325 mg Tablet 650 MG PO (09:55)
[2021-08-29] MEDS: diphenhydrAMINE 50 mg/mL SDV 1mL 25 MG IVP (09:57)
[2021-08-29] MEDS: sodium chloride 0.9% 500 ML 999 ML IV (09:57)
[2021-08-29] MEDS: palonosetron 0.25 mg/5 mL SDV IV (10:00)
--- NOTE | 2021-09-05 16:11 | ONC FU_ITS ---
Ashlie Pedro Progress Note Patient: Johnathan Montes De Oca Unit #: [id number]: 1945 Dicatated By: Ashlie Pedro N.P.Date of Visit:Aug 29, 2021 Onc MED Follow-up/Prog Note Chief Complaint: lymphoproliferative disorder History of Present Illness: Mr. Montes De Oca is a 76-year-old gentleman with history of lymphocytosis. 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 At that time the lymphocytosis reached about 20,000 but subsequently decreased spontaneously. CT scan of chest/abdomen/pelvis done at that time shows mild lymph nodes above and below diaphragm but they were too small to biopsy. As per patient he was followed by his PMD and oncologist at the [facility] and on 11/07/2015 he underwent bone marrow biopsy which was nondiagnostic for B-cell lymphoma, flow cytometry done on 11/07/2015 showed no clonal process. He was also diagnosed with hepatic cirrhosis and splenomegaly. Mr Montes De Oca said he didn't have any specific issues until recently. He started having back pain for which he was referred to Dr. Leyav at a local pain clinic. A CT scan of chest abdomen pelvis was obtained on 08/09/2019 which was compared with CT scan from 11/06/2016, October 2015 and April 2015. And it showed stable appearance of mediastinal and hilar and axillary lymph nodes; Mild emphysema. The was interval development of bulky retroperitoneal and mesenteric lymphadenopathy, measuring about 4.3 cm, suspicious for primary cindy malignancy versus metastatic disease versus reactive; Extensive diverticulosis of descending and sigmoid colon; Cirrhosis, ascites, splenomegaly. Degenerative changes of spine, no fractures were reported. On 08/10/2019, Mr Montes De Oca went to see a [place] medical oncologist, Dr. Chato Beasley in [place] and as per his recommendations- due to thepatient's history of low-grade lymphoma and (it was not clear whether symptoms are attributed to adenopathy/low-grade lymphoma or other process, cirrhosis) a PET/CT scan and lymph node biopsy and consider bone marrow biopsy. As far as mild neutropenia was concerned it was probably due to cirrhosis/portal hypertension and recommended to continue with typing checker. Mr Montes De Oca denied any night sweats, denies any fever or weight loss. Denies any lower extremity numbness or weakness denies any urine or stool incontinence.No melena hematochezia, no nosebleed, no jaundice. But abdominal fullness due to ascites. He was referred to interventional radiology for ultrasound-guided paracentesis patient underwent sonogram on 09/20/2019 which showed some mild amount of ascites visualized in 4 abdominal quadrant, inadequate fluid for paracentesis at that time. He underwent follow-up CT PET scan on 11/06/2019 which showed FDG positive lymphadenopathy from the level of head and neck to the level of pelvis. No evidence of splenic or marrow or extranodal involvement on February 05, 2020 patient developed difficulty in swallowing and dysphagia and went to emergency room where he underwent CT scan of the neck which showed heterogeneous enhancing mass extending from posterior left aspect of tongue base to the adjacent oropharyngeal mucosa measuring 3.1 x 2.6 cm and also there was a enlarged level 3 and level 7 lymph nodes on the left, 3.3 x 2.0 cm size., Patient was transferred to [place] where he was diagnosed with oropharyngeal abscess he was drained and treated with IV antibiotic subsequently discharged home on oral antibiotic h/o chronic lower back pain for which he has been to pain clinic where as per patient, he was given 'injection' about 4 months ago with some help but still having mid to lower back pain and sometimes problem and walking Mr Montes De Oca underwent MRI of the spine on 05/30/2020 and discussed the findings which showed moderately enlarged spleen with a maximum length 17 cm, retroperitoneal lymphadenopathy index lymph node is 6 x 3 x 4 cm inferior medial to the right kidney bulky partially visualized left thoracic and left lymph nodes measuring 2.9 cm, no evidence of bone mets, moderate central canal stenosis L4-5 with shallow central disc protrusion and impingement traversing L5 nerve roots immediately. Moderate right L4-5 foraminal narrowing. Shallow central protrusion T7-8 with slight effacement of ventral thecal sac and slight contacting of the thoracic cord. No significant central canal stenosis. discussed with Mr Montes De Oca further treatment options. Because of progressive back pain which could be due to bulky retroperitoneal lymphadenopathy and his splenomegaly could be due to portal hypertension due to cirrhosis of the liver or lymphomatous infiltration with low-grade lymphoma and now causing persistent progressive bicytopenia. was recommended that Mr Montes De Oca consider trial of Rituxan 375 mg/m??? weekly x4-6 and then monitor his blood counts as well as central lymphadenopathy, there is a possibility with improvement in central lymphadenopathy his back pain may improve if not then will consult orthopedic for spine evaluation and if bicytopenia persist then it could be due to splenic sequestration or considering his age underlying myelodysplasia, will consider bone marrow evaluation. Mr Montes De Oca has elected to try the Ritxuan and began his first week treatment on 06/21/2020, Till July 12, 2020. Follow-up CT scan of chest abdomen pelvis after 4 doses of weekly Rituxan done on July 19, 2020 showed persistent significant adenopathy throughout the chest abdomen pelvis as compared to CT PET scan done on November 06, 2019 in the retroperitoneum the lymph node have decreased by 5 mm in short axis. Also slight improvement in the left supraclavicular and cervical chain lymph nodes lymph nodes in the mediastinum and hilum are stable. Continued stable splenomegaly of 17 cm and cirrhotic liver Bone marrow evaluation done on October 19, 2020 showed mildly abnormal features including hypercellularity, erythroid predominance/hyperplasia, subtle dyspoietic features in the erythroid and megakaryocyte lineage, as well as increased storage iron, not entirely diagnostic, do raise the possibility of early/evolving MDS. FISH for MDS showed no abnormality, flow cytometry showed no overtly aberrant myeloid or lymphoid population. Follow-up CT scan of the chest abdomen pelvis done on February 07, 2021, showed no acute pulmonary disease, further regression in the size of thoracic lymph nodes, the left supraclavicular area lymph node measured 1.6 x 1 cm compared to 2.2 x 2.2 previously negative for axillary lymphadenopathy negative for mediastinal lymphadenopathy and there is a further regression of mediastinal lymph nodes compared to prior imaging, retroperitoneal lymphadenopathy is present although significantly decreased from seen on CT scan done in July 2020, normal to 2.9 x 2.1 compared to 4.5 x 4.1 cm previously. liver shows capsular surface of liver is mildly nodular and patient has moderate splenomegaly but stable no focal splenic mass seen Follow-up CT scan of chest abdomen pelvis done on August 14, 2021 showed interval significant progression of retroperitoneal lymphadenopathy since February 07, 2021, the largest cluster of lymph nodes in the right distal para-aortic location measuring 6.2 x 3.7 cm has significantly increased in size since prior study and there are numerous retroperitoneal lymph nodes which have increased in size. Lymph nodes within the chest including axilla mediastinum and hilum also increase in size of the largest at the right hilum still only 10 mm. Moderate diffuse ascites is new. New small bilateral pleural effusion. Cirrhosis. Mild progressive enlargement of spleen. 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, bilirubin gone up to 3 on August 14, 2021 and hemoglobin dropped to 10.9 g from 14.7 in January 2021, he was started on high-dose prednisone 1 mg/kg for 5 days, follow-up lab work-up showed bilirubin gone down to 1.7 and hemoglobin improved to 11.7 g on August 23, 2021. Echocardiogram was ordered to assess cardiac status as patient was having bilateral lower extremity edema and ascites there was a concern regarding congestive heart failure but it was a technically difficult study so it was not performed so MUGA scan was ordered. Venous Doppler study of lower extremities done on August 17, 2021 showed no evidence of DVT in the lower extremities. Patient presents today for follow-up and for education for Rituxan, Cytoxan, vincristine, prednisone. Patient states he has a lot of fatigue. His appetite is fair. No fever, chills, night sweats. No sinus drainage or sore throat. He has mild shortness of breath with activity he denies a cough or chest pain. No nausea or vomiting. His abdomen is mildly distended but denies tenderness or pain. He complains of low back pain. He has generalized weakness. Review Of Symptoms: See above Past Medical History: Bipolar disorder Bph Chronic obstructive pulmonary disease Depression Generalized anxiety disorder Gout Hyperlipidemia Hypertension Ptsd Sleep apnea Past Surgical History: Cataract excision Allergies: Cortisone Acetate, darvon, and quiNINE Sulfate. Medications: Allopurinol 1 Tablet (of 100 mg) Oral b.i.d. Ativan 1 Tablet (of 2 mg) Oral b.i.d. Cetirizine HCl 1 Tablet (of 10 mg) Oral daily Flonase 1 (50 mcg/act) Suspension Nasal PRN hydroCHLOROthiazide 1 Tablet (of 25 mg) Oral daily HYDROcodone-Acetaminophen (5-325 mg) Tablet Oral Take as Directed Ibuprofen 1 Tablet (of 800 mg) Oral t.i.d. Omeprazole 1 Capsule (of 20 mg) Capsule Delayed Release Oral daily ProAir HFA 1 Inhalation (of 108 (90 base) mcg/act) Aerosol, solution Inhalation PRN Tamsulosin HCl 1 Capsule (of 0.4 mg) Oral daily Zofran (8 mg) Tablet Oral Take as Directed Family History: Mr. Montes De Oca's mother at age 78: type II diabetes. Mr. Montes De Oca's father at age 84: lung cancer. Mr. Montes De Oca has 1 sister who is : cancer of unknown primary. Social History: Mr. Montes De Oca is and he is retired. Mr. Montes De Oca quit smoking 19 years ago but had smoked for 44 years. He has no history of drinking. Mr. Montes De Oca reports the following support systems: lives with spouse, significant other, family, or friends, supportive family/friends willing to assist with needs, and adequate transportation available for expected visits. His diet consists of regular meals. He indicates his activity level as: regular exercise. Patient states stopped chewing tobacco. Physical Examination: Performed on Aug 29, 2021 08:12: Height - 72.00 in, Weight - 234.0 lbs (LOW), BSA - 2.28 sq.m, BMI - 31.74 (HIGH), Temperature - 97.3 F (LOW), Pulse - 88 /min, Respiration - 20 /min, BP - 150/70 mm(hg) (HIGH), O2 Sat - 97 %, Pain - 0, and Fatigue - 8. Performance Status: 2 - Ambulatory/capable of all self-care, unable to perform any work activities. Up and about more than 50% of waking hours. (ECOG) Constitutional Alert, cooperative, oriented. Mood and affect appropriate. Appears close to chronological age. Well nourished. Well developed. Head Normocephalic; no scars. Respiratory Lungs are clear to auscultation without rhonchi or wheezing. Cardiovascular Regular rate and rhythm of heart without murmurs, gallops or rubs. Abdomen Non-tender,mildly distended, no masses. Good bowel sounds. No guarding or rebound tenderness. Extremities mild edema bilateral lower extremities Psychiatric Alert and oriented times three. Coherent speech. Verbalizes understanding of our discussions today. Laboratory: Test performed on Aug 28, 2021 08:52 Glucose 107 mg/dL BUN 22 mg/dL Creatinine 1.4 mg/dL Cr Clearance (Est) 67.39 mL/min Sodium 139 mmol/L Potassium 3.8 mmol/L Chloride 103 mmol/L CO2 26 mmol/L Calcium 7.5 mg/dL Protein, Total 5.6 g/dL Albumin 3.4 g/dL Globulin 2.2 g/dL Bilirubin, Total 2.4 mg/dL Alkaline Phosphatase 141 International Units/L AST (SGOT) 44 International Units/L ALT (SGPT) 31 International Units/L WBC 6.9 10^9/L RBC 3.48 10^12/L HGB 11.4 g/dL HCT 33.6 % MCV 96.6 fl MCH 32.8 pg MCHC 33.9 g/dL RDW 19.4 % Platelet Count 62 10^9/L MPV 12.3 fL Neutrophils (Gran) 5.2 10^9/L Lymphocytes 0.276 10^9/L Monocytes 0.828 10^9/L Eosinophils 0.345 10^9/L Basophils 0 10^9/L Impression: History of low-grade, follicular lymphoma, CD 10 and CD19 positive diagnosed in 2004, recently done CT scan of chest abdomen pelvis, when compared with CT scan from October 2016 showed stable, small mediastinal lymphadenopathy, hilar and axillary lymphadenopathy. But progressive/bulky retroperitoneal and mesenteric lymphadenopathy increased from 2017, one of the largest measuring 4.3 cm chain. Degenerative changes of spine no fracture seen. Hepatic cirrhosis/splenomegaly/ascites Mild thrombocytopenia CBC done on 08/09/2002 shows white blood count 6.1 hemoglobin 14.9 crit 44.3 platelets 90,000 lymphocytes 47.9% neutrophil 38.2%. Chronic back pain, etiology unclear degenerative joint disease versus pressure due to retroperitoneal lymphadenopathy. MRI scan spine findings which was done on May 30, 2020 and showed moderately enlarged spleen with a maximum length 17 cm, retroperitoneal lymphadenopathy index lymph node is 6 x 3 x 4 cm inferior medial to the right kidney bulky partially visualized left thoracic and left lymph nodes measuring 2.9 cm, no evidence of bone mets, moderate central canal stenosis L4-5 with shallow central disc protrusion and impingement traversing L5 nerve roots immediately. Moderate right L4-5 foraminal narrowing. Shallow central protrusion T7-8 with slight effacement of ventral thecal sac and slight contacting of the thoracic cord. No significant central canal stenosis. discussed with Mr Montes De Oca further treatment options. Because of progressive back pain which could be due to bulky retroperitoneal lymphadenopathy and his splenomegaly could be due to portal hypertension due to cirrhosis of the liver or lymphomatous infiltration with low-grade lymphoma and now causing persistent progressive bicytopenia. recommended that Mr Montes De Oca consider trial of Rituxan 375 mg/m??? weekly x4-6 and then monitor his blood counts as well as central lymphadenopathy, there is a possibility with improvement in central lymphadenopathy his back pain may improve if not then will consult orthopedic for spine evaluation and if bicytopenia persist then it could be due to splenic sequestration or considering his age underlying myelodysplasia, will consider bone marrow evaluation. Mr Montes De Oca started his first of four weeks of Rituxan on . Follow-up CT scan of chest abdomen pelvis done after 4 doses of weekly Rituxan on July 19, 2020 showed persistent significant adenopathy throughout the chest abdomen pelvis compared to CT PET scan done on November 06, 2019 there is a minimal change. And retroperitoneal lymph node have decreased by 5 mm now measuring 4.3 cm also slight improvement in left supraclavicular and cervical chain lymph nodes and stable mediastinal and hilar lymph nodes. Continued stable splenomegaly of 17 cm length. Cirrhotic liver MRI scan of spine done on May 30, 2020 showed retroperitoneal lymph node was 6 x 3.4 cm and as mentioned above the largest lymph node is 4.3 cm which means there is a significant response ? Bone marrow evaluation done on October 19, 2020 showed mildly abnormal features including hypercellularity, erythroid predominance/hyperplasia, subtle dyspoietic features in the erythroid and megakaryocyte lineage as well as increased storage iron, future not entirely diagnostic but do raise possibility of early/evolving MDS, FISH for MDS panel was unremarkable, flow cytometry showed no aberrant myeloid or lymphoid population. Plan: Discussed with patient regarding his labs white blood count 5.3 hemoglobin 11.4 g compared to 10.9 g previously hematocrit 34.3 platelets 88,000 CMP within normal limits except creatinine 1.2 potassium 3.4, bilirubin 1.7 compared to 3 on August 14, 2021 ALT 46 AST 64 Venous Doppler study of lower extremities done on August 2021, showed no evidence of DVT Echocardiogram was ordered for progressive lower extremity edema and ascites but was not done because of technical difficult study, now awaiting MUGA scan Education provided about R???CVP which is Rituxan Cytoxan vincristine and prednisone. Handouts were also provided. Indications for treatment, side effects, and follow-up schedule were discussed in detail. He will receive first treatment today and follow-up in 1 week with CBC, CMP, LDH. Signed By: Ashlie Pedro N.Zoila. <<Signature on File>>
== END 2021-08-29 07:50 | disposition home or self-care (01) ==
PROVIDERS: PCP Nurse Practitioner; Visit Provider Internal Medicine Hematology & Oncology
DX: C82.90 Follicular lymphoma, unspecified, unspecified site (principal); R16.1 Splenomegaly, not elsewhere classified; K74.60 Unspecified cirrhosis of liver; D58.9 Hereditary hemolytic anemia, unspecified; I10 Essential (primary) hypertension; Z79.899 Other long term (current) drug therapy
CPT/HCPCS: 96360; 96361; 96367; 96375; 96413; 96415; 96417; 99215; J1100; J1200; J2469; J7040; J9070; J9370; Q5115

== ENCOUNTER 2021-09-05 12:11 | Outpatient (CLI) | payer OTHER, SELFPAY ==
[2021-09-05] MEDS: sodium chloride 0.9% 1,000 ML 999 ML IV (13:01)
[2021-09-05 13:19] LABS: Eosinophils % 2.9 %; Hematocrit 29.4 % (42.0-52.0); Hemoglobin 10.2 g/dL (11.7-16.6); Lymphocytes # 0.1 10^3/uL (0.8-4.8); Lymphocytes % 12.7 %; Mean Corpuscular HGB Conc 34.7 g/dL (30.0-36.0); Mean Corpuscular Hemoglobin 33.1 pg (28.0-34.0); Mean Corpuscular Volume 95.5 fl (80-94); Mean Platelet Volume 12.4 fL (7.4-10.4); Monocytes # 0.1 10^3/uL (0.2-0.9); Monocytes % 5.9 %; Neutrophils % 71.6 %; Nucleated Red Blood Cells % 0 %; Platelet Count 44 10^3/cmm (130-400); Red Blood Count 3.08 10^6/uL (4.1-5.3); Red Cell Distribution Width 17.9 % (12.1-15.1)
[2021-09-05 13:35] LABS: Alanine Aminotransferase 40 U/L (0-41); Albumin Level 2.9 g/dL (3.5-5.2); Alkaline Phosphatase 110 IU/L (40-130); Anion Gap 12.4 (5-19); Aspartate Amino Transferase 35 U/L (0-40); Blood Urea Nitrogen 27 mg/dL (8-23); Calcium 9.2 mg/dL (8.5-10.5); Carbon Dioxide 24 mmol/L (22-29); Chloride 102 mmol/L (98-107); Globulin 2.1 g/dL (1.3-4.6); Glucose 114 mg/dL (65-115); Lactate Dehydrogenase 453 U/L (135-225); Osmolality Calculated 286 mOsm/kg (285-295); Potassium 3.4 mmol/L (3.5-5.1); Sodium 135 mmol/L (136-145); Total Bilirubin 2.1 mg/dL (0.15-1.2); Uric Acid 6.7 mg/dL (3.4-7.0)
[2021-09-05 13:36] LABS: Neutrophils # 0.73 10^3/uL (1.8-7.7); Slide Review Slide Review Perform
--- NOTE | 2021-09-07 09:02 | ONC FU_ITS ---
Ashlie Pedro Progress Note Patient: Johnathan Montes De Oca Unit #: [id number]: 1945 Dicatated By: Ashlie Pedro N.P.Date of Visit:Sep 05, 2021 Onc MED Follow-up/Prog Note Chief Complaint: lymphoproliferative disorder History of Present Illness: Mr. Montes De Oca is a 76-year-old gentleman with history of lymphocytosis. 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 At that time the lymphocytosis reached about 20,000 but subsequently decreased spontaneously. CT scan of chest/abdomen/pelvis done at that time shows mild lymph nodes above and below diaphragm but they were too small to biopsy. As per patient he was followed by his PMD and oncologist at the [facility] and on 11/07/2015 he underwent bone marrow biopsy which was nondiagnostic for B-cell lymphoma, flow cytometry done on 11/07/2015 showed no clonal process. He was also diagnosed with hepatic cirrhosis and splenomegaly. Mr Montes De Oca said he didn't have any specific issues until recently. He started having back pain for which he was referred to Dr. Leyva at a local pain clinic. A CT scan of chest abdomen pelvis was obtained on 08/09/2019 which was compared with CT scan from 11/06/2016, October 2015 and April 2015. And it showed stable appearance of mediastinal and hilar and axillary lymph nodes; Mild emphysema. The was interval development of bulky retroperitoneal and mesenteric lymphadenopathy, measuring about 4.3 cm, suspicious for primary cindy malignancy versus metastatic disease versus reactive; Extensive diverticulosis of descending and sigmoid colon; Cirrhosis, ascites, splenomegaly. Degenerative changes of spine, no fractures were reported. On 08/10/2019, Mr Montes De Oca went to see a CT medical oncologist, Dr. Chato Beasley in [place] and as per his recommendations- due to thepatient's history of low-grade lymphoma and (it was not clear whether symptoms are attributed to adenopathy/low-grade lymphoma or other process, cirrhosis) a PET/CT scan and lymph node biopsy and consider bone marrow biopsy. As far as mild neutropenia was concerned it was probably due to cirrhosis/portal hypertension and recommended to continue with senior system operator. Mr Montes De Oca denied any night sweats, denies any fever or weight loss. Denies any lower extremity numbness or weakness denies any urine or stool incontinence.No melena hematochezia, no nosebleed, no jaundice. But abdominal fullness due to ascites. He was referred to interventional radiology for ultrasound-guided paracentesis patient underwent sonogram on 09/20/2019 which showed some mild amount of ascites visualized in 4 abdominal quadrant, inadequate fluid for paracentesis at that time. He underwent follow-up CT PET scan on 11/06/2019 which showed FDG positive lymphadenopathy from the level of head and neck to the level of pelvis. No evidence of splenic or marrow or extranodal involvement on February 05, 2020 patient developed difficulty in swallowing and dysphagia and went to emergency room where he underwent CT scan of the neck which showed heterogeneous enhancing mass extending from posterior left aspect of tongue base to the adjacent oropharyngeal mucosa measuring 3.1 x 2.6 cm and also there was a enlarged level 3 and level 7 lymph nodes on the left, 3.3 x 2.0 cm size., Patient was transferred to [place] where he was diagnosed with oropharyngeal abscess he was drained and treated with IV antibiotic subsequently discharged home on oral antibiotic h/o chronic lower back pain for which he has been to pain clinic where as per patient, he was given 'injection' about 4 months ago with some help but still having mid to lower back pain and sometimes problem and walking Mr Montes De Oca underwent MRI of the spine on 05/30/2020 and discussed the findings which showed moderately enlarged spleen with a maximum length 17 cm, retroperitoneal lymphadenopathy index lymph node is 6 x 3 x 4 cm inferior medial to the right kidney bulky partially visualized left thoracic and left lymph nodes measuring 2.9 cm, no evidence of bone mets, moderate central canal stenosis L4-5 with shallow central disc protrusion and impingement traversing L5 nerve roots immediately. Moderate right L4-5 foraminal narrowing. Shallow central protrusion T7-8 with slight effacement of ventral thecal sac and slight contacting of the thoracic cord. No significant central canal stenosis. discussed with Mr Montes De Oca further treatment options. Because of progressive back pain which could be due to bulky retroperitoneal lymphadenopathy and his splenomegaly could be due to portal hypertension due to cirrhosis of the liver or lymphomatous infiltration with low-grade lymphoma and now causing persistent progressive bicytopenia. was recommended that Mr Montes De Oca consider trial of Rituxan 375 mg/m??? weekly x4-6 and then monitor his blood counts as well as central lymphadenopathy, there is a possibility with improvement in central lymphadenopathy his back pain may improve if not then will consult orthopedic for spine evaluation and if bicytopenia persist then it could be due to splenic sequestration or considering his age underlying myelodysplasia, will consider bone marrow evaluation. Mr Montes De Oca has elected to try the Ritxuan and began his first week treatment on 06/21/2020, Till July 12, 2020. Follow-up CT scan of chest abdomen pelvis after 4 doses of weekly Rituxan done on July 19, 2020 showed persistent significant adenopathy throughout the chest abdomen pelvis as compared to CT PET scan done on November 06, 2019 in the retroperitoneum the lymph node have decreased by 5 mm in short axis. Also slight improvement in the left supraclavicular and cervical chain lymph nodes lymph nodes in the mediastinum and hilum are stable. Continued stable splenomegaly of 17 cm and cirrhotic liver Bone marrow evaluation done on October 19, 2020 showed mildly abnormal features including hypercellularity, erythroid predominance/hyperplasia, subtle dyspoietic features in the erythroid and megakaryocyte lineage, as well as increased storage iron, not entirely diagnostic, do raise the possibility of early/evolving MDS. FISH for MDS showed no abnormality, flow cytometry showed no overtly aberrant myeloid or lymphoid population. Follow-up CT scan of the chest abdomen pelvis done on February 07, 2021, showed no acute pulmonary disease, further regression in the size of thoracic lymph nodes, the left supraclavicular area lymph node measured 1.6 x 1 cm compared to 2.2 x 2.2 previously negative for axillary lymphadenopathy negative for mediastinal lymphadenopathy and there is a further regression of mediastinal lymph nodes compared to prior imaging, retroperitoneal lymphadenopathy is present although significantly decreased from seen on CT scan done in July 2020, normal to 2.9 x 2.1 compared to 4.5 x 4.1 cm previously. liver shows capsular surface of liver is mildly nodular and patient has moderate splenomegaly but stable no focal splenic mass seen Follow-up CT scan of chest abdomen pelvis done on August 14, 2021 showed interval significant progression of retroperitoneal lymphadenopathy since February 07, 2021, the largest cluster of lymph nodes in the right distal para-aortic location measuring 6.2 x 3.7 cm has significantly increased in size since prior study and there are numerous retroperitoneal lymph nodes which have increased in size. Lymph nodes within the chest including axilla mediastinum and hilum also increase in size of the largest at the right hilum still only 10 mm. Moderate diffuse ascites is new. New small bilateral pleural effusion. Cirrhosis. Mild progressive enlargement of spleen. 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, bilirubin gone up to 3 on August 14, 2021 and hemoglobin dropped to 10.9 g from 14.7 in January 2021, he was started on high-dose prednisone 1 mg/kg for 5 days, follow-up lab work-up showed bilirubin gone down to 1.7 and hemoglobin improved to 11.7 g on August 23, 2021. Echocardiogram was ordered to assess cardiac status as patient was having bilateral lower extremity edema and ascites there was a concern regarding congestive heart failure but it was a technically difficult study so it was not performed so MUGA scan was ordered. Venous Doppler study of lower extremities done on August 17, 2021 showed no evidence of DVT in the lower extremities. Patient presents today for follow-up after receiving treatment with cyclophosphamide Rituxan, and vincristine. He states that he has had diarrhea several times since treatment. He has been taking Imodium and it has improved slightly this morning. No blood in the stool. He denies fever, chills, night sweats. No shortness of breath. He does have some pressure on his abdomen from his ascites. He states he has bilateral intermediate edema but it is better than it has been in the past. Review Of Symptoms: See above. Past Medical History: Bipolar disorder Bph Chronic obstructive pulmonary disease Depression Generalized anxiety disorder Gout Hyperlipidemia Hypertension Ptsd Sleep apnea Past Surgical History: Cataract excision Allergies: Cortisone Acetate, darvon, and quiNINE Sulfate. Medications: Allopurinol 1 Tablet (of 100 mg) Oral b.i.d. Ativan 1 Tablet (of 2 mg) Oral b.i.d. Cetirizine HCl 1 Tablet (of 10 mg) Oral daily Flonase 1 (50 mcg/act) Suspension Nasal PRN HYDROcodone-Acetaminophen (5-325 mg) Tablet Oral Take as Directed ProAir HFA 1 Inhalation (of 108 (90 base) mcg/act) Aerosol, solution Inhalation PRN Tamsulosin HCl 1 Capsule (of 0.4 mg) Oral daily Zofran (8 mg) Tablet Oral Take as Directed Family History: Mr. Montes De Oca's mother at age 78: type II diabetes. Mr. Montes De Oca's father at age 84: lung cancer. Mr. Montes De Oca has 1 sister who is : cancer of unknown primary. Social History: Mr. Montes De Oca is and he is retired. Mr. Montes De Oca quit smoking 19 years ago but had smoked for 44 years. He has no history of drinking. Mr. Montes De Oca reports the following support systems: lives with spouse, significant other, family, or friends, supportive family/friends willing to assist with needs, and adequate transportation available for expected visits. His diet consists of regular meals. He indicates his activity level as: regular exercise. Patient states stopped chewing tobacco. Physical Examination: Performed on Sep 05, 2021 14:10: Height - 72.00 in, Temperature - 99.3 F (HIGH), Pulse - 110 /min (HIGH), Respiration - 20 /min, BP - 132/75 mm(hg), O2 Sat - 97 %, Pain - 8, and Fatigue - 10. Performance Status: 2 - Ambulatory/capable of all self-care, unable to perform any work activities. Up and about more than 50% of waking hours. (ECOG) Constitutional Alert, cooperative, oriented. Mood and affect appropriate. Appears close to chronological age. Well nourished. Well developed. Respiratory Lungs are clear to auscultation without rhonchi or wheezing. Cardiovascular Regular rate and rhythm of heart without murmurs, gallops or rubs. Abdomen Ascites noted Extremities 2+ pitting edema Musculoskeletal Generalized weakness Psychiatric Alert and oriented times three. Coherent speech. Verbalizes understanding of our discussions today. Laboratory: Test performed on Sep 05, 2021 12:50 LDH (Total) 453 U/L Sodium 135 mmol/L Uric Acid 6.7 mg/dL Potassium 3.4 mmol/L Chloride 102 mmol/L CO2 24 mmol/L Anion Gap 12.4 BUN 27 mg/dL Creatinine 0.7 mg/dL Cr Clearance (Est) 134.7800 mL/min Glucose 114 mg/dL Osmolality - Calculated 286 mOsm/kg Calcium 9.2 mg/dL Protein, Total 5.0 g/dL Albumin 2.9 g/dL Globulin 2.1 g/dL Bilirubin, Total 2.1 mg/dL ALT (SGPT) 40 U/L AST (SGOT) 35 U/L Alkaline Phosphatase 110 IU/L WBC 1.0 10 3/uL RBC 3.08 10 6/uL HGB 10.2 g/dL HCT 29.4 % MCV 95.5 fl MCH 33.1 pg MCHC 34.7 g/dL RDW 17.9 % Platelet Count 44 10 3/cmm MPV 12.4 fL Neutrophils 0.73 10 3/uL Lymphocytes 0.1 10 3/uL Monocytes 0.1 10 3/uL Eosinophils 0.0 10 3/uL Basophils 0.0 10 3/uL Neutrophil % 71.6 % Lymphocyte % 12.7 % Monocyte % 5.9 % Eosinophil % 2.9 % Basophils % 2.0 % NRBC % 0 % CBC Slide Review Slide Review Perform SLIDE REVIEW AGREES WITH AUTOMATED RESULTS ST Impression: History of low-grade, follicular lymphoma, CD 10 and CD19 positive diagnosed in 2004, recently done CT scan of chest abdomen pelvis, when compared with CT scan from October 2016 showed stable, small mediastinal lymphadenopathy, hilar and axillary lymphadenopathy. But progressive/bulky retroperitoneal and mesenteric lymphadenopathy increased from 2017, one of the largest measuring 4.3 cm chain. Degenerative changes of spine no fracture seen. Hepatic cirrhosis/splenomegaly/ascites Mild thrombocytopenia CBC done on 08/09/2002 shows white blood count 6.1 hemoglobin 14.9 crit 44.3 platelets 90,000 lymphocytes 47.9% neutrophil 38.2%. Chronic back pain, etiology unclear degenerative joint disease versus pressure due to retroperitoneal lymphadenopathy. MRI scan spine findings which was done on May 30, 2020 and showed moderately enlarged spleen with a maximum length 17 cm, retroperitoneal lymphadenopathy index lymph node is 6 x 3 x 4 cm inferior medial to the right kidney bulky partially visualized left thoracic and left lymph nodes measuring 2.9 cm, no evidence of bone mets, moderate central canal stenosis L4-5 with shallow central disc protrusion and impingement traversing L5 nerve roots immediately. Moderate right L4-5 foraminal narrowing. Shallow central protrusion T7-8 with slight effacement of ventral thecal sac and slight contacting of the thoracic cord. No significant central canal stenosis. discussed with Mr Montes De Oca further treatment options. Because of progressive back pain which could be due to bulky retroperitoneal lymphadenopathy and his splenomegaly could be due to portal hypertension due to cirrhosis of the liver or lymphomatous infiltration with low-grade lymphoma and now causing persistent progressive bicytopenia. recommended that Mr Montes De Oca consider trial of Rituxan 375 mg/m??? weekly x4-6 and then monitor his blood counts as well as central lymphadenopathy, there is a possibility with improvement in central lymphadenopathy his back pain may improve if not then will consult orthopedic for spine evaluation and if bicytopenia persist then it could be due to splenic sequestration or considering his age underlying myelodysplasia, will consider bone marrow evaluation. Mr Montes De Oca started his first of four weeks of Rituxan on . Follow-up CT scan of chest abdomen pelvis done after 4 doses of weekly Rituxan on July 19, 2020 showed persistent significant adenopathy throughout the chest abdomen pelvis compared to CT PET scan done on November 06, 2019 there is a minimal change. And retroperitoneal lymph node have decreased by 5 mm now measuring 4.3 cm also slight improvement in left supraclavicular and cervical chain lymph nodes and stable mediastinal and hilar lymph nodes. Continued stable splenomegaly of 17 cm length. Cirrhotic liver MRI scan of spine done on May 30, 2020 showed retroperitoneal lymph node was 6 x 3.4 cm and as mentioned above the largest lymph node is 4.3 cm which means there is a significant response ? Bone marrow evaluation done on October 19, 2020 showed mildly abnormal features including hypercellularity, erythroid predominance/hyperplasia, subtle dyspoietic features in the erythroid and megakaryocyte lineage as well as increased storage iron, future not entirely diagnostic but do raise possibility of early/evolving MDS, FISH for MDS panel was unremarkable, flow cytometry showed no aberrant myeloid or lymphoid population. Plan: Labs were reviewed with patient. He is severely neutropenic with an ANC 8.73. We will plan on Neupogen today and repeat x2. We will recheck labs on 09/07/2021. Patient continues to have increased edema and ascites. Once diarrhea has resolved we will start spironolactone to manage the edema. Diarrhea has slowed down with Imodium. We will continue to monitor. He will have an appointment on Friday to reevaluate and a CBC will be obtained at that time. Signed By: Ashlie Pedro N.Zoila. <<Signature on File>>
== END 2021-09-05 12:12 | disposition home or self-care (01) ==
PROVIDERS: PCP Nurse Practitioner; Visit Provider Internal Medicine Hematology & Oncology
DX: C82.90 Follicular lymphoma, unspecified, unspecified site (principal); R16.1 Splenomegaly, not elsewhere classified; K74.60 Unspecified cirrhosis of liver; D58.9 Hereditary hemolytic anemia, unspecified; I10 Essential (primary) hypertension; Z79.899 Other long term (current) drug therapy
CPT/HCPCS: 36591; 80053; 83615; 84550; 85025; 96372; 99215; J7030; Q5101

== ENCOUNTER 2021-09-07 06:44 | Outpatient (RCR) | payer OTHER, SELFPAY ==
[2021-09-07 08:24] LABS: Eosinophils % 2.4 %; Hematocrit 27.9 % (42.0-52.0); Hemoglobin 9.5 g/dL (11.7-16.6); Lymphocytes # 0.1 10^3/uL (0.8-4.8); Lymphocytes % 23.8 %; Mean Corpuscular HGB Conc 34.1 g/dL (30.0-36.0); Mean Corpuscular Hemoglobin 32.2 pg (28.0-34.0); Mean Corpuscular Volume 94.6 fl (80-94); Mean Platelet Volume 11.4 fL (7.4-10.4); Monocytes # 0.2 10^3/uL (0.2-0.9); Monocytes % 35.7 %; Neutrophils % 33.3 %; Nucleated Red Blood Cells % 0 %; Platelet Count 33 10^3/cmm (130-400); Red Blood Count 2.95 10^6/uL (4.1-5.3); Red Cell Distribution Width 17.6 % (12.1-15.1)
[2021-09-07 08:38] LABS: Neutrophils # 0.14 10^3/uL (1.8-7.7); White Blood Count 0.4 10^3/uL (4.0-10.0)
[2021-09-07 08:39] LABS: Slide Review Slide Review Perform
--- NOTE | 2021-09-07 09:14 | ONC FU_ITS ---
Ashlie Pedro Progress Note Patient: Johnathan Montes De Oca Unit #: [id number]: 1945 Dicatated By: Ashlie Pedro N.P.Date of Visit:Sep 07, 2021 Onc MED Follow-up/Prog Note Chief Complaint: lymphoproliferative disorder History of Present Illness: Mr. Montes De Oca is a 76-year-old gentleman with history of lymphocytosis. 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 At that time the lymphocytosis reached about 20,000 but subsequently decreased spontaneously. CT scan of chest/abdomen/pelvis done at that time shows mild lymph nodes above and below diaphragm but they were too small to biopsy. As per patient he was followed by his PMD and oncologist at the [facility] and on 11/07/2015 he underwent bone marrow biopsy which was nondiagnostic for B-cell lymphoma, flow cytometry done on 11/07/2015 showed no clonal process. He was also diagnosed with hepatic cirrhosis and splenomegaly. Mr Montes De Oca said he didn't have any specific issues until recently. He started having back pain for which he was referred to Dr. Leyva at a local pain clinic. A CT scan of chest abdomen pelvis was obtained on 08/09/2019 which was compared with CT scan from 11/06/2016, October 2015 and April 2015. And it showed stable appearance of mediastinal and hilar and axillary lymph nodes; Mild emphysema. The was interval development of bulky retroperitoneal and mesenteric lymphadenopathy, measuring about 4.3 cm, suspicious for primary cindy malignancy versus metastatic disease versus reactive; Extensive diverticulosis of descending and sigmoid colon; Cirrhosis, ascites, splenomegaly. Degenerative changes of spine, no fractures were reported. On 08/10/2019, Mr Montes De Oca went to see a [place] medical oncologist, Dr. Chato Beasley in [place] and as per his recommendations- due to thepatient's history of low-grade lymphoma and (it was not clear whether symptoms are attributed to adenopathy/low-grade lymphoma or other process, cirrhosis) a PET/CT scan and lymph node biopsy and consider bone marrow biopsy. As far as mild neutropenia was concerned it was probably due to cirrhosis/portal hypertension and recommended to continue with intake nurse. Mr Montes De Oca denied any night sweats, denies any fever or weight loss. Denies any lower extremity numbness or weakness denies any urine or stool incontinence.No melena hematochezia, no nosebleed, no jaundice. But abdominal fullness due to ascites. He was referred to interventional radiology for ultrasound-guided paracentesis patient underwent sonogram on 09/20/2019 which showed some mild amount of ascites visualized in 4 abdominal quadrant, inadequate fluid for paracentesis at that time. He underwent follow-up CT PET scan on 11/06/2019 which showed FDG positive lymphadenopathy from the level of head and neck to the level of pelvis. No evidence of splenic or marrow or extranodal involvement on February 05, 2020 patient developed difficulty in swallowing and dysphagia and went to emergency room where he underwent CT scan of the neck which showed heterogeneous enhancing mass extending from posterior left aspect of tongue base to the adjacent oropharyngeal mucosa measuring 3.1 x 2.6 cm and also there was a enlarged level 3 and level 7 lymph nodes on the left, 3.3 x 2.0 cm size., Patient was transferred to [place] where he was diagnosed with oropharyngeal abscess he was drained and treated with IV antibiotic subsequently discharged home on oral antibiotic h/o chronic lower back pain for which he has been to pain clinic where as per patient, he was given 'injection' about 4 months ago with some help but still having mid to lower back pain and sometimes problem and walking Mr Montes De Oca underwent MRI of the spine on 05/30/2020 and discussed the findings which showed moderately enlarged spleen with a maximum length 17 cm, retroperitoneal lymphadenopathy index lymph node is 6 x 3 x 4 cm inferior medial to the right kidney bulky partially visualized left thoracic and left lymph nodes measuring 2.9 cm, no evidence of bone mets, moderate central canal stenosis L4-5 with shallow central disc protrusion and impingement traversing L5 nerve roots immediately. Moderate right L4-5 foraminal narrowing. Shallow central protrusion T7-8 with slight effacement of ventral thecal sac and slight contacting of the thoracic cord. No significant central canal stenosis. discussed with Mr Montes De Oca further treatment options. Because of progressive back pain which could be due to bulky retroperitoneal lymphadenopathy and his splenomegaly could be due to portal hypertension due to cirrhosis of the liver or lymphomatous infiltration with low-grade lymphoma and now causing persistent progressive bicytopenia. was recommended that Mr Montes De Oca consider trial of Rituxan 375 mg/m??? weekly x4-6 and then monitor his blood counts as well as central lymphadenopathy, there is a possibility with improvement in central lymphadenopathy his back pain may improve if not then will consult orthopedic for spine evaluation and if bicytopenia persist then it could be due to splenic sequestration or considering his age underlying myelodysplasia, will consider bone marrow evaluation. Mr Montes De Oca has elected to try the Ritxuan and began his first week treatment on 06/21/2020, Till July 12, 2020. Follow-up CT scan of chest abdomen pelvis after 4 doses of weekly Rituxan done on July 19, 2020 showed persistent significant adenopathy throughout the chest abdomen pelvis as compared to CT PET scan done on November 06, 2019 in the retroperitoneum the lymph node have decreased by 5 mm in short axis. Also slight improvement in the left supraclavicular and cervical chain lymph nodes lymph nodes in the mediastinum and hilum are stable. Continued stable splenomegaly of 17 cm and cirrhotic liver Bone marrow evaluation done on October 19, 2020 showed mildly abnormal features including hypercellularity, erythroid predominance/hyperplasia, subtle dyspoietic features in the erythroid and megakaryocyte lineage, as well as increased storage iron, not entirely diagnostic, do raise the possibility of early/evolving MDS. FISH for MDS showed no abnormality, flow cytometry showed no overtly aberrant myeloid or lymphoid population. Follow-up CT scan of the chest abdomen pelvis done on February 07, 2021, showed no acute pulmonary disease, further regression in the size of thoracic lymph nodes, the left supraclavicular area lymph node measured 1.6 x 1 cm compared to 2.2 x 2.2 previously negative for axillary lymphadenopathy negative for mediastinal lymphadenopathy and there is a further regression of mediastinal lymph nodes compared to prior imaging, retroperitoneal lymphadenopathy is present although significantly decreased from seen on CT scan done in July 2020, normal to 2.9 x 2.1 compared to 4.5 x 4.1 cm previously. liver shows capsular surface of liver is mildly nodular and patient has moderate splenomegaly but stable no focal splenic mass seen Follow-up CT scan of chest abdomen pelvis done on August 14, 2021 showed interval significant progression of retroperitoneal lymphadenopathy since February 07, 2021, the largest cluster of lymph nodes in the right distal para-aortic location measuring 6.2 x 3.7 cm has significantly increased in size since prior study and there are numerous retroperitoneal lymph nodes which have increased in size. Lymph nodes within the chest including axilla mediastinum and hilum also increase in size of the largest at the right hilum still only 10 mm. Moderate diffuse ascites is new. New small bilateral pleural effusion. Cirrhosis. Mild progressive enlargement of spleen. 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, bilirubin gone up to 3 on August 14, 2021 and hemoglobin dropped to 10.9 g from 14.7 in January 2021, he was started on high-dose prednisone 1 mg/kg for 5 days, follow-up lab work-up showed bilirubin gone down to 1.7 and hemoglobin improved to 11.7 g on August 23, 2021. Echocardiogram was ordered to assess cardiac status as patient was having bilateral lower extremity edema and ascites there was a concern regarding congestive heart failure but it was a technically difficult study so it was not performed so MUGA scan was ordered. Venous Doppler study of lower extremities done on August 17, 2021 showed no evidence of Patient presents today for follow-up. He is not feeling well. He was weak. His ascites is increased. He has been unable to void since yesterday and then he only voided a small amount. He is feeling a lot of pressure in his abdomen and suprapubic area. He denies fever, chills. He is somewhat short of breath when speaking. No cough or chest pain. He states his diarrhea has resolved. His last stool was yesterday. He has received Neupogen x2 days and is due for his third Neupogen today. Review Of Symptoms:Review of Systems is not available for this patient. Past Medical History: Bipolar disorder Bph Chronic obstructive pulmonary disease Depression Generalized anxiety disorder Gout Hyperlipidemia Hypertension Ptsd Sleep apnea Past Surgical History: Cataract excision Allergies: Cortisone Acetate, darvon, and quiNINE Sulfate. Medications: Allopurinol 1 Tablet (of 100 mg) Oral b.i.d. Ativan 1 Tablet (of 2 mg) Oral b.i.d. Cetirizine HCl 1 Tablet (of 10 mg) Oral daily Flonase 1 (50 mcg/act) Suspension Nasal PRN HYDROcodone-Acetaminophen (5-325 mg) Tablet Oral Take as Directed ProAir HFA 1 Inhalation (of 108 (90 base) mcg/act) Aerosol, solution Inhalation PRN Tamsulosin HCl 1 Capsule (of 0.4 mg) Oral daily Zofran (8 mg) Tablet Oral Take as Directed Family History: Mr. Montes De Oca's mother at age 78: type II diabetes. Mr. Montes De Oca's father at age 84: lung cancer. Mr. Montes De Oca has 1 sister who is : cancer of unknown primary. Social History: Mr. Montes De Oca is and he is retired. Mr. Montes De Oca quit smoking 19 years ago but had smoked for 44 years. He has no history of drinking. Mr. Montes De Oca reports the following support systems: lives with spouse, significant other, family, or friends, supportive family/friends willing to assist with needs, and adequate transportation available for expected visits. His diet consists of regular meals. He indicates his activity level as: regular exercise. Patient states stopped chewing tobacco. Physical Examination: Performed on Sep 07, 2021 08:26: Height - 72.00 in, Temperature - 99.6 F (HIGH), Pulse - 98 /min, Respiration - 20 /min, BP - 126/73 mm(hg), O2 Sat - 97 %, Pain - 7, and Fatigue - 8. Performance Status: 2 - Ambulatory/capable of all self-care, unable to perform any work activities. Up and about more than 50% of waking hours. (ECOG) Constitutional Alert, cooperative, oriented. Mood and affect appropriate. Appears close to chronological age. Well nourished. Well developed. Head Normocephalic; no scars. Eyes conjuctivae appears mildly yellow Respiratory Lungs are clear to auscultation without rhonchi or wheezing. Shortness of breath while speaking Cardiovascular Regular rate and rhythm of heart without murmurs, gallops or rubs. Abdomen Ascites. Abdomen firm. Bowel sounds positive. Extremities 3+ pitting edema Psychiatric Alert and oriented times three. Coherent speech. Verbalizes understanding of our discussions today. Laboratory: Test performed on Sep 07, 2021 08:15 WBC 0.4 10 3/uL RBC 2.95 10 6/uL HGB 9.5 g/dL HCT 27.9 % MCV 94.6 fl MCH 32.2 pg MCHC 34.1 g/dL RDW 17.6 % Platelet Count 33 10 3/cmm MPV 11.4 fL Neutrophils 0.14 10 3/uL Lymphocytes 0.1 10 3/uL Monocytes 0.2 10 3/uL Eosinophils 0.0 10 3/uL Basophils 0.0 10 3/uL Neutrophil % 33.3 % Lymphocyte % 23.8 % Monocyte % 35.7 % Eosinophil % 2.4 % Basophils % 0.0 % NRBC % 0 % CBC Slide Review Slide Review Perform SLIDE REVIEW AGREES WITH AUTOMATED RESULTS ST Test performed on Sep 05, 2021 12:50 LDH (Total) 453 U/L Sodium 135 mmol/L Uric Acid 6.7 mg/dL Potassium 3.4 mmol/L Chloride 102 mmol/L CO2 24 mmol/L Anion Gap 12.4 BUN 27 mg/dL Creatinine 0.7 mg/dL Cr Clearance (Est) 134.7800 mL/min Glucose 114 mg/dL Osmolality - Calculated 286 mOsm/kg Calcium 9.2 mg/dL Protein, Total 5.0 g/dL Albumin 2.9 g/dL Globulin 2.1 g/dL Bilirubin, Total 2.1 mg/dL ALT (SGPT) 40 U/L AST (SGOT) 35 U/L Alkaline Phosphatase 110 IU/L Impression: History of low-grade, follicular lymphoma, CD 10 and CD19 positive diagnosed in 2004, recently done CT scan of chest abdomen pelvis, when compared with CT scan from October 2016 showed stable, small mediastinal lymphadenopathy, hilar and axillary lymphadenopathy. But progressive/bulky retroperitoneal and mesenteric lymphadenopathy increased from 2017, one of the largest measuring 4.3 cm chain. Degenerative changes of spine no fracture seen. Hepatic cirrhosis/splenomegaly/ascites Mild thrombocytopenia CBC done on 08/09/2002 shows white blood count 6.1 hemoglobin 14.9 crit 44.3 platelets 90,000 lymphocytes 47.9% neutrophil 38.2%. Chronic back pain, etiology unclear degenerative joint disease versus pressure due to retroperitoneal lymphadenopathy. MRI scan spine findings which was done on May 30, 2020 and showed moderately enlarged spleen with a maximum length 17 cm, retroperitoneal lymphadenopathy index lymph node is 6 x 3 x 4 cm inferior medial to the right kidney bulky partially visualized left thoracic and left lymph nodes measuring 2.9 cm, no evidence of bone mets, moderate central canal stenosis L4-5 with shallow central disc protrusion and impingement traversing L5 nerve roots immediately. Moderate right L4-5 foraminal narrowing. Shallow central protrusion T7-8 with slight effacement of ventral thecal sac and slight contacting of the thoracic cord. No significant central canal stenosis. discussed with Mr Montes De Oca further treatment options. Because of progressive back pain which could be due to bulky retroperitoneal lymphadenopathy and his splenomegaly could be due to portal hypertension due to cirrhosis of the liver or lymphomatous infiltration with low-grade lymphoma and now causing persistent progressive bicytopenia. recommended that Mr Montes De Oca consider trial of Rituxan 375 mg/m??? weekly x4-6 and then monitor his blood counts as well as central lymphadenopathy, there is a possibility with improvement in central lymphadenopathy his back pain may improve if not then will consult orthopedic for spine evaluation and if bicytopenia persist then it could be due to splenic sequestration or considering his age underlying myelodysplasia, will consider bone marrow evaluation. Mr Montes De Oca started his first of four weeks of Rituxan on . Follow-up CT scan of chest abdomen pelvis done after 4 doses of weekly Rituxan on July 19, 2020 showed persistent significant adenopathy throughout the chest abdomen pelvis compared to CT PET scan done on November 06, 2019 there is a minimal change. And retroperitoneal lymph node have decreased by 5 mm now measuring 4.3 cm also slight improvement in left supraclavicular and cervical chain lymph nodes and stable mediastinal and hilar lymph nodes. Continued stable splenomegaly of 17 cm length. Cirrhotic liver MRI scan of spine done on May 30, 2020 showed retroperitoneal lymph node was 6 x 3.4 cm and as mentioned above the largest lymph node is 4.3 cm which means there is a significant response ? Bone marrow evaluation done on October 19, 2020 showed mildly abnormal features including hypercellularity, erythroid predominance/hyperplasia, subtle dyspoietic features in the erythroid and megakaryocyte lineage as well as increased storage iron, future not entirely diagnostic but do raise possibility of early/evolving MDS, FISH for MDS panel was unremarkable, flow cytometry showed no aberrant myeloid or lymphoid population. Plan: Labs were reviewed with patient. He continues to be severely neutropenic after 2 doses of Neupogen over past 2 days. His WBC is 0.4 his platelets are 33, and his ANC is 0.14. His ascites has become progressively worse and his edema in his bilateral lower extremities has also increased. He appears more short of breath today than he did 2 days ago. His diarrhea has resolved with last bout of diarrhea diarrhea yesterday. He has not voided since yesterday and then it was a small amount. He has suprapubic tenderness. He is currently taking Levaquin and Augmentin. Due to his change in status we will transport him to the ER for further evaluation and possible paracentesis. Signed By: Ashlie Pedro N.Zoila. <<Signature on File>>
== END 2021-09-13 23:59 | disposition home or self-care (01) ==
LOC: ONCMED 06:44
PROVIDERS: PCP Nurse Practitioner; Visit Provider Nurse Practitioner Family
DX: C82.08 Follicular lymphoma grade I, lymph nodes of multiple sites (principal); M47.895 Other spondylosis, thoracolumbar region; K74.60 Unspecified cirrhosis of liver; R16.1 Splenomegaly, not elsewhere classified; R18.8 Other ascites; D69.6 Thrombocytopenia, unspecified; M54.89 Other dorsalgia; G89.29 Other chronic pain; R60.0 Localized edema; Z79.899 Other long term (current) drug therapy
CPT/HCPCS: 36591; 85025; 96372; 99214; 99215; J1442

== ENCOUNTER 2021-09-07 08:49 | Inpatient (IN) | payer OTHER, MEDICARE, SELFPAY ==
[2021-09-07] VITALS (10 sets, daily range): BP systolic 110–154; BP diastolic 58–87; PULSE 84–110; RESP 14–20; TEMP 36.8–37.5; O2SAT 93–98; BMI 32.0
--- NOTE | 2021-09-07 09:19 | ED_ITS ---
HPI - General Adult General: Chief complaint: General Medical Stated complaint: cant void Time Seen by Provider: 09/07/21 08:58 History of Present Illness: 76-year-old male with a pre-existing history of of liver disease as well as currently being treated for lymphoma first chemotherapy treatment was in the past 1 week. Patient presents to the ER department with concerns of abdominal distention. Patient already has a paracentesis that was done about a month ago. He reports unable to void or urinate at this time. He reports no pre-existing history of any prostate problems. He reports a sensation of a full bladder. Patient reports no recent infections or illnesses reporting no other associated symptoms. He does not recall any prior history of any kidney issues. On the patient's chart however patient is on tamsulosin that I have suspicions of he may have some benign prostatic hypertrophy. Patient presents to the ER for further assessment and management. Associated symptoms: Reports nausea; Deny chest pain, dyspnea, headache(s), malaise, rash, palpitations or vomiting Review of Systems General: Reports: 10 or more systems reviewed and unremarkable except in HPI and below Const: Denies: fever(s), chills, fatigue or malaise Eyes: Denies: change in vision or blurry vision Card: Denies: chest pain or palpitations Resp: Denies: dyspnea or productive cough GI: Reports: abdominal pain and nausea; Denies: vomiting : Reports: difficulty urinating and urinary hesitancy; Denies: flank pain Musc: Denies: extremity pain or extremity swelling Skin/Breast: Denies: rash or pruritus Neuro: Denies: headache(s) Psych: Denies: anxiety or depression Willie/Lymph: Denies: easy bleeding All/Imm: Denies: urticaria, throat swelling or facial swelling PFSH ED PFSH: Medical History BPH loc w urin obs/LUTS History of melanoma History of nonmelanoma skin cancer Hypertension Lymphoma Microscopic hematuria PTSD (post-traumatic stress disorder) Surgical History History of vasectomy Family History Sister Diabetes Sister Diabetes Mother , IN HER 80'S Diabetes Natural Father , AT 86 Cancer Social History Smoking and tobacco status: never smoked Alcohol intake: never Marital status: Current occupational status: employed, retired and disabled 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 History of recent travel: No Physical Exam Narrative: EXAM NARRATIVE: Patient has a very flat affect on exam is nontoxic afebrile Const: COMMON NORMALS: no acute distress, patient oriented x3 and healthy appearing HENMT: COMMON NORMALS: normocephalic and atraumatic HEAD & SCALP: normocephalic and atraumatic Eye: COMMON NORMALS: Equal, round and reactive pupils present and EOMs intact bilaterally PUPIL: Yes Equal, round and reactive pupils present Neck/C-Spine: COMMON NORMALS: full ROM, supple and no JVD Lymph: LYMPHATIC: no lymphadenopathy noted Chest: COMMONS NORMALS: normal inspection of the chest and normal palpation of entire chest wall Resp: COMMON NORMALS: normal respiratory effort, No retractions and clear to auscultation bilaterally EFFORT & INSPECTION: Yes able to speak in complete sentences and Yes symmetric chest movement AUSCULTATION: clear to auscultation bilaterally Cardio: COMMON NORMALS: no JVD, regular rate and regular rhythm RATE: regular rate RHYTHM: regular rhythm GI: COMMON NORMALS: Soft to palpation; negative for Normal to inspection, nondistended, normoactive bowel sounds present and negative for non-tender (Moderate tenderness noted diffusely with obvious ascites) INSPECTION: Yes normal to inspection, Yes abdominal dis tension and No scar PALPATION: Yes Soft to palpation, Yes Firmness to pal pation present (GI), Yes Hepatosplenomegaly present, Yes Ascites present and Yes Other GI palpation findings present (Significant ascites appreciated to the abdominal wall with much firmness no) : COMMON NORMALS: Yes no CVA tenderness BLADDER/KIDNEY EXAM: Yes no CVA tenderness Back/Pelvis: COMMON NORMALS: no CVA tenderness Extremity: COMMON NORMALS: normal to inspection and full ROM Neuro: COMMON NORMALS: patient oriented x3, CN's II-XII intact bilaterally, moves all extremities and no focal motor deficits Psych: COMMON NORMALS: mental status grossly normal, Normal thought process present, cooperative and normal affect THOUGHT PROCESS: Normal thought process present Skin: COMMON NORMALS: no rashes or lesions noted GENERAL SKIN EXAM: no rashes or lesions noted Course Vital Signs: Vital signs: Vital Signs Temperature 98.3 F 09/07/21 09:21 Pulse Rate 97 09/07/21 12:47 Respiratory Rate 18 09/07/21 12:47 Blood Pressure 150/71 09/07/21 12:47 Pulse Oximetry 95 09/07/21 12:47 MDM - General Adult Medical Decision Making Due to the patient's symptoms condition IV was established lab work and imaging was obtained patient is found to have a significant med of ascites noted to the intra-abdominal area he has had a paracentesis done on which 6 L of fluid was drawn off by interventional radiology. Patient and reports has had 2 doses of Neupogen since his chemotherapy he was provided about a week ago. On patient's resulted lab work lactic acid was negative CT does reveal 6 significant mount of ascites no other acute process he did have a white blood cell count of 0.4 as well as his neutrophils manual deficit 100. Underlying concerns of neutropenia due to neutrophilic infection are prominent due to this I attempted to contact the oncologist is unavailable at this time I believe that this may still the best interest of the patient admit the patient I did speak to the hospitalist about this is that has granted acceptance. The patient will be started on broad-spectrum antibiotics for infection prophylaxis.. With anticipation upon improving his platelet count and white blood cell count prior to repeat paracentesis. Patient family were updated which are agreeable to admission at this time. Lab Data : 09/07/21 09:17 09/07/21 09:17 Radiology Impressions Abdomen/Pelvis CT 09/07/21 09:22 Impression: 1. Large amount of ascites throughout the abdomen. 2. Cirrhosis of liver with splenomegaly. 3. Extensive retroperitoneal lymphadenopathy unchanged. Chest X-Ray 09/07/21 10:04 Impression: Atherosclerosis. Laboratory Results WBC 0.4 10^3/uL (4.0-10.0) L* 09/07/21 09:17 RBC 2.89 10^6/uL (4.1-5.3) L 09/07/21 09:17 Hgb 9.4 g/dL (11.7-16.6) L 09/07/21 09:17 Hct 27.3 % (42.0-52.0) L 09/07/21 09:17 MCV 94.5 fl (80-94) H 09/07/21 09:17 MCH 32.5 pg (28.0-34.0) 09/07/21 09:17 MCHC 34.4 g/dL (30.0-36.0) 09/07/21 09:17 RDW 17.5 % (12.1-15.1) H 09/07/21 09:17 Plt Count 32 10^3/cmm (130-400) L 09/07/21 09:17 MPV 12.7 fL (7.4-10.4) H 09/07/21 09:17 Neut % (Auto) Physician Relations Specialist 09/07/21 09:17 Lymph % (Auto) Physician Relations Specialist 09/07/21 09:17 [place] % (Auto) Physician Relations Specialist 09/07/21 09:17 Eos % (Auto) Physician Relations Specialist 09/07/21 09:17 Baso % (Auto) Physician Relations Specialist 09/07/21 09:17 Neut # (Auto) Physician Relations Specialist 09/07/21 09:17 Lymph # (Auto) Physician Relations Specialist 09/07/21 09:17 [place] # (Auto) Physician Relations Specialist 09/07/21 09:17 Eos # (Auto) Physician Relations Specialist 09/07/21 09:17 Baso # (Auto) Physician Relations Specialist 09/07/21 09:17 Nucleated RBC % (auto) Physician Relations Specialist 09/07/21 09:17 Total Counted 100 (0-100) 09/07/21 09:17 Total Counted Cancelled 09/07/21 09:17 Atypical Lymphs % 0.0 % (0-5) 09/07/21 09:17 Atypical Lymphs % Cancelled 09/07/21 09:17 Absolute Neutrophils 0.2 10^3/cmm (1.4-6.5) L* 09/07/21 09:17 Absolute Neutrophils Cancelled 09/07/21 09:17 Segmented Neutrophils 26 % 09/07/21 09:17 Segmented Neutrophils Cancelled 09/07/21 09:17 Abs Segm Neuts (Man) 0.1 10/cmm (1.6-7.1) L 09/07/21 09:17 Abs Segm Neuts (Man) Cancelled 09/07/21 09:17 Band Neutrophils 18.0 % 09/07/21 09:17 Band Neutrophils Cancelled 09/07/21 09:17 Abs Band Neuts (Man) 0.1 10^3/cmm (0.0-1.2) 09/07/21 09:17 Abs Band Neuts (Man) Cancelled 09/07/21 09:17 Absolute Lymphocytes 0.1 10^3/cmm (1.2-3.4) L 09/07/21 09:17 Absolute Lymphocytes Cancelled 09/07/21 09:17 Lymphocytes (Manual) 24 % 09/07/21 09:17 Lymphocytes (Manual) Cancelled 09/07/21 09:17 Monocytes (Manual) 30.0 % 09/07/21 09:17 Monocytes (Manual) Cancelled 09/07/21 09:17 Absolute Monocytes 0.1 10^3/cmm (0.1-0.6) 09/07/21 09:17 Absolute Monocytes Cancelled 09/07/21 09:17 Eosinophils (Manual) 2 % 09/07/21 09:17 Eosinophils (Manual) Cancelled 09/07/21 09:17 Absolute Eosinophils 0.0 10^3/cmm (0.0-0.7) 09/07/21 09:17 Absolute Eosinophils Cancelled 09/07/21 09:17 Basophils (Manual) 0.0 % 09/07/21 09:17 Basophils (Manual) Cancelled 09/07/21 09:17 Absolute Basophils 0.0 10^3/cmm (0.0-0.2) 09/07/21 09:17 Absolute Basophils Cancelled 09/07/21 09:17 Metamyelocytes Cancelled 09/07/21 09:17 Myelocytes Cancelled 09/07/21 09:17 Promyelocytes Cancelled 09/07/21 09:17 Nucleated RBCs Cancelled 09/07/21 09:17 Nucleated RBCs # Physician Relations Specialist 09/07/21 09:17 Pathologist Review Cancelled 09/07/21 09:17 Hypersegmented Polys Cancelled 09/07/21 09:17 Blast Cells Cancelled 09/07/21 09:17 Smudge Cells Cancelled 09/07/21 09:17 Toxic Granulation Cancelled 09/07/21 09:17 Toxic Vacuolation Cancelled 09/07/21 09:17 Dohle Bodies Cancelled 09/07/21 09:17 Elza Rods Cancelled 09/07/21 09:17 Platelet Estimate Cancelled 09/07/21 09:17 Platelet Estimate Decreased (Normal) 09/07/21 09:17 Giant Platelets Cancelled 09/07/21 09:17 Giant Platelets Trace 09/07/21 09:17 Polychromasia Cancelled 09/07/21 09:17 Hypochromasia Cancelled 09/07/21 09:17 Poikilocytosis Cancelled 09/07/21 09:17 Basophilic Stippling Cancelled 09/07/21 09:17 Anisocytosis Cancelled 09/07/21 09:17 Microcytosis Cancelled 09/07/21 09:17 Macrocytosis Cancelled 09/07/21 09:17 Spherocytes Cancelled 09/07/21 09:17 Sickle Cells Cancelled 09/07/21 09:17 Target Cells Cancelled 09/07/21 09:17 Tear Drop Cells Cancelled 09/07/21 09:17 Ovalocytes Cancelled 09/07/21 09:17 Stomatocytes Cancelled 09/07/21 09:17 Helmet Cells Cancelled 09/07/21 09:17 [place] Bodies Cancelled 09/07/21 09:17 Pham Cells Cancelled 09/07/21 09:17 Crenated Cell Cancelled 09/07/21 09:17 Acanthocytes (Spur) Cancelled 09/07/21 09:17 Rouleaux Cancelled 09/07/21 09:17 Schistocytes Cancelled 09/07/21 09:17 RBC Morph Comment Cancelled 09/07/21 09:17 Sodium 135 mmol/L (136-145) L 09/07/21 09:17 Potassium 3.2 mmol/L (3.5-5.1) L 09/07/21 09:17 Chloride 103 mmol/L (98-107) 09/07/21 09:17 Carbon Dioxide 23 mmol/L (22-29) 09/07/21 09:17 Anion Gap 12.2 (5-19) 09/07/21 09:17 BUN 18 mg/dL (8-23) 09/07/21 09:17 Creatinine 0.7 mg/dL (0.7-1.2) 09/07/21 09:17 GFR Calculation Not Reportable 09/07/21 09:17 Glucose 122 mg/dL (65-115) H 09/07/21 09:17 Calculated Osmolality 283 mOsm/kg (285-295) L 09/07/21 09:17 Lactate 1.8 mmol/L (0.5-2.2) 09/07/21 09:17 Calcium 8.6 mg/dL (8.5-10.5) 09/07/21 09:17 Total Bilirubin 2.3 mg/dL (0.15-1.2) H 09/07/21 09:17 AST 25 U/L (0-40) 09/07/21 09:17 ALT 31 U/L (0-41) 09/07/21 09:17 Alkaline Phosphatase 120 IU/L (40-130) 09/07/21 09:17 C-Reactive Protein 52.6 mg/L (0.0-4.9) H 09/07/21 09:17 Total Protein 4.8 g/dL (6.6-8.7) L 09/07/21 09:17 Albumin 2.9 g/dL (3.5-5.2) L 09/07/21 09:17 Globulin 1.9 g/dL (1.3-4.6) 09/07/21 09:17 Lipase 23 U/L (13-60) 09/07/21 09:17 Urine Color Yellow (Yellow) 09/07/21 09:39 Urine Appearance Clear (CLEAR) 09/07/21 09:39 Urine pH 6 (5-7) 09/07/21 09:39 Ur Specific [place] 1.025 (1.005-1.030) 09/07/21 09:39 Urine Protein Neg (Negative) 09/07/21 09:39 Urine Glucose (UA) Norm (Normal) 09/07/21 09:39 Urine Ketones Negative (Negative) 09/07/21 09:39 Urine Blood Neg (Negative) 09/07/21 09:39 Urine Nitrate Negative (Negative) 09/07/21 09:39 Urine Bilirubin 1+ (Negative) H 09/07/21 09:39 Urine Urobilinogen 4 mg/dL (Negative) H 09/07/21 09:39 Ur Leukocyte Esterase Negative (Negative) 09/07/21 09:39 Discharge Plan Discharge Patient Disposition: Admitted As Inpatient Clinical Impression: Abdominal ascites, Neutropenia, Chemotherapy induced neutropenia, Thrombocytopenia Condition: Stable Coding Level of Care Code ED Assorter for Chg Fwd Exam Comprehensive
--- NOTE | 2021-09-07 09:22 | CT_ITS ---
WS: [id number] CT scan of the abdomen and pelvis without Oral and with IV contrast. Additional two-dimensional coron al and sagittal reconstruction was performed. 09/07/2021 Clinical Data: abdominal pain with distension Comparison: CT chest abdomen pelvis, 08/14/2021. DLP: 1800.[address] scans at [facility] use at least one of these dose optimization techniques: automated e xposure control; mA and/or kV adjustment per patient size (includes targeted exams where dose is matc hed to clinical indication); or iterative reconstruction. Findings: The lower lungs show no nodules or masses, but there are small bilateral pleural effusions. The liver is small with surface irregularity consistent with cirrhosis. The spleen is enlarged. The g allbladder is distended and filled with fluid. The pancreas is not remarkable. The adrenal glands are normal. The kidneys show equal bilateral contrast excretion with bilateral cysts. No renal masses, h ydronephrosis or calculi are seen.. The abdominal aorta is normal in size is minimal calcification in the wall.. No appendicitis or diverticulitis is seen. The stomach, small bowel and colon show only numerous desc ending colon and sigmoid diverticula. There is a huge amount of ascites throughout the abdomen. There is retroperitoneal lymphadenopathy unchanged. The bladder has a Villa catheter with air from the catheter in the bladder. Bladder wall is thickened . No inguinal hernia is seen. The bones of the lower thorax, lumbar spine, pelvis, and hips demonstrate no metastatic disease. Beard chadd there is osteoarthritis of the lumbar vertebral bodies with a compression fracture of L5.. CT/CT abdomen pelvis w con* [id number] Impression: 1. Large amount of ascites throughout the abdomen. 2. Cirrhosis of liver with splenomegaly. 3. Extensive retroperitoneal lymphadenopathy unchanged.
[2021-09-07 09:37] LABS: Hematocrit 27.3 % (42.0-52.0); Hemoglobin 9.4 g/dL (11.7-16.6); Mean Corpuscular HGB Conc 34.4 g/dL (30.0-36.0); Mean Corpuscular Hemoglobin 32.5 pg (28.0-34.0); Mean Corpuscular Volume 94.5 fl (80-94); Mean Platelet Volume 12.7 fL (7.4-10.4); Platelet Count 32 10^3/cmm (130-400); Red Blood Count 2.89 10^6/uL (4.1-5.3); Red Cell Distribution Width 17.5 % (12.1-15.1)
[2021-09-07 09:41] LABS: Add Urine Microscopic? NO; Charge for UA Resulting for Rev
[2021-09-07 09:48] LABS: Bilirubin Urine 1+ (Negative); Blood Urine Neg (Negative); Glucose Urine UA Norm (Normal); Ketones Urine Negative (Negative); Leukocyte Esterase Urine Negative (Negative); Nitrate Urine Negative (Negative); Protein Urine Neg (Negative); Specific Gravity, Urine 1.025 (1.005-1.030); Urine Appearance Clear (CLEAR); Urine Color Yellow (Yellow); Urobilinogen Urine 4 mg/dL (Negative); pH Urine 6 (5-7)
[2021-09-07] MEDS: sodium chloride 0.9% 500 ML IV (09:50)
[2021-09-07 09:53] LABS: Lactate (Lactic Acid level) 1.8 mmol/L (0.5-2.2)
[2021-09-07 09:55] LABS: Alanine Aminotransferase 31 U/L (0-41); Albumin Level 2.9 g/dL (3.5-5.2); Alkaline Phosphatase 120 IU/L (40-130); Anion Gap 12.2 (5-19); Aspartate Amino Transferase 25 U/L (0-40); Blood Urea Nitrogen 18 mg/dL (8-23); C Reactive Protein 52.6 mg/L (0.0-4.9); Calcium 8.6 mg/dL (8.5-10.5); Carbon Dioxide 23 mmol/L (22-29); Chloride 103 mmol/L (98-107); Globulin 1.9 g/dL (1.3-4.6); Glucose 122 mg/dL (65-115); Lipase 23 U/L (13-60); Osmolality Calculated 283 mOsm/kg (285-295); Potassium 3.2 mmol/L (3.5-5.1); Sodium 135 mmol/L (136-145); Total Bilirubin 2.3 mg/dL (0.15-1.2); Total Protein 4.8 g/dL (6.6-8.7)
--- NOTE | 2021-09-07 10:04 | XR_ITS ---
WS: [id number] Portable AP upright chest, 09/07/2021 Clinical Data: shortness of breath Comparison: Portable chest, 08/28/2021. Findings: No nodules, masses or effusions are seen. The heart is normal. The pulmonary vascularity is not increased. The aortic arch and descending thoracic aorta are minimally tortuous. No pneumonia or pneumothorax is seen. There is an infusion catheter with the injection site in the right axilla and the tip ending in the superior vena cava. XR/XR chest 1V portable [id number] Impression: Atherosclerosis.
[2021-09-07 10:08] LABS: Slide Review Slide Review Perform
[2021-09-07 10:11] LABS: White Blood Count 0.4 10^3/uL (4.0-10.0)
--- NOTE | 2021-09-07 10:46 | PC.PHAR ---
pts verified pts medication-pts states the pt hasnt taken his memantine 5mg bid for a couple weeks-iron 325mg daily is on the pts [facility] med [facility] pts states the pt is not taking-pts va med list has flomax 0.4mg bid pts states the pt just takes 0.4mg qam-
[2021-09-07] MEDS: iohexol 300 mg/mL 100 mL Btl IV (10:54)
[2021-09-07 11:22] LABS: Absolute Neutrophil 0.2 10^3/cmm (1.4-6.5); Absolute Segmented Neutrophil 0.1 10/cmm (1.6-7.1); Band Neutrophils Absolute 0.1 10^3/cmm (0.0-1.2); Eosinophils 2 %; Giant Platelets Trace; Lymphocytes 24 %; Lymphocytes Absolute 0.1 10^3/cmm (1.2-3.4); Monocytes Absolute 0.1 10^3/cmm (0.1-0.6); Platelet Estimate Decreased (Normal); Segmented Neutrophils 26 %; Total Cells Counted 100 (0-100)
[2021-09-07] MEDS: fentaNYL 50 mcg/mL INJ 2mL IVP (11:30)
[2021-09-07] MEDS: cefepime 1,000 MG in sodium chloride 0.9% (plus) 50 ML 100 MG IV (13:23)
[2021-09-07] MEDS: piperacillin-tazobactam 4.5 GM in sodium chloride 0.9% (plus) 50 ML IV (13:24)
[2021-09-07] MEDS: FUROsemide 10 mg/mL SDV 4mL 40 MG IVP ×2 (14:10→16:55)
[2021-09-07] MEDS: vancomycin 1,000 MG in sodium chloride 0.9% 250 ML 250 MG IV (14:16)
--- NOTE | 2021-09-07 14:47 | P.HP_ITS ---
Providers/Chief Complaint Primary Care Provider: RENE Rojas Chief Complaint: cant void History of Present Illness Pleasant 76-year-old gentleman with lymphoma, currently receiving chemotherapy, liver cirrhosis, had undergone paracentesis with 6 L removed on 08/24, BPH, tinea cruris which has recently been very bothersome, treated with ketoconazole, was referred to ER by on-call general surgeon when seen today due to again worsened edema, appearing more short of breath, as well as with suprapubic tenderness, and reported being unable to void since yesterday. In ER he is noted to have worsened pancytopenia, with severe neutropenia, absolute neutrophils 200. Also thrombocytopenia, platelets 32,000. He is afebrile, but with sinus tachycardia in the 90s. He had reportedly received Neupogen last 2 days, 480 mg, and was due for third dose today. Abdomen is distended, with noted large amount of ascites throughout the abdomen in CT abdomen pelvis, liver cirrhosis with splenomegaly noted. Extensive retroperitoneal lymphadenopathy. Chest x-ray of the chest with atherosclerosis. He denies abdominal pain or discomfort. Diarrhea has so far since resolved. Denies fever or chills at home. No nausea or vomiting. Denies painful swallowing. No shortness of breath or cough. Denies bleeding. Review of Systems Const: Reports: other (Weakness); Denies: fever(s), chills, body aches or malaise Eyes: Denies: change in vision or eye redness ENMT: Denies: throat pain, oral sores or ear or mastoid pain Card: Reports: edema; Denies: chest pain, pre-syncope or dyspnea on exertion Resp: Denies: dyspnea, productive cough, change in phlegm color or hemoptysis GI: Reports: diarrhea and bloating; Denies: nausea, vomiting, constipation, hematochezia or melena : Reports: difficulty urinating; Denies: flank pain, urinary frequency or hematuria Musc: Denies: back pain, joint swelling or joint redness Skin/Breast: Denies: rash, sores or new lesions Neuro: Denies: headache(s), numbness in extremities, weakness in extremities, dizziness, confusion or seizure-like activity Endo: Denies: polyuria or polydipsia Willie/Lymph: Denies: easy bleeding or purpura All/Imm: Denies: urticaria, throat swelling or tongue swelling Medications/Allergies Home Medications Medication Instructions Recorded Confirmed Last Taken Type cetirizine 10 mg capsule 10 mg PO DAILY PRN 08/05/19 09/07/21 08/27/21 History hydrochlorothiazide 25 mg tablet 25 mg PO DAILY 08/05/19 09/07/21 08/27/21 History lorazepam 2 mg tablet 2 mg PO BEDTIME 08/05/19 09/07/21 09/06/21 History omeprazole 20 mg capsule,delayed 20 mg PO DAILY PRN 08/05/19 09/07/21 08/27/21 History release albuterol sulfate 90 mcg/actuation 2 puff INHALATION QID PRN 09/20/19 09/07/21 08/27/21 History aerosol inhaler fluticasone propionate 50 2 spray INTRANASAL DAILY PRN 09/20/19 09/07/21 08/27/21 History mcg/actuation nasal spray,suspension (Flonase Allergy Relief) ibuprofen 800 mg tablet 800 mg PO TID PRN tab 01/13/20 09/07/21 08/27/21 History ketoconazole 2 % topical cream 1 applic TOPICAL BID #60 g 06/19/20 09/07/21 08/27/21 Rx iodine 150 mcg tablet 150 mcg PO QAM 08/06/21 09/07/21 09/07/21 History vit no.95-ferrous 1 tab PO QAM 08/06/21 09/07/21 09/07/21 History fumarate 28 mg-folic acid 800 mcg tablet () allopurinol 100 mg tablet 100 mg PO BID 08/23/21 09/07/21 08/27/21 History hydrocodone 5 mg-acetaminophen 325 1 tab PO Q6H PRN #14 tab 08/28/21 09/07/21 09/07/21 Rx mg tablet acetaminophen 500 mg tablet 1,000 mg PO Q6H PRN 09/07/21 09/07/21 09/06/21 Hist ory carboxymethylcellulose sodium 0.5 1 drp OPHTHALMIC (EYE) Q4H PRN 09/07/21 09/07/21 Unknown History % eye drops cholecalciferol (vitamin D3) 50 50 mcg PO DAILY 09/07/21 09/07/21 Unknown H istory mcg (2,000 unit) tablet (Vitamin D3) levofloxacin 500 mg tablet 500 mg PO DAILY 09/07/21 09/07/21 09/07/21 History memantine 5 mg tablet 5 mg PO BID 09/07/21 09/07/21 08/14/21 History prednisone 50 mg tablet See Rx Instructions .ROUTE .COMPLEX 09/07/21 09/07/21 09/02/21 History last dose tamsulosin 0.4 mg capsule 0.4 mg PO QAM 09/07/21 09/07/21 09/07/21 History vitamin B complex 1 tab PO DAILY 09/07/21 09/07/21 09/07/21 History Allergies Allergy/AdvReac Type Severity Reaction Status Date / Time cortisone Allergy ALGY-Rash Verified 09/06/21 14:27 PFSH Acute PFSH: Medical History (Updated 09/07/21 @ 17:11 by Abad Byrd MD) BPH loc w urin obs/LUTS History of melanoma History of nonmelanoma skin cancer Hypertension Liver cirrhosis Lymphoma Microscopic hematuria PTSD (post-traumatic stress disorder) Surgical History (Updated 09/07/21 @ 15:38 by Abad Byrd MD) History of throat surgery abscess drainage 2020 History of vasectomy Family History Sister Diabetes Sister Diabetes Mother , IN HER 80'S Diabetes Natural Father , AT 86 Cancer Social History Smoking and tobacco status: never smoked Alcohol intake: never Marital status: Current occupational 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: employed, retired and disabled 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 History of recent travel: No Vitals/I&O/Wt Last Vital Signs Temp 98.3 F 09/07/21 09:21 Pulse 97 09/07/21 14:30 Resp 17 09/07/21 14:30 BP 138/74 09/07/21 14:30 Pulse Ox 93 09/07/21 14:30 09/06/21 09/07/21 09/07/21 22:59 06:59 14:59 Intake Total 600 / 600 Balance 600 / 600 Weight last 48 hrs Weight 107.048 kg Physical Exam Narrative: at bedside Const: COMMON NORMALS: no acute distress and patient oriented x3 HENMT: COMMON NORMALS: oropharynx normal Neck/C-Spine: COMMON NORMALS: no JVD Resp: COMMON NORMALS: normal respiratory effort and clear to auscultation bi laterally AUSCULTATION: clear to auscultation bilaterally Cardio: COMMON NORMALS: no JVD, regular rhythm, S1 normal heart sound present, S2 normal heart sound present and No murmurs present (Cardio) RHYTHM: regular rhythm HEART SOUNDS: S1 normal heart sound present and S2 normal heart sound present GI: COMMON NORMALS: Soft to palpation and non-tender INSPECTION: Yes abdominal distension PALPATION: Yes Soft to palpation : OTHER: Bilateral groin, scrotum erythema, minimal erythema of distal glans Extremity: COMMON NORMALS: no joint enlargement GENERAL: Yes edema (3-4+) Neuro: COMMON NORMALS: patient oriented x3 and moves all extremities Skin: COMMON NORMALS: no rashes or lesions noted GENERAL SKIN EXAM: no rashes or lesions noted Urinary Catheter Management: Villa: Cath Placed During This Visit: yes Urinary Catheter Date of Insertion: 09/07/21 Urinary Catheter Time of Insertion: 09:36 Data : 09/07/21 09:17 09/07/21 09:17 A&P Assessment and plan (1) Weak: Generalized weakness with regards to large volume ascites, with paracentesis on 08/24. He is afebrile, but he is also severely neutropenic. And with weakness and with sinus tachycardia, heart rate in 100s, cannot exclude entirely infection. Will empirically cover with Cefepime, vancomycin. Collect blood cultures. Status: Acute (2) Neutropenia: Received Neupogen last 2 days. Confirm dose is 480 mg. Will give additional third dose today. With weakness, with large abdominal ascites, recent procedure will cover empirically with cefepime, vancomycin. Reassess blood counts. Neutropenic precautions. Status: Acute (3) Abdominal ascites: Would benefit from additional paracentesis, but also appears to have recurrent large volume ascites, previously 6 L were removed. History of cirrhosis. Will start on Lasix. He is on HCTZ at home. With recurrence of large volume ascites in case not responsive to diuresis would benefit from follow-up with hepatology, consideration of TIPS. Status: Acute (4) Chemotherapy induced neutropenia: As above Status: Acute (5) Thrombocytopenia: Platelet level 32,000. Hold off anticoagulation at this time. May need platelet transfusion for paracentesis in case platelet level not improving. Status: Acute (6) Liver cirrhosis: Status: Acute (7) Lymphoma: Status: Acute (8) BPH loc w urin obs/LUTS: Continue Flomax Status: Acute (9) Tinea cruris: Quite bothersome tinea cruris. Continue ketoconazole, will give Diflucan, with possible cellulitis is also empirically on vancomycin. Status: Acute Plan Diarrhea: so far resolved. Collect stool studies if additional episodes. Attestations Medical Necessity Statement*: Place in observation for assessment management of weakness with severe neutropenia, empiric antibiotic coverage with possible infection given symptoms, recent paracentesis procedure, recurrence of ascites, tinea cruris, possible cellulitis in gentleman with underlying pharmacotherapy, liver cirrhosis. Coding Level of Care Code Acute Rubber Flap Tuber Machine Operator for Chg Fwd Exam Comprehensive Diagnoses Abdominal ascites R18.8 Weak R53.1 Neutropenia D70.9 Chemotherapy induced neutropenia D70.1; T45.1X5A Thrombocytopenia D69.6 Liver cirrhosis K74.60 Lymphoma C85.90 BPH loc w urin obs/LUTS N40.1 Tinea cruris B35.6
[2021-09-07] MEDS: allopurinol 100 mg Tablet PO (17:03)
[2021-09-07] MEDS: memantine 5 mg tablet PO (17:03)
[2021-09-07] MEDS: ketoconazole Cream 15 gm 1 APPLIC TOPICAL (17:04)
[2021-09-07 17:05] LABS: Glucose Point of Care 106 mg/dL (70-110)
[2021-09-07] MEDS: vancomycin 1,500 MG/300 ML PIGGYBACK 200 MG IV (17:07)
--- NOTE | 2021-09-07 18:32 | PC.NURSE ---
Patient arrived to floor via stretcher and was not capable to assist in transfer. Patient not able to turn self in bed so on frequent turns per toleration. Patient has generalized edemitis throughout body with increasing pitting edema in BLE. Right port was accessed HIDE BUFFER, applied dressing to port upon arrival. at bedside, c/o being cold but no pain. WIll report to oncoming nurse at shift change. No needs at this time.
--- NOTE | 2021-09-07 19:31 | PC.NURSE ---
i reported high pulse 110 to nurse
[2021-09-07] MEDS: HYDROcodone-acetaminophen 5-325 mg Tablet 1 TAB PO (19:47)
[2021-09-07] MEDS: pantoprazole DR 40 mg Tablet PO (21:14)
[2021-09-07] MEDS: cefepime 2,000 MG in sodium chloride 0.9% (plus) 50 ML 100 MG IV (21:15)
[2021-09-07] MEDS: LORazepam 2 mg Tablet PO (21:15)
[2021-09-08] VITALS (8 sets, daily range): BP systolic 100–128; BP diastolic 52–73; PULSE 82–109; RESP 16–22; TEMP 36.7–37.7; O2SAT 91–95
--- NOTE | 2021-09-08 00:22 | PC.NURSE ---
i reported high pulse 106 to nurse
[2021-09-08] MEDS: vancomycin 1,500 MG/300 ML PIGGYBACK 200 MG IV ×2 (03:33→16:07)
[2021-09-08] MEDS: FUROsemide 10 mg/mL SDV 4mL 40 MG IVP (03:33)
[2021-09-08 03:52] LABS: Eosinophils % 2.2 %; Hematocrit 23.8 % (42.0-52.0); Hemoglobin 8.2 g/dL (11.7-16.6); Lymphocytes # 0.2 10^3/uL (0.8-4.8); Lymphocytes % 32.6 %; Mean Corpuscular HGB Conc 34.5 g/dL (30.0-36.0); Mean Platelet Volume 12.7 fL (7.4-10.4); Monocytes # 0.3 10^3/uL (0.2-0.9); Monocytes % 54.3 %; Neutrophils % 10.9 %; Nucleated Red Blood Cells % 0 %; Platelet Count 36 10^3/cmm (130-400); Red Blood Count 2.56 10^6/uL (4.1-5.3); Red Cell Distribution Width 17.2 % (12.1-15.1)
[2021-09-08 04:09] LABS: Anion Gap 13.9 (5-19); Blood Urea Nitrogen 18 mg/dL (8-23); Carbon Dioxide 24 mmol/L (22-29); Chloride 100 mmol/L (98-107); Creatinine Clr Calc Pharmacy 88.2758; Glucose 91 mg/dL (65-115); Osmolality Calculated 281 mOsm/kg (285-295); Sodium 135 mmol/L (136-145)
[2021-09-08 04:22] LABS: Potassium 2.9 mmol/L (3.5-5.1)
[2021-09-08 04:25] LABS: Neutrophils # 0.05 10^3/uL (1.8-7.7); Slide Review Slide Review Perform; White Blood Count 0.5 10^3/uL (4.0-10.0)
[2021-09-08] MEDS: potassium chloride ER 20 mEq Tablet 40 MEQ PO (05:06)
[2021-09-08] MEDS: tamsulosin 0.4 mg Capsule PO (05:06)
[2021-09-08] MEDS: cefepime 2,000 MG in sodium chloride 0.9% (plus) 50 ML 100 MG IV ×3 (05:06→20:43)
--- NOTE | 2021-09-08 05:33 | PC.NURSE ---
SHIFT SUMMARY Rested well. Is on Reverse isolation precautions due to low WBC/Neutrophil Ct. Both are still critical this am with labs. K+ was 2.9 and was given 40meq po KCL per Dr order. Receiving IV antibiotics as ordered. Abdomen is very large, distended and tenderness is present with palpation. Says he has been SOB with exertion. Villa with good urine output with 2100ml this shift. 800ml was after he received IV Lasix dose this am at 0400. Received po Hydrocodone X1 for c/o back pain
[2021-09-08] MEDS: allopurinol 100 mg Tablet PO ×2 (09:09→17:40)
[2021-09-08] MEDS: memantine 5 mg tablet PO ×2 (09:09→17:40)
[2021-09-08] MEDS: potassium chloride oral liq 20 mEq/15 mL UDC 40 MEQ PO (09:09)
[2021-09-08] MEDS: ketoconazole Cream 15 gm 1 APPLIC TOPICAL (09:11)
--- NOTE | 2021-09-08 11:55 | PC.CHAP ---
Pastoral Care Encounter/Spiritual Assessment Type of Contact [] Declined laundry operator visit [] Patient/Family/Request visit [] Outpatient visit [] Follow-up visit [] Physician referral [] Code/Alert [X] Routine visit [] Staff referral [] Actively dying [] Patient sleeping [] Family support [] [] Out of room [] Palliative care [] [] Receiving care in room [] Pre-surgical visit [] Trauma [] Long length of stay [] ICU visit [X] Other: isolation Relational/Emotional Strength [] Patient feels connected with others/family/visitors/staff [] Distress [] Loneliness/isolation [] Abandonment Spirituality of Patient [] Person of Libia [] Attends Scientology of their Libia [] Believes in Prayer [] Reads Bible or Druze materials [] There are Spiritual issues to be addressed Hand Spinner Interventions [] Prayer [] Active listening [] Non-anxious presence [] Spiritual/emotional support [] Crisis/trauma care [] Spiritual counseling [] Bereavement support [] Provided bereavement packet [] Provided Bible/devotional materials [] Provided toy/stuffed animal, coloring book to patient or family member [] Provided Communion [] Anointing/[place] [] Salvation [] Completed spiritual assessment [] Other: Impact on Illness or Injury [] Angry [] Fearful [] Anxious [] Often cries [] Exhaustion [] Unable to work [] Unable to attend christianity [] Unable to walk/stand [] Unable to read [] Unable to drive [] Unable to eat/drink [] Unable to sleep [] Unable to be with family [] Patient intubated [] Other: Summary Time spent with patient
[2021-09-08] MEDS: calcium carbonate 500 mg Chew Tablet PO (12:09)
--- NOTE | 2021-09-08 13:37 | P.PN_ITS ---
Subjective Subjective: States eating okay but bothered by heartburn. Upper abdominal discomfort. Request for Tums. No nausea or vomiting. No pain or swelling. He has been producing a good amount of urine. Abdomen is very slightly less distended. Vitals/I&O/Wt Last Vital Signs Temp 98.6 F 09/08/21 11:48 Pulse 82 09/08/21 11:48 Resp 18 09/08/21 11:48 BP 124/73 09/08/21 11:48 Pulse Ox 93 09/08/21 11:48 09/07/21 09/08/21 09/08/21 22:59 06:59 14:59 Intake Total 1160 / 1760 830 / 2590 170 / 170 Output Total 2750 / 2750 2100 / 4850 Balance -1590 / -990 -1270 / -2260 170 / 170 Weight last 48 hrs Weight 109.996 kg Weight 107.048 kg Physical Exam Narrative: at bedside Const: COMMON NORMALS: no acute distress and patient oriented x3 HENMT: COMMON NORMALS: oropharynx normal Neck/C-Spine: COMMON NORMALS: no JVD Resp: COMMON NORMALS: normal respiratory effort and clear to auscultation bilaterally AUSCULTATION: clear to auscultation bilaterally Cardio: COMMON NORMALS: no JVD, regular rhythm, S1 normal heart sound present, S2 normal heart sound present and No murmurs present (Cardio) RHYTHM: regular rhythm HEART SOUNDS: S1 normal heart sound present and S2 normal heart sound present GI: COMMON NORMALS: Soft to palpation and non-tender INSPECTION: Yes abdom inal distension PALPATION: Yes Soft to palpation : OTHER: Bilateral groin, scrotum erythema, minimal erythema of distal glans Extremity: COMMON NORMALS: no joint enlargement GENERAL: Yes edema (3-4+) Neuro: COMMON NORMALS: patient oriented x3 and moves all extremities Skin: COMMON NORMALS: no rashes or lesions noted GENERAL SKIN EXAM: no rashes or lesions noted Urinary Catheter Management: Villa: Cath Placed During This Visit: yes Reason for Continuing Indwelling Catheter: Acute Urinary Retention or Obstruction Urinary Catheter Date of Insertion: 09/07/21 Urinary Catheter Time of Insertion: 09:36 Data : 09/08/21 02:45 09/08/21 02:45 Micro: Microbiology 09/07/21 17:33 Blood Culture - Preliminary Blood SPECIMEN COLLECTED 09/07/21 17:31 Blood Culture - Preliminary Blood SPECIMEN COLLECTED A&P Assessment and plan (1) Weak: Continue empiric antibiotic coverage with possible infection difficult to exclude given severity of neutropenia. Large ascites, recent paracentesis. As well as severe tinea cruris, with possible superimposed cellulitis. Was also given Diflucan. Continue cefepime, vancomycin. Follow-up blood cultures. Status: Acute (2) Neutropenia: Without improvement in blood counts, worsening neutropenia, ANC down to 0.05. Discussed with him and his family regarding continuing Neupogen. With weakness, with large abdominal ascites, recent procedure will cover empirically with cefepime, vancomycin. Patient very bothersome tinea cruris. Cannot exclude superimposed cellulitis. She will be covered with above antibiotics, and was given Diflucan. Reassess blood counts. Neutropenic precautions. Status: Acute (3) Abdominal ascites: Patient responding well to Lasix. With good urine output. Continue diuresis. Remains stable benefit from additional paracentesis, but also appears to have recurrent large volume ascites, previously 6 L were removed. History of cirrhosis. He was only on on HCTZ at home. With recurrence of large volume ascites in case not responsive to diuresis needs an benefit from follow-up with hepatology with consideration of TIPS. Status: Acute (4) Chemotherapy induced neutropenia: As above Status: Acute (5) Thrombocytopenia: Platelet level slightly better at 36,000. Hold off anticoagulation at this time. May need platelet transfusion for paracentesis in case platelet level not improving. Status: Acute (6) Liver cirrhosis: Follow-up with hepatology Status: Acute (7) Lymphoma: Status: Acute (8) BPH loc w urin obs/LUTS: Continue Flomax Status: Acute (9) Tinea cruris: Quite bothersome tinea cruris. Continue ketoconazole, given Diflucan, with possible cellulitis is also empirically on vancomycin. Status: Acute Plan Diarrhea: so far resolved. Collect stool studies if additional episodes. Attestations Medical Necessity Statement*: Continue hospitalization for management of severe neutropenia, large recurrent ascites, empiric coverage with antibiotics for possible infection given symptoms of weakness, sinus tachycardia on pr esentation. Coding Level of Care Code Acute Pool Nurse for [facility] Diagnoses Weak R53.1 Neutropenia D70.9 Abdominal ascites R18.8 Chemotherapy induced neutropenia D70.1; T45.1X5A Thrombocytopenia D69.6 Liver cirrhosis K74.60 Lymphoma C85.90 BPH loc w urin obs/LUTS N40.1 Tinea cruris B35.6
[2021-09-08] MEDS: albuterol 8 gm MDI 2 PUFF INHALATION (17:55)
--- NOTE | 2021-09-08 18:28 | PC.NURSE ---
Patient AAOx4, VSS throughout shift with a few soft BPs. Remains SOB and edemitis from hip and down. Good UOP, frequent turns throughout shift as patient was able to tolerate. No c/o pain but has discomfort. Intaking large amount of water during shift. No new events and no needs at this time. Will report to oncoming nurse at shift change.
--- NOTE | 2021-09-08 18:54 | PC.NURSE ---
i reported high temp 99.9 and high pulse 109 to nurse
[2021-09-08] MEDS: HYDROcodone-acetaminophen 5-325 mg Tablet 1 TAB PO (19:11)
[2021-09-08] MEDS: LORazepam 2 mg Tablet PO (20:43)
--- NOTE | 2021-09-08 23:56 | PC.NURSE ---
i reported high pulse 103 to nurse
[2021-09-09] MEDS: HYDROcodone-acetaminophen 5-325 mg Tablet 1 TAB PO ×4 (01:37→21:09)
[2021-09-09 03:49] LABS: Eosinophils % 2.9 %; Hematocrit 24.5 % (42.0-52.0); Hemoglobin 8.5 g/dL (11.7-16.6); Lymphocytes # 0.2 10^3/uL (0.8-4.8); Lymphocytes % 16.3 %; Mean Corpuscular HGB Conc 34.7 g/dL (30.0-36.0); Mean Corpuscular Hemoglobin 32.6 pg (28.0-34.0); Mean Corpuscular Volume 93.9 fl (80-94); Monocytes # 0.5 10^3/uL (0.2-0.9); Monocytes % 51.9 %; Neutrophils % 26.9 %; Nucleated Red Blood Cells % 0 %; Platelet Count 39 10^3/cmm (130-400); Red Blood Count 2.61 10^6/uL (4.1-5.3); Red Cell Distribution Width 17.2 % (12.1-15.1)
[2021-09-09 04:00] VITALS: BP 114/61; PULSE 92; RESP 18; TEMP 36.7; O2SAT 95
[2021-09-09 04:10] LABS: Blood Urea Nitrogen 19 mg/dL (8-23); Calcium 7.8 mg/dL (8.5-10.5); Carbon Dioxide 23 mmol/L (22-29); Chloride 103 mmol/L (98-107); Glucose 93 mg/dL (65-115); Magnesium 1.4 mg/dL (1.7-2.3); Osmolality Calculated 282 mOsm/kg (285-295); Sodium 135 mmol/L (136-145)
[2021-09-09 04:16] LABS: Slide Review Slide Review Perform
--- NOTE | 2021-09-09 04:18 | PC.NURSE ---
VANC T Vanc trough 17.0. Vancomycin hung
[2021-09-09 04:22] LABS: Neutrophils # 0.28 10^3/uL (1.8-7.7)
[2021-09-09] MEDS: vancomycin 1,500 MG/300 ML PIGGYBACK 200 MG IV (04:24)
[2021-09-09] MEDS: FUROsemide 10 mg/mL SDV 4mL 40 MG IVP (04:31)
[2021-09-09] MEDS: tamsulosin 0.4 mg Capsule PO (06:08)
[2021-09-09] MEDS: cefepime 2,000 MG in sodium chloride 0.9% (plus) 50 ML 100 MG IV ×3 (06:08→21:09)
[2021-09-09 07:20] VITALS: BP 120/68; PULSE 91; RESP 21; TEMP 36.9; O2SAT 95
[2021-09-09] MEDS: memantine 5 mg tablet PO ×2 (08:27→17:04)
[2021-09-09] MEDS: allopurinol 100 mg Tablet PO ×2 (08:27→17:04)
[2021-09-09] MEDS: ketoconazole Cream 15 gm 1 APPLIC TOPICAL (08:32)
[2021-09-09 12:00] VITALS: BP 116/67; PULSE 94; RESP 18; TEMP 36.8; O2SAT 97
--- NOTE | 2021-09-09 13:50 | PM.PN ---
Subjective Subjective: He is overall doing a little better. He states has not had a bone movement now for several days, however. He states he is not short of breath. Abdomen slightly less distended, but still with significant distention. Persistent severe lower extremity edema slightly better. Vitals/I&O/Wt Last Vital Signs Temp 98.2 F 09/09/21 12:00 Pulse 94 09/09/21 12:00 Resp 18 09/09/21 12:00 BP 116/67 09/09/21 12:00 Pulse Ox 97 09/09/21 12:00 09/08/21 09/09/21 09/09/21 22:59 06:59 14:59 Intake Total 1570 / 1980 670 / 2650 240 / 240 Output Total 1000 / 1000 1300 / 2300 Balance 570 / 980 -630 / 350 240 / 240 Weight last 48 hrs Weight 112.491 kg Weight 109.996 kg Physical Exam Narrative: at bedside Const: COMMON NORMALS: no acute distress and patient oriented x3 HENMT: COMMON NORMALS: oropharynx normal Neck/C-Spine: COMMON NORMALS: no JVD Resp: COMMON NORMALS: normal respiratory effort and clear to auscultation bilaterally AUSCULTATION: clear to auscultation bilaterally Cardio: COMMON NORMALS: no JVD, regular rhythm, S1 normal heart sound present, S2 normal heart sound present and No murmurs present (Cardio) RHYTHM: regular rhythm HEART SOUNDS: S1 normal heart sound present and S2 normal heart sound present GI: COMMON NORMALS: Soft to palpation and non-tender INSPECTION: Yes abdominal distension PALPATION: Yes Soft to palpation : OTHER: Bilateral groin, scrotum erythema, minimal erythema of distal glans Extremity: COMMON NORMALS: no joint enlargement GENERAL: Yes edema (3-4+) Neuro: COMMON NORMALS: patient oriented x3 and moves all extremities Skin: COMMON NORMALS: no rashes or lesions noted GENERAL SKIN EXAM: no rashes or lesions noted Urinary Catheter Management: Villa: Cath Placed During This Visit: yes Reason for Continuing Indwelling Catheter: Acute Urinary Retention or Obstruction Urinary Catheter Date of Insertion: 09/07/21 Urinary Catheter Time of Insertion: 09:36 Data : 09/09/21 03:30 09/09/21 03:30 Micro: Microbiology 09/07/21 17:33 Blood Culture - Preliminary Blood NEGATIVE TO DATE 09/07/21 17:31 Blood Culture - Preliminary Blood NEGATIVE TO DATE A&P Assessment and plan (1) Neutropenia: Continue Neupogen. Today blood counts appear to be moving in good direction. Still severe neutropenia. Continue empiric antibiotic coverage with possible infection as below. With weakness on presentation also with sinus tachycardia, with large abdominal ascites, recent procedure will cover empirically with cefepime, vancomycin. Patient very bothersome tinea cruris. Cannot exclude superimposed cellulitis. She will be covered with above antibiotics, and was given Diflucan. Reassess blood counts. Neutropenic precautions. Status: Acute (2) Weak: Continue empiric antibiotic coverage. Monitor counts as above. We will try to mobilize up to chair. Will request PT assessment. Continue empiric antibiotic coverage with possible infection difficult with severe neutropenia. Large ascites, recent paracentesis. As well as severe tinea cruris, with possible superimposed cellulitis. Was also given Diflucan. Continue cefepime, vancomycin. Blood cultures so far negative. Status: Acute (3) Abdominal ascites: Increase Lasix to 60 mg every 12 hours. Remains stable benefit from additional paracentesis, but also appears to have recurrent large volume ascites, previously 6 L were removed. History of cirrhosis. He was only on on HCTZ at home. With recurrence of large volume ascites in case not responsive to diuresis needs an benefit from follow-up with hepatology with consideration of TIPS. Status: Acute (4) Chemotherapy induced neutropenia: As above Status: Acute (5) Thrombocytopenia: Platelet level slightly better at 39,000. Hold off anticoagulation at this time. May need platelet transfusion for paracentesis in case platelet level not improving. Status: Acute (6) Liver cirrhosis: Follow-up with hepatology Status: Acute (7) Lymphoma: Status: Acute (8) BPH loc w urin obs/LUTS: Continue Flomax Status: Acute (9) Tinea cruris: Quite bothersome tinea cruris. Continue ketoconazole, given Diflucan, with possible cellulitis is also empirically on vancomycin. Status: Acute Plan Diarrhea: resolved. Collect stool studies if additional episodes. Now constipation: Add MiraLAX Attestations Medical Necessity Statement*: Continue admission for assessment of management of weakness with possible infection with severe neutropenia, thrombocytopenia, empiric antibiotics, Neupogen, with large ascites, pending additional paracentesis. Coding Level of Care Code Acute Conference Manager for [facility] Diagnoses Weak R53.1 Neutropenia D70.9 Abdominal ascites R18.8 Chemotherapy induced neutropenia D70.1; T45.1X5A Thrombocytopenia D69.6 Liver cirrhosis K74.60 Lymphoma C85.90 BPH loc w urin obs/LUTS N40.1 Tinea cruris B35.6
[2021-09-09 15:30] VITALS: BP 119/68; PULSE 73; RESP 18; TEMP 36.7; O2SAT 97
[2021-09-09] MEDS: FUROsemide 10 mg/mL SDV 4mL 60 MG IVP (15:46)
[2021-09-09] MEDS: magnesium sulfate premix 2 GM/50 ML PIGGYBACK IV (15:47)
[2021-09-09] MEDS: albuterol 8 gm MDI 2 PUFF INHALATION (15:56)
[2021-09-09 16:00] VITALS: PULSE 104; RESP 20; O2SAT 95
[2021-09-09] MEDS: vancomycin 1,250 MG/250 ML PIGGYBACK 250 MG IV (17:00)
[2021-09-09 20:00] VITALS: BP 106/53; PULSE 99; RESP 18; TEMP 37; O2SAT 96
[2021-09-09] MEDS: LORazepam 2 mg Tablet PO (21:09)
[2021-09-10] VITALS (7 sets, daily range): BP systolic 103–112; BP diastolic 50–66; PULSE 94–104; RESP 17–20; TEMP 36.7–36.9; O2SAT 93–96
[2021-09-10] MEDS: HYDROcodone-acetaminophen 5-325 mg Tablet 1 TAB PO ×3 (01:20→20:26)
[2021-09-10] MEDS: vancomycin 1,250 MG/250 ML PIGGYBACK 250 MG IV (03:31)
[2021-09-10] MEDS: FUROsemide 10 mg/mL SDV 4mL 60 MG IVP ×2 (03:31→16:57)
[2021-09-10 03:32] LABS: Basophils # 0.1 10^3/uL (0.0-0.1); Basophils % 1.7 %; Eosinophils % 0.7 %; Hematocrit 24.6 % (42.0-52.0); Hemoglobin 8.5 g/dL (11.7-16.6); Lymphocytes # 0.3 10^3/uL (0.8-4.8); Lymphocytes % 6.4 %; Mean Corpuscular HGB Conc 34.6 g/dL (30.0-36.0); Mean Corpuscular Hemoglobin 32.4 pg (28.0-34.0); Mean Corpuscular Volume 93.9 fl (80-94); Mean Platelet Volume 12.6 fL (7.4-10.4); Monocytes # 0.9 10^3/uL (0.2-0.9); Neutrophils # 2.71 10^3/uL (1.8-7.7); Neutrophils % 64.5 %; Nucleated Red Blood Cells % 0 %; Platelet Count 49 10^3/cmm (130-400); Red Blood Count 2.62 10^6/uL (4.1-5.3); Red Cell Distribution Width 17.3 % (12.1-15.1); White Blood Count 4.2 10^3/uL (4.0-10.0)
[2021-09-10 03:43] LABS: Blood Urea Nitrogen 23 mg/dL (8-23); Calcium 7.7 mg/dL (8.5-10.5); Carbon Dioxide 24 mmol/L (22-29); Chloride 98 mmol/L (98-107); Glucose 119 mg/dL (65-115); Magnesium 1.7 mg/dL (1.7-2.3); Osmolality Calculated 283 mOsm/kg (285-295); Sodium 134 mmol/L (136-145)
[2021-09-10] MEDS: cefepime 2,000 MG in sodium chloride 0.9% (plus) 50 ML 100 MG IV ×3 (04:35→20:26)
[2021-09-10] MEDS: tamsulosin 0.4 mg Capsule PO (05:22)
--- NOTE | 2021-09-10 06:09 | PC.NURSE ---
SHIFT SUMMARY Has rested well tonight. Medicated for c/o back pain as requested with po Hydrocodone. Is very pleasant. Abdomen remains very distended, firm with ascites present. Tender to palpation. Says he had a good BM yesterday. BLE also continue to be very edematous with extension all the way up and into penis/scrotum. Receiving IV Lasix and good urine output per Villa. Labs this am with improvement in WBC and neutrophil cts.
[2021-09-10] MEDS: allopurinol 100 mg Tablet PO ×2 (08:42→17:02)
[2021-09-10] MEDS: memantine 5 mg tablet PO ×2 (08:42→16:58)
[2021-09-10] MEDS: polyethylene glycol 3350 Pkt 17 gm PO ×2 (08:43→17:02)
[2021-09-10] MEDS: ketoconazole Cream 15 gm 1 APPLIC TOPICAL ×2 (08:43→16:58)
--- NOTE | 2021-09-10 14:19 | PM.PN ---
Subjective Subjective: Does not feel that his abdomen is as distended as it has been. Still pretty full though. Continues to have lower extremity edema. Overall remains tired and weak. Asking about having Villa catheter removed but understands reasons for current placement. Medications: Reviewed: Yes Vitals/I&O/Wt Last Vital Signs Temp 98.0 F 09/10/21 11:29 Pulse 102 H 09/10/21 11:29 Resp 17 09/10/21 11:29 BP 110/59 09/10/21 11:29 Pulse Ox 94 09/10/21 11:29 Cumulative I&O 09/07/21 08:49 thru 09/10/21 09:36 Intake Total 7140 Output Total 45714 Balance -2910 Weight last 48 hrs Weight 112.718 kg Weight 112.491 kg Physical Exam Narrative: Constitutional: Awake and alert, chronic ill appearance HEENT: Mild bitemporal wasting noted otherwise normocephalic, pupils are reactive bilaterally, dry mucous membranes Respiratory: Clear to auscultation bilaterally anteriorly Cardiovascular: Regular rate and rhythm Abdomen: Obese/rotund but soft, nontender, fluid wave more notable in the lower quadrants today Extremities: 3+ lower extremity edema Neuro: No abnormal movements, speech clear Other: Scattered ecchymoses noted to arms, several iatrogenic, no bleeding appreciated Urinary Catheter Management: Villa: Cath Placed During This Visit: yes Reason for Continuing Indwelling Catheter: Acute Urinary Retention or Obstruction Urinary Catheter Date of Insertion: 09/07/21 Urinary Catheter Time of Insertion: 09:36 Data : 09/10/21 03:20 09/10/21 03:20 A&P Assessment and plan (1) Unable to void: Presenting complaint, from description the degree of abdominal ascites was pressing on his bladder making it more difficult to urinate but he does have a history of BPH, unclear what bladder volume was at time of initial Villa placement this hospital stay Status: Acute (2) Weak: Presenting complaint Status: Acute (3) BPH loc w urin obs/LUTS: Chronically on Flomax Status: Chronic (4) Abdominal ascites: Recurrent, suspect etiology is related to known history of liver cirrhosis, but he does have known lymphoma with retroperitoneal lymphadenopathy as well as splenomegaly, could be secondary to lymphomatous spread, appears to be slowly responding to diuresis with decrease in degree of tenseness of the abdomen Status: Acute (5) Status post abdominal paracentesis: Paracentesis done 08/24/2021 with 6 L removed, reportedly first paracentesis ever, no studies sent Has a history of cirrhosis, fluid was clear when tapped, not known to have malignant ascites Status: Acute (6) Lymphoma: Low-grade follicular lymphoma with increasing adenopathy Currently on cyclophosphamide, Rituxan and vincristine Had prechemo MUGA scan showing ejection fraction of 64% Status: Chronic Qualifiers: Lymphoma type: non-Hodgkin Non-Hodgkin lymphoma type: follicular Follicular lymphoma type: other follicular type Lymphoma site: multiple regions Qualified Code(s): 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, lymph nodes of multiple sites (7) Chemotherapy induced neutropenia: Slowly improving after treatment with Neupogen Status: Acute (8) Thrombocytopenia: Chemotherapy-induced, stable and slowly increasing Status: Acute (9) Hypertension: Status: Chronic Qualifiers: Hypertension type: primary hypertension Qualified Code(s): I10 - Essential (primary) hypertension (10) Liver cirrhosis: Status: Chronic (11) Splenomegaly: Status: Chronic (12) Tinea cruris: Status: Acute Plan Stop Neupogen Stop vancomycin We will continue cefepime presently for broad coverage, started 09/07 Remains on Diflucan and ketoconazole cream for tinea Decrease Lasix to 40 twice a day Replace potassium Add Spironolactone Monitor electrolytes closely At discharge may benefit from combination of Lasix and Aldactone and discontinuation of HCTZ Continue to monitor output Maintaining Villa catheter presently We will increase Flomax Patient and continue to want to try not to have to do another paracentesis Platelet count is just below 50 today Check coags tomorrow If has another paracentesis will be beneficial to get diagnostic studies PT evaluation Home health care referral has been ordered Ultimately do anticipate discharge home with close outpatient follow-up SCDs for DVT prophylaxis No pharmacological DVT prophylaxis secondary to thrombocytopenia and anemia Findings, concerns and plans were discussed with patient and his and both were given an opportunity to ask questions Supportive care otherwise Attestations Medical Necessity Statement*: Requires ongoing inpatient stay for continued management of ascites in the setting of known lymphoma status post recent chemo. Currently receiving IV diuresis, IV antibiotics and serial labs/close monitoring as described. Coding Level of Care Code Acute Retail Representative for [employer] Diagnoses Status post abdominal paracentesis Z98.890 Lymphoma C82.88 Lymphoma type: non-Hodgkin Non-Hodgkin lymphoma type: follicular Follicular lymphoma type: other follicular type Lymphoma site: multiple regions Abdominal ascites R18.8 Chemotherapy induced neutropenia D70.1; T45.1X5A Thrombocytopenia D69.6 Weak R53.1 BPH loc w urin obs/LUTS N40.1 Hypertension I10 Hypertension type: primary hypertension Liver cirrhosis K74.60 Splenomegaly R16.1 Tinea cruris B35.6 Unable to void R33.9
[2021-09-10] MEDS: LORazepam 2 mg Tablet PO (20:26)
[2021-09-11 03:18] VITALS: BP 110/63; PULSE 93; RESP 19; TEMP 36.8; O2SAT 93
[2021-09-11] MEDS: cefepime 2,000 MG in sodium chloride 0.9% (plus) 50 ML 100 MG IV ×3 (05:01→21:27)
[2021-09-11] MEDS: FUROsemide 10 mg/mL SDV 4mL 40 MG IVP ×2 (05:01→18:19)
[2021-09-11 05:37] LABS: Hematocrit 25.5 % (42.0-52.0); Hemoglobin 8.8 g/dL (11.7-16.6); Mean Corpuscular HGB Conc 34.5 g/dL (30.0-36.0); Mean Corpuscular Hemoglobin 31.9 pg (28.0-34.0); Mean Corpuscular Volume 92.4 fl (80-94); Mean Platelet Volume 12.5 fL (7.4-10.4); Platelet Count 71 10^3/cmm (130-400); Red Blood Count 2.76 10^6/uL (4.1-5.3); Red Cell Distribution Width 17.2 % (12.1-15.1); White Blood Count 7.8 10^3/uL (4.0-10.0)
[2021-09-11 05:47] LABS: INR 1.29 (0.8-1.2)
[2021-09-11 06:01] LABS: Alanine Aminotransferase 21 U/L (0-41); Albumin Level 2.5 g/dL (3.5-5.2); Alkaline Phosphatase 153 IU/L (40-130); Anion Gap 13.5 (5-19); Aspartate Amino Transferase 22 U/L (0-40); Blood Urea Nitrogen 23 mg/dL (8-23); Calcium 7.9 mg/dL (8.5-10.5); Carbon Dioxide 24 mmol/L (22-29); Chloride 96 mmol/L (98-107); Creatinine Clr Calc Pharmacy 74.0583; Globulin 1.7 g/dL (1.3-4.6); Glucose 101 mg/dL (65-115); Magnesium 1.5 mg/dL (1.7-2.3); Osmolality Calculated 276 mOsm/kg (285-295); Sodium 131 mmol/L (136-145); Total Bilirubin 1.2 mg/dL (0.15-1.2); Total Protein 4.2 g/dL (6.6-8.7)
[2021-09-11 06:02] LABS: Potassium 2.5 mmol/L (3.5-5.1)
[2021-09-11 06:45] LABS: Slide Review Slide Review Perform
[2021-09-11] MEDS: magnesium sulfate premix 2 GM/50 ML PIGGYBACK IV (06:48)
[2021-09-11 06:49] LABS: Absolute Segmented Neutrophil 4.6 10/cmm (1.6-7.1); Lymphocytes 5 %; Monocytes Absolute 0.6 10^3/cmm (0.1-0.6); Segmented Neutrophils 59 %; Total Cells Counted 100 (0-100)
[2021-09-11 06:50] LABS: Absolute Neutrophil 6.6 10^3/cmm (1.4-6.5); Eosinophils 0 %; Lymphocytes Absolute 0.4 10^3/cmm (1.2-3.4); Platelet Estimate Decreased (Normal); Poikilocytosis 1+
[2021-09-11 08:00] VITALS: BP 100/47; PULSE 93; RESP 14; TEMP 36.8; O2SAT 92
[2021-09-11] MEDS: tamsulosin 0.4 mg Capsule PO ×2 (08:21→18:19)
[2021-09-11] MEDS: allopurinol 100 mg Tablet PO ×2 (08:21→18:19)
[2021-09-11] MEDS: polyethylene glycol 3350 Pkt 17 gm PO ×2 (08:21→18:19)
[2021-09-11] MEDS: memantine 5 mg tablet PO ×2 (08:21→18:19)
[2021-09-11] MEDS: spironolactone 25 mg Tablet PO (08:21)
[2021-09-11 12:00] VITALS: BP 100/54; PULSE 102; RESP 13; TEMP 36.9; O2SAT 92
[2021-09-11] MEDS: HYDROcodone-acetaminophen 5-325 mg Tablet 1 TAB PO (12:15)
--- NOTE | 2021-09-11 15:10 | P.PN_ITS ---
Subjective Subjective: Doing OK. Afebrile. Denies CP, SOB, cough. Appetite average. Abdomen not as tensed. Vitals/I&O/Wt Last Vital Signs Temp 98.4 F 09/11/21 12:00 Pulse 102 H 09/11/21 12:00 Resp 13 09/11/21 12:00 BP 100/54 09/11/21 12:00 Pulse Ox 92 09/11/21 12:00 09/11/21 09/11/21 09/11/21 06:59 14:59 22:59 Intake Total 50 / 750 400 / 400 Output Total 775 / 1875 100 / 100 Balance -725 / -1125 300 / 300 Weight last 48 hrs Weight 111.537 kg Weight 112.718 kg Physical Exam Narrative: Constitutional: Awake and alert, chronic ill appearance HEENT: Mild bitemporal wasting noted otherwise normocephalic, pupils are reactive bilaterally, dry mucous membranes Respiratory: Clear to auscultation bilaterally anteriorly Cardiovascular: Regular rate and rhythm Abdomen: Obese/rotund but soft, nontender, fluid wave more notable in the lower quadrants today Extremities: 3+ lower extremity edema Neuro: No abnormal movements, speech clear Other: Scattered ecchymoses noted to arms, several iatrogenic, no bleeding appreciated Urinary Catheter Management: Villa: Cath Placed During This Visit: yes Reason for Continuing Indwelling Catheter: Acute Urinary Retention or Obstruction Urinary Catheter Date of Insertion: 09/07/21 Urinary Catheter Time of Insertion: 09:36 Data : 09/11/21 05:05 09/11/21 05:05 A&P Assessment and plan (1) Obstructive uropathy: due to BPH. Has Foleys Cath Status: Acute (2) Abdominal ascites: imoproving Status: Acute (3) Chemotherapy induced neutropenia: recent Chemo Rx for Lymphoma Status: Acute (4) Thrombocytopenia: due to chemoRx Status: Acute (5) Liver cirrhosis: Status: Chronic (6) Lymphoma: Low grade Non Hodgkins Follicular type Status: Chronic Qualifiers: Lymphoma type: non-Hodgkin Non-Hodgkin lymphoma type: follicular Follicular lymphoma type: other follicular type Lymphoma site: multiple regions Qualified Code(s): 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, lymph nodes of multiple sites (7) Hypokalemia: due to diuresis Status: Acute Plan IV KCl F/U K, Mg SCD for DVT Prophy Continue diuretic Attestations Medical Necessity Statement*: Requires ongoing inpatient stay for continued management of ascites in the setting of known lymphoma status post recent chemo.? Currently receiving IV diuresis, IV antibiotics and serial labs/close monitoring as describ Time Spent in Patient Care: 45 min Coding Level of Care Code Acute Online Marketing Analyst for [facility] Diagnoses Obstructive uropathy N13.9 Abdominal ascites R18.8 Chemotherapy induced neutropenia D70.1; T45.1X5A Thrombocytopenia D69.6 Liver cirrhosis K74.60 Lymphoma C82.88 Lymphoma type: non-Hodgkin Non-Hodgkin lymphoma type: follicular Follicular lymphoma type: other follicular type Lymphoma site: multiple regions Hypokalemia E87.6
[2021-09-11] MEDS: ketoconazole Cream 15 gm 1 APPLIC TOPICAL (18:21)
--- NOTE | 2021-09-11 19:04 | PC.NURSE ---
Report to Shanda STARKS
[2021-09-11 20:00] VITALS: BP 106/54; PULSE 97; RESP 17; TEMP 36.8; O2SAT 93
[2021-09-11 20:51] LABS: Anion Gap 13.8 (5-19); Blood Urea Nitrogen 25 mg/dL (8-23); Calcium 7.9 mg/dL (8.5-10.5); Carbon Dioxide 23 mmol/L (22-29); Chloride 96 mmol/L (98-107); Glucose 147 mg/dL (65-115); Osmolality Calculated 277 mOsm/kg (285-295); Sodium 130 mmol/L (136-145)
[2021-09-11 20:57] LABS: Potassium 2.8 mmol/L (3.5-5.1)
[2021-09-11] MEDS: LORazepam 2 mg Tablet PO (21:27)
[2021-09-11] MEDS: lidocaine 1% 5 ML in potassium chloride premix 100 ML 25 ML IV (22:08)
[2021-09-12] VITALS (7 sets, daily range): BP systolic 100–131; BP diastolic 53–68; PULSE 93–120; RESP 13–20; TEMP 36.8–37.3; O2SAT 92–95
--- NOTE | 2021-09-12 01:17 | PC.NURSE ---
i reported high pulse 120 to nurse
[2021-09-12] MEDS: FUROsemide 10 mg/mL SDV 4mL 40 MG IVP ×2 (04:18→19:14)
[2021-09-12] MEDS: cefepime 2,000 MG in sodium chloride 0.9% (plus) 50 ML 100 MG IV ×3 (04:18→20:30)
[2021-09-12 05:15] LABS: Basophils # 0.1 10^3/uL (0.0-0.1); Basophils % 1.2 %; Eosinophils % 0.3 %; Hemoglobin 8.9 g/dL (11.7-16.6); Lymphocytes # 0.3 10^3/uL (0.8-4.8); Lymphocytes % 5.1 %; Mean Corpuscular HGB Conc 34.2 g/dL (30.0-36.0); Mean Corpuscular Hemoglobin 31.6 pg (28.0-34.0); Mean Corpuscular Volume 92.2 fl (80-94); Mean Platelet Volume 11.7 fL (7.4-10.4); Monocytes # 0.6 10^3/uL (0.2-0.9); Monocytes % 9.5 %; Neutrophils # 5.34 10^3/uL (1.8-7.7); Neutrophils % 80.3 %; Nucleated Red Blood Cells % 0 %; Platelet Count 79 10^3/cmm (130-400); Red Blood Count 2.82 10^6/uL (4.1-5.3); Red Cell Distribution Width 17.1 % (12.1-15.1); White Blood Count 6.7 10^3/uL (4.0-10.0)
[2021-09-12 05:33] LABS: Anion Gap 12.6 (5-19); Blood Urea Nitrogen 25 mg/dL (8-23); Calcium 8.3 mg/dL (8.5-10.5); Carbon Dioxide 25 mmol/L (22-29); Chloride 97 mmol/L (98-107); Glucose 122 mg/dL (65-115); Magnesium 1.9 mg/dL (1.7-2.3); Osmolality Calculated 278 mOsm/kg (285-295); Potassium 3.6 mmol/L (3.5-5.1); Sodium 131 mmol/L (136-145)
[2021-09-12] MEDS: memantine 5 mg tablet PO ×2 (11:34→19:16)
[2021-09-12] MEDS: spironolactone 25 mg Tablet PO (11:34)
[2021-09-12] MEDS: tamsulosin 0.4 mg Capsule PO ×2 (11:34→19:16)
[2021-09-12] MEDS: polyethylene glycol 3350 Pkt 17 gm PO ×2 (11:35→19:14)
[2021-09-12] MEDS: allopurinol 100 mg Tablet PO ×2 (11:35→19:16)
[2021-09-12] MEDS: ketoconazole Cream 15 gm 1 APPLIC TOPICAL ×2 (12:44→19:17)
--- NOTE | 2021-09-12 17:42 | PM.PN ---
Subjective Subjective: Afebrile. Appetite average. Denies CP, SOB, cough Vitals/I&O/Wt Last Vital Signs Temp 98.5 F 09/12/21 12:00 Pulse 93 09/12/21 12:00 Resp 15 09/12/21 12:00 BP 100/58 09/12/21 12:00 Pulse Ox 95 09/12/21 12:00 09/12/21 09/12/21 09/12/21 06:59 14:59 22:59 Intake Total 155 / 905 175 / 175 Output Total 1200 / 2750 Balance -1045 / -1845 175 / 175 Weight last 48 hrs Weight 111.992 kg Weight 111.537 kg Physical Exam Narrative: Constitutional: Awake and alert, chronic ill appearance HEENT: Mild bitemporal wasting noted otherwise normocephalic, pupils are reactive bilaterally, dry mucous membranes Respiratory: Clear to auscultation bilaterally anteriorly Cardiovascular: Regular rate and rhythm Abdomen: Obese/rotund but soft, nontender, fluid wave more notable in the lower quadrants today Extremities: 3+ lower extremity edema Neuro: No abnormal movements, speech clear Other: Scattered ecchymoses noted to arms, several iatrogenic, no bleeding appreciated Urinary Catheter Management: Villa: Cath Placed During This Visit: yes Reason for Continuing Indwelling Catheter: Acute Urinary Retention or Obstruction Urinary Catheter Date of Insertion: 09/07/21 Urinary Catheter Time of Insertion: 09:36 Data : 09/12/21 04:18 09/12/21 04:18 A&P Assessment and plan (1) Hypokalemia: corrected Status: Acute (2) Obstructive uropathy: has Foleys Cath Status: Acute (3) 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 Qualifiers: 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
[2021-09-12] MEDS: HYDROcodone-acetaminophen 5-325 mg Tablet 1 TAB PO (19:15)
[2021-09-12] MEDS: LORazepam 2 mg Tablet PO (20:30)
[2021-09-12 20:51] LABS: Basophils # 0.1 10^3/uL (0.0-0.1); Eosinophils % 0.4 %; Hematocrit 28.1 % (42.0-52.0); Hemoglobin 9.6 g/dL (11.7-16.6); Lymphocytes # 0.4 10^3/uL (0.8-4.8); Lymphocytes % 5.8 %; Mean Corpuscular HGB Conc 34.2 g/dL (30.0-36.0); Mean Corpuscular Hemoglobin 31.7 pg (28.0-34.0); Mean Corpuscular Volume 92.7 fl (80-94); Mean Platelet Volume 11.8 fL (7.4-10.4); Monocytes # 0.6 10^3/uL (0.2-0.9); Monocytes % 8.9 %; Neutrophils # 5.41 10^3/uL (1.8-7.7); Neutrophils % 79.2 %; Nucleated Red Blood Cells % 0 %; Platelet Count 83 10^3/cmm (130-400); Red Blood Count 3.03 10^6/uL (4.1-5.3); Red Cell Distribution Width 17.4 % (12.1-15.1); White Blood Count 6.8 10^3/uL (4.0-10.0)
[2021-09-13 03:57] VITALS: BP 103/60; PULSE 101; RESP 18; TEMP 37.2; O2SAT 93
[2021-09-13] MEDS: FUROsemide 10 mg/mL SDV 4mL 40 MG IVP ×2 (04:29→18:31)
[2021-09-13] MEDS: cefepime 2,000 MG in sodium chloride 0.9% (plus) 50 ML 100 MG IV ×3 (04:29→21:02)
[2021-09-13 05:14] LABS: Basophils # 0.1 10^3/uL (0.0-0.1); Basophils % 1.6 %; Eosinophils % 0.4 %; Hematocrit 26.3 % (42.0-52.0); Hemoglobin 8.8 g/dL (11.7-16.6); Lymphocytes # 0.4 10^3/uL (0.8-4.8); Lymphocytes % 7.6 %; Mean Corpuscular HGB Conc 33.5 g/dL (30.0-36.0); Mean Corpuscular Hemoglobin 31.2 pg (28.0-34.0); Mean Corpuscular Volume 93.3 fl (80-94); Mean Platelet Volume 12.1 fL (7.4-10.4); Monocytes # 0.5 10^3/uL (0.2-0.9); Monocytes % 9.7 %; Neutrophils # 3.89 10^3/uL (1.8-7.7); Neutrophils % 75.8 %; Nucleated Red Blood Cells % 0 %; Platelet Count 82 10^3/cmm (130-400); Red Blood Count 2.82 10^6/uL (4.1-5.3); Red Cell Distribution Width 17.3 % (12.1-15.1); White Blood Count 5.1 10^3/uL (4.0-10.0)
[2021-09-13 05:49] LABS: Anion Gap 12.9 (5-19); Blood Urea Nitrogen 24 mg/dL (8-23); Calcium 8.3 mg/dL (8.5-10.5); Carbon Dioxide 27 mmol/L (22-29); Chloride 98 mmol/L (98-107); Glucose 105 mg/dL (65-115); Osmolality Calculated 284 mOsm/kg (285-295); Sodium 135 mmol/L (136-145)
[2021-09-13 06:09] LABS: Potassium 2.9 mmol/L (3.5-5.1)
[2021-09-13] MEDS: potassium chloride ER 20 mEq Tablet 40 MEQ PO ×2 (06:37→18:31)
[2021-09-13 07:49] VITALS: BP 115/64; PULSE 103; O2SAT 92
[2021-09-13 08:14] VITALS: PULSE 94; RESP 17; O2SAT 95
[2021-09-13] MEDS: polyethylene glycol 3350 Pkt 17 gm PO ×2 (09:27→18:32)
[2021-09-13] MEDS: spironolactone 25 mg Tablet PO (09:27)
[2021-09-13] MEDS: tamsulosin 0.4 mg Capsule PO ×2 (09:28→18:31)
[2021-09-13] MEDS: allopurinol 100 mg Tablet PO ×2 (09:28→18:31)
[2021-09-13] MEDS: memantine 5 mg tablet PO ×2 (09:28→18:31)
[2021-09-13] MEDS: ketoconazole Cream 15 gm 1 APPLIC TOPICAL ×2 (09:32→18:32)
[2021-09-13 16:00] VITALS: BP 115/64; RESP 17; TEMP 37.2; O2SAT 95
--- NOTE | 2021-09-13 16:52 | P.PN_ITS ---
Subjective Subjective: Doing OK. Afebrile. Denies CP, SOB, cough Vitals/I&O/Wt Last Vital Signs Temp 99.0 F 09/13/21 03:57 Pulse 94 09/13/21 08:14 Resp 17 09/13/21 08:14 BP 115/64 09/13/21 07:49 Pulse Ox 95 09/13/21 08:14 09/13/21 09/13/21 09/13/21 06:59 14:59 22:59 Intake Total 440 / 765 Output Total 1300 / 1300 Balance -860 / -535 Weight last 48 hrs Weight 111.674 kg Weight 111.992 kg Physical Exam Narrative: Constitutional: Awake and alert, chronic ill appearance HEENT: Mild bitemporal wasting noted otherwise normocephalic, pupils are reactive bilaterally, dry mucous membranes Respiratory: Clear to auscultation bilaterally anteriorly Cardiovascular: Regular rate and rhythm Abdomen: Obese/rotund but soft, nontender, fluid wave more notable in the lower quadrants today Extremities: 3+ lower extremity edema Neuro: No abnormal movements, speech clear Other: Scattered ecchymoses noted to arms, several iatrogenic, no bleeding appreciated Urinary Catheter Management: Villa: Cath Placed During This Visit: yes Reason for Continuing Indwelling Catheter: Chronic Indwelling Urinary Catheter on Admission Urinary Catheter Date of Insertion: 09/07/21 Urinary Catheter Time of Insertion: 09:36 Data : 09/13/21 04:23 09/13/21 04:23 Micro: Microbiology 09/07/21 17:33 Blood Culture - Final Blood NO GROWTH AFTER 5 DAYS 09/07/21 17:31 Blood Culture - Final Blood NO GROWTH AFTER 5 DAYS A&P Assessment and plan (1) Hypokalemia: Being corrected Status: Acute (2) Obstructive uropathy: Has a Foleys cath Status: Acute (3) Lymphoma: recent chemo Rx Status: Chronic Qualifiers: Follicular lymphoma type: other follicular type Lymphoma site: multiple regions Lymphoma type: non-Hodgkin Non-Hodgkin lymphoma type: follicular Qualified Code(s): 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, lymph nodes of multiple sites (4) Hypertension: stable Status: Chronic Qualifiers: Hypertension type: primary hypertension Qualified Code(s): I10 - Essential (primary) hypertension (5) Chemotherapy induced neutropenia: WBC improving gradually Status: Acute (6) Liver cirrhosis: Status: Chronic (7) Weak: weak Status: Acute (8) Abdominal ascites: s.p paracentesis Status: Acute (9) Thrombocytopenia: trending up Status: Acute Plan KCL 40 mEq bid x2 days Complete 7 days of Cefepime and then d/c F/U CBC, BMP D/C reverse isolation Attestations Medical Necessity Statement*: Pt w/ post chemotherapy neutropenia and thrombocyptopenia along with hypokalemia will need continued hospitalization for furthe care. Time Spent in Patient Care: 40 min Coding Level of Care Code Acute Talent Coordinator for g Fwd Diagnoses Hypokalemia E87.6 Obstructive uropathy N13.9 Lymphoma C82.88 Follicular lymphoma type: other follicular type Lymphoma site: multiple regions Lymphoma type: non-Hodgkin Non-Hodgkin lymphoma type: follicular Hypertension I10 Hypertension type: primary hypertension Chemotherapy induced neutropenia D70.1; T45.1X5A Liver cirrhosis K74.60 Weak R53.1 Abdominal ascites R18.8 Thrombocytopenia D69.6
[2021-09-13 18:11] LABS: Hematocrit 28.6 % (42.0-52.0); Hemoglobin 9.7 g/dL (11.7-16.6); Mean Corpuscular HGB Conc 33.9 g/dL (30.0-36.0); Mean Corpuscular Hemoglobin 31.8 pg (28.0-34.0); Mean Corpuscular Volume 93.8 fl (80-94); Mean Platelet Volume 11.9 fL (7.4-10.4); Platelet Count 91 10^3/cmm (130-400); Red Blood Count 3.05 10^6/uL (4.1-5.3); Red Cell Distribution Width 17.7 % (12.1-15.1)
[2021-09-13 18:29] LABS: Anion Gap 11.1 (5-19); Blood Urea Nitrogen 23 mg/dL (8-23); Calcium 8.2 mg/dL (8.5-10.5); Carbon Dioxide 24 mmol/L (22-29); Chloride 97 mmol/L (98-107); Glucose 114 mg/dL (65-115); Magnesium 1.8 mg/dL (1.7-2.3); Osmolality Calculated 273 mOsm/kg (285-295); Potassium 3.1 mmol/L (3.5-5.1); Sodium 129 mmol/L (136-145)
[2021-09-13 18:47] LABS: Slide Review Slide Review Perform
[2021-09-13 18:48] LABS: Absolute Neutrophil 4.4 10^3/cmm (1.4-6.5); Absolute Segmented Neutrophil 3.5 10/cmm (1.6-7.1); Band Neutrophils Absolute 0.8 10^3/cmm (0.0-1.2); Eosinophils 1 %; Lymphocytes 10 %; Lymphocytes Absolute 0.6 10^3/cmm (1.2-3.4); Monocytes Absolute 0.2 10^3/cmm (0.1-0.6); Platelet Estimate Decreased (Normal); Segmented Neutrophils 59 %; Total Cells Counted 100 (0-100)
[2021-09-13 19:54] VITALS: BP 120/64; PULSE 100; RESP 18; TEMP 37.2; O2SAT 94
[2021-09-13 20:02] VITALS: PULSE 103; RESP 16; O2SAT 94
[2021-09-13] MEDS: LORazepam 2 mg Tablet PO (21:02)
[2021-09-13] MEDS: HYDROcodone-acetaminophen 5-325 mg Tablet 1 TAB PO (21:02)
[2021-09-14] VITALS: BP 114/58; PULSE 106; RESP 18; TEMP 37.3; O2SAT 92
[2021-09-14 04:00] VITALS: BP 113/65; PULSE 101; RESP 18; TEMP 37.4; O2SAT 94
[2021-09-14] MEDS: cefepime 2,000 MG in sodium chloride 0.9% (plus) 50 ML 100 MG IV ×2 (04:16→13:13)
[2021-09-14 06:01] LABS: Basophils # 0.1 10^3/uL (0.0-0.1); Basophils % 1.4 %; Eosinophils % 0.6 %; Hematocrit 27.7 % (42.0-52.0); Hemoglobin 9.2 g/dL (11.7-16.6); Lymphocytes # 0.4 10^3/uL (0.8-4.8); Lymphocytes % 6.9 %; Mean Corpuscular HGB Conc 33.2 g/dL (30.0-36.0); Mean Corpuscular Hemoglobin 31.4 pg (28.0-34.0); Mean Corpuscular Volume 94.5 fl (80-94); Mean Platelet Volume 11.2 fL (7.4-10.4); Monocytes # 0.6 10^3/uL (0.2-0.9); Monocytes % 10.8 %; Neutrophils # 3.74 10^3/uL (1.8-7.7); Neutrophils % 73.4 %; Nucleated Red Blood Cells % 0 %; Platelet Count 88 10^3/cmm (130-400); Red Blood Count 2.93 10^6/uL (4.1-5.3); Red Cell Distribution Width 17.6 % (12.1-15.1); White Blood Count 5.1 10^3/uL (4.0-10.0)
[2021-09-14 06:18] LABS: Anion Gap 14.4 (5-19); Blood Urea Nitrogen 23 mg/dL (8-23); Calcium 8.2 mg/dL (8.5-10.5); Carbon Dioxide 25 mmol/L (22-29); Chloride 98 mmol/L (98-107); Glucose 107 mg/dL (65-115); Osmolality Calculated 282 mOsm/kg (285-295); Potassium 3.4 mmol/L (3.5-5.1); Sodium 134 mmol/L (136-145)
[2021-09-14 06:25] LABS: Magnesium 1.9 mg/dL (1.7-2.3)
[2021-09-14] MEDS: FUROsemide 10 mg/mL SDV 4mL 40 MG IVP (06:29)
[2021-09-14 06:30] LABS: Slide Review Slide Review Perform
[2021-09-14 07:50] VITALS: BP 112/63; PULSE 93; RESP 16; TEMP 36.6; O2SAT 93
[2021-09-14 08:14] VITALS: PULSE 102; RESP 18; O2SAT 95
[2021-09-14] MEDS: polyethylene glycol 3350 Pkt 17 gm PO (08:44)
[2021-09-14] MEDS: memantine 5 mg tablet PO (08:45)
[2021-09-14] MEDS: tamsulosin 0.4 mg Capsule PO (08:45)
[2021-09-14] MEDS: spironolactone 25 mg Tablet PO (08:45)
[2021-09-14] MEDS: allopurinol 100 mg Tablet PO (08:45)
[2021-09-14] MEDS: potassium chloride ER 20 mEq Tablet 40 MEQ PO (08:45)
[2021-09-14] MEDS: ketoconazole Cream 15 gm 1 APPLIC TOPICAL (08:46)
[2021-09-14] MEDS: acetaminophen 325 mg Tablet 650 MG PO ×2 (08:55→17:11)
--- NOTE | 2021-09-14 10:50 | PC.SOCIAL ---
IMM Update Pg. 2 of IMM updated and reviewed with patient, who verbalized understanding. Copy provided.
[2021-09-14 10:53] VITALS: BP 101/51; PULSE 94; RESP 16; TEMP 36.5; O2SAT 93
--- NOTE | 2021-09-14 15:02 | P.DS_ITS ---
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, lymph nodes of multiple sites Permanent problem details: With retroperitoneal, axillary, mediastinal and hilar adenopathy (4) Hypertension: Status: Chronic Qualifiers: Hypertension type: primary hypertension Qualified Code(s): I10 - Essential (primary) hypertension (5) Chemotherapy induced neutropenia: Status: Acute (6) Liver cirrhosis: Status: Chronic (7) Weak: Status: Acute (8) Abdominal ascites: Status: Acute (9) Thrombocytopenia: Status: Acute Reason for Visit Reason for Visit: cant void Hospital Course Hospital Course Pleasant 76-year-old gentleman with lymphoma, currently receiving chemotherapy, liver cirrhosis, had undergone paracentesis with 6 L removed on 08/24, BPH, tinea cruris which has recently been very bothersome, treated with ketoconazole, was referred to ER by on-call general surgeon when seen today due to again worsened edema, appearing more short of breath, as well as with suprapubic tenderness, and reported being unable to void since yesterday. In ER he is noted to have worsened pancytopenia, with severe neutropenia, absolute neutrophils 200.? Also thrombocytopenia, platelets 32,000.? He is afebrile, but with sinus tachycardia in the 90s. He had reportedly received Neupogen last 2 days, 480 mg, and was due for third dose today. Abdomen is distended, with noted large amount of ascites throughout the abdomen in CT abdomen pelvis, liver cirrhosis with splenomegaly noted.? Extensive retroperitoneal lymphadenopathy. Chest x-ray of the chest with atherosclerosis. He denies abdominal pain or discomfort.? Diarrhea has so far since resolved.? Denies fever or chills at home.? No nausea or vomiting.? Denies painful swallowing.? No shortness of breath or cough.? Denies bleeding. Pt was admitted to medsur unit. Due to severe neutopenis he was placed on reverse isolation. He was emperically started on Cefepime for broad spectrum abx coverage. A Villa was placed to releive is obstruvtive uropathy due to pressure of ascitic fluid on the bladder. He was given IV Lasix to reduce his ascites. This improved his abdominal distension and did not need abd paracentesis. Due to the diuretic he had developed hypokalemia which was being corrected and will continue replacement on d/c. His admission was otherwise uneventful. His WBC gradually improved. His Thrombocytopenia was trending upwards. He will f/u w/ his oncologist Physical Exam Narrative: Constitutional: Awake and alert, chronic ill appearance HEENT: Mild bitemporal wasting noted otherwise normocephalic, pupils are reactive bilaterally, dry mucous membranes Respiratory: Clear to auscultation bilaterally anteriorly Cardiovascular: Regular rate and rhythm Abdomen: Obese/rotund but soft, nontender, fluid wave more notable in the lower quadrants today Extremities: 3+ lower extremity edema Neuro: No abnormal movements, speech clear Other: Scattered ecchymoses noted to arms, several iatrogenic, no bleeding appreciated Urinary Catheter Management: Villa: Cath Placed During This Visit: yes Reason for Continuing Indwelling Catheter: Acute Urinary Retention or Obstruction Urinary Catheter Date of Insertion: 09/07/21 Urinary Catheter Time of Insertion: 09:36 Discharge Data Studies Completed and Pending Completed Studies During Hospitalization Category Date Time Status CT abdomen pelvis w con* [id number] Urgent Cat Scan 09/07/21 09:22 Completed XR chest 1V portable [id number] Stat Exams 09/07/21 10:04 Completed Radiology Impressions Abdomen/Pelvis CT 09/07/21 09:22 Impression: 1. Large amount of ascites throughout the abdomen. 2. Cirrhosis of liver with splenomegaly. 3. Extensive retroperitoneal lymphadenopathy unchanged. Chest X-Ray 09/07/21 10:04 Impression: Atherosclerosis. Laboratory Results WBC 5.1 10^3/uL (4.0-10.0) 09/14/21 05:39 RBC 2.93 10^6/uL (4.1-5.3) L 09/14/21 05:39 Hgb 9.2 g/dL (11.7-16.6) L 09/14/21 05:39 Hct 27.7 % (42.0-52.0) L 09/14/21 05:39 MCV 94.5 fl (80-94) H 09/14/21 05:39 MCH 31.4 pg (28.0-34.0) 09/14/21 05:39 MCHC 33.2 g/dL (30.0-36.0) 09/14/21 05:39 RDW 17.6 % (12.1-15.1) H 09/14/21 05:39 Plt Count 88 10^3/cmm (130-400) L 09/14/21 05:39 MPV 11.2 fL (7.4-10.4) H 09/14/21 05:39 Neut % (Auto) 73.4 % 09/14/21 05:39 Lymph % (Auto) 6.9 % 09/14/21 05:39 Payne % (Auto) 10.8 % 09/14/21 05:39 Eos % (Auto) 0.6 % 09/14/21 05:39 Baso % (Auto) 1.4 % 09/14/21 05:39 Neut # (Auto) 3.74 10^3/uL (1.8-7.7) 09/14/21 05:39 Lymph # (Auto) 0.4 10^3/uL (0.8-4.8) L 09/14/21 05:39 Payne # (Auto) 0.6 10^3/uL (0.2-0.9) 09/14/21 05:39 Eos # (Auto) 0.0 10^3/uL (0.0-0.8) 09/14/21 05:39 Baso # (Auto) 0.1 10^3/uL (0.0-0.1) 09/14/21 05:39 Nucleated RBC % (auto) 0 % 09/14/21 05:39 Total Counted 100 (0-100) 09/13/21 17:50 Atypical Lymphs % 0.0 % (0-5) 09/13/21 17:50 Absolute Neutrophils 4.4 10^3/cmm (1.4-6.5) 09/13/21 17:50 Segmented Neutrophils 59 % 09/13/21 17:50 Abs Segm Neuts (Man) 3.5 10/cmm (1.6-7.1) 09/13/21 17:50 Band Neutrophils 14.0 % 09/13/21 17:50 Abs Band Neuts (Man) 0.8 10^3/cmm (0.0-1.2) 09/13/21 17:50 Absolute Lymphocytes 0.6 10^3/cmm (1.2-3.4) L 09/13/21 17:50 Lymphocytes (Manual) 10 % 09/13/21 17:50 Monocytes (Manual) 3.0 % 09/13/21 17:50 Absolute Monocytes 0.2 10^3/cmm (0.1-0.6) 09/13/21 17:50 Eosinophils (Manual) 1 % 09/13/21 17:50 Absolute Eosinophils 0.0 10^3/cmm (0.0-0.7) 09/13/21 17:50 Basophils (Manual) 0.0 % 09/13/21 17:50 Absolute Basophils 0.0 10^3/cmm (0.0-0.2) 09/13/21 17:50 Metamyelocytes 11.0 % 09/13/21 17:50 Myelocytes 2.0 % 09/13/21 17:50 Promyelocytes Cancelled 09/07/21 09:17 Nucleated RBCs Cancelled 09/07/21 09:17 Nucleated RBCs # 0.0 /100WBC 09/14/21 05:39 Pathologist Review Cancelled 09/07/21 09:17 Hypersegmented Polys Cancelled 09/07/21 09:17 Blast Cells Cancelled 09/07/21 09:17 Smudge Cells Cancelled 09/07/21 09:17 Toxic Granulation Cancelled 09/07/21 09:17 Toxic Vacuolation Cancelled 09/07/21 09:17 Dohle Bodies Cancelled 09/07/21 09:17 Elza Rods Cancelled 09/07/21 09:17 Platelet Estimate Decreased (Normal) 09/13/21 17:50 Giant Platelets Cancelled 09/07/21 09:17 Giant Platelets Trace 09/07/21 09:17 Polychromasia Cancelled 09/07/21 09:17 Hypochromasia Cancelled 09/07/21 09:17 Poikilocytosis 1+ H 09/11/21 05:05 Basophilic Stippling Cancelled 09/07/21 09:17 Anisocytosis Cancelled 09/07/21 09:17 Microcytosis Cancelled 09/07/21 09:17 Macrocytosis Cancelled 09/07/21 09:17 Spherocytes Cancelled 09/07/21 09:17 Sickle Cells Cancelled 09/07/21 09:17 Target Cells Cancelled 09/07/21 09:17 Tear Drop Cells Cancelled 09/07/21 09:17 Ovalocytes Cancelled 09/07/21 09:17 Stomatocytes Cancelled 09/07/21 09:17 Helmet Cells Cancelled 09/07/21 09:17 [place] Bodies Cancelled 09/07/21 09:17 Pham Cells Cancelled 09/07/21 09:17 Crenated Cell Cancelled 09/07/21 09:17 Acanthocytes (Spur) Cancelled 09/07/21 09:17 Rouleaux Cancelled 09/07/21 09:17 Schistocytes Cancelled 09/07/21 09:17 RBC Morph Comment Cancelled 09/07/21 09:17 PT 16.50 SECONDS (12.1-14.9) H 09/11/21 05:05 INR 1.29 (0.8-1.2) H 09/11/21 05:05 APTT 40.0 SECONDS (23.9-36.7) H 09/11/21 05:05 Sodium 134 mmol/L (136-145) L 09/14/21 05:39 Potassium 3.4 mmol/L (3.5-5.1) L 09/14/21 05:39 Chloride 98 mmol/L (98-107) 09/14/21 05:39 Carbon Dioxide 25 mmol/L (22-29) 09/14/21 05:39 Anion Gap 14.4 (5-19) 09/14/21 05:39 BUN 23 mg/dL (8-23) 09/14/21 05:39 Creatinine 1.1 mg/dL (0.7-1.2) 09/14/21 05:39 GFR Calculation Not Reportable 09/14/21 05:39 Glucose 107 mg/dL (65-115) 09/14/21 05:39 POC Glucose 106 mg/dL (70-110) 09/07/21 16:48 Calculated Osmolality 282 mOsm/kg (285-295) L 09/14/21 05:39 Lactate 1.8 mmol/L (0.5-2.2) 09/07/21 09:17 Calcium 8.2 mg/dL (8.5-10.5) L 09/14/21 05:39 Magnesium 1.9 mg/dL (1.7-2.3) 09/14/21 05:39 Total Bilirubin 1.2 mg/dL (0.15-1.2) 09/11/21 05:05 AST 22 U/L (0-40) 09/11/21 05:05 ALT 21 U/L (0-41) 09/11/21 05:05 Alkaline Phosphatase 153 IU/L (40-130) H 09/11/21 05:05 C-Reactive Protein 52.6 mg/L (0.0-4.9) H 09/07/21 09:17 Total Protein 4.2 g/dL (6.6-8.7) L 09/11/21 05:05 Albumin 2.5 g/dL (3.5-5.2) L 09/11/21 05:05 Globulin 1.7 g/dL (1.3-4.6) 09/11/21 05:05 Lipase 23 U/L (13-60) 09/07/21 09:17 Urine Color Yellow (Yellow) 09/07/21 09:39 Urine Appearance Clear (CLEAR) 09/07/21 09:39 Urine pH 6 (5-7) 09/07/21 09:39 Ur Specific [place] 1.025 (1.005-1.030) 09/07/21 09:39 Urine Protein Neg (Negative) 09/07/21 09:39 Urine Glucose (UA) Norm (Normal) 09/07/21 09:39 Urine Ketones Negative (Negative) 09/07/21 09:39 Urine Blood Neg (Negative) 09/07/21 09:39 Urine Nitrate Negative (Negative) 09/07/21 09:39 Urine Bilirubin 1+ (Negative) H 09/07/21 09:39 Urine Urobilinogen 4 mg/dL (Negative) H 09/07/21 09:39 Ur Leukocyte Esterase Negative (Negative) 09/07/21 09:39 Vancomycin Trough 17.0 ug/mL (10-15) H 09/09/21 03:30 Vitals Last Vital Signs Temp 97.7 F 09/14/21 10:53 Pulse 94 09/14/21 10:53 Resp 16 09/14/21 10:53 BP 101/51 09/14/21 10:53 Pulse Ox 93 09/14/21 10:53 Discharge Plan Discharge Patient Disposition: Home Health Service Condition: Stable Prescriptions: New furosemide 40 mg tablet 40 mg PO DAILY Qty: 30 0RF potassium chloride 10 mEq capsule, extended release 10 meq PO DAILY Qty: 30 0RF spironolactone 25 mg Tablet 25 mg PO DAILY 30 Days 0RF Continued lorazepam 2 mg tablet 2 mg PO BEDTIME 0RF cetirizine 10 mg capsule 10 mg PO DAILY PRN (Reason: Allergy Symptoms) 0RF omeprazole 20 mg capsule,delayed release(DR/EC) 20 mg PO DAILY PRN (Reason: Heartburn) 0RF ketoconazole 2 % cream 1 applic topical BID Qty: 60 2RF Rx Instructions: Apply twice daily to area in groin x 4 weeks then as needed for flares hydrocodone-acetaminophen 5-325 mg tablet 1 tab PO Q6H PRN (Reason: pain) Qty: 14 0RF albuterol sulfate 90 mcg/actuation Hfa Aerosol Inhaler 2 puff INHALATION QID PRN (Reason: Shortness Of Breath Or Wheezing) 0RF fluticasone propionate [Flonase Allergy Relief] 50 mcg/actuation [place],Suspension 2 spray INTRANASAL DAILY PRN (Reason: Allergy Symptoms) 0RF PNV cmb#[id number]-[id number] fumarate-FA [] 28 mg iron- 800 mcg Tablet 1 tab PO QAM 0RF iodine 150 mcg Tablet 150 mcg PO QAM 0RF allopurinol 100 mg Tablet 100 mg PO BID 0RF Tylenol Ex Str Rapid Release 500 mg Tablet 1,000 mg PO Q6H PRN (Reason: Pain) 0RF carboxymethylcellulose sodium 0.5 % Drops 1 drp ophthalmic (eye) Q4H PRN (Reason: Dry Eye(S)) 0RF prednisone 50 mg tablet See Rx Instructions .ROUTE .COMPLEX 0RF Rx Instructions: 100 mg orally daily on days 1-5 with the start of each chemo treatment vitamin B complex Tablet 1 tab PO DAILY 0RF memantine 5 mg Tablet 5 mg PO BID 0RF Vitamin D3 50 mcg (2,000 unit) Tablet 50 mcg PO DAILY 0RF tamsulosin 0.4 mg capsule 0.4 mg PO QAM 0RF Discontinued ibuprofen 800 mg tablet 800 mg PO TID PRN (Reason: Pain) 0RF Hold Instructions: Resume on 08/31/21. Levaquin 500 mg Tablet 500 mg PO DAILY 0RF Rx Instructions: rx written 08/08/21 7d/s No Action hydrochlorothiazide 25 mg tablet 25 mg PO DAILY 0RF Discharge Orders: Discharge Order (Routine); Ordered 09/14/21 Ordered By: Genesis Cabral Referrals: [facility]) [Outside] Mayra Garcia FNP [Primary Care Provider] - Discharge Diet: Usual diet Discharge Activity: Resume usual activity Patient Instructions: Opioid Safety Discharge Attestations Time Spent in Discharge Care*: greater than 30 min Quality Metrics Clinical Quality Measures [ No reported AMI, CVA or VTE this stay] Coding Level of Care Code Acute Chg FW DC note Diagnoses Hypokalemia E87.6 Obstructive uropathy N13.9 Lymphoma C82.88 Lymphoma type: non-Hodgkin Non-Hodgkin lymphoma type: follicular Follicular lymphoma type: other follicular type Lymphoma site: multiple regions Hypertension I10 Hypertension type: primary hypertension Chemotherapy induced neutropenia D70.1; T45.1X5A Liver cirrhosis K74.60 Weak R53.1 Abdominal ascites R18.8 Thrombocytopenia D69.6
--- NOTE | 2021-09-14 15:47 | PC.NURSE ---
Patient's head of penis is still swollen and so is the shaft. The head of the penis is red around the ureter and catheter insertion site. Villa catheter care and bath was completed. Cream was applied around head and shaft of penis, as well as upper inner thighs. I used folded pillow case to prop up the scrotum and penis in order to reduce edema. I also added ice to the area to reduce swelling.
[2021-09-14 15:49] VITALS: BP 101/58; PULSE 90; RESP 16; TEMP 36.4; O2SAT 96
[2021-09-14] MEDS: HYDROcodone-acetaminophen 5-325 mg Tablet 1 TAB PO (17:23)
== END 2021-09-14 18:15 | disposition home health service (06) | DRG 809 ==
LOC: ER 13:16 → MEDSURG 15:46
PROVIDERS: Hospitalist; Admitting Provider Internal Medicine; Emergency Provider Emergency Medicine; PCP Nurse Practitioner; Visit Provider Internal Medicine
DX: D70.1 Agranulocytosis secondary to cancer chemotherapy (principal); C82.98 Follicular lymphoma, unspecified, lymph nodes of multiple sites; R18.8 Other ascites; N13.8 Other obstructive and reflux uropathy; T45.1X5A Adverse effect of antineoplastic and immunosuppressive drugs, initial encounter; K74.60 Unspecified cirrhosis of liver; Z79.899 Other long term (current) drug therapy; D69.6 Thrombocytopenia, unspecified; N40.1 Benign prostatic hyperplasia with lower urinary tract symptoms; B35.6 Tinea cruris; R00.0 Tachycardia, unspecified; I10 Essential (primary) hypertension; R16.1 Splenomegaly, not elsewhere classified; E87.6 Hypokalemia; Z79.891 Long term (current) use of opiate analgesic; Z79.52 Long term (current) use of systemic steroids
CPT/HCPCS: 36415; 36416; 36591; 36592; 51702; 71045; 74177; 80048; 80053; 80202; 81003; 82962; 83605; 83690; 83735; 85007; 85025; 85610; 85730; 86140; 87040; 94640; 96365; 96367; 96372; 96375; 97110; 97116; 97161; 97530; 99285; G0378; J0692; J1442; J1940; J2543; J3010; J3370; J3475; J3480; J3535; J7040; J7050; Q9967

== ENCOUNTER 2021-09-18 07:52 | Outpatient (RCR) | payer OTHER, SELFPAY ==
[2021-09-18 08:30] LABS: Basophils # 0.1 10^3/uL (0.0-0.1); Basophils % 1.7 %; Eosinophils % 0.7 %; Hematocrit 29.6 % (42.0-52.0); Lymphocytes # 0.3 10^3/uL (0.8-4.8); Lymphocytes % 7.6 %; Mean Corpuscular HGB Conc 33.8 g/dL (30.0-36.0); Mean Corpuscular Hemoglobin 31.8 pg (28.0-34.0); Mean Corpuscular Volume 94.3 fl (80-94); Mean Platelet Volume 11.2 fL (7.4-10.4); Monocytes # 0.5 10^3/uL (0.2-0.9); Neutrophils # 3.16 10^3/uL (1.8-7.7); Neutrophils % 75.4 %; Nucleated Red Blood Cells % 0 %; Platelet Count 94 10^3/cmm (130-400); Red Blood Count 3.14 10^6/uL (4.1-5.3); Red Cell Distribution Width 18.1 % (12.1-15.1); White Blood Count 4.2 10^3/uL (4.0-10.0)
[2021-09-18 08:50] LABS: Alanine Aminotransferase 25 U/L (0-41); Alkaline Phosphatase 177 IU/L (40-130); Anion Gap 14.1 (5-19); Aspartate Amino Transferase 38 U/L (0-40); Blood Urea Nitrogen 29 mg/dL (8-23); Calcium 8.7 mg/dL (8.5-10.5); Carbon Dioxide 24 mmol/L (22-29); Chloride 97 mmol/L (98-107); Globulin 2.4 g/dL (1.3-4.6); Glucose 132 mg/dL (65-115); Lactate Dehydrogenase 304 U/L (135-225); Osmolality Calculated 280 mOsm/kg (285-295); Potassium 4.1 mmol/L (3.5-5.1); Sodium 131 mmol/L (136-145); Total Bilirubin 1.3 mg/dL (0.15-1.2); Total Protein 5.4 g/dL (6.6-8.7); Uric Acid 6.1 mg/dL (3.4-7.0)
--- NOTE | 2021-09-20 17:58 | ONC FU_ITS ---
Dr. Leonardo follow up note Patient: Johnathan Montes De Oca Unit #: [id number]: 1945 Dicatated By: Emily Leonardo M.D.Date of Visit:Sep 18, 2021 Onc Med Follow-up/Prog Note History of Present Illness: Mr. Montes De Oca is a 76-year-old gentleman with history of lymphocytosis. 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 At that time the lymphocytosis reached about 20,000 but subsequently decreased spontaneously. CT scan of chest/abdomen/pelvis done at that time shows mild lymph nodes above and below diaphragm but they were too small to biopsy. As per patient he was followed by his PMD and oncologist at the [facility] and on 11/07/2015 he underwent bone marrow biopsy which was nondiagnostic for B-cell lymphoma, flow cytometry done on 11/07/2015 showed no clonal process. He was also diagnosed with hepatic cirrhosis and splenomegaly. Mr Montes De Oca said he didn't have any specific issues until recently. He started having back pain for which he was referred to Dr. Leyva at a local pain clinic. A CT scan of chest abdomen pelvis was obtained on 08/09/2019 which was compared with CT scan from 11/06/2016, October 2015 and April 2015. And it showed stable appearance of mediastinal and hilar and axillary lymph nodes; Mild emphysema. The was interval development of bulky retroperitoneal and mesenteric lymphadenopathy, measuring about 4.3 cm, suspicious for primary cindy malignancy versus metastatic disease versus reactive; Extensive diverticulosis of descending and sigmoid colon; Cirrhosis, ascites, splenomegaly. Degenerative changes of spine, no fractures were reported. On 08/10/2019, Mr Montes De Oca went to see a [place] medical oncologist, Dr. Chato Beasley in [place] and as per his recommendations- due to thepatient's history of low-grade lymphoma and (it was not clear whether symptoms are attributed to adenopathy/low-grade lymphoma or other process, cirrhosis) a PET/CT scan and lymph node biopsy and consider bone marrow biopsy. 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 Mr Montes De Oca denied any night sweats, denies any fever or weight loss. Denies any lower extremity numbness or weakness denies any urine or stool incontinence.No melena hematochezia, no nosebleed, no jaundice. But abdominal fullness due to ascites. He was referred to interventional radiology for ultrasound-guided paracentesis patient underwent sonogram on 09/20/2019 which showed some mild amount of ascites visualized in 4 abdominal quadrant, inadequate fluid for paracentesis at that time. He underwent follow-up CT PET scan on 11/06/2019 which showed FDG positive lymphadenopathy from the level of head and neck to the level of pelvis. No evidence of splenic or marrow or extranodal involvement on February 05, 2020 patient developed difficulty in swallowing and dysphagia and went to emergency room where he underwent CT scan of the neck which showed heterogeneous enhancing mass extending from posterior left aspect of tongue base to the adjacent oropharyngeal mucosa measuring 3.1 x 2.6 cm and also there was a enlarged level 3 and level 7 lymph nodes on the left, 3.3 x 2.0 cm size., Patient was transferred to [facility] where he was diagnosed with oropharyngeal abscess he was drained and treated with IV antibiotic subsequently discharged home on oral antibiotic h/o chronic lower back pain for which he has been to pain clinic where as per patient, he was given 'injection' about 4 months ago with some help but still having mid to lower back pain and sometimes problem and walking Mr Montes De Oca underwent MRI of the spine on 05/30/2020 and discussed the findings which showed moderately enlarged spleen with a maximum length 17 cm, retroperitoneal lymphadenopathy index lymph node is 6 x 3 x 4 cm inferior medial to the right kidney bulky partially visualized left thoracic and left lymph nodes measuring 2.9 cm, no evidence of bone mets, moderate central canal stenosis L4-5 with shallow central disc protrusion and impingement traversing L5 nerve roots immediately. Moderate right L4-5 foraminal narrowing. Shallow central protrusion T7-8 with slight effacement of ventral thecal sac and slight contacting of the thoracic cord. No significant central canal stenosis. discussed with Mr Montes De Oca further treatment options. Because of progressive back pain which could be due to bulky retroperitoneal lymphadenopathy and his splenomegaly could be due to portal hypertension due to cirrhosis of the liver or lymphomatous infiltration with low-grade lymphoma and now causing persistent progressive bicytopenia. was recommended that Mr Montes De Oca consider trial of Rituxan 375 mg/m??? weekly x4-6 and then monitor his blood counts as well as central lymphadenopathy, there is a possibility with improvement in central lymphadenopathy his back pain may improve if not then will consult orthopedic for spine evaluation and if bicytopenia persist then it could be due to splenic sequestration or considering his age underlying myelodysplasia, will consider bone marrow evaluation. Mr Montes De Oca has elected to try the Ritxuan and began his first week treatment on 06/21/2020, Till July 12, 2020. Follow-up CT scan of chest abdomen pelvis after 4 doses of weekly Rituxan done on July 19, 2020 showed persistent significant adenopathy throughout the chest abdomen pelvis as compared to CT PET scan done on November 06, 2019 in the retroperitoneum the lymph node have decreased by 5 mm in short axis. Also slight improvement in the left supraclavicular and cervical chain lymph nodes lymph nodes in the mediastinum and hilum are stable. Continued stable splenomegaly of 17 cm and cirrhotic liver Bone marrow evaluation done on October 19, 2020 showed mildly abnormal features including hypercellularity, erythroid predominance/hyperplasia, subtle dyspoietic features in the erythroid and megakaryocyte lineage, as well as increased storage iron, not entirely diagnostic, do raise the possibility of early/evolving MDS. FISH for MDS showed no abnormality, flow cytometry showed no overtly aberrant myeloid or lymphoid population. Follow-up CT scan of the chest abdomen pelvis done on February 07, 2021, showed no acute pulmonary disease, further regression in the size of thoracic lymph nodes, the left supraclavicular area lymph node measured 1.6 x 1 cm compared to 2.2 x 2.2 previously negative for axillary lymphadenopathy negative for mediastinal lymphadenopathy and there is a further regression of mediastinal lymph nodes compared to prior imaging, retroperitoneal lymphadenopathy is present although significantly decreased from seen on CT scan done in July 2020, normal to 2.9 x 2.1 compared to 4.5 x 4.1 cm previously. liver shows capsular surface of liver is mildly nodular and patient has moderate splenomegaly but stable no focal splenic mass seen Follow-up CT scan of chest abdomen pelvis done on August 14, 2021 showed interval significant progression of retroperitoneal lymphadenopathy since February 07, 2021, the largest cluster of lymph nodes in the right distal para-aortic location measuring 6.2 x 3.7 cm has significantly increased in size since prior study and there are numerous retroperitoneal lymph nodes which have increased in size. Lymph nodes within the chest including axilla mediastinum and hilum also increase in size of the largest at the right hilum still only 10 mm. Moderate diffuse ascites is new. New small bilateral pleural effusion. Cirrhosis. Mild progressive enlargement of spleen. 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, bilirubin gone up to 3 on August 14, 2021 and hemoglobin dropped to 10.9 g from 14.7 in January 2021, he was started on high-dose prednisone 1 mg/kg for 5 days, follow-up lab work-up showed bilirubin gone down to 1.7 and hemoglobin improved to 11.7 g on August 23, 2021 .Started on R-CVP on August 29, 2021 for progressive lymphoma probably causing hemolytic anemia Echocardiogram was ordered to assess cardiac status as patient was having bilateral lower extremity edema and ascites there was a concern regarding congestive heart failure but it was a technically difficult study so it was not performed so MUGA scan was ordered.Which was done on August 24, 2021 found ejection fraction 74% Venous Doppler study of lower extremities done on August 17, 2021 showed no evidence of DVT Patient was admitted to hospital on September 07, 2021 with obstructive uropathy, hypokalemia and progressive ascites, shortness of breath and pancytopenia treated with antibiotics, Villa's cath was placed in and his abdominal distention improved patient did not need abdominal paracentesis electrolytes were supplemented CT scan of abdomen done on September 07, 2021 showed large amount of ascites throughout the abdomen cirrhosis of the liver with splenomegaly and extensive retroperitoneal lymphadenopathy unchanged, Came for follow-up, complaining of generalized weakness and fatigue and progressive abdominal distention also not very happy with Villa's cath. But no fever chills, no nausea or vomiting, no diarrhea or constipation, no night sweats. Patient tolerated first cycle of chemotherapy with R-CVP reasonably well but got admitted to hospital week after chemotherapy, now considering hospice as his is having hard time taking care of him at home. Medications: Allopurinol 1 Tablet (of 100 mg) Oral b.i.d., Ativan 1 Tablet (of 2 mg) Oral b.i.d., Cetirizine HCl 1 Tablet (of 10 mg) Oral daily, Flonase 1 (50 mcg/act) Suspension Nasal PRN, HYDROcodone-Acetaminophen (5-325 mg) Tablet Oral Take as Directed, ProAir HFA 1 Inhalation (of 108 (90 base) mcg/act) Aerosol, solution Inhalation PRN, Tamsulosin HCl 1 Capsule (of 0.4 mg) Oral daily, Zofran (8 mg) Tablet Oral Take as Directed Allergies: Cortisone Acetate, darvon, and quiNINE Sulfate. Review of Systems: Review of Systems is not available for this patient. Vital Signs: Performed on Sep 18, 2021 10:03 Height - 72.00 in Temperature - 98.4 F Pulse - 99 /min Respiration - 20 /min BP - 118/69 mm(hg) O2 Sat - 96 % Pain - 9 Fatigue - 8 Performance Status: 3 - Capable of only limited self-care, confined to bed or chair more than 50% of waking hours. (ECOG) Physical Examination: ENMT - Dry oral mucosa, poor oral hygiene, no thrush or jaundice, Respiratory - Bibasilar crackles, poor air entry, Cardiovascular - Regular rate and rhythm of heart, Abdomen - Distended with tense ascites, distant bowel sounds present, Extremities - 2+ edema bilaterally. Lab/Imaging: Test performed on Sep 07, 2021 08:15 WBC 0.4 10 3/uL RBC 2.95 10 6/uL HGB 9.5 g/dL HCT 27.9 % MCV 94.6 fl MCH 32.2 pg MCHC 34.1 g/dL RDW 17.6 % Platelet Count 33 10 3/cmm MPV 11.4 fL Neutrophils 0.14 10 3/uL Lymphocytes 0.1 10 3/uL Monocytes 0.2 10 3/uL Eosinophils 0.0 10 3/uL Basophils 0.0 10 3/uL Neutrophil % 33.3 % Lymphocyte % 23.8 % Monocyte % 35.7 % Eosinophil % 2.4 % Basophils % 0.0 % NRBC % 0 % CBC Slide Review Slide Review Perform SLIDE REVIEW AGREES WITH AUTOMATED RESULTS ST Test performed on Sep 05, 2021 12:50 LDH (Total) 453 U/L Sodium 135 mmol/L Uric Acid 6.7 mg/dL Potassium 3.4 mmol/L Chloride 102 mmol/L CO2 24 mmol/L Anion Gap 12.4 BUN 27 mg/dL Creatinine 0.7 mg/dL Cr Clearance (Est) 134.7800 mL/min Glucose 114 mg/dL Osmolality - Calculated 286 mOsm/kg Calcium 9.2 mg/dL Protein, Total 5.0 g/dL Albumin 2.9 g/dL Globulin 2.1 g/dL Bilirubin, Total 2.1 mg/dL ALT (SGPT) 40 U/L AST (SGOT) 35 U/L Alkaline Phosphatase 110 IU/L Impression: History of low-grade, follicular lymphoma, CD 10 and CD19 positive diagnosed in 2004, recently done CT scan of chest abdomen pelvis, when compared with CT scan from October 2016 showed stable, small mediastinal lymphadenopathy, hilar and axillary lymphadenopathy. But progressive/bulky retroperitoneal and mesenteric lymphadenopathy increased from 2017, one of the largest measuring 4.3 cm chain. Degenerative changes of spine no fracture seen. Hepatic cirrhosis/splenomegaly/ascites Mild thrombocytopenia CBC done on 08/09/2002 shows white blood count 6.1 hemoglobin 14.9 crit 44.3 platelets 90,000 lymphocytes 47.9% neutrophil 38.2%. Chronic back pain, etiology unclear degenerative joint disease versus pressure due to retroperitoneal lymphadenopathy. MRI scan spine findings which was done on May 30, 2020 and showed moderately enlarged spleen with a maximum length 17 cm, retroperitoneal lymphadenopathy index lymph node is 6 x 3 x 4 cm inferior medial to the right kidney bulky partially visualized left thoracic and left lymph nodes measuring 2.9 cm, no evidence of bone mets, moderate central canal stenosis L4-5 with shallow central disc protrusion and impingement traversing L5 nerve roots immediately. Moderate right L4-5 foraminal narrowing. Shallow central protrusion T7-8 with slight effacement of ventral thecal sac and slight contacting of the thoracic cord. No significant central canal stenosis. discussed with Mr Montes De Oca further treatment options. Because of progressive back pain which could be due to bulky retroperitoneal lymphadenopathy and his splenomegaly could be due to portal hypertension due to cirrhosis of the liver or lymphomatous infiltration with low-grade lymphoma and now causing persistent progressive bicytopenia. recommended that Mr Montes De Oca consider trial of Rituxan 375 mg/m??? weekly x4-6 and then monitor his blood counts as well as central lymphadenopathy, there is a possibility with improvement in central lymphadenopathy his back pain may improve if not then will consult orthopedic for spine evaluation and if bicytopenia persist then it could be due to splenic sequestration or considering his age underlying myelodysplasia, will consider bone marrow evaluation. Mr Montes De Oca started his first of four weeks of Rituxan on . Follow-up CT scan of chest abdomen pelvis done after 4 doses of weekly Rituxan on July 19, 2020 showed persistent significant adenopathy throughout the chest abdomen pelvis compared to CT PET scan done on November 06, 2019 there is a minimal change. And retroperitoneal lymph node have decreased by 5 mm now measuring 4.3 cm also slight improvement in left supraclavicular and cervical chain lymph nodes and stable mediastinal and hilar lymph nodes. Continued stable splenomegaly of 17 cm length. Cirrhotic liver MRI scan of spine done on May 30, 2020 showed retroperitoneal lymph node was 6 x 3.4 cm and as mentioned above the largest lymph node is 4.3 cm which means there is a significant response ? Bone marrow evaluation done on October 19, 2020 showed mildly abnormal features including hypercellularity, erythroid predominance/hyperplasia, subtle dyspoietic features in the erythroid and megakaryocyte lineage as well as increased storage iron, future not entirely diagnostic but do raise possibility of early/evolving MDS, FISH for MDS panel was unremarkable, flow cytometry showed no aberrant myeloid or lymphoid population. Plan: Discussed with patient regarding his labs white blood count 4.2 hemoglobin 10 hematocrit 29.6 platelets 94,000 CMP within normal limit except sodium 131, creatinine one-point bilirubin 1.3 compared to 2.1 previously and 3.4 prior to that LDH 304 compared to 918 prior to the treatment Clinically, patient in mild to moderate distress due to progressive ascites and lower extremity edema which could be multifactorial including due to cirrhosis as his MUGA scan shows ejection fraction was 74% other possibility could be due to lymphoma but less likely. Patient was started on R-CVP because of progressive lymphoma as well as now presented with hemolytic anemia and responded very well to first cycle of chemotherapy but patient has a social issue where his cannot take care of him and moreover patient does not want to continue with further treatment, knowing the risk versus benefits and requesting hospice care, patient was informed that his disease is treatable. Patient acknowledged but still requesting supportive care and hospice, in that case we will refer him to hospice. Signed By: Emily Leonardo M.D. <<Signature on File>>
== END 2021-10-13 23:59 | disposition home or self-care (01) ==
LOC: ONCMED 07:52
PROVIDERS: PCP Nurse Practitioner; Visit Provider Internal Medicine Hematology & Oncology
DX: C82.08 Follicular lymphoma grade I, lymph nodes of multiple sites (principal); K74.60 Unspecified cirrhosis of liver; R16.1 Splenomegaly, not elsewhere classified; R18.8 Other ascites; D69.6 Thrombocytopenia, unspecified; M51.36 Other intervertebral disc degeneration, lumbar region; M48.061 Spinal stenosis, lumbar region without neurogenic claudication; Z79.899 Other long term (current) drug therapy; Z92.21 Personal history of antineoplastic chemotherapy; Z92.3 Personal history of irradiation; Z51.5 Encounter for palliative care
CPT/HCPCS: 36591; 80053; 83615; 84550; 85025; 99215